=== PATIENT | female | born 1950 | race Caucasian/White ===

== ENCOUNTER 2021-12-07 21:46 | Emergency (ER) | payer MEDICARE, BC, SELFPAY ==
[2021-12-07 22:06] VITALS: BP 138/67; PULSE 66; RESP 18; TEMP 36.8; O2SAT 97; BMI 29.4
--- NOTE | 2021-12-07 22:54 | ED.GENADULT ---
HPI - General Adult General Time Seen by Provider: 22:48 Date Seen: 12/07/21 Chief complaint: Arrhythmia/Palpitations Stated complaint: Ablasion on Friday heart rate fast Time Seen by Provider: 12/07/21 22:30 Source: patient Mode of arrival: ambulatory Limitations: no limitations History of Present Illness HPI narrative: 71-year-old female who comes in today with palpitations. She has history of SVT and atrial fibrillation, had an ablation done 4 days ago. Today she has had some intermittent faster heart rates up to 103 accompanied by some lightheadedness, no chest pain or shortness of breath. She was on metoprolol and sotalol, the sotalol was stopped after for ablation. She denies any other new medications or concerns. She is anticoagulated. Related Data Allergies Allergy/AdvReac Type Severity Reaction Status Date / Time Penicillins Allergy Verified 12/07/21 22:05 amlodipine Allergy Uncoded 12/07/21 22:06 Review of Systems Status of ROS: Reports: 10 or more systems reviewed and unremarkable except as noted in History and below PFSH PFSH Social History Smoking Status: Never smoker Do you use any of these nicotine containing products: None Second hand tobacco smoke exposure: No How often do you have a drink containing alcohol: monthly or less How many standard drinks containing alcohol do you have on a typical day: 1 or 2 How often do you have six or more drinks on one occasion: Never AUDIT-C Alcohol total score: 1 Non-prescribed substance use: denies use service: No Exam Const: Vital Signs, click to edit/add: Vital Signs - 24 hr 12/07/21 22:06 Temperature 98.2 F Pulse Rate [Apical ] 66 Respiratory Rate 18 Blood Pressure [Le ft Upper Arm] 138/67 Pulse Oximetry 97 Oxygen Delivery Me thod Room Air Documenting provider has reviewed patient's vital signs: yes Common normals: no apparent distress, oriented x3, alert and well nourished HENMT: Common normals: normocephalic, head/scalp atraumatic, external ears normal and external nose normal Head and scalp: normocephalic and atraumatic Nose: external nose normal External ear: external ears normal Eye: Common normals: PERRL and conjunctivae normal Conjunctiva: conjunctiva(e) normal Pupil: PERRL Neck & C-Spine: Common normals: full ROM, no lymphadenopathy and supple Chest: Common normals: palpation of chest normal Resp: Common normals: normal respiratory effort and clear to auscultation bilaterally Auscultation: clear to auscultation bilaterally Cardio: Common normals: regular rate, regular rhythm and no murmurs Rate: regular rate Rhythm: regular rhythm GI: Common normals: Normal to inspection, nondistended, normoactive bowel sounds present, soft to palpation and non-tender Palpation: soft : Common normals: no CVA tenderness Bladder/kidney exam: no CVA tenderness Back & Pelvis: Common normals: no CVA tenderness and thoracic and lumbar spine normal to inspection Extremity: Common normals: normal to inspection, full ROM and no pedal edema Neuro: Common normals: oriented x3, CN's II-XII intact bilaterally and no focal motor deficits Sensorium/orientation: alert Psych: Common normals: mental status grossly normal Skin: Common normals: no rashes or lesions noted General skin exam: no rashes or lesions noted Course Course Hospital Course: Patient seen and examined, prior records are reviewed. Patient presents with palpitations today after having had an ablation a couple of days ago. Appears comfortable and in sinus rhythm here, EKG is reassuring. Labs ordered to evaluate for electrolyte NM to use that could be causing symptoms and if these are reassuring, will discuss with Cardiology. Reevaluation(s) Reevaluation #1: Basic panel is reassuring. Troponin is minimally elevated at 0.15 which is not unexpected with patient's recent ablation. Care was discussed with cardiology at [facility]. He agrees that the elevated troponin is related to recent ablation, especially in absence of chest pain or shortness of breath. Does not recommend any medication changes at this point and advises that palpitations may persist for up to 3-4 weeks. Time: 00:03 Vital Signs Vital signs: Initial Vital Signs Temperature 98.2 F 12/07/21 22:06 Temperature Source Temporal Artery Scan 12/07/21 22:06 Pulse Rate 66 12/07/21 22:06 Pulse Rhythm 12/07/21 22:06 Respiratory Rate 18 12/07/21 22:06 Blood Pressure 138/67 12/07/21 22:06 Blood Pressure Mean 90 12/07/21 22:06 Blood Pressure Position Supine 12/07/21 22:06 Pulse Oximetry 97 12/07/21 22:06 Oxygen Delivery Method 12/07/21 22:06 Vital Signs Temperature 98.2 F 12/07/21 22:06 Pulse Rate 66 12/07/21 22:06 Respiratory Rate 18 12/07/21 22:06 Blood Pressure 138/67 12/07/21 22:06 Pulse Oximetry 97 12/07/21 22:06 Oxygen Delivery Method 12/07/21 22:06 Temperature 98.2 F 12/07/21 22:06 Pulse Rate 66 12/07/21 22:06 Respiratory Rate 18 12/07/21 22:06 Blood Pressure 138/67 12/07/21 22:06 Pulse Oximetry 97 12/07/21 22:06 Oxygen Delivery Method 12/07/21 22:06 Medical Decision Making Medical Records Medical records reviewed: Yes I reviewed the patient's medical records Lab Data Lab results reviewed: Yes I reviewed the patient's lab results Labs: Lab Results 12/07/21 12/07/21 Range/Units 23:15 23:15 Sodium 136 (135-149) mmol/L Potassium 3.7 (3.6-5.1) mmol/L Chloride 103 (96-114) mmol/L Carbon Dioxide 26 (20-32) mmol/L BUN 23 (7-30) mg/dL Creatinine 1.2 (0.5-1.5) mg/dL Estimated Creat Clear 36.59 Estimated GFR 48 ml/min Glucose 114 (60-115) mg/dL Calcium 9.0 (8.4-10.6) mg/dL Magnesium 1.8 (1.5-2.6) mg/dL POC Troponin I 0.15 H (0.01-0.04) ng/ml ECG Data Attestation: I personally reviewed and interpreted this ECG as follows: Prior ECG tracings: available for review Interpretation: Performed at 10:19 p.m. demonstrates normal sinus rhythm rate 65, no acute ST elevations or depressions, normal intervals, normal axis, QTC 436, P are 152. Compared to prior done at [facility] on December 05, previously seen left axis deviation is absent today. Discharge Plan Discharge Clinical Impression: Palpitations, S/P ablation of atrial fibrillation Condition: Improved Instructions: Heart Palpitations (DC) Additional Instructions: If your symptoms last longer than 1 hour, take 1/2 tablet of metoprolol. If you have chest pain, return to the emergency department. Follow Up/Referrals: Erika Benito MD [Primary Care Provider] - Stand Alone Forms: Message[employer] Info Instructions
[2021-12-07 23:00] VITALS: BP 136/60; PULSE 69; RESP 16; O2SAT 97
[2021-12-07 23:31] LABS: Troponin, Point-of-Care* 0.15 ng/ml (0.01-0.04)
[2021-12-07 23:48] LABS: Chloride* 103 mmol/L (96-114); Potassium* 3.7 mmol/L (3.6-5.1); Sodium* 136 mmol/L (135-149)
[2021-12-07 23:50] VITALS: BP 137/65; PULSE 68; RESP 16; O2SAT 99
[2021-12-07 23:51] LABS: Blood Urea Nitrogen* 23 mg/dL (7-30); Carbon Dioxide* 26 mmol/L (20-32); Creatinine* 1.2 mg/dL (0.5-1.5); Est. Creatinine Clearance* 36.59; Estimated Glomerular Filt Rate 48 ml/min; Glucose* 114 mg/dL (60-115)
[2021-12-07 23:52] LABS: Magnesium* 1.8 mg/dL (1.5-2.6)
== END 2021-12-08 00:38 | disposition home or self-care (01) ==
PROVIDERS: Emergency Provider Family Medicine; PCP Family Medicine
DX: R00.2 Palpitations (principal)
CPT/HCPCS: 36415; 80048; 83735; 84484; 93005; 99284

== ENCOUNTER 2021-12-09 14:06 | Emergency (ER) | payer MEDICARE, BC, SELFPAY ==
[2021-12-09 14:13] VITALS: BP 172/82; PULSE 77; RESP 16; TEMP 36.8; O2SAT 98; BMI 29.7
--- NOTE | 2021-12-09 14:32 | ED.GENADULT ---
HPI - General Adult General Chief complaint: Allergic Reaction Stated complaint: Med Reaction, wants to switch to coumadin Time Seen by Provider: 12/09/21 14:10 History of Present Illness HPI narrative: Pt is a 71 year old with a history of Cardiomyopathy SP ablation of both Atrial Fibrillation and SVT 6 days ago at [facility] who presents after developing flushing and prickling sensation after both Eliquis and Pradaxa dosing. Pt last took Eliquis yesterday 1/2 dose. Pt not comfortable taking either medication any further. She feels fine with no palpitations or related symptoms. Cardiology asked that she be started on Lovenox plus Coumadin with outpt INR. No further workup recommended. Pt seen for tachycardia here in ED after ablation which improved with an extra dose of Metoprolol. Upset but otherwise feels fine. Related Data Home Medications Medication Instructions Recorded Confirmed alprazolam 0.5 mg tablet 0.25 mg PRN 12/09/21 hydrochlorothiazide 25 mg tablet 25 mg PO DAILY 12/09/21 12/09/21 levothyroxine 112 mcg tablet 112 mcg PO DAILY 12/09/21 12/09/21 losartan 100 mg tablet 100 mg PO DAILY 12/09/21 12/09/21 metoprolol tartrate 50 mg tablet 50 mg PO Q12H 12/09/21 12/09/21 pantoprazole 40 mg tablet,delayed 40 mg PO Q12H 12/09/21 12/09/21 release rosuvastatin 5 mg tablet mg DAILY 12/09/21 sucralfate 1 gram tablet 1 g PRN 12/09/21 Previous Rx's Medication Instructions Recorded enoxaparin 80 mg/0.8 mL 80 mg (0.8 mL) subcut Q12H 12/09/21 subcutaneous syringe (Lovenox) Ablation #8 mL warfarin 5 mg tablet 5 mg PO DAILY Ablation #14 tabs 12/09/21 Allergies Allergy/AdvReac Type Severity Reaction Status Date / Time dabigatran etexilate Allergy redness Verified 12/09/21 14:21 [From Pradaxa] and itching Penicillins Allergy Verified 12/07/21 22:05 rivaroxaban [From Xarelto] Allergy Verified 12/09/21 14:21 amlodipine Allergy Uncoded 12/07/21 22:06 Review of Systems Status of ROS: Reports: 10 or more systems reviewed and unremarkable except as noted in History and below [facility] Surgical History (Updated 12/09/21 @ 14:45 by Kareem Gonzalez MD) History of cardiac radiofrequency ablation Social History Smoking Status: Never smoker Do you use any of these nicotine containing products: None Second hand tobacco smoke exposure: No How often do you have a drink containing alcohol: monthly or less How many standard drinks containing alcohol do you have on a typical day: 1 or 2 How often do you have six or more drinks on one occasion: Never AUDIT-C Alcohol total score: 1 Non-prescribed substance use: denies use service: No Exam Narrative: Exam Narrative: EXAM GENERAL: Patient appears comfortable and well. EYES: No scleral icterus. THYROID: no thyroid nodules or thyromegaly. LYMPH: No supraclavicular or cervical lymphadenopathy. SKIN: Visible skin seen during exam normal or with benign process only. EXT: No dependent lower extremity pedal edema. HEART: Regular rate and rhythm with no murmurs, rubs, or gallops.Distant heart tones. LUNGS: Clear to auscultation bilaterally with no crackles or wheezes. ABD: Soft, non tender, non distended. PSYCH: Good eye contact, speech is not pressured. Const: Vital Signs, click to edit/add: Vital Signs - 24 hr 12/09/21 14:13 Temperature 98.2 F Pulse Rate [Right Pulse Oximeter] 77 Respiratory Rate 16 Blood Pressure [Le ft Upper Arm] 172/82 H Pulse Oximetry 98 Oxygen Delivery Me thod Room Air Course Course Hospital Course: Spoke with Triage nurse at [facility] who had been in touch with Dr. Gerald Perez who recomended no further workup as long as she is feeling well but bridge therapy with Lovenox onto Coumadin with outpt follow up. Vital Signs Vital signs: Initial Vital Signs Temperature 98.2 F 12/09/21 14:13 Temperature Source Temporal Artery Scan 12/09/21 14:13 Pulse Rate 77 12/09/21 14:13 Respiratory Rate 16 12/09/21 14:13 Blood Pressure 172/82 H 12/09/21 14:13 Blood Pressure Mean 112 12/09/21 14:13 Blood Pressure Position Sitting 12/09/21 14:13 Pulse Oximetry 98 12/09/21 14:13 Oxygen Delivery Method 12/09/21 14:13 Vital Signs Temperature 98.2 F 12/09/21 14:13 Pulse Rate 77 12/09/21 14:13 Respiratory Rate 16 12/09/21 14:13 Blood Pressure 172/82 H 12/09/21 14:13 Pulse Oximetry 98 12/09/21 14:13 Oxygen Delivery Method 12/09/21 14:13 Temperature 98.2 F 12/09/21 14:13 Pulse Rate 77 12/09/21 14:13 Respiratory Rate 16 12/09/21 14:13 Blood Pressure 172/82 H 12/09/21 14:13 Pulse Oximetry 98 12/09/21 14:13 Oxygen Delivery Method 12/09/21 14:13 Medical Decision Making MDM Narrative Medical decision making narrative: Reviewed the case with Cardiology and reviewed previous ED note. Pt has a Cardiomyopath SP recent ablation and requires anticoagulation. She has normal pulse now and shows no signs of CHF. Will set up Outpt bridge therapy Lovenox to Coumadin. No signs of any significant allergic reaction. Discharge Plan Discharge Clinical Impression: Cardiomyopathy Patient Disposition: Home, Self-Care Condition: Stable Instructions: Warfarin (By mouth), Enoxaparin (By injection) Additional Instructions: Lovenox and Coumadin as presribed Continue current medications Return alli if probles develop Call Primary Doctor tomorrow to set up outpt INR clinic Activity Level: Activity as Tolerated Discharge Diet: Regular Prescriptions: New warfarin 5 mg tablet 5 mg PO DAILY Qty: 14 0RF enoxaparin [Lovenox] 80 mg/0.8 mL syringe 80 mg subcut Q12H Qty: 8 0RF No Action alprazolam 0.5 mg tablet 0.25 mg PRN Label Comments: TAKE ONE TABLET BY MOUTH DAILY IF NEEDED FOR ANXIETY. RARE USE . hydrochlorothiazide 25 mg tablet 25 mg PO DAILY Label Comments: TAKE ONE TABLET BY MOUTH ONCE DAILY levothyroxine 112 mcg tablet 112 mcg PO DAILY Label Comments: TAKE 1 TABLET BY MOUTH BEFORE BREAKFAST. losartan 100 mg tablet 100 mg PO DAILY Label Comments: TAKE 1 TABLET BY MOUTH ONCE DAILY. metoprolol tartrate 50 mg tablet 50 mg PO Q12H Label Comments: TAKE 1 TABLET (50MG) BY MOUTH TWICE A DAY pantoprazole 40 mg tablet,delayed release (DR/EC) 40 mg PO Q12H Label Comments: TAKE 1 TABLET BY MOUTH IN THE MORNING AND 1 TABLET IN THE EVENING TAKE BEFORE MEALS (TAKE FOR 1 MONTH POST ABLATION THEN RESUME 1 TABLET DAILY) rosuvastatin 5 mg tablet DAILY Label Comments: TAKE ONE TABLET BY MOUTH AT BEDTIME sucralfate 1 gram tablet 1 g PRN Label Comments: TAKE ONE TABLET BY MOUTH TWICE DAILY NEEDED Follow Up/Referrals: Erika Benito MD [Primary Care Provider] - Stand Alone Forms: Zero9 Info Instructions
[2021-12-09] MEDS: WARFARIN 5 MG TABLET PO (15:23)
[2021-12-09] MEDS: ENOXAPARIN 80 MG/0.8 ML INJ SUBCUT (15:25)
--- NOTE | 2021-12-09 15:55 | ED.NURSE ---
Checked on pt. States that she is starting to feel flush in her face. Dr Gonzalez updated. Pt placed on cardiac nurse practitioner, continuous b/p and pulse oximetry. Per Dr Gonzalez, continue to monitor pt until 1620. No IV at this time per
[2021-12-09 16:10] VITALS: BP 134/73; PULSE 67; RESP 12; O2SAT 97
[2021-12-09 16:20] VITALS: BP 149/72; PULSE 70; RESP 15; O2SAT 98
--- NOTE | 2021-12-09 16:28 | ED.NURSE ---
reaction is not getting worse. ok to d/c per Dr Gonzalez. Pt d/c to home with daughter
== END 2021-12-09 16:25 | disposition home or self-care (01) ==
LOC: ED 14:59
PROVIDERS: Emergency Provider Internal Medicine; PCP Family Medicine
DX: Z98.890 Other specified postprocedural states (principal); T88.7XXA Unspecified adverse effect of drug or medicament, initial encounter; I42.9 Cardiomyopathy, unspecified
CPT/HCPCS: 96372; 99283; 99284; A9270; J1650

== ENCOUNTER 2022-02-15 15:41 | Emergency (ER) | payer MEDICARE, BC, SELFPAY ==
[2022-02-15 15:54] VITALS: BP 183/92; PULSE 77; RESP 18; TEMP 36.8; O2SAT 99
[2022-02-15 16:00] VITALS: BP 172/88; PULSE 75; RESP 16; O2SAT 98
--- NOTE | 2022-02-15 16:11 | CRLHL7_ITS ---
For Patients: As a result of the Century Cures Act, medical imaging exams and procedure reports are released immediately into your electronic medical record. You may view this report before your referring provider. If you have questions, please contact your health care provider. Indication: Headache Technique: Volumetric multidetector CT images of the head were obtained without the administration of low osmolar intravenous contrast. Comparison: CT head December 09, 2019 Findings: There is no intra-axial or extra-axial fluid collection. There is no mass effect or midline shift. There is age-related cortical atrophy with mild sulcal widening and ex vacuo dilatation of the lateral ventricles. There are chronic small vessel disease changes in the subcortical and periventricular white matter without lost cabral-white differentiation. The orbits and their contents are grossly within normal limits. The bony calvarium is grossly intact. The paranasal sinuses are clear. The mastoid air cells are well aerated. Impression: 1. Age-related changes of the brain without acute intracranial abnormality. Please note that all CT scans at this facility use dose modulation, iterative reconstruction, and/or weight-based dosing when appropriate to reduce radiation dose to as low as reasonably achievable. Dictated by Zuhair Martinez MD @ 02/15/2022 5:43:18 PM (Electronically Signed)
--- OUTSIDE RECORDS SUMMARY | 2022-02-15 16:21 | XMS_ITS | Encounter Summary ---
:1950 Author Organization [facility] Address [address] [place] [id number] Care Team Providers Name Role Phone Erika Benito Primary Care Provider Encounter Details Date Type Department Care Team Description 06/26/2020 [facility] [address] [place] [address] Social History Tobacco Use Types Packs/Day Years Used Date Smoking Tobacco: Never Alcohol Use Standard Drinks/Week Comments No 0 (1 standard drink = 0.6 oz pure alcoho l) Sex Assigned at Date Recorded Not on file documented as of this encounter Plan of Treatment Not on filedocumented as of this encounter Visit Diagnoses Not on filedocumented in this encounter Care Teams Squad Leader Relationship Specialty Start Date End Date Erika Benito PCP - General 08/12/11 documented as of this encounter
--- OUTSIDE RECORDS SUMMARY | 2022-02-15 16:21 | XMS_ITS | Encounter Summary ---
:1950 Author Organization [facility] Address [address] [place] [id number] Care Team Providers Name Role Phone Erika Benito Primary Care Provider Encounter Details Date Type Department Care Team Description 07/25/2020 Documentation Only INTERFACED REPORT Unknown, Provider Social History Tobacco Use Types Packs/Day Years Used Date Smoking Tobacco: Never Alcohol Use Standard Drinks/Week Comments No 0 (1 standard drink = 0.6 oz pure alcoho l) Sex Assigned at Date Recorded Not on file documented as of this encounter Plan of Treatment Not on filedocumented as of this encounter Visit Diagnoses Not on filedocumented in this encounter Care Teams Informal Waiter/Waitress Relationship Specialty Start Date End Date Erika Benito PCP - General 08/12/11 documented as of this encounter
--- OUTSIDE RECORDS SUMMARY | 2022-02-15 16:21 | XMS_ITS | Encounter Summary ---
:1950 Author Organization [facility] Address [address] [place] [address]. [place] [address] Care Team Providers Name Role Phone Erika Benito Primary Care Provider Reason for Referral Diagnostic Imaging Mammo (Routine) - Closed Specialty Diagnoses / Procedures Referred By Contact Refer red To Contact Radiology. Diagnoses Visit for screening mammogram Jayda Orlando MD [facility] Procedures [place] Screen Bilateral w/Hakan [address] [place] [address] [address] Phone: Fax: Referral ID Status Reason Start Date Expiration Date Visits Requ ested Visits Authorized [id number] Closed 10/26/2018 10/26/2019 1 1 Reason for Visit Diagnostic Imaging Mammo (Routine) - Closed Specialty Diagnoses / Procedures Referred By Contact Refer red To Contact Radiology. Diagnoses Visit for screening mammogram Jayda Orlando MD [facility] Procedures [place] Screen Bilateral w/Hakan [address] [place] [address] [place] [address] [place] [address] Phone: Fax: Referral ID Status Reason Start Date Expiration Date Visits Requ ested Visits Authorized [id number] Closed 10/26/2018 10/26/2019 1 1 Encounter Details Date Type Department Care Team Description 11/09/[facility] [place] MD mammogram [address] [place] [address] [place] [phone] Social History Tobacco Use Types Packs/Day Years Used Date Smoking Tobacco: Never Alcohol Use Standard Drinks/Week Comments No 0 (1 standard drink = 0.6 oz pure alcoho l) Sex Assigned at Date Recorded Not on file documented as of this encounter Medications at Time of Discharge Medication Sig Dispensed Refills Start Date End Date aspirin 81 MG tablet Take by mouth 0 daily. hydrochlorothiazide (MICROZIDE) Take 12.5 mg by 0 12.5 MG capsule mouth daily. losartan (COZAAR) 50 MG tablet Take 50 mg by 0 mouth daily. MECLIZINE HCL 25-50 mg as 0 needed. METOPROLOL SUCCINATE PO Take by mouth. 0 documented as of this encounter Plan of Treatment Not on filedocumented as of this encounter Procedures Procedure Name Priority Date/Time Associated Diagnosis Comme nts MA SCREENING Routine 11/09/2018 10:28 AM Visit for screening R esults for this BILATERAL W/ HAKAN CDT mammogram procedure are in the results section. documented in this encounter Results MA Screen Bilateral w/Hakan (11/09/2018 10:28 AM CDT) Anatomical Region Laterality Modality Breast Bilateral Mammography Specimen (Source) Anatomical Location Collection Method / Collectio n Time Received Time / Laterality Volume Impressions 11/09/2018 11:04 AM CDT IMPRESSION: BI-RADS CATEGORY: 1 - ??Negative. RECOMMENDED FOLLOW-UP: Annual Mammograph mouna ALVAREZ MD Narrative 11/09/2018 11:04 AM CDT SCREENING MAMMOGRAM, BILATERAL, DIGITAL w/CAD and TOMOSYNTHESIS, 11/09/2018 11:04 AM BREAST DENSITY: Scattered fibroglandular densities. CLINICAL INFORMATION: Breast screening. ??Visit for screening mammogram, 11/05/2017, 10/17/2014 FINDINGS: Negative. Stable exam. Screeni ng exam in one year recommended. Procedure Note Raheel Alvarez MD - 11/09/2018Formatt ing of this note might be different from the original. SCREENING MAMMOGRAM, BILATERAL, DIGITAL w/CAD and TOMOSYNTHESIS, 11/09/2018 11:04 AM BREAST DENSITY: Scattered fibroglandular densities. CLINICAL INFORMATION: Breast screening. Visit for screening mammogram, 11/05/2017, 10/17/2014 FINDINGS: Negative. Stable exam. Screeni ng exam in one year recommended. IMPRESSION: BI-RADS CATEGORY: 1 - Negati ve. RECOMMENDED FOLLOW-UP: Annual Mammograph y. RAHEEL ALVAREZ MD Jayda Orlando MD IMG MAMMOGRAPHY ORDERABLES documented in this encounter Visit Diagnoses Diagnosis Visit for screening mammogram Other screening mammogram documented in this encounter Care Teams Manager Shop Relationship Specialty Start Date End Date Erika Benito PCP - General 08/12/11 documented as of this encounter
--- OUTSIDE RECORDS SUMMARY | 2022-02-15 16:21 | XMS_ITS | Encounter Summary ---
:1950 Author Organization [facility] Address [address] [place] [address]. [place] [address] Care Team Providers Name Role Phone Erika Benito Primary Care Provider Reason for Referral Diagnostic Imaging Ultrasound (Routine) - Closed Specialty Diagnoses / Procedures Referred By Contact Refer red To Contact Radiology. Diagnoses Breast pain, left Jayda Orlando MD Rh Ultrasound Breast Procedures US Breast Left [address] [place] [address] [address] Referral ID Status Reason Start Date Expiration Date Visits Requ ested Visits Authorized [id number] Closed 08/30/2020 08/30/2021 1 1 Reason for Visit Diagnostic Imaging Ultrasound (Routine) - Closed Specialty Diagnoses / Procedures Referred By Contact Refer red To Contact Radiology. Diagnoses Breast pain, left Jayda Orlando MD Rh Ultrasound Breast Procedures US Breast Left [address] [place] [address] [place], [place] [id number] [place] [phone] Referral ID Status Reason Start Date Expiration Date Visits Requ ested Visits Authorized [id number] Closed 08/30/2020 08/30/2021 1 1 Encounter Details Date Type Department Care Team Description 08/31/2020 Hospital Encounter [facility] Jayda Orlando, Br east pain, left [facility] [address] [place], [address] [place] [address] [facility] [place] [phone] Social History Tobacco Use Types Packs/Day Years Used Date Smoking Tobacco: Never Alcohol Use Standard Drinks/Week Comments No 0 (1 standard drink = 0.6 oz pure alcoho l) Sex Assigned at Date Recorded Not on file COVID-19 Exposure Response Date Recorded In the last month, have you been in contact with No / Unsure 08/31/2020 1:50 PM CDT someone who was confirmed or suspected to have Coronavirus / COVID-19? documented as of this encounter Medications at [...] Name Priority Date/Time Associated Diagnosis Comme nts US BREAST LEFT Routine 08/31/2020 3:02 PM Breast pain, left Re sults for this LIMITED 1-3 CDT procedure are i n QUADRANTS the results section. documented in this encounter Results US Breast Left (08/31/2020 3:02 PM CDT) Anatomical Region Laterality Modality Breast Left Ultrasound Specimen (Source) Anatomical Location Collection Method / Collectio n Time Received Time / Laterality Volume Impressions 08/31/2020 3:38 PM CDT IMPRESSION: BI-RADS CATEGORY: 1 - ??Negative RECOMMENDED FOLLOW-UP: Annual Mammograph mouna YEE MD Narrative 08/31/2020 3:38 PM CDT MA DIAGNOSTIC BILATERAL W/ MELISSA, US BREAST LEFT LIMITED 1-3 QUADRANTS- 08/31/2020 2:43 PM ?? HISTORY: ??Intermittent pain in the left breast COMPARISON: ??11/15/2019, 11/09/2018, 11/05, 11/04/2016 BREAST DENSITY: Heterogeneously dense. FINDINGS: ??A bilateral mammogram with t omosynthesis was obtained. The pattern of heterogeneously dense fibrogl andular tissue is stable compared with prior mammograms. No suspi cious finding. Ultrasound was targeted to the area of p ain in the upper outer left breast. No sonographic abnormality is se en. Jayda Orlando MD IMG US ORDERABLES documented in this encounter Visit Diagnoses Diagnosis Breast pain, left Mastodynia documented in this encounter Care Teams Watch Repairer Relationship Specialty Start Date End Date Erika Benito PCP - General 08/12/11 documented as of this encounter
--- OUTSIDE RECORDS SUMMARY | 2022-02-15 16:21 | XMS_ITS | Encounter Summary ---
:1950 Author Organization [facility] Address [address] [place] [address]. [place] [address] Care Team Providers Name Role Phone ThongJose Luise Primary Care Provider Reason for Visit (Routine) - Closed Specialty Diagnoses / Procedures Referred By Contact Refer red To Contact Radiology / Radiology. Procedures Breast Center MA SCREENING BILATERAL [address], W/ HAKAN [address] [place] [address] Phone: Fax: Referral ID Status Reason Start Date Expiration Date Visits Requ ested Visits Authorized [id number] Closed 10/24/2016 10/24/2017 1 1 Encounter Details Date Type Department Care Team Description 11/04/2016 Hospital Encounter [facility] Jayda Orlando, En counter for [facility] Breast [place] screening mammogram [address] [facility], [address] for high-risk [address] [place] [phone] Social History Tobacco Use Types Packs/Day [...] Associated Diagnosis Comme nts MA SCREENING Routine 11/04/2016 9:26 AM Encounter for Results for this BILATERAL W/ HAKAN CDT screening mammogram pro cedure are in for high-risk the results patient section. documented in this encounter Results MA Screen Bilateral w/Hakan (11/04/2016 9:26 AM CDT) Anatomical Region Laterality Modality Breast Bilateral Mammography Specimen (Source) Anatomical Location Collection Method / Collectio n Time Received Time / Laterality Volume Impressions 11/04/2016 10:44 AM CDT IMPRESSION: BI-RADS CATEGORY: 1 - ??Negative. RECOMMENDED FOLLOW-UP: Annual Mammograph yHarrison ALVAREZ MD Narrative 11/04/2016 10:44 AM CDT SCREENING MAMMOGRAM, BILATERAL, DIGITAL w/CAD and TOMOSYNTHESIS, 11/04/2016 10:43 AM BREAST DENSITY: Scattered fibroglandular densities. CLINICAL INFORMATION: ??Encounter for sc reening mammogram for malignant neoplasm of breast, 10/31/2015, 08/10/2010 FINDINGS: Negative. Stable exam. Screeni ng exam in one year recommended. Procedure Note Kael Alvarez MD - 11/04/2016Formatt ing of this note might be different from the original. SCREENING MAMMOGRAM, BILATERAL, DIGITAL w/CAD and TOMOSYNTHESIS, 11/04/2016 10:43 AM BREAST DENSITY: Scattered fibroglandular densities. CLINICAL INFORMATION: Encounter for scre ening mammogram for malignant neoplasm of breast, 10/31/2015, 08/10/2010 FINDINGS: Negative. Stable exam. Screeni ng exam in one year recommended. IMPRESSION: BI-RADS CATEGORY: 1 - Negati ve. RECOMMENDED FOLLOW-UP: Annual Mammograph mouna ALVAREZ MD Jayda Orlando MD IMG MAMMOGRAPHY ORDERABLES documented in this encounter Visit Diagnoses Diagnosis Encounter for screening mammogram for hi gh-risk patient documented in this encounter Care Teams Diesel Engine Pipe Fitter Relationship Specialty Start Date End Date Erika Benito PCP - General 08/12/11 documented as of this encounter
--- OUTSIDE RECORDS SUMMARY | 2022-02-15 16:21 | XMS_ITS | Encounter Summary ---
:1950 Author Organization [facility] Address [address] [place] [address]. [place] [address] Care Team Providers Name Role Phone Erika Benito Primary Care Provider Reason for Visit (Routine) - Closed Specialty Diagnoses / Procedures Referred By Contact Refer red To Contact Radiology / Radiology. Diagnoses prev [facility] Breast Center Procedures MA SCREENING DIGITAL BILATERAL [address], [address] [place] [address] Phone: Fax: Referral ID Status Reason Start Date Expiration Date Visits Requ ested Visits Authorized [id number] Closed 10/31/2015 10/30/2016 1 1 Encounter Details Date Type Department Care Team Description 10/31/2015 Hospital Encounter [facility] Jayda Orlando, En counter for [facility] screening mammogram [address], [address] [facility] for breast cancer [address] [place] [phone] Social History Tobacco Use Types Packs/Day Years [...] Associated Diagnosis Comme nts MA SCREENING Routine 10/31/2015 1:57 PM Encounter for Results for this BILATERAL W/ HAKAN CDT screening mammogram pro cedure are in for breast cancer the result s section. documented in this encounter Results MA Screen Bilateral w/Hakan (10/31/2015 1:57 PM CDT) Anatomical Region Laterality Modality Breast Bilateral Mammography Specimen (Source) Anatomical Location Collection Method / Collectio n Time Received Time / Laterality Volume Impressions 10/31/2015 2:15 PM CDT IMPRESSION: BI-RADS CATEGORY: 2 - Benign. RECOMMENDED FOLLOW-UP: Annual Mammograph y. Recommend routine annual screening mammo graphy. Exam results letter mailed to patient. BRIAN SINGER MD Narrative 10/31/2015 2:15 PM CDT SCREENING MAMMOGRAM, BILATERAL, DIGITAL w/CAD AND TOMOSYNTHESIS - 10/31/2015 1:57 PM. BREAST SYMPTOMS: No current breast compl aints. COMPARISON: ??10/17/2014, 08/13/2011. BREAST DENSITY: Scattered fibroglandular densities. COMMENTS: No findings of suspicion for m alignancy. ?? The patient has had a prior left needle biopsy. Procedure Note Brian Singer MD - 10/31/2015 SCREENING MAMMOGRAM, BILATERAL, DIGITAL w/CAD AND TOMOSYNTHESIS - 10/31/2015 1:57 PM. BREAST SYMPTOMS: No current breast compl aints. COMPARISON: 10/17/2014, 08/13/2011. BREAST DENSITY: Scattered fibroglandular densities. COMMENTS: No findings of suspicion for m alignancy. The patient has had a prior left needle biopsy. IMPRESSION: BI-RADS CATEGORY: 2 - Benign . RECOMMENDED FOLLOW-UP: Annual Mammograph y. Recommend routine annual screening mammo graphy. Exam results letter mailed to patient. BRIAN SINGER MD Jayda Orlando MD IMG MAMMOGRAPHY ORDERABLES documented in this encounter Visit Diagnoses Diagnosis Encounter for screening mammogram for br east cancer documented in this encounter Care Teams Machine Tack Puller Relationship Specialty Start Date End Date Erika Benito PCP - General 08/12/11 documented as of this encounter
--- OUTSIDE RECORDS SUMMARY | 2022-02-15 16:21 | XMS_ITS | Encounter Summary ---
:1950 Author Organization [facility] Address [address] [place] [address]. [place] [address] Care Team Providers Name Role Phone Erika Benito Primary Care Provider Encounter Details Date Type Department Care Team Description 08/31/2020 Travel Social History Tobacco Use Types Packs/Day Years [...] / COVID-19? documented as of this encounter Plan of Treatment Not on filedocumented as of this encounter Visit Diagnoses Not on filedocumented in this encounter Care Teams Supervisor Functional Testing Relationship Specialty Start Date End Date Erika Benito PCP - General 08/12/11 documented as of this encounter
--- OUTSIDE RECORDS SUMMARY | 2022-02-15 16:21 | XMS_ITS | Encounter Summary ---
:1950 Author Organization [facility] Address [address] [place] [address]. [place] [address] Care Team Providers Name Role Phone Erika Benito Primary Care Provider Reason for Referral Diagnostic Imaging Mammo (Routine) - Closed Specialty Diagnoses / Procedures Referred By Contact Refer red To Contact Diagnoses Breast pain, left Jayda Orlando MD Procedures MA Diagnostic Bilateral w/Hakan [address] [place] [address] Referral ID Status Reason Start Date Expiration Date Visits Requ ested Visits Authorized [id number] Closed 08/30/2020 08/30/2021 1 1 Reason for Visit Diagnostic Imaging Mammo (Routine) - Closed Specialty Diagnoses / Procedures Referred By Contact Refer red To Contact Diagnoses Breast pain, left Jayda Orlando MD Procedures MA Diagnostic Bilateral w/Hakan [address] [place] [address] Referral ID Status Reason Start Date Expiration Date Visits Requ ested Visits Authorized [id number] Closed 08/30/2020 08/30/2021 1 1 Encounter Details Date Type Department Care Team Description 08/31/2020 Hospital Encounter [facility] Jayda Orlando, Br east pain, left [facility] MD [address] [facility], [address] [place], [place] [phone] Social History Tobacco Use Types Packs/Day Years [...] encounter Procedures Procedure Name Priority Date/Time Associated Comments Diagnosis MA DIAGNOSTIC Routine 08/31/2020 2:43 PM Breast pain, left Res ults for this BILATERAL W/ HAKAN CDT procedure are in the results section. documented in this encounter Results MA Diagnostic Bilateral w/Hakan (08/31/2020 2:43 PM CDT) Anatomical Region Laterality Modality Breast Bilateral Mammography Specimen (Source) Anatomical Location Collection Method / Collectio n Time Received Time / Laterality Volume Impressions 08/31/2020 3:38 PM CDT IMPRESSION: BI-RADS CATEGORY: 1 - ??Negative RECOMMENDED FOLLOW-UP: Annual Mammograph y. PENNY YEE MD Narrative 08/31/2020 3:38 PM CDT MA DIAGNOSTIC BILATERAL W/ HAKAN, US BREAST LEFT LIMITED 1-3 QUADRANTS- 08/31/2020 [...] is se en. Jayda Orlando MD IMG MAMMOGRAPHY ORDERABLES documented in this encounter Visit Diagnoses Diagnosis Breast pain, left Mastodynia documented in this encounter Care Teams Cattle Sprayer Relationship Specialty Start Date End Date Erika Benito PCP - General 08/12/11 documented as of this encounter
--- OUTSIDE RECORDS SUMMARY | 2022-02-15 16:21 | XMS_ITS | Encounter Summary ---
:1950 Author Organization [facility] Address [address] [place] [address]. [place] [address] Care Team Providers Name Role Phone Erika Benito Primary Care Provider Reason for Referral Diagnostic Imaging Mammo (Routine) - Pending Review Specialty Diagnoses / Procedures Referred By Contact Refer red To Contact Diagnoses Visit for screening mammogram Jayda Orlando MD Procedures MA Screen Bilateral w/Hakan [address] [place] [address] Referral ID Status Reason Start Date Expiration Date Visits V isits Requested Authorized [id number] Pending 08/23/2021 08/23/2022 1 1 Review Reason for Visit Diagnostic Imaging Mammo (Routine) - Pending Review Specialty Diagnoses / Procedures Referred By Contact Refer red To Contact Diagnoses Visit for screening mammogram Jayda Orlando MD Procedures MA Screen Bilateral w/Hakan [address] [place] [address] Referral ID Status Reason Start Date Expiration Date Visits V isits Requested Authorized [id number] Pending 08/23/2021 08/23/2022 1 1 Review Encounter Details Date Type Department Care Team Description 09/10/2021 Hospital Encounter [facility] Jayda Orlando Vi sit for screening [facility] MD mammogram [address] [facility], [address] [place] [phone] Social History Tobacco Use Types Packs/Day Years Used Date Smoking Tobacco: Never Alcohol Use Standard Drinks/Week Comments No 0 (1 standard drink = 0.6 oz pure alcoho l) Sex Assigned at Date Recorded Not on file COVID-19 Exposure Response Date Recorded In the last 10 days, have you been in contact with No / Unsu re 09/10/2021 9:01 AM CDT someone who was confirmed or suspected to have Coronavirus/COVID-19? documented as of this encounter Medications at [...] Associated Diagnosis Comme nts MA SCREENING Routine 09/10/2021 9:22 AM Visit for screening Re sults for this BILATERAL W/ HAKAN CDT mammogram procedure are in the results section. documented in this encounter Results MA Screen Bilateral w/Hakan (09/10/2021 9:22 AM CDT) Anatomical Region Laterality Modality Breast Bilateral Mammography Specimen (Source) Anatomical Location Collection Method / Collectio n Time Received Time / Laterality Volume Narrative 09/10/2021 12:41 PM CDT BILATERAL FULL FIELD DIGITAL SCREENING MAMMOGRAM WITH TOMOSYNTHESIS Performed on: 09/10/21 Compared to: 08/31/2020 and 10/31/2015 Technique: ??This study was evaluated wi th the assistance of Computer-Aided Detection. ??Breast Tomosynthesis was us ed in interpretation. Findings: The breasts are heterogeneousl y dense, which may obscure small masses. ??There is no radiographic evide nce of malignancy. IMPRESSION: ACR BI-RADS Category 1: Nega tive RECOMMENDED FOLLOW-UP: Annual routine sc reening mammogram The results and recommendations of this examination will be communicated to the patient. Jayda Orlando MD IMG MAMMOGRAPHY ORDERABLES documented in this encounter Visit Diagnoses Diagnosis Visit for screening mammogram Other screening mammogram documented in this encounter Care Teams Public Health Specialist Relationship Specialty Start Date End Date Erika Benito PCP - General 08/12/11 documented as of this encounter
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
--- OUTSIDE RECORDS SUMMARY | 2022-02-15 16:21 | XMS_ITS | Encounter Summary ---
:1950 Author Organization [place] Address [address] [place] [address] Care Team Providers Name Role Phone Erika Benito Primary Care Provider Encounter Details Date Type Department Care Team Description 09/10/2021 Travel Social History Tobacco Use Types Packs/Day [...] have Coronavirus/COVID-19? documented as of this encounter Plan of Treatment Not on filedocumented as of this encounter Visit Diagnoses Not on filedocumented in this encounter Care Teams Building Construction Contractor Relationship Specialty Start Date End Date Erika Benito PCP - General 08/12/11 documented as of this encounter
--- OUTSIDE RECORDS SUMMARY | 2022-02-15 16:21 | XMS_ITS | Encounter Summary ---
:1950 Author Organization [place] Address [address] [place] [address]. [place] [address] Care Team Providers Name Role Phone Erika Benito Primary Care Provider Reason for Referral Diagnostic Imaging Mammo (Routine) - Closed Specialty Diagnoses / Procedures Referred By Contact Refer red To Contact Diagnoses Other screening mammogram Jayda Orlando MD Procedures MA Screen Bilateral w/Hakan [address] [place] [address] Referral ID Status Reason Start Date Expiration Date Visits Requ ested Visits Authorized [id number] Closed 06/09/2019 06/08/2020 1 1 Reason for Visit Diagnostic Imaging Mammo (Routine) - Closed Specialty Diagnoses / Procedures Referred By Contact Refer red To Contact Diagnoses Other screening mammogram Jayda Orlando MD Procedures [place] Screen Bilateral w/Hakan [address] [address] [place] [address] Referral ID Status Reason Start Date Expiration Date Visits Requ ested Visits Authorized [id number] Closed 06/09/2019 06/08/2020 1 1 Encounter Details Date Type Department Care Team Description 11/15/2019 Hospital Encounter [facility] Jayda Orlando, Ot her [facility] Breast [place] mammogram [address], [address] [place] [address] [phone] Social History Tobacco Use Types Packs/Day Years Used Date Smoking Tobacco: Never Alcohol Use Standard Drinks/Week Comments No 0 (1 standard drink = 0.6 oz pure alcoho l) Sex Assigned at Date Recorded Not on file COVID-19 Exposure Response Date Recorded In the last month, have you been in contact with No / Unsure 11/15/2019 9:43 AM CDT someone who was confirmed or [...] Associated Diagnosis Comme nts MA SCREENING Routine 11/15/2019 10:00 AM Other screening Resul ts for this BILATERAL W/ HAKAN CDT mammogram procedure are in the results section. documented in this encounter Results MA Screen Bilateral w/Hakan (11/15/2019 10:00 AM CDT) Anatomical Region Laterality Modality Breast Bilateral Mammography Specimen (Source) Anatomical Location Collection Method / Collectio n Time Received Time / Laterality Volume Impressions 11/15/2019 10:51 AM CDT IMPRESSION: BI-RADS CATEGORY: 1 - ??NEGATIVE. RECOMMENDED FOLLOW-UP: Annual Mammograph y. The patient will be notified of the resu lts. BENNY RUSSELL MD Narrative 11/15/2019 10:51 AM CDT Examination: Bilateral digital screening mammography with computer aided detection including digital breast tomosynthesis, 11/15/2019 10:00 AM. Comparison: 11/09/2018, 10/04/2013 History: No current breast concerns. Pat ient reports prior benign needle biopsy. BREAST DENSITY: Heterogeneously dense. COMMENTS: ??No suspicious finding. ??Bio psy marker in the LEFT. Procedure Note Benny Russell MD - 11/15/2019 Examination: Bilateral digital screening mammography with computer aided detection including digital breast tomosynthesis, 11/15/2019 10:00 AM. Comparison: 11/09/2018, 10/04/2013 History: No current breast concerns. Pat ient reports prior benign needle biopsy. BREAST DENSITY: Heterogeneously dense. COMMENTS: No suspicious finding. Biopsy marker in the LEFT. IMPRESSION: BI-RADS CATEGORY: 1 - NEGATI VE. RECOMMENDED FOLLOW-UP: Annual Mammograph y. The patient will be notified of the resu lts. BENNY RUSSELL MD Jayda Orlando MD IMG MAMMOGRAPHY ORDERABLES documented in this encounter Visit Diagnoses Diagnosis Other screening mammogram documented in this encounter Care Teams Telephone Sex Worker Relationship Specialty Start Date End Date Erika Benito PCP - General 08/12/11 documented as of this encounter
--- OUTSIDE RECORDS SUMMARY | 2022-02-15 16:21 | XMS_ITS | Encounter Summary ---
:1950 Author Organization [facility] Address [address] [place] [address]. [place] [address] Care Team Providers Name Role Phone Erika Benito Primary Care Provider Encounter Details Date Type Department Care Team Description 10/08/[address] [facility] Krzysztof Ornelas MD [facility] E[facility] [place] [address] [facility] [address] [address] [place] [address] (Wo rk) Social History Tobacco Use Types Packs/Day Years Used Date Smoking Tobacco: Never Alcohol Use Standard Drinks/Week Comments No 0 (1 standard drink = 0.6 oz pure alcoho l) Sex Assigned at Date Recorded Not on file documented as of this encounter Plan of Treatment Not on filedocumented as of this encounter Procedures Procedure Name Priority Date/Time Associated Diagnosis Comme [facility] SURGICAL PATHOLOGY Routine 10/08/2016 11:20 AM Re sults for this EXAM CDT procedure are i n the results section. documented in this encounter Results Surgical pathology exam (10/08/2016 11:20 AM CDT) Component Value Ref Test Analysis Performed At [facility] Method Time Signature Copath Report Patient Name: BRENDEN MANNING MR#: [id number] Specimen #: [id number] Collected: 10/08/2016 Received: 10/08/2016 Reported: 10/10/2016 08:00 Ordering Phy(s): SUNIL ORNELAS For improved result formatting, select 'View Enhanced Report Format' under Linked Documents section. SPECIMEN(S): Tongue biopsy, left ventral FINAL DIAGNOSIS: Left ventral tongue lesion, biopsy. - Mild squamous atypia associated with mild chronic lichenoi d inflammation, favor mild keratinizing dysplasia. ??Negative for malignancy. ??See microscopic description. Electronically signed out by: Dane Torres M.D. CLINICAL HISTORY: Tongue lesion. GROSS: The specimen is received in formalin labeled with the patien t's name, identifying information and left ventral tongue. ??It cons ists of a 0.6 x 0.2 x 0.2 cm pink rubbery tissue fragment. ??The presumed margin is inked blue. ??Submitted entirely in one block. (Dictated by: Rolando Cherry 10/08/2016 12:56 PM) MICROSCOPIC: There is mild chronic inflammation in the subepithelial conn ective tissue composed predominantly of small lymphocytes with scat tered plasma cells. ??There is some exocytosis of the inflammatory cells into the overlying epithelium which shows mild atypia. ??GMS stain fo r fungus with appropriate controls is negative. ??The differential include s mild dysplasia with lichenoid inflammation, lichenoid medication reaction, and early lichen planus. ??Given the relatively mild degree of inflammation present with atypia, mild keratinizing dysplasi a is favored. ??If this is a small sample of a larger clinically suspicious lesion, consider additional sampling if indicated. Case internally consulted with an additional pathologist Dr. DAVALOS who concurs. CPT Codes: A: 22498-LH2, 04444-PTA TESTING LAB LOCATION: [facility] [employer] [address] ??[phone] COLLECTION SITE: Client: [place] [facility] Head/Neck Surg Location: R374 (F) Specimen Anatomical Collection Method Collection Time Receive d Time (Source) Location / / Volume Laterality 10/08/2016 11:20 10/08/2016 AM CDT 12:27 PM CDT Sunil CORTES - OLI GOLDSMITH Performing Organization Address City/State/ZIP Code Phon e Number COPATH documented in this encounter Visit Diagnoses Not on filedocumented in this encounter Care Teams Hammer Repairer Relationship Specialty Start Date End Date Erika Benito PCP - General 08/12/11 documented as of this encounter
--- OUTSIDE RECORDS SUMMARY | 2022-02-15 16:21 | XMS_ITS | Encounter Summary ---
:1950 Author Organization [facility] Address [address] [place] [address]. [place] [address] Care Team Providers Name Role Phone Erika Benito Primary Care Provider Encounter Details Date Type Department Care Team Description 07/02/2012 Orders Only Ear, Nose and Throat Rosibel Solorio (Primary Dx) Clinic MD [place] 8th Floor, Clinic 8A [address] [place] [address] [place] [address] [facility] [place] [address] Social History Tobacco Use Types Packs/Day Years Used Date Smoking Tobacco: Never Assessed Sex Assigned at Date Recorded Not on file documented as of this encounter Plan of Treatment Not on filedocumented as of this encounter Visit Diagnoses Diagnosis Vertigo - Primary Dizziness and giddiness documented in this encounter Care Teams Director Summer Sessions Relationship Specialty Start Date End Date Erika Benito PCP - General 08/12/11 documented as of this encounter
--- OUTSIDE RECORDS SUMMARY | 2022-02-15 16:21 | XMS_ITS | Encounter Summary ---
:1950 Author Organization [place] Address [address] [place] [address]. [place] [address] Care Team Providers Name Role Phone Erika Benito Primary Care Provider Reason for Referral Diagnostic Imaging Mammo - Closed Specialty Diagnoses / Procedures Referred By Contact Refer red To Contact Radiology. Diagnoses Visit for screening mammogram Jayda Orlando MD [facility] Procedures MA Screen Bilateral w/Hakan MA Screening Digital Bilateral [address] [place] [address] [place] [address] [place] [address] Phone: Fax: Referral ID Status Reason Start Date Expiration Date Visits Requ ested Visits Authorized [id number] Closed 10/23/2017 10/23/2018 1 1 Reason for Visit (Routine) - Closed Specialty Diagnoses / Procedures Referred By Contact Refer red To Contact Radiology / Radiology. Diagnoses sb pt, hakan informed [facility] Procedures MA SCREENING DIGITAL BILATERAL [address] [place] [address] Phone: Fax: Referral ID Status Reason Start Date Expiration Date Visits Requ ested Visits Authorized [id number] Closed 11/05/2017 11/05/2018 1 1 Encounter Details Date Type Department Care Team Description 11/05/2017 Hospital Encounter [facility] Jayda Orlando, Vi sit for screening [facility] Breast [place] MD mammogram [address] [facility], [address] [place], [place] [address] [phone] Social History Tobacco Use Types Packs/Day Years [...] Procedure Name Priority Date/Time Associated Diagnosis Comme [facility] MA SCREENING Routine 11/05/2017 9:25 AM Visit for screening Re sults for this BILATERAL W/ HAKAN CDT mammogram procedure are in the results section. documented in this encounter Results MA Screen Bilateral w/Hakan (11/05/2017 9:25 AM CDT) Anatomical Region Laterality Modality Breast Bilateral Mammography Specimen (Source) Anatomical Location Collection Method / Collectio n Time Received Time / Laterality Volume Impressions 11/05/2017 10:17 AM CDT IMPRESSION: BI-RADS CATEGORY: 1 - ??Negative. RECOMMENDED FOLLOW-UP: Annual Mammograph y. KAEL ALVAREZ MD Narrative 11/05/2017 10:17 AM CDT SCREENING MAMMOGRAM, BILATERAL, DIGITAL w/CAD and TOMOSYNTHESIS, 11/05/2017 10:17 AM BREAST DENSITY: Scattered fibroglandular densities. CLINICAL INFORMATION: Breast screening. ??; Visit for screening mammogram, 11/04/2016, 09/28/2012 FINDINGS: Negative. Stable exam. Screeni ng exam in one year recommended. Procedure Note Kael Alvarez MD - 11/05/2017Formatt ing of this note might be different from the original. SCREENING MAMMOGRAM, BILATERAL, DIGITAL w/CAD and TOMOSYNTHESIS, 11/05/2017 10:17 AM BREAST DENSITY: Scattered fibroglandular densities. CLINICAL INFORMATION: Breast screening. ; Visit for screening mammogram, 11/04/2016, 09/28/2012 FINDINGS: Negative. Stable exam. Screeni ng exam in one year recommended. IMPRESSION: BI-RADS CATEGORY: 1 - Negati ve. RECOMMENDED FOLLOW-UP: Annual Mammograph yHarrison ALVAREZ MD Jayda Orlando MD IMG MAMMOGRAPHY ORDERABLES documented in this encounter Visit Diagnoses Diagnosis Visit for screening mammogram Other screening mammogram documented in this encounter Care Teams Booking Prizer Relationship Specialty Start Date End Date Erika Benito PCP - General 08/12/11 documented as of this encounter
--- OUTSIDE RECORDS SUMMARY | 2022-02-15 16:21 | XMS_ITS | Encounter Summary ---
:1950 Author Organization [place] Address [address] [place] [address]. [place] [address] Care Team Providers Name Role Phone Erika Benito Primary Care Provider Encounter Details Date Type Department Care Team Description 11/15/2019 Travel Social History Tobacco Use Types Packs/Day [...] on filedocumented in this encounter Care Teams Needle Bar Molder Relationship Specialty Start Date End Date Erika Benito PCP - General 08/12/11 documented as of this encounter
--- OUTSIDE RECORDS SUMMARY | 2022-02-15 16:21 | XMS_ITS | Encounter Summary ---
:1950 Author Organization [facility] Address [address] [place] [address]. [place] [address] Care Team Providers Name Role Phone Erika Benito Primary Care Provider Encounter Details Date Type Department Care Team Description 07/03/2012 Office Visit [facility] Gissel Solorio MD [address] [facility] 396 [place], [place] [address] DIAGNOSIS NOT YET Clinic Audiology Kika Briceno AuD [address] [place] [id number] DEFINED (Primary Dx) [address] 283 8th Floor clinic [address] [place] [address] [place] [phone] Social History Tobacco Use Types Packs/Day Years Used Date Smoking Tobacco: Never Alcohol Use Standard Drinks/Week Comments No 0 (1 standard drink = 0.6 oz pure alcoho l) Sex Assigned at Date Recorded Not on file documented as of this encounter Progress Notes Kika Donohue AuD - 07/03/2012 11:23 AM CST AUDIOLOGY REPORT SUMMARY: Audiology visit completed. See audiogram for results. RECOMMENDATIONS: Follow-up with ENT. Holly [place] Shift Mgr [place] #[id number] AL HEALTH PROFESSIONAL documented in this encounter Miscellaneous Notes Addendum Note - Christen Blandon - 07/03/2012 6:48 PM MENTAL HEALTH PROFESSIONAL Addended by: CHRISTEN BLANDON on: 07/03/2012 06:48 PM Modules accepted: Orders, SmartSet AL HEALTH PROFESSIONAL documented in this encounter Plan of Treatment Not on filedocumented as of this encounter Procedures Procedure Name Priority Date/Time Associated Diagnosis Comme nts AUDIOGRAM, ABR, OAE, Routine 07/03/2012 10:30 AM DIAGNOSIS NOT YET OR TYMP - HIM SCAN MENTAL HEALTH PROFESSIONAL DEFINED documented in this encounter Results Audiogram, ABR, OAE, or Tymp - HIM Scan (07/03/2012 10:30 AM MENTAL HEALTH PROFESSIONAL) Narrative This result has an attachment that is no t available. Kika Cabrera PROCEDURES documented in this encounter Visit Diagnoses Diagnosis DIAGNOSIS NOT YET DEFINED - Primary documented in this encounter Care Teams Naval Gunfire Spotter Relationship Specialty Start Date End Date Erika Benito PCP - General 08/12/11 documented as of this encounter
--- OUTSIDE RECORDS SUMMARY | 2022-02-15 16:21 | XMS_ITS | Encounter Summary ---
:1950 Author Organization [facility] Address [address] [place] [address]. [place] [address] Care Team Providers Name Role Phone Erika Benito Primary Care Provider Reason for Referral Audiology - Closed Specialty Diagnoses / Procedures Referred By Contact Refer red To Contact Audiology Diagnoses Vertigo Rosibel Solorio [facility] [address] [place] [address] 420 [facility] 396 [facility] 283 8th Floor clinic 8B [place], [place] [address] [facility] [place] [place] [place] [address] Phone: Referral ID Status Reason Start Date Expiration Date Visits Requ ested Visits Authorized [id number] Closed 06/29/2012 04/27/2013 1 1 KET PULLER Encounter Details Date Type Department Care Team Description 06/26/2012 Orders Only Ear, Nose and Throat Rosibel Solorio igo (Primary Dx) Clinic MD [place] 8th Floor, Clinic 8A [address] [place] [address] [facility] [address] [place] [address] [facility] [place] [address] Social History Tobacco Use Types Packs/Day Years Used Date Smoking Tobacco: Never Assessed Sex Assigned at Date Recorded Not on file documented as of this encounter Plan of Treatment Scheduled Referrals Name Type Priority Associated Diagnoses Order S chedu AUDIOLOGY BALANCE REFERRAL Referral Routine Vertigo O rdered: 06/26/2012 documented as of this encounter Visit Diagnoses Diagnosis Vertigo - Primary Dizziness and giddiness documented in this encounter Care Teams Fuel Oil Clerk Relationship Specialty Start Date End Date Erika Benito PCP - General 08/12/11 documented as of this encounter
--- OUTSIDE RECORDS SUMMARY | 2022-02-15 16:21 | XMS_ITS | Encounter Summary ---
:1950 Author Organization [place] Address [address] [place] [address] Care Team Providers Name Role Phone Erika Benito Primary Care Provider Encounter Details Date Type Department Care Team Description 07/24/2020 Immunization [facility] Marty Champagne Vaccination [address] [address] [place] [address] [phone] Social History Tobacco Use Types Packs/Day Years Used Date Smoking Tobacco: Never Alcohol Use Standard Drinks/Week Comments No 0 (1 standard drink = 0.6 oz pure alcoho l) Sex Assigned at Date Recorded Not on file documented as of this encounter Plan of Treatment Not on filedocumented as of this encounter Visit Diagnoses Not on filedocumented in this encounter Care Teams Air Commodore Relationship Specialty Start Date End Date Erika Benito PCP - General 08/12/11 documented as of this encounter
--- OUTSIDE RECORDS SUMMARY | 2022-02-15 16:21 | XMS_ITS | Clinical Summary ---
:1950 Author Organization [place] [facility] Address [address] [place] [address]. [place] [address] Care Team Providers Name Role Phone Erika Benito Primary Care Provider Allergies Active Allergy Reactions Severity Noted Date Comments Penicillins 07/03/2012 Sulfa Drugs 07/03/2012 Azithromycin Dihydrate 07/03/2012 Medications Medication Sig Dispensed Refills Start Date End Date Status hydrochlorothiazide Take 12.5 mg 0 Active (MICROZIDE) 12.5 MG capsule by mouth daily. losartan (COZAAR) 50 MG Take 50 mg by 0 Active tablet mouth daily. aspirin 81 MG tablet Take by mouth 0 Active daily. MECLIZINE HCL 25-50 mg as 0 Acti ve needed. METOPROLOL SUCCINATE PO Take by 0 Active mouth. Immunizations Name Administration Dates Next Due COVID-19,PF,Moderna 07/24/2020, 06/26/2020 Social History Tobacco Use Types Packs/Day Years Used Date Smoking Tobacco: Never Alcohol Use Standard Drinks/Week Comments No 0 (1 standard drink = 0.6 oz pure alcoho l) Sex Assigned at Date Recorded Not on file Plan of Treatment Health Maintenance Due Date Last Done Comments ADVANCE CARE PLANNING 1950 ANNUAL REVIEW OF HM ORDERS 1950 CT COLONOGRAPHY 1950 DEXA 1950 FIT-DNA (Cologuard) 1950 FIT 1950 FLEX SIG 1950 HEPATITIS B IMMUNIZATION (1 1950 of 3 - 3-dose series) COLONOSCOPY 1959 COLORECTAL CANCER SCREENING 1959 HEPATITIS C SCREENING 1967 LIPID 1994 ZOSTER IMMUNIZATION (2 of 03/23/2012 01/27/2012, 10/14/2011 3) FALL RISK ASSESSMENT 2014 PHQ-2 (once per calendar 04/28/2021 year) COVID-19 Vaccine (4 - 05/02/2021 03/07/2021, 07/24/2020, Booster for Moderna series) 06/26/2020 MEDICARE ANNUAL WELLNESS 07/10/2021 07/10/2020 VISIT INFLUENZA VACCINE (#1) 2021 02/12/2021, 02/04/2020, 02/04/2019, Additional history exists MAMMO SCREENING 09/11/2023 09/10/2021, 08/31/2020, 11/15/2019, Additional history exists DTAP/TDAP/TD IMMUNIZATION 01/04/2025 01/04/2015, 10/03/2005 , (3 - Td or Tdap) 10/02/2005, Additional history exists Pneumococcal Vaccine: 65+ Completed 03/12/2017, 02/07/2017 , Years 01/24/2015 IPV IMMUNIZATION Aged Out No longer eligi ble based on patient 's age to complete this topic MENINGITIS IMMUNIZATION Aged Out No longe r eligible based on patient 's age to complete this topic Insurance Payer Benefit Plan / Subscriber ID Effective Phone Address T ype Group Dates BC[place] [id number] 2018-Prese [phone] [address] [address] [address] [place] [address] MEDICARE MEDICARE [id number] 2014-Prese [phone] ATTN CONSUELOI [place] Medicare nt [address] [place] [address] AngelamargaritaGingera Other Self 1950 [id number] (Home) [place] [address] Care Teams Gamma Operator Relationship Specialty Start Date End Date Erika Benito PCP - General 08/12/11
--- OUTSIDE RECORDS SUMMARY | 2022-02-15 16:21 | XMS_ITS | Encounter Summary ---
:1950 Author Organization [facility] Address [address] [place] [address]. [place] [address] Care Team Providers Name Role Phone Erika Benito Primary Care Provider Encounter Details Date Type Department Care Team Description 09/28/2012 Results [facility] Results [address] [place], [place] [address] (Wo rk) Social History Tobacco Use Types [...] Date/Time Associated Diagnosis Comme nts MA SCREENING 09/28/2012 10:41 AM Results for this DIGITAL BILATERAL CDT procedure are in the results section. documented in this encounter Results MA Screening Digital Bilateral (09/28/2012 10:41 AM CDT) Anatomical Region Laterality Modality Breast Bilateral Other Specimen (Source) Anatomical Collection Method Collection Time Re ceived Time Location / / Volume Laterality 09/28/2012 10:41 AM CDT Impressions 09/28/2012 11:02 AM CDT IMPRESSION: BI-RADS 1, NEGATIVE. KAEL ALVAREZ MD Narrative 09/28/2012 11:02 AM CDT SCREENING MAMMOGRAM, BILATERAL, DIGITAL w/CAD BREAST SYMPTOMS/COMPARISON: 08/13/2011, 08/04/2008 BREAST PARENCHYMAL PATTERN: Heterogeneou sly dense. which could obscure detection of small masses FINDINGS: Negative. Screening exam in on e year recommended. Procedure Note Kael Alvarez MD - 09/28/2012Formatt ing of this note might be different from the original. SCREENING MAMMOGRAM, BILATERAL, DIGITAL w/CAD BREAST SYMPTOMS/COMPARISON: 08/13/2011, 08/04/2008 BREAST PARENCHYMAL PATTERN: Heterogeneou sly dense. which could obscure detection of small masses FINDINGS: Negative. Screening exam in on e year recommended. IMPRESSION IMPRESSION: BI-RADS 1, NEGATIVE. KAEL ALVAREZ MD Erika Benito IM MAMMOGRAPHY ORDERABLES documented in this encounter Visit Diagnoses Not on filedocumented in this encounter Care Teams Abatement Worker Relationship Specialty Start Date End Date Erika Benito PCP - General 08/12/11 documented as of this encounter
--- OUTSIDE RECORDS SUMMARY | 2022-02-15 16:21 | XMS_ITS | Encounter Summary ---
:1950 Author Organization [facility] Address [address] [place] [address] Care Team Providers Name Role Phone Erika Benito Primary Care Provider Reason for Visit (Routine) - Closed Specialty Diagnoses / Procedures Referred By Contact Refer red To Contact Radiology Diagnoses SCREENING BILATERAL-DIGITAL Procedure Notes: Routine. Breast Center Procedures RADIOLOGY [address] [facility], [address] [place], [place] [address] Phone: Fax: Referral ID Status Reason Start Date Expiration Date Visits Requ ested Visits Authorized [id number] Closed 09/25/2012 09/18/2013 1 1 Encounter Details Date Type Department Care Team Description 09/28/2012 Hospital Encounter [facility] Erika Benito [facility] [address] [place] [address] [address] [place] [address] Social History Tobacco Use Types Packs/Day [...] on filedocumented in this encounter Care Teams Galley Hand Relationship Specialty Start Date End Date Erika Benito PCP - General 08/12/11 documented as of this encounter
--- OUTSIDE RECORDS SUMMARY | 2022-02-15 16:21 | XMS_ITS | Encounter Summary ---
:1950 Author Organization [facility] Address [address] [place] [address]. [place] [address] Care Team Providers Name Role Phone Erika Benito Primary Care Provider Encounter Details Date Type Department Care Team Description 09/18/2012 Orders Only [facility] Rosibel Solorio, 8th Floor, Clinic 8A MD dAán Guadalupe [address] [facility] [address] [facility] [place], [place] [phone] Social History Tobacco Use Types Packs/Day Years Used Date Smoking Tobacco: Never Alcohol Use Standard Drinks/Week Comments No 0 (1 standard drink = 0.6 oz pure alcoho l) Sex Assigned at Date Recorded Not on file documented as of this encounter Plan of Treatment Not on filedocumented as of this encounter Procedures Procedure Name Priority Date/Time Associated Diagnosis Comme nts AUDIOGRAM, ABR, OAE, OR TYMP - HIM Routine 06/18/2012 SCAN documented in this encounter Results Audiogram, ABR, OAE, or Tymp - HIM Scan (06/18/2012) Narrative This result has an attachment that is no t available. Rosibel Solorio MD PROCEDURES documented in this encounter Visit Diagnoses Not on filedocumented in this encounter Care Teams Technical Services Manager Relationship Specialty Start Date End Date Erika Benito PCP - General 08/12/11 documented as of this encounter
--- OUTSIDE RECORDS SUMMARY | 2022-02-15 16:21 | XMS_ITS | Encounter Summary ---
:1950 Author Organization [facility] Address [address] [place] [address]. [place] [address] Care Team Providers Name Role Phone Erika Benito Primary Care Provider Reason for Visit (Routine) - Closed Specialty Diagnoses / Procedures Referred By Contact Refer red To Contact Radiology / Radiology. Diagnoses [facility] Procedures MA SCREENING DIGITAL BILATERAL [address] [facility], [address] [place] [address] Phone: Fax: Referral ID Status Reason Start Date Expiration Date Visits Requ ested Visits Authorized [id number] Closed 10/12/2014 10/12/2015 1 1 Encounter Details Date Type Department Care Team Description 10/17/[address] [facility] Jayda Orlando, Ot her screening [facility] MD mamm[facility] [address] [facility] [address] [facility] [address] [place] [phone] Social History Tobacco Use Types Packs/Day [...] Associated Diagnosis Comme nts MA SCREENING Routine 10/17/2014 10:53 AM Other screening Resul ts for this DIGITAL BILATERAL CDT mammogram procedure are in the results section. documented in this encounter Results MA Screening Digital Bilateral (10/17/2014 10:53 AM CDT) Anatomical Region Laterality Modality Breast Bilateral Mammography Specimen (Source) Anatomical Location Collection Method / Collectio n Time Received Time / Laterality Volume Impressions 10/17/2014 3:23 PM CDT IMPRESSION: BI-RADS CATEGORY: 1 - ??NEGATIVE. RECOMMENDED FOLLOW-UP: Annual Mammograph y Exam results letter mailed to patient. NAYELI GREENBERG MD Narrative 10/17/2014 3:23 PM CDT SCREENING MAMMOGRAM, BILATERAL, DIGITAL w/CAD - 10/17/2014 10:53 AM. BREAST SYMPTOMS: No current breast compl aints. COMPARISON: ??10/04/2013, 08/10/2010. BREAST DENSITY: Heterogeneously dense. COMMENTS: No findings of suspicion for m alignancy. ?? There is a biopsy marker in the left breast. Procedure Note Nayeli Greenberg MD - 5 SCREENING MAMMOGRAM, BILATERAL, DIGITAL w/CAD - 10/17/2014 10:53 AM. BREAST SYMPTOMS: No current breast compl aints. COMPARISON: 10/04/2013, 08/10/2010. BREAST DENSITY: Heterogeneously dense. COMMENTS: No findings of suspicion for m alignancy. There is a biopsy marker in the left breast. IMPRESSION IMPRESSION: BI-RADS CATEGORY: 1 - NEGATI VE. RECOMMENDED FOLLOW-UP: Annual Mammograph y Exam results letter mailed to patient. NAYELI GREENBERG MD Jayda Orlando MD IMG MAMMOGRAPHY ORDERABLES documented in this encounter Visit Diagnoses Diagnosis Other screening mammogram documented in this encounter Care Teams Dry Kiln Operator Relationship Specialty Start Date End Date Erika Benito PCP - General 08/12/11 documented as of this encounter
--- OUTSIDE RECORDS SUMMARY | 2022-02-15 16:22 | XMS_ITS | Encounter Summary ---
:1950 Author Organization [facility] Address [address] [place] [address]. [place] [address] Care Team Providers Name Role Phone Unavailable Primary Care Provider Unavailable Encounter Details Date Type Department Care Team Description 08/07/[address] [facility] Karen Orlando MD [facility] Results [address] [facility] [address] [place], [place] [address] (Wo rk) Social History Tobacco Use Types Packs/Day Years Used Date Smoking Tobacco: Never Assessed Sex Assigned at Date Recorded Not on file documented as of this encounter Plan of Treatment Not on filedocumented as of this encounter Procedures Procedure Name Priority Date/Time Associated Diagnosis Comme nts MAMMO SCREEN Routine 08/07/2009 10:19 AM Resul ts for this BILATATERAL, INCL CDT procedure are in CAD WHEN PERF the results section. documented in this encounter Results SCREENING MAMMOGRAPHY DIGITAL (BILAT) (08/07/2009 10:19 AM CDT) Anatomical Region Laterality Modality Other Specimen (Source) Anatomical Collection Method Collection Time Re ceived Time Location / / Volume Laterality 08/07/2009 10:19 AM CDT Impressions 08/07/2009 10:36 AM CDT SCREENING MAMMOGRAPHY, BILATERAL, DIGITA L, w/CAD ??July ??2009. HISTORY/COMPARISON: 08/04/2008, 04/30/2004 BREAST PARENCHYMAL PATTERN: ??Heterogene ously dense. FINDINGS: ??The right mammogram is unrem arkable. There is biopsy clip in the upper-outer left breast. Otherwis e unremarkable. ?? IMPRESSION: ??BI-RADS 1, NEGATIVE. Jayda Orlando MD SPECIAL IMAGING STUDIES documented in this encounter Visit Diagnoses Not on filedocumented in this encounter
--- OUTSIDE RECORDS SUMMARY | 2022-02-15 16:22 | XMS_ITS | Encounter Summary ---
:1950 Author Organization [facility] Address [address] [place] [address]. [place] [address] Care Team Providers Name Role Phone Unavailable Primary Care Provider Unavailable Encounter Details Date Type Department Care Team Description 08/05/2007 Results Only [facility] Karen Orlando MD [facility] Results [address] [facility] [address] [place] [address] (Wo rk) Social History Tobacco Use Types Packs/Day Years Used Date Smoking Tobacco: Never Assessed Sex Assigned at Date Recorded Not on file documented as of this encounter Plan of Treatment Not on filedocumented as of this encounter Procedures Procedure Name Priority Date/Time Associated Comments Diagnosis C DIGITIZATION, Routine 08/05/2007 2:59 PM Result s for this MAMMOGRAPHIC BEREKET CDT procedure a re in the results section. documented in this encounter Results DIGITIZATION, MAMMOGRAPHIC BEREKET (08/05/2007 2:59 PM CDT) Anatomical Region Laterality Modality Other Specimen (Source) Anatomical Collection Method Collection Time Re ceived Time Location / / Volume Laterality 08/05/2007 2:59 PM CDT Impressions 08/06/2007 9:05 AM CDT EXAM: BILATERAL SCREENING DIGITAL MAMMOG [place] HISTORY/COMPARISON: ??Routine. 07-23-06, 04-30-04 Breast parenchyma: Heterogeneously dense . FINDINGS: Radiopaque clip in the upper-o uter left breast. Otherwise negative. ?? IMPRESSION: Category 1. Negative. Note: ??CAD (computer aided diagnosis) w as utilized in interpretation of this mammogram. aJyda Orlando MD GENERAL IMAGING documented in this encounter Visit Diagnoses Not on filedocumented in this encounter
--- OUTSIDE RECORDS SUMMARY | 2022-02-15 16:22 | XMS_ITS | Encounter Summary ---
:1950 Author Organization [facility] Address [address] [place] [address] Care Team Providers Name Role Phone Erika Benito Primary Care Provider Encounter Details Date Type Department Care Team Description 06/20/2012 Medical Correspondence [facility] Jinny Solorio [facility], Health Info [facility] MD Leonor IMAGING RESULTS, Srvcs [address] [facility] 06/20/2012 [address] [facility] [address] [place] [address] [phone] Social History Tobacco Use Types Packs/Day Years Used Date Smoking Tobacco: Never Assessed Sex Assigned at Date Recorded Not on file documented as of this encounter Plan of Treatment Not on filedocumented as of this encounter Visit Diagnoses Not on filedocumented in this encounter Care Teams Bakeshop Cleaner Relationship Specialty Start Date End Date Erika Benito PCP - General 08/12/11 documented as of this encounter
--- OUTSIDE RECORDS SUMMARY | 2022-02-15 16:22 | XMS_ITS | Encounter Summary ---
:1950 Author Organization [facility] Address [address] [place] [address]. [place] [address] Care Team Providers Name Role Phone Erika Benito Primary Care Provider Reason for Visit (Routine) - Closed Specialty Diagnoses / Procedures Referred By Contact Refer red To Contact Radiology Diagnoses SCREENING BILATERAL-DIGITAL Procedure Notes: Routine Breast Center Procedures RADIOLOGY [address], [address] [place], [place] [address] Phone: Fax: Referral ID Status Reason Start Date Expiration Date Visits Requ ested Visits Authorized [id number] Closed 08/09/2011 08/08/2012 1 1 Encounter Details Date Type Department Care Team Description 08/13/[address] [facility] Jayda Orlando MD Breast Center [address] [facility] [address], [facility] [address] [place] [address] [place], [place] [phone] (Wo rk) [address] [phone] Social History Tobacco Use Types Packs/Day Years Used Date Smoking Tobacco: Never Assessed Sex Assigned at Date Recorded Not on file documented as of this encounter Plan of Treatment Not on filedocumented as of this encounter Procedures Procedure Name Priority Date/Time Associated Diagnosis Comme nts MA SCREENING Routine 08/13/2011 1:24 PM Results f or this DIGITAL BILATERAL CDT procedure are in the results section. documented in this encounter Results Mammo Screening digital (bilat) (08/13/2011 1:24 PM CDT) Anatomical Region Laterality Modality Breast Bilateral Other Specimen (Source) Anatomical Collection Method Collection Time Re ceived Time Location / / Volume Laterality 08/13/2011 1:24 PM CDT Impressions 08/13/2011 2:49 PM CDT SCREENING MAMMOGRAPHY, BILATERAL, DIGITA L, w/CAD ??August 13, 2011. HISTORY/COMPARISON: 08/10/2010, 08/05/19 08 BREAST PARENCHYMAL PATTERN: ??Heterogene ously dense. FINDINGS: The right mammogram is unremar kable. There is biopsy clip in the left breast. No findings of suspicio n for malignancy. ? IMPRESSION: ??BI-RADS 1, NEGATIVE. RECOMMENDATION: ??Annual screening mammo graphy. Jayda Orlando MD IMG MAMMOGRAPHY ORDERABLES documented in this encounter Visit Diagnoses Not on filedocumented in this encounter Care Teams Sports Agent Relationship Specialty Start Date End Date Erika Benito PCP - General 08/12/11 documented as of this encounter
--- OUTSIDE RECORDS SUMMARY | 2022-02-15 16:22 | XMS_ITS | Encounter Summary ---
:1950 Author Organization [facility] Address [address] [place] [address]. [place] [address] Care Team Providers Name Role Phone Erika Benito Primary Care Provider Reason for Visit Reason Onset Date Comments Pre Visit Planning - Done 06/24/2012 Encounter Details Date Type Department Care Team Description 06/24/2012 PRE VISIT Ear, Nose and Throat Rosibel Solorio Pre Visit Planning - Clinic MD Leonor Done 8th Floor, Clinic 8A [address] [address] [place] [address] Social History Tobacco Use Types Packs/Day Years Used Date Smoking Tobacco: Never Assessed Sex Assigned at Date Recorded Not on file documented as of this encounter Miscellaneous Notes Telephone Encounter - Marielos Gamino Antonio - 06/24/2012 9:32 AM CST ENT PRE VISIT NOTE On the phone call: Date of Call: June 24, 2012 Date of appointment: July 03, 2012 Reason for Call (Should match scheduling appointment note): 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 (Name, address, phone number, location of clinic) Dr. Benito Where have you been seen for this condition? Just [facility] in [place] Where and what testing has been done including: MRI???s: done at [facility] ENT related surgeries in the past: No After the phone call: Request medical records: YES -- clinic will be faxing notes. Called and requested MRI to be FedEx'd to us From where: What date: Who did you speak to: Is the information already in the EMR? No 06/25/12: MRI received from [facility]. Sent to film file. JT REPAIRER documented in this encounter Plan of Treatment Not on filedocumented as of this encounter Visit Diagnoses Not on filedocumented in this encounter Care Teams Well Service Derrick Worker Relationship Specialty Start Date End Date Erika Benito PCP - General 08/12/11 documented as of this encounter
--- OUTSIDE RECORDS SUMMARY | 2022-02-15 16:22 | XMS_ITS | Encounter Summary ---
:1950 Author Organization [facility] Address [address] [place] [address]. [place] [address] Care Team Providers Name Role Phone Unavailable Primary Care Provider Unavailable Encounter Details Date Type Department Care Team Description 08/10/2010 Results Only [facility] Karen Orlando MD [facility] Results [address] [facility] [address] [place] [address] (Wo rk) Social History Tobacco Use Types Packs/Day Years Used Date Smoking Tobacco: Never Assessed Sex Assigned at Date Recorded Not on file documented as of this encounter Plan of Treatment Not on filedocumented as of this encounter Procedures Procedure Name Priority Date/Time Associated Diagnosis Comme nts [place] SCREENING Routine 08/10/2010 8:19 AM Results f or this DIGITAL BILATERAL CDT procedure are in the results section. documented in this encounter Results Mammo Screening digital (bilat) (08/10/2010 8:19 AM CDT) Anatomical Region Laterality Modality Breast Bilateral Other Specimen (Source) Anatomical Collection Method Collection Time Re ceived Time Location / / Volume Laterality 08/10/2010 8:19 AM CDT Impressions 08/10/2010 11:27 AM CDT SCREENING MAMMOGRAM, BILATERAL, DIGITAL w/CAD BREAST SYMPTOMS/COMPARISON: 08/07/2009, BREAST PARENCHYMAL PATTERN: Heterogeneou sly dense FINDINGS: Negative. IMPRESSION: BI-RADS 1, NEGATIVE. Jayda Orlando MD IMG MAMMOGRAPHY ORDERABLES documented in this encounter Visit Diagnoses Not on filedocumented in this encounter
--- OUTSIDE RECORDS SUMMARY | 2022-02-15 16:22 | XMS_ITS | Encounter Summary ---
:1950 Author Organization [facility] Address [address] [place] [address]. [place] [address] Care Team Providers Name Role Phone Unavailable Primary Care Provider Unavailable Encounter Details Date Type Department Care Team Description 07/23/2006 Results Only [facility] Karen Orlando MD [facility] Results [address] [facility] [address] [place] [address] (Wo rk) Social History Tobacco Use Types Packs/Day Years Used Date Smoking Tobacco: Never Assessed Sex Assigned at Date Recorded Not on file documented as of this encounter Plan of Treatment Not on filedocumented as of this encounter Procedures Procedure Name Priority Date/Time Associated Diagnosis Comme [facility] MAMMOGRAM, Routine 07/23/2006 12:45 PM Results for this SCREENING BILATERAL CDT procedur e are in the results section. documented in this encounter Results MAMMOGRAM, SCREENING (07/23/2006 12:45 PM CDT) Anatomical Region Laterality Modality Other Specimen (Source) Anatomical Collection Method Collection Time Re ceived Time Location / / Volume Laterality 07/23/2006 12:45 PM CDT Impressions 07/24/2006 2:51 PM CDT Exam: Bilateral screening mammography History/Comparison: ??Routine 07-01-2005, 04-26-2003 Breast parenchyma: heterogeneous density Findings: Negative. Impression: Category 1. Negative. The exam was evaluated with the assistan ce of Computer Aided Detection. Jayda Orlando MD SPECIAL IMAGING STUDIES documented in this encounter Visit Diagnoses Not on filedocumented in this encounter
--- OUTSIDE RECORDS SUMMARY | 2022-02-15 16:22 | XMS_ITS | Encounter Summary ---
:1950 Author Organization [facility] Address [address] [place] [address]. [place] [address] Care Team Providers Name Role Phone Unavailable Primary Care Provider Unavailable Encounter Details Date Type Department Care Team Description 07/01/2005 Results Only [facility] Karen Orlando MD [facility] Results [address] [facility] [address] [place] [address] (Wo rk) Social History Tobacco Use Types Packs/Day Years Used Date Smoking Tobacco: Never Assessed Sex Assigned at Date Recorded Not on file documented as of this encounter Plan of Treatment Not on filedocumented as of this encounter Procedures Procedure Name Priority Date/Time Associated Diagnosis Comme nts C MAMMOGRAM, Routine 07/01/2005 1:11 PM Results f or this SCREENING SR COMMUNITY MANAGER procedure are i n the results section. documented in this encounter Results MAMMOGRAM, SCREENING (07/01/2005 1:11 PM SR COMMUNITY MANAGER) Anatomical Region Laterality Modality Other Specimen (Source) Anatomical Collection Method Collection Time Re ceived Time Location / / Volume Laterality 07/01/2005 1:11 PM SR COMMUNITY MANAGER Impressions 07/08/2005 4:44 PM SR COMMUNITY MANAGER SCREENING MAMMOGRAM, BILATERAL - 006 BREAST SYMPTOMS: ??None PREVIOUS MAMMOGRAPHY: ??Comparison with [facility] dated 04/26/2002 and 04/30/2004. ??There is no significant change. BREAST PARENCHYMA: ??Heterogeneously de nse. IMPRESSION: CATEGORY 1 Negative TECHNOLOGIST INITIALS: LL Jayda Orlando MD SPECIAL IMAGING STUDIES documented in this encounter Visit Diagnoses Not on filedocumented in this encounter
--- OUTSIDE RECORDS SUMMARY | 2022-02-15 16:22 | XMS_ITS | Encounter Summary ---
:1950 Author Organization [facility] Address [address] [place] [id number] Care Team Providers Name Role Phone Unavailable Primary Care Provider Unavailable Encounter Details Date Type Department Care Team Description 04/30/2004 Results Only [facility] Results Remberto Orlando MD [address] [facility] [address] [place], [place] [id number] (Wo rk) Social History Tobacco Use Types Packs/Day Years Used Date Smoking Tobacco: Never Assessed Sex Assigned at Date Recorded Not on file documented as of this encounter Plan of Treatment Not on filedocumented as of this encounter Procedures Procedure Name Priority Date/Time Associated Diagnosis Comme nts C MAMMOGRAM, Routine 04/30/2004 3:44 PM Results f or this SCREENING G[facility] BEATER procedure are i n the results section. documented in this encounter Results MAMMOGRAM, SCREENING (04/30/2004 3:44 PM GOLD BEATER) Anatomical Region Laterality Modality Other Specimen (Source) Anatomical Collection Method Collection Time Re ceived Time Location / / Volume Laterality 04/30/2004 3:44 PM G[facility] Impressions 05/03/2004 8:50 AM GOLD BEATER SCREENING MAMMOGRAM, BILATERAL BREAST SYMPTOMS: None PREVIOUS MAMMOGRAPHY: Comparison with [facility] dated 04/26/03 and 04/23/01. ??There is no sig nificant change. BREAST PARENCHYMA: ??Heterogeneously de nse. IMPRESSION: CATEGORY 1 Negative TECHNOLOGIST INITIALS: SRK Jayda Orlando MD SPECIAL IMAGING STUDIES documented in this encounter Visit Diagnoses Not on filedocumented in this encounter
--- OUTSIDE RECORDS SUMMARY | 2022-02-15 16:23 | XMS_ITS | Clinical Summary ---
:1950 Author Organization [employer] [facility] [place] [address] Care Team Providers Name Role Phone Radha Trinidad MD Unavailable Erika Benito MD Primary Care Provider [phone] Gerald Perez MD Unavailable Allergies Active Allergy Reactions Severity Noted Date Comments Amlodipine Edema High 06/01/2014 Olmesartan Itching 05/31/2014 Feet swelling Ciprofloxacin Hives 02/02/2021 Dabigatran Etexilate Itching 12/09/2021 Doxycycline Itching Low 09/09/2016 Hydralazine Dizziness 07/10/2017 Chlorthalidone Stomach Upset High 06/01/2014 Losartan Other - Describe In High 06/01/2014 Extreme flatulence Comment Field Nifedipine Dizziness 06/24/2019 Penicillins Itching, Edema 10/23/2006 Prednisone Tachycardia 05/22/2021 SVT Rivaroxaban Angioedema High 12/09/2021 Sulfa (Sulfonamide Rash 08/26/2007 Antibiotics) Azithromycin Itching 04/11/2011 Medications Medication Sig Dispensed Refills Start End Status Date Date SUMAtriptan (IMITREX) TAKE ONE TABLET 9 tablet 1 10/29/19 Active 25 mg BY MOUTH FOR 1 20 tabletIndications: DOSE WITH Migraine without FLUIDS JUNO status migrainosus, ONSET OF not intractable, MIGRANE ATTACK unspecified migraine MAY REPEAT type AFTER 2HRS/MAX DOSE 200MG levothyroxine Take 1 Tablet 90 tablet. 3 05/31/19 A ctive (SYNTHROID) 112 mcg (112 mcg) by 22 tabletIndications: mouth before Hypothyroidism, breakfast. unspecified type mylan labs only rosuvastatin (CRESTOR) TAKE ONE TABLET 90 Tablet 3 07/06/19 Active 5 mg BY MOUTH AT 22 tabletIndications: BEDTIME Hyperlipidemia, unspecified hyperlipidemia type sucralfate (CARAFATE) TAKE ONE TABLET 60 Tablet 3 09/20/19 Active 1 gram BY MOUTH TWICE 22 tabletIndications: DAILY NEEDED Chronic GERD hydroCHLOROthiazide TAKE ONE TABLET 90 Tablet 3 10/05/19 Active (HCTZ) 25 mg BY MOUTH ONCE 22 tabletIndications: DAILY Essential hypertension losartan (COZAAR) 100 TAKE 1 TABLET 90 Tablet 3 10/05/19 Active mg tabletIndications: BY MOUTH ONCE 22 Essential hypertension DAILY. ondansetron (ZOFRAN Place 1 Tablet 30 Tablet 0 12/14/19 Active ODT) 8 mg (8 mg) on the 22 disintegrating tongue every 8 tabletIndications: hours if needed Nausea for Nausea/Vomiting . pantoprazole Take 1 Tablet 90 Tablet 3 12/14/19 Act lucretia (PROTONIX) 40 mg (40 mg) by 22 delayed-release mouth once tabletIndications: daily before a Gastroesophageal meal. reflux disease, unspecified whether esophagitis present ALPRAZolam (XANAX) 0.5 Take 0.5 30 Tablet 0 12/19/19 Active mg tabletIndications: Tablets (0.25 22 Insomnia, idiopathic mg) by mouth at bedtime if needed for Anxiety. warfarin (COUMADIN) 5 Take by mouth 0 01/17/20 Active mg tabletIndications: 7.5 mg (5 mg x 22 Paroxysmal atrial 1.5) every Wed; fibrillation (HC), 5 mg (5 mg x 1) Anticoagulation all other days monitoring, INR range in the evening 2-3, Paroxysmal OR as directed supraventricular tachycardia (HC) acetaminophen-codeine Take 1 Tablet 0 01/16/20 Active (TYLENOL #3) 300-30 mg by mouth every 22 per tablet 6 hours if needed. metoprolol succinate Take 1.5 135 Tablet 3 01/22/20 Active (Toprol XL) 50 mg Tablets (75 mg) 22 sustained-release by mouth once tabletIndications: daily. Paroxysmal SVT (supraventricular tachycardia) (HC), Atrial fibrillation, unspecified type (HC), Paroxysmal atrial fibrillation (HC) metoprolol tartrate Take 1 Tablet 210 Tablet 3 01/22/20 Active (LOPRESSOR) 25 mg (25 mg) by tabletIndications: mouth two times Paroxysmal SVT daily. You may (supraventricular take an tachycardia) (HC), additional 1 Atrial fibrillation, tablet (25 mg) unspecified type (HC), once a day as Paroxysmal atrial needed for fibrillation (HC) palpitations cephalexin (KEFLEX) Take 1 Capsule 14 Capsule 0 02/15/2001/27 Active 500 mg (500 mg) by capsuleIndications: mouth two times Complicated UTI daily for 7 (urinary tract days. infection) metoprolol tartrate Take 1 Tablet 180 Tablet 3 09/15/1901/21 Discontinued (LOPRESSOR) 50 mg (50 mg) by ( *Med tabletIndications: mouth 2 times complete/Regim Paroxysmal SVT daily. en (supraventricular co mplete/Level tachycardia) (HC), o f care Essential hypertension change) fluconazole (DIFLUCAN) Take 1 Tablet 1 Tablet 0 02/15/2017/06 150 mg (150 mg) by tabletIndications: mouth one time Yeast vaginitis for 1 dose. Hospital, Clinic, or Other Ordered Dose Route Frequency Start Date End Date Status Facility Administered Medication triamcinolone acetonide 40 mg IArtic ONE TIME 01/17/202201/17 Ended (KENALOG) injection 40 mgIndications: Bilateral primary osteoarthritis of knee triamcinolone acetonide 40 mg IArtic ONE TIME 01/17/202201/17 Ended (KENALOG) injection 40 mgIndications: Bilateral primary osteoarthritis of knee Active Problems Problem Noted Date Paroxysmal atrial fibrillation 12/13/2021 Paroxysmal supraventricular tachycardia 12/13/2021 Atrial fibrillation, unspecified type 12/10/2021 Anticoagulation monitoring, INR range 2-3 12/10/2021 Stage 3 chronic kidney disease 07/10/2020 Bilateral primary osteoarthritis of knee 03/28/2020 Overview: Started approximately 2016. March 2020: bilateral knee cortisone injections by Dr. Chang. Very good benefit. Jan 2021: repeat bilateral knee cortison e injections. Great benefit for both knees at 1 month and beyond. Dec 2021: repeat bilateral knee cortiso ne injections. Great benefit several weeks out. History of colon polyps 05/28/2019 Overview: Colonoscopy 04/2019 diverticulosis, repea t in 5 years with propofol for patient comfort Esophageal reflux 02/06/2010 Overview: EGD 03/2010 gastritis EGD 05/2012 normal Other and unspecified hyperlipidemia 08/15/2009 Palpitations 06/16/2009 SVT (supraventricular tachycardia) 06/16/2009 Anxiety state, unspecified 10/13/2007 Unspecified essential hypertension 10/23/2006 Overview: 09/2018 24 hour urine mets and cats are n ormal 09/2018 no sign of JESSICA on renal artery ul trasound Unspecified hypothyroidism 10/23/2006 Allergic rhinitis, cause unspecified 10/23/2006 Encounters Date Type Specialty Care Team Description 02/15/2022 Nurse Triage Erika Benito Numbness (L eft side of MD Shahrzad face) 02/15/2022 Telephone Erika Benito Anticoagula tion (BPA - MD Shahrzad CEPHALEXIN 500 MG CAPSULE) 02/14/2022 Office Visit Liane Clark Urinary Proble NOEMY [place] (Symptoms star lee Friday evening , last night was reall y bad. Doesn't burn bu t hurts when urination along with urgency./P atient denies back dennis n or fevers./Urine a little cloudy.) 02/14/2022 Ancillary Procedure Arrived 02/14/2022 Travel 02/13/2022 Antico[facility] 02/12/2022 Orders Only Lab[facility] 02/12/2022 Travel 02/07/2022 Nurse/Clinic Staff Only Erika Benito Immunization/Injection MD Shahrzad 01/29/2022 Orders Only Lab[facility] 01/29/2022 Anticoagulation 1[facility] 01/29/2022 Travel 01/22/2022 Orders Only Lab[facility] 01/22/2022 Anticoagulation 1[facility] 01/22/2022 Travel 01/18/2022 Telephone Charo Sanchez 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, 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 01/17/2022 Office Visit Ilan Chang Knee Pain/prob salty Rogers MD (follow up, dennis n level at 8-9 when sle ep and moving ) 01/17/2022 Travel 01/16/2022 Orders Only Lab[facility] 01/16/2022 Telephone Erika Benito Anticoagula tiever (PCP MD Shahrzad approve?) 01/16/2022 Telephone Erika Benito (Knee MD Shahrzad injection antic ipated) 01/16/2022 Anticoagulation 1[facility] 01/16/2022 Telephone Erika Benito MD (Question on la b) 01/15/2022 Office Visit Charo Sanchez 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, 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 01/15/2022 Nurse/Clinic Staff Only Card iovascular Diagnostic Test ing 01/15/2022 Travel 01/09/2022 Telephone Erika Benito MD (bruising after dental work) 01/08/2022 Telephone 1[facility] (Recheck/appt) 01/07/2022 Orders Only Lab[facility] 01/07/2022 Telephone Erika Benito MD (Bleeding/Dosin g approval) 01/07/2022 Anticoagulation 1[facility] 01/07/2022 Travel 01/04/2022 Refill Erika Benito Refill Requ est; MD Shahrzad Anticoagulation (Warfarin refil l) 01/04/2022 Anticoagulation 1[facility] 01/03/2022 Orders Only Lab[facility] 01/03/2022 Travel 12/28/2021 Orders Only Lab[facility] 12/28/2021 Anticoagulation 1[facility] (Lab (warfarin) Clinic only) 12/28/2021 Telephone Erika Benito MD 12/28/2021 Travel 12/26/2021 Anticoagulation 1[facility] 12/25/2021 Orders Only Lab[facility] 12/25/2021 Travel 12/21/2021 Anticoagulation 1[facility] 12/20/2021 Orders Only Lab[facility] 12/20/2021 Telephone Erika Benito MD (Platelets need ed?) 12/20/2021 Travel 12/19/2021 Anticoagulation 1[facility] 12/18/2021 Office Visit Erika Benito Follow Up; Atrial MD Shahrzad Fibrillation 12/18/2021 Travel 12/14/2021 Telephone Erika Benito (BPA: MD Shahrzad ??ENOXAPARIN) 12/14/2021 Telephone Erika Benito MD (Provider revie w/approve AC plan/LOVENOX RX) 12/14/2021 Anticoagulation 1[facility] (Venous) (warfarin) Clinic 12/13/2021 Office Visit Erika Benito Nausea (Sta rting in the MD Shahrzad evening and goi ng all night, no vomit ing. ) 12/13/2021 Travel 12/13/2021 Telephone Erika Benito MD (Concern- provi leonardo to follow up if noemy lewlisa should be seen) 12/12/2021 Anticoagulation 1[facility] 12/12/2021 Telephone Gerald Perez Follow Up MD Yasir 12/11/2021 Orders Only Lab[facility] 12/11/2021 Telephone Ilan Chang MD 12/11/2021 Travel 12/10/2021 Anticoagulation 1[facility] 12/10/2021 Telephone Erika Benito MD (Standing lab o rders) 12/10/2021 Telephone 1[facility] 12/09/2021 Telephone Gerald Perez Concerns (/) MD Yasir 12/07/2021 Telephone Sunil Lopez MD 12/07/2021 Telephone Gerald Perez Questions (30 min AF MD Yasir episodes) 12/05/2021 Nurse/Clinic Staff Only Card iovascular Diagnostic Test ing (EKG/); Post Pr ocedure (Ablation) 12/05/2021 Nurse/Clinic Staff Only Card iovascular Diagnostic Test ing (EKG ); Post Procedu re (Ablation) 12/05/2021 Telephone Gerald Perez Follow Up MD Yasir 12/05/2021 Travel 12/04/2021 Transcribe Orders Yosi Gonzalez MD 12/04/2021 Telephone Yosi Gonzalez MD 12/04/2021 Telephone Yosi Gonzalez MD 12/04/2021 Nurse Triage Erika Benito Post-op MD Shahrzad 12/04/2021 Telephone Gerald Perez Concerns (Ruth eks MD Yasir burning) 12/03/2021 Anesthesia Event HenryGerald lugo MD 12/03/2021 - Hospital Encounter Gerald Perez Paroxys mal atrial fibrillation (HC) (Primary Dx); 12/04/2021 MD Yasir Gastroesophagea l reflux disease, unspecified whether esophagitis present Discharge Summary - Charo Sanchez, NENO - 12/04/2021 8:08 AM CDT Images from the original not e were not included. [facility] HOSPITAL DISCHARGE SUMMARY Patient Name: Isela Bah all Date of : 1950 Age: 71 y.o. [id number] Primary Physician: Erika Benito MD Primary Lock Assembler: Dr. liberty johnson Admission Date: 12/03/2021 Discharge Date: 12/04/2021 She will be discharged from . Interventionalist: Dr. Matt Perez Surgical Procedure: S/p A-fi b ablation Problem List: Active Problems: * No active hospital proble ms. * Discharge Medications: Current Discharge Medication List STOP taking these medication s aspirin chewable 81 mg chew able tablet Comments: Reason for Stopping: sotaloL (BETAPACE) 80 mg ta blet Comments: Reason for Stopping: START taking these medicatio ns Details dabigatran (PRADAXA) 150 mg capsule Take 1 Capsule (150 mg) by mouth 2 times daily. Associated Diagnoses: Parox ysmal atrial fibrillation (HC) CONTINUE these medications w hich have CHANGED or been REFILLED Details pantoprazole (PROTONIX) 40 m g delayed-release tablet Take 1 Tablet (40 mg) by mouth in the morning and 1 Tablet (40 mg) in the evening. Take before meals. Comments: Take for one nicolette h post ablation, then resume 40 mg po once daily ac Associated Diagnoses: Gastro esophageal reflux disease, unspecified whether esophagitis present CONTINUE these medications w hich have NOT CHANGED Details ALPRAZolam (XANAX) 0.5 mg ta blet TAKE ONE TABLET BY MOUTH DAILY IF NEEDED FOR ANXIETY. RARE USE . Associated Diagnoses: Anxie ty state; Insomnia, idiopathic hydroCHLOROthiazide (HCTZ) 2 5 mg tablet TAKE ONE TABLET BY MOUTH ONCE DAILY Associated Diagnoses: Essen tial hypertension levothyroxine (SYNTHROID) 11 2 mcg tablet Take 1 Tablet (112 mcg) by mouth before breakfast. mylan labs only Comments: Do not fill until requested. Associated Diagnoses: Hypoth yroidism, unspecified type losartan (COZAAR) 100 mg tab let TAKE 1 TABLET BY MOUTH ONCE DAILY. Associated Diagnoses: Essen tial hypertension metoprolol tartrate (LOPRESS OR) 50 mg tablet Take 1 Tablet (50 mg) by mouth 2 times daily. Associated Diagnoses: Parox ysmal SVT (supraventricular tachycardia) (HC); Essential hypertension rosuvastatin (CRESTOR) 5 mg tablet TAKE ONE TABLET BY MOUTH AT BEDTIME Associated Diagnoses: Hyper lipidemia, unspecified hyperlipidemia type sucralfate (CARAFATE) 1 gram tablet TAKE ONE TABLET BY MOUTH TWICE DAILY NEEDED Associated Diagnoses: Chron ic GERD SUMAtriptan (IMITREX) 25 mg tablet TAKE ONE TABLET BY MOUTH FOR 1 DOSE WITH FLUIDS JUNO ONSET OF MIGRANE ATTACK MAY REPEAT AFTER 2HRS/MAX DOSE 200MG Associated Diagnoses: Migra ine without status migrainosus, not intractable, unspecified migraine type After Discharge Orders and I nstructions After Hospital Follow Up Ap pointment(s) When to follow up: 1 to 5 d ays Cardiac diet: - make food choices that ar e considered heart healthy - eat more fresh fruits and vegetables: - aim for two or more servi ngs of fruit each day - eat three or more serving s of vegetables each day - eat whole grains. - limit sodium (salt): - do not add extra salt at the table - omit or reduce salt in ba mickie and cooking - eat more foods you make at home - eat more chicken, fish, an d lean pork, eat less red meat - bake, grill, or broil meat s, limit fried foods - eat two to three servings of low-fat or fat-free dairy foods each day - use these sparingly: veget able oil and spray, tub or squeeze margarine, low or non-fat salad dressing sparingly - read labels to avoid trans -fats Caring for your wound or in cision: - keep wound site clean and dry for the first 24 hours - you may shower after 24 ho urs, use mild soap - do not soak in tub or swim until wound is completely healed - a bruise and or nickel-siz ed lump in your wound area is normal - bruising and discoloration are common and may increase in size - it may take 2-3 weeks for any bruising to disappear - apply pressure slightly ab ove wound site if you laugh, cough or sneeze for 24 hours after discharge - if you have any bleeding a t the wound site, call your health care provider, lie down flat, apply pressure slightly above wound site - if bleeding does not stop with continuous pressure, CALL 911 If your wound site starts b leeding: - lie down flat - apply pressure slightly ab ove wound site - if bleeding does not stop with pressure, CALL 911 Monitor your wound site david ly for: - increased pain or swellin g - signs of infection, includ ing: redness, increased warmth, tenderness, bleeding or oozing - fever greater than 101 deg brando Fahrenheit Other activities: - you may resume normal act ivity after 12 hours - no lifting more than 10 po unds for 7 days. When should you be concerne d? Your health care provider i s Erika Benito MD Please call your health care provider if: - you have symptoms similar to what you previously experienced with your heart rhythm disturbance - chest heaviness or pressur e - breathlessness or shortnes s of breath - if you are not sure about what you are feeling or have questions about how you are feeling, stop whatever you are doing and call your clinic, ask to talk to a health care provider Call 911 or go to an Emergen cy Department at a nearby hospital if you feel you are having a medical emergency [facility] You were in the hospital fo r a-fib ablation. Brief Hospital Course: This is a 71 y.o. female wit h a history of SVT, hypertension, hyperlipidemia, hypothyroidism, esophageal reflux, stage 3 chronic kidney disease, and anxiety who underwent a PVI ablation with Dr. Matt Pimentel son 12/03/21. She tolerated th e procedure well. Overnight, she had no issues with her groin, has voided without difficulty, and has had breakfast, no nausea. Complications during hospita lization: None. Physical Exam: Constitutional: Patient appe ars comfortable, in no acute distress HEENT: normocephalic, atraum atic, pupils equal and round, mucus membranes are dry Neck: supple, trachea midlin e, no JVD Cardiac: RRR, normal S1/S2, no murmur, rub or gallop appreciated Respiratory: No increased re spiratory effort, clear to ascultation bilaterally, no wheezes, rhonchi, crackles appreciated. Abdomen: Soft, non-tender, n on-distended Integumentary: warm, dry, in tact without ecchymosis. Vascular: radial and pedal p ulses 2+ and symmetric, no lower extremity edema bilaterally Neuro: A+O x3, no focal neur ological deficits Groin: right side, no HE, so ft Psych: normal affect, answer s questions appropriately BP 121/66 (Cuff Size: Adult Regular) Pulse 75 Temp 98.4 ??F (36.9 ??C) Resp 16 Ht 1.626 m (5' 4) Wt 78.9 kg (174 lb) SpO2 94% BMI 29.87 kg/m?? Temp (24hrs), Av ??F (36 .7 ??C), Min:97.4 ??F (36.3 ??C), Max:98.7 ??F (37.1 ??C) Patient Vitals for the past 72 hrs: Weight 12/03/21 1027 78.9 kg (174 l b) Intake/Output Summary (Last 24 hours) at 12/04/2021 0808 Last data filed at 12/04/2021 0427 Gross per 24 hour Intake 1850 ml Output 200 ml Net 1650 ml Diagnostics: EKG 12/04/2021: SR PAC, rate 6 8, ID 160, QRS 100, QT440, QTc 460 Telemetry: SR Stress test 5/9/22 FINAL CONCLUSIONS 1. Normal myocardial perfus ion imaging with no evidence of ischemia or infarction. 2. No electrocardiographic evidence of ischemia during Lexiscan infusion. 3. Small left ventricular c avity size. Normal left ventricular systolic function with estimated ejection fraction > 70%. ?? [place] 09/01/21 Final Impressions: 1. Normal LV size, normal w all thickness, normal global systolic function with an estimated EF of 60 - 65%. 2. Right ventricular cavity size is normal, global systolic RV function is normal. 3. The aortic valve is tril eaflet and sclerotic, no stenosis and mild regurgitation. 4. The mitral valve is norm al, mild mitral regurgitation. 5. Tricuspid regurgitation is trace regurgitation, the estimated right ventricular systolic pressure is 24 mmHg plus right atrial pressure. ?? Impression/Plan: 71-year-old female with hist ory of hypertension, CKD, and SVT s/p PVI ablation yesterday. 1. Atrial Fibrillation A. [id number] Score 3 (his torically not on anticoagulation)-->now to take Pradaxa 150 mg PO BID B. Hx of Flecainide & Sotalo l intolerance C. Currently taking Metoprol ol Tartrate 50 mg PO BID D. Cont PPI for one month Plan: Okay for discharge, follow u p in 6 weeks with EP BRADY (called into dc line). Pradaxa 150 mg PO BID until follow up. Will likely need to transition to Eliquis or Xarelto. Continue on Metoprolol Tartrate 5 0 mg PO BID. If she has recu rrent arrhythmia, amiodarone is recommended. All restrictions and discharge education done Future Appointments Schedule d: [facility]00 AM Dmitriy Connolly MD [facility] 12/18/2021 1:50 PM Geno Chang MD [facility] Total time spent for dischar ge on date of discharge: 30 minutes Charo Sanchez APRN, [employer] [facility] at Paging via [facility] Paging Link 12/03/2021 Travel 11/30/2021 Preop Visit Erika Benito Preoperativ e Exam (Manzanares MD 12/03/2021, Dr. Ana Knox, heart ablation) ; Medication List Update (Co mpleted with tessalon perles and odansetron) 11/30/2021 Travel 11/29/2021 Telephone Gerald Perez MD Pre Procedure (12/03/21 MDO EPS with poss SVT v s PVI ablation) 11/26/2021 Hospital Encounter Gerald Perez MD Paroxysmal SVT (supraventricul ar tachycardia) (H C) 11/26/2021 Travel from Last 3 Months Immunizations Name Administration Dates Next Due AMB Influenza, IIV3 (Age >=3 02/04/2012, 02/19/2011, 010, years)(Flu Clinic Only) 02/18/2008 AMB Influenza, IIV4 PF (=>6 mos 02/05/2014 Flulaval,Fluzone Fluarix)(Flu Clinic Only) Amb Influenza, Inact (High-dose) (Flu 02/10/2015 Clinic Only) COVID-19 vaccine (Moderna 07/24/2020, 06/26/2020 100mcg/0.5mL) PF, MDV COVID-19 vaccine (Egnyte 03/07/2021 30mcg/0.3mL) PF, MDV Influenza, High-dose Inactivated 03/12/2017, 02/07/2017, , 02/10/2015 Influenza, High-dose Quadrivalent 02/04/2020 Inactivated Influenza, IIV3 (Age 6-35 mos) 02/19/2011 Influenza, IIV3 (Age >=3 years) 03/03/2013, 02/04/2012, 05/2009, 01/26/2009, 02/18/2008, 03/16/2005, 03/29/2004, 02/22/2003 Influenza, IIV4 02/05/2014 Influenza, Inactivated AIIV4 (Age 65+ 02/07/2022, 02/12/2021 Years) Preserv Free Influenza, Inactivated IIV3 (Age 65+ 02/04/2019, 02/24/2018 Years) Preserv Free Pneumococcal Poly,23-Valent 03/12/2017, 02/07/2017 (Pneumovax) Pneumococcal conj 13-Valent (Prevnar 01/24/2015 13) Td (Age >=7 Years) 10/02/2005, 08/18/1996 Tdap 01/04/2015, 10/03/2005 Zoster (Zostavax-ZVL, live) 01/27/2012, 10/14/2011 Family History Medical History Relation Name Comments Lymphoma Father Diverticulitis Maternal Grandfather Cancer-breast Maternal Grandmother Atrial fibrillation Mother Celiac disease Mother Hypertension Mother Kidney failure Paternal Grandfather Anesthesia Problem No Family History Cancer-ovarian No Family History Deep vein thrombosis No Family History Relation Name Status Comments Father Maternal Grandfather Maternal Grandmother Mother Paternal Grandfather Social History Tobacco Use Types Packs/Day Years Used Date Never Smoker Smokeless Tobacco: Never Used Tobacco Cessation: Counseling Given: Yes Alcohol Use Standard Drinks/Week Comments Not Currently 0 (1 standard drink = 0.6 oz pure alcoho l) seldom Alcohol Habits Answer Date Recorded How often do you have a drink containing alcohol? 2-4 times a month 06/07/2019 How many drinks containing alcohol do you have on a 1 or 2 10/01/2018 typical day when you are drinking? How often do you have six or more drinks on one Never 10/01/2018 occasion? Comment: seldom 07/10/2020 Sex Assigned at Date Recorded Female 06/14/2020 2:36 PM CLINICAL PSYCHOLOGIST LICENSED COVID-19 Exposure Response Date Recorded In the last 10 days, have you been in contact with No / Unsu re 02/14/2022 5:04 AM CDT someone who was confirmed or suspected to have Coronavirus/COVID-19? Obstetrics History Last Filed Vital Signs Vital Sign Reading Time Taken Comments Blood Pressure 165/75 02/14/2022 1:28 PM CDT Pulse 74 02/14/2022 1:28 PM CDT Temperature 36.5 ??C (97.7 ??F) 02/14/2022 1:28 PM CDT Respiratory Rate 14 12/05/2021 10:38 AM CDT Oxygen Saturation 99% 02/14/2022 1:28 PM CDT Inhaled Oxygen Concentration - - Weight 77.4 kg (170 lb 9.6 oz) 02/14/2022 1:28 PM CDT Height 165.1 cm (5' 5) 01/17/2022 9:24 AM CDT Body Mass Index 28.39 01/17/2022 9:24 AM CDT Plan of Treatment Upcoming Encounters Date Type Specialty Care Team Description 02/18/2022 Orders Only Lab, [facility] Due Date Last Done Comments Zoster (shingles) series for age 1103/23/2012 01/27/2012, 50+ (2 of 3) Mammogram for age 45-75 12/10/2018 12/10/2017 (Completed ou [facility]), 09/28/2012 COVID-19 vaccine series (4 - 05/02/2021 03/07/2021, 021, Booster for Moderna series) 06/26/2020 Medicare Wellness for age 65+ 07/10/2021 07/10/2020 Depression screening for age 12+ 09/29/2021 09/29/2020, , 07/10/2020, Additional history exists BMI (ht and wt on same day) for 01/17/2023 01/17/2022, 11/26, age 18+ 12/05/2021, Additional history exists Colonoscopy through age 75 05/28/2024 05/28/2019, , 05/28/2019, Additional history exists Tetanus booster 01/04/2025 01/04/2015, 10/03/2005, 10/02/2005, Additional history exists Lipids for age 45-75 11/30/2026 11/30/2021, 08/21/2020, 06/06/2017, Additional history exists Tdap Completed 01/04/2015, 10/03/2005 DEXA/DXA scan for age 65+ Completed 01/24/2015 Pneumococcal series for age 65+ Completed 03/12/2017, 01/26, 01/24/2015 Hepatitis C screening for age Completed 08/21/2020 18-79 Influenza for age 65+ Completed 02/07/2022, 02/12/2021, 02/04/2020, Additional history exists Procedures Procedure Name Priority Date/Time Associated Diagnosis Comme nts URINALYSIS Routine 02/14/2022 1:24 Urgency of urination Resu lts for this MICROSCOPIC PM CDT procedure are i n the results section. UA W/ SEDIMENT EXAM Routine 02/14/2022 1:24 Urgency of urinati on Results for this REFLEXED PER PM CDT procedure are i n CRITERIA the results section. US ABDOMEN LIMITED Routine 02/14/2022 10:37 Gallbladder polyp Results for this GALLBLADDER AM CDT procedure are i n the results section. INR,POCT Routine 02/12/2022 9:57 Atrial fibrillation, Resu lts for this AM CDT unspecified type (HC) procedure are in Anticoagulation the results monitoring, INR range sectio n. 2-3 INR,POCT Routine 01/29/2022 4:09 Atrial fibrillation, Resu lts for this PM CDT unspecified type (HC) procedure are in Anticoagulation the results monitoring, INR range sectio n. 2-3 INR,POCT STAT 01/22/2022 12:29 Anticoagulation Results for this PM CDT monitoring, INR range proced ure are in 2-3 the results section. INR,POCT Routine 01/16/2022 10:01 Atrial fibrillation, Res ults for this AM CDT unspecified type (HC) procedure are in Anticoagulation the results monitoring, INR range sectio n. 2-3 EKG 12 LEAD Routine 01/15/2022 12:07 Routine general medical Results for this PM CDT examination at [facility] are in care facility the results section. INR,POCT Routine 01/07/2022 8:21 Atrial fibrillation, Resu lts for this AM CDT unspecified type (HC) procedure are in Anticoagulation the results monitoring, INR range sectio n. 2-3 PROTIME-INR STAT 01/03/2022 3:51 Atrial fibrillation, Resu lts for this PM CDT unspecified type (HC) procedure are in Anticoagulation the results monitoring, INR range sectio n. 2-3 PROTIME-INR STAT 12/28/2021 10:06 Atrial fibrillation, Res ults for this AM CDT unspecified type (HC) procedure are in Anticoagulation the results monitoring, INR range sectio n. 2-3 PROTIME-INR STAT 12/25/2021 12:47 Atrial fibrillation, Res ults for this PM CDT unspecified type (HC) procedure are in Anticoagulation the results monitoring, INR range sectio n. 2-3 PROTIME-INR STAT 12/20/2021 3:15 Atrial fibrillation, Resu lts for this PM CDT unspecified type (HC) procedure are in Anticoagulation the results monitoring, INR range sectio n. 2-3 PLATELET COUNT STAT 12/18/2021 12:21 Atrial fibrillation, R esults for this PM CDT unspecified type (HC) procedure are in Anticoagulation the results monitoring, INR range sectio n. 2-3 PROTIME-INR STAT 12/18/2021 12:21 Atrial fibrillation, Res ults for this PM CDT unspecified type (HC) procedure are in Anticoagulation the results monitoring, INR range sectio n. 2-3 CBC WITH AUTO STAT 12/13/2021 3:25 Nausea Results for this DIFFERENTIAL PM CDT procedure are i n the results section. COMP METABOLIC PANEL Routine 12/13/2021 3:25 Nausea Resu lts for this PM CDT procedure are i n the results section. CBC WITH AUTO STAT 12/13/2021 3:25 Nausea Results for this DIFFERENTIAL PM CDT procedure are i n the results section. PROTIME-INR STAT 12/13/2021 3:25 Atrial fibrillation, Resu lts for this PM CDT unspecified type (HC) procedure are in Anticoagulation the results monitoring, INR range sectio n. 2-3 PLATELET COUNT STAT 12/11/2021 12:45 Atrial fibrillation, R esults for this PM CDT unspecified type (HC) procedure are in Anticoagulation the results monitoring, INR range sectio n. 2-3 PROTIME-INR STAT 12/11/2021 12:45 Atrial fibrillation, Res ults for this PM CDT unspecified type (HC) procedure are in Anticoagulation the results monitoring, INR range sectio n. 2-3 EKG 12 LEAD Routine 12/05/2021 10:49 Paroxysmal SVT Results f or this AM CDT (supraventricular procedure are in tachycardia) (HC) the result s section. SCAN-CARDIAC STRIP 12/04/2021 8:42 AM CDT EKG 12 LEAD Early AM 12/04/2021 7:40 Results for this AM CDT procedure are i n the results section. SCAN-CARDIAC STRIP 12/03/2021 11:24 PM CDT SCAN-CARDIAC STRIP 12/03/2021 7:44 PM CDT SCAN-CARDIAC STRIP 12/03/2021 4:59 PM CDT HCHG ACTIVATED Timed 12/03/2021 2:50 Results fo r this CLOTTING TM CV PM CDT procedure are in the results section. HCHG ACTIVATED Timed 12/03/2021 2:33 Results fo r this CLOTTING TM CV PM CDT procedure are in the results section. HCHG ACTIVATED Timed 12/03/2021 2:14 Results fo r this CLOTTING TM CV PM CDT procedure are in the results section. ENDOTRACHEAL TUBE Routine 12/03/2021 2:04 Results for this PM CDT procedure are i n the results section. ENDOTRACHEAL TUBE Routine 12/03/2021 2:04 Results for this PM CDT procedure are i n the results section. ENDOTRACHEAL TUBE Routine 12/03/2021 2:04 Results for this PM CDT procedure are i n the results section. HCHG ACTIVATED Timed 12/03/2021 2:03 Results fo r this CLOTTING TM CV PM CDT procedure are in the results section. HCHG ACTIVATED Timed 12/03/2021 1:46 Results fo r this CLOTTING TM CV PM CDT procedure are in the results section. HCHG ACTIVATED Timed 12/03/2021 1:35 Results fo r this CLOTTING TM CV PM CDT procedure are in the results section. EP STUDY /ABLATION Routine 12/03/2021 12:54 Resul ts for this PM CDT procedure are i n the results section. EKG 12 LEAD Preop 12/03/2021 10:31 Results for this AM CDT procedure are i n the results section. PROTIME-INR Preop 12/03/2021 10:20 Results for this AM CDT procedure are i n the results section. CBC W PLT NO DIFF Preop 12/03/2021 10:20 Result s for this AM CDT procedure are i n the results section. BASIC METABOLIC Preop 12/03/2021 10:20 Results for this PANEL AM CDT procedure are i n the results section. SCAN-CARDIAC STRIP 12/03/2021 12:00 Resul ts for this AM CDT procedure are i n the results section. LIPID PANEL W REFLEX Routine 11/30/2021 10:55 Hyperlipidemia, Results for this MEASURED LDL AM CDT unspecified procedure are i n hyperlipidemia type the resu lts section. TSH WITH REFLEX Routine 11/30/2021 10:55 Hypothyroidism Result s for this AM CDT (acquired) procedure are i n the results section. CT CARDIAC Routine 11/26/2021 9:14 Paroxysmal SVT Results fo r this MORPHOLOGY W DUAL AM CDT (supraventricular proce dure are in READ tachycardia) (HC) the result s section. CREATININE,ISTAT Routine 11/26/2021 8:59 Results for this AM CDT procedure are i n the results section. from Last 3 Months Results (ABNORMAL) URINALYSIS MICROSCOPIC (02/14/2022 1:24 PM CDT) [facility] Method Time Signature RBC 3-5 (A) 0-2, None 02/14/2022 [facility] Seen /HPF 1:55 PM CDT [facility] WBC 11-25 (A) 0-2, 3-5, 02/14/2022 [facility] None Seen 1:55 PM CDT [facility] /[facility]PF CLINIC BACTERIA Few None 02/14/2022 [facility] Seen, 1:55 PM CDT [facility] Rare, Few CLINIC Bacteria/ HPF EPITHELIAL Few None 02/14/2022 [facility] CELLS Seen, Few 1:55 PM CDT [facility] Epi/HPF CLINIC YEAST Present (A) (none) 02/14/2022 [facility] 1:55 PM CDT [facility] WHITE CELL Present (A) (none) 02/14/2022 [facility] CLUMPS 1:55 PM CDT [facility] Specimen Anatomical Collection Method Collection Time Receive d Time (Source) Location / / Volume Laterality Urine URINE SPECIMEN / Non-Blood / 02/14/2022 1:24 PM 02/14 1:39 Unknown Unknown CDT PM CDT Liane YATES URINE Performing Organization Address City/State/ZIP Code Phon e Number [facility] [address] [place] [address] (ABNORMAL) UA W/ SEDIMENT EXAM REFLEXED PER CRITERIA (02/14/2022 1:24 PM CDT) [facility] Method Time Signature COLOR Yellow Yellow Color 02/14/2022 [facility] 1:55 PM CDT [facility] CLARITY Clear Clear 02/14/2022 [facility] Clarity 1:55 PM CDT [facility] SPECIFIC >=1.030 (A) 1.010, 02/14/2022 [facility] GRAVITY,URINE 1.015, 1:55 PM CDT [facility] 1.020, 1.025 CLINIC PH,URINE 5.5 6.0, 7.0, 02/14/2022 [facility] 8.0, 5.5, 1:55 PM CDT [facility] 6.5, 7.5, CLINIC 8.5 UROBILINOGEN, Normal Normal EU/dl 02/14/2022 [facility] 1:55 PM CDT [facility] PROTEIN, Negative Negative 02/14/2022 [facility] URINE mg/dL 1:55 PM CDT [facility] GLUCOSE, Negative Negative 02/14/2022 [facility] URINE mg/dL 1:55 PM CDT [facility] KETONES,URINE Negative Negative 02/14/2022 [facility] mg/dL 1:55 PM CDT [facility] BILIRUBIN,URI Negative Negative 02/14/2022 [facility] NE 1:55 PM CDT [facility] OCCULT Small (A) Negative 02/14/2022 [facility] BLOOD,URINE 1:55 PM CDT [facility] NITRITE Negative Negative 02/14/2022 [facility] 1:55 PM CDT [facility] LEUKOCYTE Small (A) Negative 02/14/2022 [facility] ESTERASE 1:55 PM CDT [facility] Specimen Anatomical Collection Method Collection Time Receive d Time (Source) Location / / Volume Laterality Urine URINE SPECIMEN / Non-Blood / 02/14/2022 1:24 PM 02/14 1:39 Unknown Unknown CDT PM CDT Liane YATES URINE Performing Organization Address City/State/ZIP Code Phon e Number [facility] [address] [place] [address] US ABDOMEN LIMITED GALLBLADDER (02/14/2022 10:37 AM CDT) Anatomical Region Laterality Modality Abdomen Ultrasound Specimen (Source) Anatomical Collection Method Collection Time Re ceived Time Location / / Volume Laterality 02/14/2022 2:17 PM CDT Impressions 02/14/2022 2:17 PM CDT Stable 4 millimeter gallbladder polyp. Dictated by Yasir Smith MD @ Feb 14 2 022 ??2:17PM (Electronically Signed) ?? Narrative 02/14/2022 2:17 PM CDT For Patients: ??As a result of the Cures Act, medical imaging exams and procedure report s are released immediately into [facility]. ??You may view this report before your referring provider. ??If you have questions, please contact your health care provider. INDICATION: Gallbladder polyp COMPARISON: 01/11/2021 TECHNIQUE: Real time cabral scale imaging and color D oppler analysis was performed of the gallbladder FINDINGS: Stable hyperechoic focus associated with the nondependent gallbladder wall measuring 4 millimeters. Gallbladder wall measures 2 millimeters. Common bile duct measures 3 millimeters. No gallstones. Procedure Note Yasir Smith MD - 02/14/2022For matting of this note might be different from the original. For Patients: As a result of the Cures Act, medical imaging exams and procedure reports are released immediately into your electronic medical record. You may view this report before your referring provider. If you have questions, please contact [facility] health care provider. INDICATION: Gallbladder polyp COMPARISON: 01/11/2021 TECHNIQUE: Real time cabral scale imaging and color D oppler analysis was performed of the gallbladder FINDINGS: Stable hyperechoic focus associated with the nondependent gallbladder wall measuring 4 millimeters. Gallbladder wall measures 2 millimeters. Common bile duct measures 3 millimeters. No gallstones. IMPRESSION: Stable 4 millimeter gallbladder polyp. Dictated by Yasir Smith MD @ Feb 14 2 022 2:17PM (Electronically Signed) Palomo Andino MD US (ABNORMAL) INR,POCT (02/12/2022 9:57 AM CDT)Only the most recent of5 results within the time period is included. P athologist Signature INR 3.3 (H) <1.3 02/12/2022 [facility] 10:02 AM CDT [facility] Specimen Anatomical Collection Method Collection Time Receive d Time (Source) Location / / Volume Laterality Blood BLOOD SPECIMEN / 02/12/2022 9:57 AM 02/12 Unknown CDT 10:02 AM CDT Narrative [facility] - 2021 10:02 AM CDT ?Therapeutic Range 2.0-3.0 for most anticoagulated patients 2.5-3.5 or 4.0 for high risk patients Erika Benito MD LABORATORY Performing Organization Address City/State/ZIP Code Phon e Number [facility] [address] [place] [address] EKG 12 LEAD (01/15/2022 12:07 PM CDT)Only the most recent of4 resultswithin the time period is included. [facility] gist Method Time Signature Interpretation Normal sinus rhythm Minimal voltage criteria for LVH, may be normal variant Borderline ECG Ventricular Rate 65 BPM Atrial Rate 65 BPM P-R Interval 154 ms QRS Duration 94 ms QT 406 ms QTc 422 ms P [place] 52 degrees R [place] -6 degrees T [place] 30 degrees Specimen Anatomical Collection Method Collection Time Receive d Time (Source) Location / / Volume Laterality 01/15/2022 12:07 01/16/2022 5:16 PM CDT PM CDT Charo Sanchez NP EKG ORD (ABNORMAL) PROTIME-INR (01/03/2022 3:51 PM CDT)Only the most recent of8 results within the time period is included. P athologist Signature INR 2.0 (H) <1.3 01/03/2022 [facility] 8:44 PM CDT LABORATORY-[facility] LABORATORY PROTIME 21.9 (H) 12.0 - 13.8 01/03/2022 [facility] sec 8:44 PM CDT LABORATORY-[facility] LABORATORY Specimen Anatomical Collection Method / Collection Time Recei delta Time (Source) Location / Volume Laterality Blood BLOOD SPECIMEN / Venipuncture / 01/03/2022 3:51 2021 3:51 Unknown Unknown PM CDT PM CDT Narrative [facility] LABORATORY-CEN[facility]AL LABORAT ORY - 01/03/2022 8:44 PM CDT ?Therapeutic Range 2.0-3.0 for most anticoagulated patients 2.5-3.5 or 4.0 for high risk patients The INR is only used for patients on sta ble oral anticoagulant therapy. It makes no significant contribution to the diagnosis or treatment of patients whose Protime is prolonged f or other reasons. INR results are increased when heparin l evels exceed 1.0 U/mL, which corresponds to an aPTT >125 seconds if the patient is on UFH. Erika Benito MD HEMATOLOGY Performing Organization Address City/State/ZIP Code Phon e Number [facility] [address] [place] [address] LABORATORY-CENTRAL 1999 LABORATORY PLATELET COUNT (12/18/2021 12:21 PM CDT)Only the most recent of2 resultswithin the time period is included. athologist Signature PLATELET COUNT 247 140 - 440 12/18/2021 [facility]/ mm 12:27 PM CDT [facility] MPV 9.1 6.5 - 11.0 12/18/2021 [facility] fL 12:27 PM CDT [facility] Specimen Anatomical Collection Method Collection Time Receive d Time (Source) Location / / Volume Laterality Blood BLOOD SPECIMEN / Butterfly / 12/18/2021 12:21 022 Unknown Unknown PM CDT 12:22 PM CDT Narrative [facility] - 2021 12:27 PM CDT to monitor if out of range, to monito r for Heparin-Induced Thrombocytopenia while on lovenox. Erika Benito MD HEMATOLOGY Performing Organization Address City/State/ZIP Code Phon e Number [facility] [address] [place] [address] (ABNORMAL) CBC WITH AUTO DIFFERENTIAL (12/13/2021 3:25 PM CDT) [facility] gist Method Time Signature WHITE BLOOD 6.2 4.5 - 12/13/2021 [facility] COUNT 11.0 3:30 PM CDT [facility] mm RED BLOOD COUNT 4.03 4.00 - 12/13/2021 [facility] 5.20 3:30 PM CDT [facility] CLINIC HEMOGLOBIN 11.4 (L) 12.0 - 12/13/2021 [facility] 16.0 g/dL 3:30 PM CDT [facility] HEMATOCRIT 34.6 33.0 - 12/13/2021 [facility] 51.0 % 3:30 PM CDT [facility] MCV 86 80 - 100 12/13/2021 [facility] fL 3:30 PM CDT [facility] MCH 28.3 26.0 - 12/13/2021 [facility] 34.0 pg 3:30 PM CDT [facility] MCHC 32.9 32.0 - 12/13/2021 [facility] 36.0 g/dL 3:30 PM CDT [facility] RDW 14.9 11.5 - 12/13/2021 [facility] 15.5 % 3:30 PM CDT [facility] PLATELET COUNT 269 140 - 440 12/13/2021 [employer] thou/cu 3:30 PM CDT [facility] MPV 9.2 6.5 - 12/13/2021 [employer] 11.0 fL 3:30 PM CDT [facility] % NEUT 59.1 % 12/13/2021 [facility] 3:30 PM CDT [facility] % LYMPH 27.1 % 12/13/2021 [facility] 3:30 PM CDT [facility] % MONO 12.2 % 12/13/2021 [employer] 3:30 PM CDT [facility] % EOS 1.1 % 12/13/2021 [facility] 3:30 PM CDT [facility] % BASO 0.5 % 12/13/2021 [facility] 3:30 PM CDT [facility] ABSOLUTE 3.7 1.7 - 7.0 12/13/2021 [employer] NEUTROPHILS thou/cu 3:30 PM CDT [facility] CLINIC ABSOLUTE 1.7 0.9 - 2.9 12/13/2021 [employer] LYMPHOCYTES thou/cu 3:30 PM CDT [facility] CLINIC ABSOLUTE 0.8 <0.9 12/13/2021 [employer] MONOCYTES thou/cu 3:30 PM CDT [facility] CLINIC ABSOLUTE 0.1 <0.5 12/13/2021 [employer] EOSINOPHILS thou/cu 3:30 PM CDT [facility] CLINIC ABSOLUTE 0.0 <0.3 12/13/2021 [employer] BASOPHILS thou/cu 3:30 PM CDT [facility] CLINIC Specimen Anatomical Collection Method Collection Time Receive d Time (Source) Location / / Volume Laterality Blood BLOOD SPECIMEN / Butterfly / 12/13/2021 3:25 PM 12/13 3:26 Unknown Unknown CDT PM CDT Erika Benito MD HEMATOLOGY Performing Organization Address City/State/ZIP Code Phon e Number [facility] [address] [place], [place] [id number] (ABNORMAL) COMP METABOLIC PANEL (12/13/2021 3:25 PM CDT) [facility] Method Time Signature SODIUM 137 135 - 145 12/14/2021 [facility] mmol/L 5:32 PM CDT [facility] POTASSIUM 3.9 3.5 - 5.0 12/14/2021 [facility] mmol/L 5:32 PM CDT [facility] CHLORIDE 106 98 - 110 12/14/2021 [facility] mmol/L 5:32 PM CDT [facility] CO2,TOTAL 22 21 - 31 12/14/2021 [facility] mmol/L 5:32 PM CDT [facility] ANION GAP 9 5 - 18 12/14/2021 [facility] 5:32 PM CDT [facility] GLUCOSE 113 (H) 65 - 100 12/14/2021 [facility] mg/dL 5:32 PM CDT [facility] CALCIUM 9.3 8.5 - 12/14/2021 [facility] [employer] 10.5 5:32 PM CDT [facility] mg/dL TRAL LABORATORY BUN 15 8 - 25 12/14/2021 [facility] [employer] mg/dL 5:32 PM CDT [facility] CREATININE 1.34 (H) 0.57 - 12/14/2021 [facility] [employer] 1.11 5:32 PM CDT [facility] mg/dL TRAL LABORATORY BUN/CREAT RATIO 11 10 - 20 12/14/2021 [facility] [employer] 5:32 PM CDT [facility] ALBUMIN 4.2 3.2 - 4.6 12/14/2021 [facility] [employer] g/dL 5:32 PM CDT [facility] PROTEIN,TOTAL 6.6 6.0 - 8.0 12/14/2021 [employer] g/dL 5:32 PM CDT [facility] GLOBULIN 2.4 2.0 - 3.7 12/14/2021 [employer] g/dL 5:32 PM CDT [facility] A/G RATIO 1.8 1.0 - 2.0 12/14/2021 [facility] 5:32 PM CDT [facility] BILIRUBIN,TOTAL 0.5 0.2 - 1.2 12/14/2021 [facility] [facility] mg/dL 5:32 PM CDT [facility] ALK PHOSPHATASE 46 (L) 50 - 136 12/14/2021 [employer] [facility] IU/L 5:32 PM CDT [facility] ALT (SGPT) 40 8 - 45 12/14/2021 [employer] IU/L 5:32 PM CDT [facility] AST (SGOT) 39 2 - 40 12/14/2021 [employer] IU/L 5:32 PM CDT [facility] eGFR 42 (L) >90 12/14/2021 [employer] mL/min/1. 5:32 PM CDT [facility]AT[facility] 73m2 TRAL LABORATORY Comment: As of 2021, eGFR is calcu lated by the CKD-EPI creatinine equation without race adjustment. eGFR can be inf luenced by muscle mass, exercise, and diet. The reported eGFR is an estimation only and is only applicable if the renal function is stable. Specimen Anatomical Collection Method Collection Time Receive d Time (Source) Location / / Volume Laterality Blood BLOOD SPECIMEN / Butterfly / 12/13/2021 3:25 PM 12/13 3:26 Unknown Unknown CDT PM CDT Erika Benito MD CHEMISTRY Performing Organization Address City/State/ZIP Code Phon e Number [facility] [address] [place] [address] LABORATORY-CENTRAL 2000 LABORATORY SCAN-CARDIAC STRIP (12/04/2021 8:42 AM CDT) Narrative This result has an attachment that is no t available. Scanner OTHER SCAN-CARDIAC STRIP (12/03/2021 11:24 PM CDT) Narrative This result has an attachment that is no t available. Scanner OTHER SCAN-CARDIAC STRIP (12/03/2021 7:44 PM CDT) Narrative This result has an attachment that is no t available. Scanner OTHER SCAN-CARDIAC STRIP (12/03/2021 4:59 PM CDT) Narrative This result has an attachment that is no t available. Scanner OTHER (ABNORMAL) ACTIVATED CLOTTING TIME [id number] ACT (12/03/2021 2:50 PM CDT)Only the most recent of6 resultswithin the time period is included. P athologist Signature ACTIVATED 403 (H) 74 - 125 12/05/2021 [facility] CLOTTING TIME, sec 10:00 AM CDT HOSPITAL POCT LABORATORY Specimen Anatomical Collection Method Collection Time Receive d Time (Source) Location / / Volume Laterality Blood BLOOD SPECIMEN / 12/03/2021 2:50 PM 12/05 Unknown CDT 10:00 AM CDT Gerald Perez MD HEMATOLOGY Performing Organization Address City/State/ZIP Code Phon e Number [facility] LABORATORY SENDOUT INTERNAL ZIP [place] [id number] [place] [address] HCHG TUBE PR1, HCHG STYLET PR1, HCHG MOUTHPIECE PR1 (12/03/2021 2:04 PM CDT) Narrative Willie Corcoran CRNA - 12/03/2021 2 :04 PM CDT Willie Corcoran CRNA ? 12/03/2021 ??2:04 PM Procedure: ETT Patient location during procedure: OR ETT Properties Mask Ventilation: easy Final Technique: direct laryngoscopy Type: straight Location: oral Cuffed: yes Tube Size: 7.0 mm Stylet: yes Laryngoscope Blade: Garland Blade Size: 2 Cormack-Lehane Grade View: 1 Insertion Attempts: 1 Placement Verification: auscultation, en d tidal CO2 and symmetrical chest wall movement Assessment: pharynx clear, atraumatic an d dentition unchanged Secured at: 22 Measured From: teeth Tooth guard used and removed: yes Difficulty: 0 (not difficult) Electronically signed by Willie Corcoran CRNA ? Gerald Dasilva MD ANESTHESIA PX NOTE ORDERABLE S EP STUDY /ABLATION (12/03/2021 12:54 PM CDT) Anatomical Region Laterality Modality X-Ray Angiography Specimen (Source) Anatomical Collection Method Collection Time Re ceived Time Location / / Volume Laterality 12/03/2021 12:54 PM CDT Narrative This result has an attachment that is no t available. Gerald Perez MD CV IMAGING CBC with Platelet no Diff (12/03/2021 10:20 AM CDT) P athologist Signature WHITE BLOOD 7.7 4.5 - 11.0 12/03/2021 [facility] [facility] COUNT thou/cu mm 11:10 AM CDT LABORATORY RED BLOOD COUNT 4.53 4.00 - 12/03/2021 [facility] 5.20 11:10 AM CDT LABORATORY mil/cu mm HEMOGLOBIN 12.3 12.0 - 12/03/2021 [facility] 16.0 g/dL 11:10 AM CDT LABORATORY HEMATOCRIT 37.7 33.0 - 12/03/2021 [facility] 51.0 % 11:10 AM CDT LABORATORY MCV 83 80 - 100 12/03/2021 [facility] fL 11:10 AM CDT LABORATORY MCH 27.2 26.0 - 12/03/2021 [facility] 34.0 pg 11:10 AM CDT LABORATORY MCHC 32.6 32.0 - 12/03/2021 [facility] 36.0 g/dL 11:10 AM CDT LABORATORY RDW 14.1 11.5 - 12/03/2021 [facility] 15.5 % 11:10 AM CDT LABORATORY PLATELET COUNT 275 140 - 440 12/03[facility] thou/cu mm 11:10 AM CDT LABORATORY MPV 9.5 6.5 - 11.0 12/03/2021 [facility] fL 11:10 AM CDT LABORATORY NRBC 0.0 % 12/03/2021 [facility] 11:10 AM CDT LABORATORY ABS NRBC 0.0 thou /cu 12/03/2021 [facility] mm 11:10 AM T LABORATORY Specimen Anatomical Collection Method / Collection Time Recei delta Time (Source) Location / Volume Laterality Blood BLOOD SPECIMEN / Venipuncture / 12/03/2021 10:20 12/03 Unknown Unknown AM CDT 11:05 AM CDT Gerald Perez MD HEMATOLOGY Performing Organization Address City/State/ZIP Code Phon e Number [facility] LABORATORY SENDOUT INTERNAL ZIP [place] [id number] [place] [address] (ABNORMAL) Basic Metabolic Panel (12/03/2021 10:20 AM CDT) [facility] gist Method Time Signature SODIUM 139 135 - 145 12/03/2021 [facility] mmol/L 11:25 AM [facility] LABORATORY POTASSIUM 3.6 3.5 - 5.0 12/03/2021 [facility] mmol/L 11:25 AM [facility] LABORATORY CHLORIDE 105 98 - 110 12/03/2021 [facility] mmol/L 11:25 AM [facility] LABORATORY CO2,TOTAL 23 21 - 31 12/03/2021 [facility] mmol/L 11:25 AM [facility] LABORATORY ANION GAP 11 5 - 18 12/03/2021 [facility] 11:25 AM [facility] LABORATORY GLUCOSE 98 65 - 100 12/03/2021 [facility] mg/dL 11:25 AM [facility] LABORATORY CALCIUM 9.7 8.5 - 10.5 12/03/2021 [facility] mg/dL 11:25 AM [facility] LABORATORY BUN 26 (H) 8 - 25 12/03/2021 [facility] mg/dL 11:25 AM [facility] LABORATORY CREATININE 1.40 (H) 0.57 - 12/03/2021 [facility] 1.11 mg/dL 11:25 AM [facility] LABORATORY BUN/CREAT RATIO 19 10 - 20 12/03/2021 [facility] 11:25 AM [facility] LABORATORY eGFR 40 (L) >90 12/03/2021 [facility] mL/min/1.7 11:25 AM [facility] 3m2 LABORATORY Comment: As of 2021, eGFR is calcu lated by the CKD-EPI creatinine equation without race adjustment. eGFR can be inf luenced by muscle mass, exercise, and diet. The reported eGFR is an estimation only and is only applicable if the renal function is stable. Specimen Anatomical Collection Method / Collection Time Recei delta Time (Source) Location / Volume Laterality Blood BLOOD SPECIMEN / Venipuncture / 12/03/2021 10:20 12/03 Unknown Unknown AM CDT 11:05 AM CDT Gerald Perez MD CHEMISTRY Performing Organization Address City/State/ZIP Code Phon e Number [facility] LABORATORY SENDOUT INTERNAL ZIP [place], [place] [phone] [facility] SCAN-CARDIAC STRIP (12/03/2021 12:00 AM CDT) Narrative 12/03/2021 12:00 AM CDT This result has an attachment that is no t available. Ordered by an unspecified provider. Other Clinical Staff OTHER TSH WITH REFLEX (11/30/2021 10:55 AM CDT) athologist Signature TSH 1.67 0.35 - 4.94 12/02/2021 [facility] uIU/mL 2:24 AM CDT LABORATORY-CENTR AL LABORATORY Specimen Anatomical Collection Method / Collection Time Recei delta Time (Source) Location / Volume Laterality Blood BLOOD SPECIMEN / Venipuncture / 11/30/2021 10:55 11/30 Unknown Unknown AM CDT 10:55 AM CDT Narrative [facility] LABORAT[facility]-CENTRAL LABORAT ORY - 12/02/2021 2:24 AM CDT In Adults, TSH values between 5.00 and 10.00 uIU/ml do not necessarily indicate the presence of Hyp othyroidism. Correlation with clinical findings such as presence of goiter and/or Thyroperoxidase (TPO) Antibody ma y be helpful. For more information please refer to IMMANUEL 20 04; 291: [phone]. Erika Benito MD CHEMISTRY Performing Organization Address City/State/ZIP Code Phon e Number [facility] [address] [place] [address] LABORATORY-CENTRAL 2000 LABORATORY (ABNORMAL) LIPID PANEL W REFLEX MEASURED LDL (11/30/2021 10:55 AM CDT) [facility] gist Method Time Signature CHOLESTEROL,TOTAL 188 100 - 199 12/02/2021 [facility] mg/dL 1:58 AM CDT LABORATORY-RICHELLE TRAL LABORATORY TRIGLYCERIDES 223 (H) <150 12/02/2021 [facility] mg/dL 1:58 AM CDT LABORATORY-RICHEL[facility] TRAL LABORATORY HDL CHOLESTEROL 35 (L) >40 mg/dL 12/02/2021 [facility] 1:58 AM CDT LABORATORY-RICHEL[facility] TRAL LABORATORY NON-HDL 153 (H) <145 12/02/2021 [facility] CHOLESTEROL mg/dl 1:58 AM CDT LABORATORY-RICHELLE TRAL LABORATORY CHOL/HDL RATIO 5.37 (H) <4.50 12/02/2021 [facility] 1:58 AM CDT LABORATORY-RICHELLE TRAL LABORATORY LDL CHOLESTEROL 108 <=130 12/02/2021 [facility] mg/dL 1:58 AM CDT LABORATORY-RICHELLE TRAL LABORATORY VLDL CHOLESTEROL 45 (H) <=30 12/02/2021 [facility] mg/dL 1:58 AM CDT LABORATORY-RICHEL[facility] TRAL LABORATORY PROVIDER ORDERED RANDOM 12/02/2021 [facility] STATUS 1:58 AM CDT LABORATORY-RICHELLE TRAL LABORATORY Specimen Anatomical Collection Method / Collection Time Recei delta Time (Source) Location / Volume Laterality Blood BLOOD SPECIMEN / Venipuncture / 11/30/2021 10:55 11/30 Unknown Unknown AM CDT 10:55 AM CDT Erika Benito MD CHEMISTRY Performing Organization Address City/State/ZIP Code Phon e Number [facility] [address] [place] [address] LABORATORY-CENTRAL [address] CARDIAC MORPHOLOGY W DUAL READ (11/26/2021 9:14 AM CDT) Anatomical Region Laterality Modality HEART Computed Tomography Specimen (Source) Anatomical Location Collection Method / Collectio n Time Received Time / Laterality Volume Impressions 11/26/2021 2:27 PM CDT ?? No significant incidental extracardiac f indings. Please refer to cafeteria clerk's dictation for the cardiac CT report. Narrative 11/26/2021 2:27 PM CDT Results are automatically released to your [employer] ([employer]) account once available, in compliance with arvind al regulations. ??This means that you may see your results before your pro vider has had a chance to review them. ??Please allow 2-3 business days f or your provider to comment on the results. CT CARDIAC MORPHOLOGY STUDY (PULMONARY V EIN PROTOCOL), 11/26/2021 INDICATION: SVT, pre-ablation. CONCLUSIONS: 1. ??This is a dual read study - please review [facility] over-read below for incidental non cardiac finding s. 2. ??Normally connected pulmonary veins without evidence of stenosis or obstruction. 3. ??No evidence of left atrial appendag e thrombus. 4. ??No obvious atrial septal defect. 5. ??No pericardial effusion. TECHNIQUE: ECG-gated CT angiogram of the heart with intravenous contrast Omnipaque 350, 75 mL, flow rate 5, was performed o n a Siemens SOMATOM Force CT scanner. The imaging protocol was indivi dualized to minimize radiation exposure. The following ECG-gated acquis ition protocol was used: Pulmonary vein/left atrial appendage protocol. Pul se range is FLASH. Delayed imaging was performed for assessment of the left atrial appendage. Tube potential: 80 kV. Tube current: 1812 mAs. Total DLP : 93 mGy*cm; CTDI: 4.95. Image post processing was performed on a [employer] Workstation. Images were reconstructed at a slice thickness of 1 mm with 1 mm overlap. The patient received the following medicatio ns: No medications. No arrhythmias. There were no immediate com plications. TECHNICAL QUALITY: Good. FINDINGS PULMONARY VEINS: Two right sided and 2 left sided pulmona ry veins enter the left atrium without evidence of stenosis or obstruct ion. ??There is no early branching or accessory veins. LEFT ATRIUM AND LEFT ATRIAL APPENDAGE FI NDINGS: 1. Left atrial appendage has a mild curv ilinear chicken wing morphology. 2. No evidence of left atrial appendage thrombus. 3. Grossly normal left atrial size. 4. Ostial dimension of left atrium is 24 x 16 mm with a usable length of 17 mm. 5. Grossly intact interatrial septum wit hout obvious atrial septal defect. CARDIAC: Grossly normal left ventricular chamber size. Grossly normal right ventricular chamber size. No intra-cardi ac mass or thrombus. Normal pericardial thickness. No pericardial ef fusion. ??There is a trileaflet aortic valve with mild thickening and mi nimal calcification. ??There is no abnormal thickening of the mitral valve. CORONARY ARTERIES: The study was not protocoled for evaluat ion of the coronary arteries. Left dominant coronary artery system. Coronar y artery calcifications are present. VESSELS: Normal caliber of the visualize d ascending and descending thoracic aorta. No evidence of aortic at herosclerosis. ??Normal pulmonary artery caliber. NON-CARDIAC: Please review radiology report below for incidental non-cardiovascular findings. Yosi Gonzalez MD [facility] MAYA/libby For Patients: As a result of the ntury Cures Act, medical imaging exams and procedure reports are released immediately into your electronic medical record. You may view this report before your referring provider. If you have questions, please contact [facility] provider. EXAM: OVERREAD: DETAILED MIDWEST RADIOLO GY EXTRACARDIAC OVERREAD OF CARDIAC CT LOCATION: [facility] IMAGING DATE/TIME: 11/26/2021 9:14 AM INDICATION: Cardiac - Other TECHNIQUE: Dose reduction techniques wer e used. COMPARISON: None. FINDINGS: ?? LIMITED CHEST: No significant findings. Some minimal pleural plaque over the right hemidiaphragm should be of no significance. LIMITED MEDIASTINUM: Negative. LIMITED UPPER ABDOMEN: Negative. Gerald Perez MD CT (ABNORMAL) CREATININE,ISTAT (11/26/2021 8:59 AM CDT) Analysis Performed At Patho logist Time Signature CREATININE, 1.50 (H) 0.57 - [facility]/dL 9:10 AM [facility] LABORATORY Comment: Caution: Patients taking Hydrox yurea have falsely increased iStat Creatinine results. Verify creatinine results order ing a Creatinine (63205.2) eGFR 37 (L) >90 mL/min/1.73m2 11/26/2021 9:10 AM CDT [facility] LABORATORY Comment: As of 2021, eGFR is calcu lated by the CKD-EPI creatinine equation without race adjustment. eGFR can be inf luenced by muscle mass, exercise, and diet. The reported eGFR is an estimation only and is only applicable if the renal function is stable. Specimen Anatomical Collection Method Collection Time Receive d Time (Source) Location / / Volume Laterality Blood BLOOD SPECIMEN / 11/26/2021 8:59 AM 11/26 9:10 Unknown CDT AM CDT Gerald Perez MD CHEMISTRY Performing Organization Address City/State/ZIP Code Phon e Number [facility] LABORATORY SENDOUT INTERNAL ZIP [place], [place] [phone] [facility] from Last 3 Months Insurance Payer Benefit Plan / Subscriber ID Effective Dates Phone Addre ss Type Group [employer] [id number]-Prese [id number] [place] [address] MEDICARE PART B MEDICARE PART B [id number] 2014-Presen ATTN: CLAIMS - HB USE ONLY HB ONLY t [address] [place] [address] MEDICARE - PB MEDICARE PB [id number] 2018-Presen ATTN : CLAIMS USE ONLY ONLY t [address] [place] [address] BLUE CROSS BLUE CROSS OF [id number] 2018-Presen [address] [place] juliet JOSE ALEJANDRO ALBERT [phone] Isela Drew Motor Vehicle Self 1950 [id number] (Home) [place] [address] Advance Directives Latest Code Status on File Code Status Date Activated Date Inactivated Comments Full Code 12/03/2021 3:15 PM 12/04/2021 1:02 PM Code Status Discussion: Reviewed Preferences Full Code 11/10/2013 6:11 AM 11/10/2013 4:20 PM Care Teams Content Writer Relationship Specialty Start Date End Date Erika Benito PCP - General Family Practice 05/15/21 MD Shahrzad [address] [place] [address] Radha Trinidad D[facility]at[facility] Dermatology 11/24/13 MD Karen Gerald Perez Consulting Physician Cardiology - 07/25/21 MD Yasir Electrophysiology [address] [place] [address]
[2022-02-15] MEDS: KETOROLAC 30 MG/ML inj IVP (16:48)
[2022-02-15] MEDS: METOCLOPRAMIDE HCL 10 MG in 0.9 % SODIUM CHLORIDE 100 ml 100 ML 306 MG IVPB (16:48)
[2022-02-15] MEDS: 0.9 % SODIUM CHLORIDE 1000 ml 1,000 ML IV (16:48)
[2022-02-15] MEDS: ONDANSETRON 2 MG/ML inj 4 MG IVP (16:48)
[2022-02-15] MEDS: diphenhydrAMINE 50 MG/ML inj 25 MG IVP (16:48)
--- NOTE | 2022-02-15 16:54 | ED.HA ---
HPI - Headache General Date Seen: 02/15/22 Chief Complaint: Headache/Migraine Stated Complaint: Migraine Time Seen by Provider: 02/15/22 15:57 Source: patient Mode of arrival: ambulatory Limitations: no limitations History of Present Illness HPI Narrative: Patient is a 71-year-old female with a history of migraine headaches presents here with her normal migraine symptoms with a headache on the left side of her head, she does have some altered sensation she describes also over her left facial region. No weakness associated with this, and this altered sensation is usually not typical of her migraines, she is nauseous, but has not vomited, the symptoms have gone on for a few days, she notes that her normal migraine medication did not really help this. Denies a history of falls or injury, she is on warfarin, secondary to atrial fibrillation. MD elicited complaint: headache Pertinent past history: coagulopathy Onset (ago): day(s) Onset description: gradually Location: left, frontal and retro-orbital Severity: moderate Quality & Timing: throbbing Exacerbating factors: movement of head/neck, light and noise Relieving factors: rest and dark room Context: occurred at rest Associated symptoms: nausea, photophobia and sensitivity to sound Treatments prior to arrival: prescription analgesic Related Data Home Medications Medication Instructions Recorded Confirmed alprazolam 0.5 mg tablet 0.25 mg PRN 12/09/21 hydrochlorothiazide 25 mg tablet 25 mg PO DAILY 12/09/21 12/09/21 levothyroxine 112 mcg tablet 112 mcg PO DAILY 12/09/21 12/09/21 losartan 100 mg tablet 100 mg PO DAILY 12/09/21 12/09/21 metoprolol tartrate 50 mg tablet 50 mg PO Q12H 12/09/21 12/09/21 pantoprazole 40 mg tablet,delayed 40 mg PO Q12H 12/09/21 12/09/21 release rosuvastatin 5 mg tablet mg DAILY 12/09/21 sucralfate 1 gram tablet 1 g PRN 12/09/21 Previous Rx's Medication Instructions Recorded enoxaparin 80 mg/0.8 mL 80 mg (0.8 mL) subcut Q12H 12/09/21 subcutaneous syringe (Lovenox) Ablation #8 mL warfarin 5 mg tablet 5 mg PO DAILY Ablation #14 tabs 12/09/21 Allergies Allergy/AdvReac Type Severity Reaction Status Date / Time dabigatran etexilate Allergy redness Verified 12/09/21 14:21 [From Pradaxa] and itching Penicillins Allergy Verified 12/07/21 22:05 rivaroxaban [From Xarelto] Allergy Verified 12/09/21 14:21 amlodipine Allergy Uncoded 12/07/21 22:06 Review of Systems Status of ROS: Reports: 10 or more systems reviewed and unremarkable except as noted in History and below PFSH PFS Surgical History History of cardiac radiofrequency ablation Social History Smoking Status: Never smoker Do you use any of these nicotine containing products: None Second hand tobacco smoke exposure: No How often do you have a drink containing alcohol: monthly or less How many standard drinks containing alcohol do you have on a typical day: 1 or 2 How often do you have six or more drinks on one occasion: Never AUDIT-C Alcohol total score: 1 Non-prescribed substance use: denies use service: No Exam Narrative: Exam Narrative: Patient is a very nice lady, seen in room 2, she is speaking to me normally, she is photophobic. Pupils are equal round reactive to light there is no nystagmus, fundi appear normal, and her TMs are normal, her cranial nerves 3-12 are entirely normal including sensation over the left side of her face. Carotid upstrokes are equal bilaterally, JVP is flat there is no meningismus, and neck is supple and absence of lymphadenopathy in her neck is noted. Her chest is clear bilaterally no with no wheezing crackles noted heart sounds no clicks murmurs or gallops her abdomen is soft Const: Vital Signs, click to edit/add: Vital Signs - 24 hr 02/15/22 15:54 02/15/22 16:00 02/15/22 17:30 Temperature 98.3 F Pulse Rate [Pulse Oximeter] 77 75 77 Respiratory Rate 18 16 16 Blood Pressure [Ri ght Upper Arm] 183/92 H 172/88 H 174/90 H Pulse Oximetry 99 98 98 Oxygen Delivery Me thod Room Air Room Air Room Air Documenting provider has reviewed patient's vital signs: yes Course Course Hospital Course: I discussed with the patient we will get a CT of her head, given her history of being on the Coumadin, and the slight atypical nature of her current headache. She has had a full workup in the past in 2018 with an MRA MRI of her head, which is reassuring. Life-threatening differential diagnosis include subarachnoid hemorrhage, meningitis, encephalitis, carbon monoxide poisoning, and intracerebral hemorrhage. Other differential diagnosis include but not limited to migraine, cluster headache, tension headache, MECHANICAL MAINTENANCE TECHNICIAN vasculitis, mass lesion, temporal arteritis, click acute closed angle glaucoma, septal and trigeminal neuralgia, sinusitis, closed head injury, and stroke Reevaluation(s) Reevaluation #1: Her headache is completely gone, she is requesting to go home which I do not think is unrealistic. Time: 18:18 Vital Signs Vital signs: Initial Vital Signs Temperature 98.3 F 02/15/22 15:54 Temperature Source Temporal Artery Scan 02/15/22 15:54 Pulse Rate 77 02/15/22 15:54 Respiratory Rate 18 02/15/22 15:54 Blood Pressure 183/92 H 02/15/22 15:54 Blood Pressure Mean 122 02/15/22 15:54 Blood Pressure Position Supine 02/15/22 15:54 Pulse Oximetry 99 02/15/22 15:54 Oxygen Delivery Method 02/15/22 15:54 Vital Signs Temperature 98.3 F 02/15/22 15:54 Pulse Rate 77 02/15/22 15:54 Respiratory Rate 18 02/15/22 15:54 Blood Pressure 183/92 H 02/15/22 15:54 Pulse Oximetry 99 02/15/22 15:54 Oxygen Delivery Method 02/15/22 15:54 Temperature 98.3 F 02/15/22 15:54 Pulse Rate 77 02/15/22 17:30 Respiratory Rate 16 02/15/22 17:30 Blood Pressure 174/90 H 02/15/22 17:30 Pulse Oximetry 98 02/15/22 17:30 Oxygen Delivery Method 02/15/22 17:30 MDM - Headache MDM Narrative Medical decision making narrative: Life-threatening differential diagnosis include subarachnoid hemorrhage, meningitis, encephalitis, carbon monoxide poisoning, and intracerebral hemorrhage. Other differential diagnosis include but not limited to migraine, cluster headache, tension headache, MECHANICAL MAINTENANCE TECHNICIAN vasculitis, mass lesion, temporal arteritis, click acute closed angle glaucoma, septal and trigeminal neuralgia, sinusitis, closed head injury, and stroke Medical Records Attestation: I reviewed the patient's medical records. Lab Data Attestation: I reviewed the patient's lab results. Labs: Lab Results 02/15/22 Range/Units 16:30 INR 1.49 H (0.91-1.10) Imaging Data CT scan - head: Attestation: I have reviewed the pertinent imaging results. My impression: Negative head CT Radiologist's impression: Patient: BRENDEN MANNING Facility: [facility] Site . Site : 1950 Study: CT Head W/O-02/15/2022 5:32:13 PM Ordering Physician: Frannie Corrigan Final Report: Indication: Headache Technique: Volumetric multidetector CT images of the head were obtained without the administration of low osmolar intravenous contrast. Comparison: CT head December 09, 2019 Findings: There is no intra-axial or extra-axial fluid collection. There is no mass effect or midline shift. There is age-related cortical atrophy with mild sulcal widening and ex vacuo dilatation of the lateral ventricles. There are chronic small vessel disease changes in the subcortical and periventricular white matter without lost cabral-white differentiation. The orbits and their contents are grossly within normal limits. The bony calvarium is grossly intact. The paranasal sinuses are clear. The mastoid air cells are well aerated. Impression: 1. Age-related changes of the brain without acute intracranial abnormality. Please note that all CT scans at this facility use dose modulation, iterative reconstruction, and/or weight-based dosing when appropriate to reduce radiation dose to as low as reasonably achievable. Dictated by Zuhair Martinez MD @ 02/15/2022 5:43:18 PM (Electronic Signature) Discharge Plan Discharge Clinical Impression: Migraine, Headache Patient Disposition: Home, Self-Care Condition: Improved Instructions: Migraine Headache (ED), Acute Headache (DC) Additional Instructions: Home rest and sleep, follow-up with primary care as needed, return as needed. Prescriptions: No Action alprazolam 0.5 mg tablet 0.25 mg PRN Label Comments: TAKE ONE TABLET BY MOUTH DAILY IF NEEDED FOR ANXIETY. RARE USE . hydrochlorothiazide 25 mg tablet 25 mg PO DAILY Label Comments: TAKE ONE TABLET BY MOUTH ONCE DAILY levothyroxine 112 mcg tablet 112 mcg PO DAILY Label Comments: TAKE 1 TABLET BY MOUTH BEFORE BREAKFAST. losartan 100 mg tablet 100 mg PO DAILY Label Comments: TAKE 1 TABLET BY MOUTH ONCE DAILY. metoprolol tartrate 50 mg tablet 50 mg PO Q12H Label Comments: TAKE 1 TABLET (50MG) BY MOUTH TWICE A DAY pantoprazole 40 mg tablet,delayed release (DR/EC) 40 mg PO Q12H Label Comments: TAKE 1 TABLET BY MOUTH IN THE MORNING AND 1 TABLET IN THE EVENING TAKE BEFORE MEALS (TAKE FOR 1 MONTH POST ABLATION THEN RESUME 1 TABLET DAILY) rosuvastatin 5 mg tablet DAILY Label Comments: TAKE ONE TABLET BY MOUTH AT BEDTIME sucralfate 1 gram tablet 1 g PRN Label Comments: TAKE ONE TABLET BY MOUTH TWICE DAILY NEEDED warfarin 5 mg tablet 5 mg PO DAILY Qty: 14 0RF enoxaparin [Lovenox] 80 mg/0.8 mL syringe 80 mg subcut Q12H Qty: 8 0RF Follow Up/Referrals: Erika Benito MD [Primary Care Provider] - Stand Alone Forms: [facility] Info Instructions
[2022-02-15 16:55] LABS: INR 1.49 (0.91-1.10); Prothrombin Time 18.4 Seconds
[2022-02-15 17:30] VITALS: BP 174/90; PULSE 77; RESP 16; O2SAT 98
[2022-02-15 17:40] VITALS: BP 174/90; PULSE 80; RESP 14; O2SAT 97
[2022-02-15 18:00] VITALS: BP 172/82; PULSE 79; RESP 14; O2SAT 98
[2022-02-15 18:14] VITALS: BP 174/90; PULSE 77; RESP 16; TEMP 36.8
== END 2022-02-15 18:15 | disposition home or self-care (01) ==
PROVIDERS: Emergency Provider Family Medicine; PCP Family Medicine
DX: G43.909 Migraine, unspecified, not intractable, without status migrainosus (principal)
CPT/HCPCS: 36415; 70450; 85610; 96365; 96375; 99284; J1200; J1885; J2405; J2765; J7030

== ENCOUNTER 2022-09-04 00:59 | Emergency (ER) | payer MEDICARE, BC, SELFPAY ==
[2022-09-04 01:12] VITALS: BP 197/98; PULSE 91; RESP 18; TEMP 36.7; O2SAT 98; BMI 26.6
--- NOTE | 2022-09-04 01:23 | ED.GENADULT ---
HPI - General Adult General Time Seen by Provider: : Date Seen: 09/04/22 Chief complaint: Headache/Migraine Stated complaint: blood pressure is at 200/100 Time Seen by Provider: 09/04/22 01:16 Source: patient, RN notes reviewed and old records reviewed Mode of arrival: ambulatory Limitations: no limitations History of Present Illness HPI narrative: 72-year-old female who presents today with headache and elevated blood pressure. She notes about 9 hours of headache starting at both sides of the jaw on wrapping around the front of the head. She has a history of migraines which she says feels similar to this but usually unilateral. She has taken Tylenol with no improvement. She has photophobia and some nausea but no vomiting. Denies head injury or fall. Also noted blood pressure was elevated this evening. She did have a steroid injection in her knee earlier today. She denies chest pain, shortness of breath, lower extremity swelling. Related Data Home Medications Medication Instructions Recorded Confirmed alprazolam 0.5 mg tablet 0.25 mg PRN 12/09/21 hydrochlorothiazide 25 mg tablet 25 mg PO DAILY 12/09/21 09/04/22 levothyroxine 112 mcg tablet 112 mcg PO DAILY 12/09/21 09/04/22 losartan 100 mg tablet 100 mg PO DAILY 12/09/21 09/04/22 metoprolol tartrate 50 mg tablet 50 mg PO Q12H 12/09/21 12/09/21 pantoprazole 40 mg tablet,delayed 40 mg PO Q12H 12/09/21 09/04/22 release rosuvastatin 5 mg tablet mg DAILY 12/09/21 sucralfate 1 gram tablet 1 g PRN 12/09/21 metoprolol succinate 50 mg mg PO 09/04/22 tablet,extended release 24 hr metoprolol tartrate 25 mg tablet mg PO 09/04/22 sumatriptan succinate 25 mg tablet 25 mg PO BID PRN migraine 09/04/22 09/04/22 Previous Rx's Medication Instructions Recorded enoxaparin 80 mg/0.8 mL 80 mg (0.8 mL) subcut Q12H 12/09/21 subcutaneous syringe (Lovenox) Ablation #8 mL warfarin 5 mg tablet 5 mg PO DAILY Ablation #14 tabs 12/09/21 Allergies Allergy/AdvReac Type Severity Reaction Status Date / Time apixaban [From Eliquis] Allergy Intermediate Verified 09/04/22 01:20 dabigatran etexilate Allergy redness Verified 12/09/21 14:21 [From Pradaxa] and itching Penicillins Allergy Verified 12/07/21 22:05 rivaroxaban [From Xarelto] Allergy Verified 12/09/21 14:21 amlodipine Allergy Uncoded 12/07/21 22:06 Review of Systems Status of ROS: Reports: 10 or more systems reviewed and unremarkable except as noted in History and below PFSH PFS Surgical History History of cardiac radiofrequency ablation Social History Smoking Status: Never smoker Do you use any of these nicotine containing products: None Second hand tobacco smoke exposure: No How often do you have a drink containing alcohol: monthly or less How many standard drinks containing alcohol do you have on a typical day: 1 or 2 How often do you have six or more drinks on one occasion: Never AUDIT-C Alcohol total score: 1 Non-prescribed substance use: denies use service: No Exam Narrative: Exam Narrative: General: Well-developed and well-nourished, no acute distress Head: Atraumatic and normocephalic Eyes: Pupils are equal reactive, extraocular motions intact, conjunctiva clear ENT: External nose and ears are normal, posterior pharynx without erythema or exudate Neck: No midline cervical tenderness, full spontaneous range of motion the neck, trachea midline, no adenopathy Heart: Regular rate and rhythm no murmurs or thrills Lungs: Clear to auscultation bilaterally without wheezes or crackles Abdomen: Soft, nontender, nondistended with active bowel sounds Musculoskeletal: No tenderness, deformity, or edema Neurologic: Awake, alert, and oriented x3, no gross focal neurologic deficits, cranial nerves intact as tested Psych: Mood and affect are appropriate Skin: No rashes Const: Vital Signs, click to edit/add: Vital Signs - 24 hr 09/04/22 01:12 09/04/22 02:04 09/04/22 02:27 Temperature 98.0 F Pulse Rate [Pulse Oximeter] 91 92 91 Respiratory Rate 18 18 18 Blood Pressure [Ri ght Upper Arm] 197/98 H 194/96 H 193/100 H Pulse Oximetry 98 97 98 Oxygen Delivery Me thod Room Air Room Air 09/04/22 03:00 Temperature Pulse Rate [Pulse Oximeter] 90 Respiratory Rate 18 Blood Pressure [Ri ght Upper Arm] 192/103 H Pulse Oximetry 96 Oxygen Delivery Me thod Room Air Course Course Hospital Course: Patient seen and examined, prior records reviewed. Patient presents today with frontal headache along with nausea. No head injury, history of similar headaches. No neck pain. Consider head CT but considering patient has had prior similar headaches, and no history of trauma, not indicated this time. Blood pressure is also elevated but with no symptoms related to this no further evaluation indicated at this time in suspect this will improve as headache is brought into control. No focal neurologic symptoms. Toradol and Zofran ordered along with gentle fluid bolus. Reevaluation(s) Reevaluation #1: Patient still complaining of headache although improved after Zofran and Toradol. Fentanyl is ordered and plan to discharge. Time: 02:34 Reevaluation #2: Headache is improved and patient is stable for discharge. Remains hypertensive and can follow up with primary care for this. Time: 03:02 Vital Signs Vital signs: Initial Vital Signs Temperature 98.0 F 09/04/22 01:12 Temperature Source Temporal Artery Scan 09/04/22 01:12 Pulse Rate 91 09/04/22 01:12 Respiratory Rate 18 09/04/22 01:12 Blood Pressure 197/98 H 09/04/22 01:12 Blood Pressure Mean 131 H 09/04/22 01:12 Pulse Oximetry 98 09/04/22 01:12 Oxygen Delivery Method Room Air 09/04/22 01:12 Vital Signs Temperature 98.0 F 09/04/22 01:12 Pulse Rate 91 09/04/22 01:12 Respiratory Rate 18 09/04/22 01:12 Blood Pressure 197/98 H 09/04/22 01:12 Pulse Oximetry 98 09/04/22 01:12 Oxygen Delivery Method Room Air 09/04/22 01:12 Temperature 98.0 F 09/04/22 01:12 Pulse Rate 90 09/04/22 03:00 Respiratory Rate 18 09/04/22 03:00 Blood Pressure 192/103 H 09/04/22 03:00 Pulse Oximetry 96 09/04/22 03:00 Oxygen Delivery Method Room Air 09/04/22 03:00 Medical Decision Making Medical Records Medical records reviewed: Yes I reviewed the patient's medical records Lab Data Lab results reviewed: Yes I reviewed the patient's lab results Discharge Plan Discharge Clinical Impression: Headache, Hypertension Patient Disposition: Home, Self-Care Condition: Improved Instructions: Acute Headache (DC) Additional Instructions: Check and record your blood pressure once a day 1st thing in the morning. Follow-up with your regular doctor next week to discuss further medications if needed, although it would be expected that your blood pressure would improve his your headache improves. Continue your usual medications. Activity Level: No Restrictions Discharge Diet: Heart Healthy (2 gm sodium, low fat) Prescriptions: No Action alprazolam 0.5 mg tablet 0.25 mg PRN Patient Comments: TAKE ONE TABLET BY MOUTH DAILY IF NEEDED FOR ANXIETY. RARE USE . hydrochlorothiazide 25 mg tablet 25 mg PO DAILY Hold Instructions: Doctor's Order Patient Comments: TAKE ONE TABLET BY MOUTH ONCE DAILY levothyroxine 112 mcg tablet 112 mcg PO DAILY Patient Comments: TAKE 1 TABLET BY MOUTH BEFORE BREAKFAST. losartan 100 mg tablet 100 mg PO DAILY Patient Comments: TAKE 1 TABLET BY MOUTH ONCE DAILY. metoprolol tartrate 50 mg tablet 50 mg PO Q12H Patient Comments: TAKE 1 TABLET (50MG) BY MOUTH TWICE A DAY pantoprazole 40 mg tablet,delayed release (DR/EC) 40 mg PO Q12H Patient Comments: TAKE 1 TABLET BY MOUTH IN THE MORNING AND 1 TABLET IN THE EVENING TAKE BEFORE MEALS (TAKE FOR 1 MONTH POST ABLATION THEN RESUME 1 TABLET DAILY) rosuvastatin 5 mg tablet DAILY Hold Instructions: Doctor's Order Patient Comments: TAKE ONE TABLET BY MOUTH AT BEDTIME sucralfate 1 gram tablet 1 g PRN Patient Comments: TAKE ONE TABLET BY MOUTH TWICE DAILY NEEDED warfarin 5 mg tablet 5 mg PO DAILY Qty: 14 0RF enoxaparin [Lovenox] 80 mg/0.8 mL syringe 80 mg subcut Q12H Qty: 8 0RF metoprolol succinate 50 mg tablet extended release 24 hr PO metoprolol tartrate 25 mg tablet PO sumatriptan succinate 25 mg tablet 25 mg PO BID PRN (Reason: migraine) Follow Up/Referrals: Erika Benito MD [Primary Care Provider] - Stand Alone Forms: [employer] Info Instructions
[2022-09-04] MEDS: KETOROLAC 15 MG/ML inj IVP (01:37)
[2022-09-04] MEDS: 0.9 % SODIUM CHLORIDE 500 ML 500 ML IV (01:38)
[2022-09-04] MEDS: ONDANSETRON 2 MG/ML inj 4 MG IVP (01:38)
[2022-09-04 02:04] VITALS: BP 194/96; PULSE 92; RESP 18; O2SAT 97
[2022-09-04 02:27] VITALS: BP 193/100; PULSE 91; RESP 18; O2SAT 98
--- NOTE | 2022-09-04 02:28 | ED.NURSE ---
Patient reports headache is now a 4-5/10 following medication administration. Additional warm blankets provided.
[2022-09-04] MEDS: fentaNYL 100 MCG/2 ML inj 50 MCG IVP (02:40)
[2022-09-04 03:00] VITALS: BP 192/103; PULSE 90; RESP 18; O2SAT 96
--- NOTE | 2022-09-04 03:03 | ED.NURSE ---
Patient reports headache has improved.
== END 2022-09-04 03:13 | disposition home or self-care (01) ==
LOC: ED 02:00
PROVIDERS: Emergency Provider Family Medicine; PCP Family Medicine
DX: R51.9 Headache, unspecified (principal); I10 Essential (primary) hypertension
CPT/HCPCS: 96361; 96374; 96375; 99284; J1885; J2405; J3010; J7120

== ENCOUNTER 2023-01-07 12:47 | Outpatient (CLI) | payer MEDICARE, BC, SELFPAY ==
--- OUTSIDE RECORDS SUMMARY | 2023-01-07 12:54 | XMS_ITS | Continuity of Care Document ---
Author Name Unknown Organization [facility] Address [address] [place] [address] Phone Care Team Providers Care Manager Communication Name Role Phone Loyda Staley Unavailable Unavailable Allergies, Adverse Reactions, Alerts Substance Reaction Status Criticality PENICILLIN SwelllingItchy sensation Active N o Information Medications Medication Instructions Dosage Effective Dates (start - stop) Status Comments Neurontin 300 mg capsule take 1 capsule at bedtime for 3 days, then take 1 tablet morning and night for 3 days, then continue taking 1 tablet 3 times daily - Active METOPROLOL TARTRATE (unknown strength) Not Available - Active HYDROCHLOROTHIAZIDE (unknown strength) take 1 tablet by oral route every day Not Available - Active ROSUVASTATIN CALCIUM (unknown strength) take 1 tablet by oral route every day Not Available - Active PANTOPRAZOLE SODIUM (unknown strength) Not Available - Active VERAPAMIL ER (unknown strength) take 1 tablet by oral route every day with food Not Available - Active LEVOTHYROXINE SODIUM (unknown strength) take 1 tablet by oral route every day Not Available - Active ALPRAZOLAM (unknown strength) Not Available - Active LOSARTAN POTASSIUM (unknown strength) Not Available - Active SUMATRIPTAN SUCCINATE (unknown strength) take 1 tablet by oral route after onset of migraine; may repeat after 2 hours if headache returns,not to exceed 200mg in 24hrs Not Available - Active RANITIDINE HCL (unknown strength) take 1 tablet by oral route 2 times every day Not Available - Active SUCRALFATE (unknown strength) take 1 tablet by oral route 4 times every day on an empty stomach 1 hour before meals and at bedtime Not Available - Active MECLIZINE HCL (unknown strength) take 1 tablet by oral route 3 times every day as needed Not Available - Active ASPIRIN (unknown strength) Not Available - Active IBUPROFEN (unknown strength) Not Available - Active Procedures Procedure Date Office/Outpatient Visit,Roberto Rangel 2018 Advance Directives Directive Yes / No Effective Date File Name No Information Encounters Encounter Description Practice Location Reason(s) For Visit Diagnoses Date Provider Providers Copied on Encounter [facility], [address], [place], [place], [id number] , [place] tel: [phone] [facility] No Information 0 Mccray Loyda. [facility], [address] [place] [address] [address], [facility] [place], [id number] , [place]. tel: [phone] Office/Outpa tient Visit,Roberto Rangel [facility], [address], [place], [place], [id number] , [place] tel: [phone] [facility] [place] CervicalgiaImping ement syndrome of left shoulderOther spondylosis, cervical regionNeuropathy 9 [facility]. [facility], [address] [place] [address] [address], [facility] [place], [id number] , [place]. tel: [phone] Referring Provider: Palomo Jones, [facility], [place], [address] . tel:[phone] Family History Family Member Type Diagnosis Age At Onset No Information Payers Payer name Insurance type Covered alliance party ID Authoriza tion(s) Medicare MB [id number] [facility] [id number] [facility] [id number] Social History Type Description Quantity Date Captured Comments Sex Female Smoking Status No Information Chief Complaint And Reason For Visit No Information Reason For Referral Reason For Referral No Information History Of Present Illness Encounter Date Complaint History Of Prese nt Illness No Information Functional Status Date Functional Assessmen t No Information Instructions Date Instruction Additional Infor mation No Information Assessments Type Assessment Date No Information Patient Care Teams Name Effective Dates (start - stop) Status Members No Information
== END 2023-01-07 12:48 | disposition home or self-care (01) ==
LOC: INJ CL 12:48
PROVIDERS: PCP Family Medicine; Visit Provider Family Medicine
DX: M17.12 Unilateral primary osteoarthritis, left knee (principal); M25.562 Pain in left knee
CPT/HCPCS: 64454

== ENCOUNTER 2023-02-11 12:01 | Outpatient (CLI) | payer MEDICARE, BC, SELFPAY | END 2023-02-11 12:02 | disposition home or self-care (01) | LOC: INJ CL 12:02 | PROVIDERS: PCP Family Medicine; Visit Provider Family Medicine | DX: M17.12 Unilateral primary osteoarthritis, left knee (principal); M25.562 Pain in left knee; G89.29 Other chronic pain | CPT/HCPCS: 64624; J2250; J2405; J3010 ==

== ENCOUNTER 2023-05-02 07:43 | Emergency (ER) | payer MEDICARE, BC, SELFPAY ==
[2023-05-02] VITALS (14 sets, daily range): BP systolic 161–207; BP diastolic 79–110; PULSE 67–73; RESP 16; TEMP 36.8; O2SAT 94–99; BMI 25.8
--- NOTE | 2023-05-02 07:45 | ED.NURSE ---
Dr. Mccormick notified of patient's presenting symptoms/complaints upon initiation of triage. She declines stat head CT at this time.
--- NOTE | 2023-05-02 08:10 | ED.GENADULT ---
HPI - General Adult General Chief complaint: Neuro Symptoms/Altered Deficit Stated complaint: L Side of face is numb Time Seen by Provider: 05/02/23 08:10 History of Present Illness HPI narrative: Patient experiencing left-sided facial numbness , left arm tingling. Onset 0500. Hx migraines, denies pain currently. No recent falls/ injury. CSS negative in triage. Patient A&Ox4. 72-year-old woman presenting to the emergency department with concern of numbness and tingling in the left face and left arm underside of the arm primarily extending to her hand. Dizziness as well associated with movement. These were both present on waking this morning at 5:00 a.m. approximately 3 hours prior to arrival in the emergency department. Symptoms persisted while she was watching TV this morning. She called in to triage line and was recommended to come to the emergency department. She did initially also have some headache of sorts around her left eye area took some Tylenol and that seems to resolved. She has not had any weakness. Underlying history of migraines. She has experienced some facial numbness in the past but the extension into the arm and the dizziness is new. Underlying history of atrial fibrillation chronically anticoagulated with Coumadin with an INR of 1.8 to a believe last week she says. Has continued current regimen in anticipation of treatment/intervention of bowel disease in a week. No cough or cold symptoms recently. No chest pain or shortness of breath. No fever. Related Data Home Medications Medication Instructions Recorded Confirmed alprazolam 0.5 mg tablet 0.25 mg PRN 12/09/21 hydrochlorothiazide 25 mg tablet 25 mg PO DAILY 12/09/21 09/04/22 levothyroxine 112 mcg tablet 112 mcg PO DAILY 12/09/21 05/02/23 losartan 100 mg tablet 100 mg PO DAILY 12/09/21 05/02/23 metoprolol tartrate 50 mg tablet 50 mg PO Q12H 12/09/21 12/09/21 pantoprazole 40 mg tablet,delayed 40 mg PO Q12H 12/09/21 05/02/23 release rosuvastatin 5 mg tablet mg DAILY 12/09/21 sucralfate 1 gram tablet 1 g PRN 12/09/21 metoprolol succinate 50 mg 50 mg PO Q12H 09/04/22 05/02/23 tablet,extended release 24 hr metoprolol tartrate 25 mg tablet 25 mg PO Q12H 09/04/22 05/02/23 sumatriptan succinate 25 mg tablet 25 mg PO BID PRN migraine 09/04/22 09/04/22 Previous Rx's Medication Instructions Recorded enoxaparin 80 mg/0.8 mL 80 mg (0.8 mL) subcut Q12H 12/09/21 subcutaneous syringe (Lovenox) Ablation #8 mL warfarin 5 mg tablet 5 mg PO DAILY Ablation #14 tabs 12/09/21 ondansetron 4 mg disintegrating 4 mg PO Q6H PRN nausea and 05/02/23 tablet vomiting #12 tabs Allergies Allergy/AdvReac Type Severity Reaction Status Date / Time apixaban [From Eliquis] Allergy Intermediate Verified 05/02/23 08:00 amlodipine Allergy Unknown Verified 05/02/23 08:00 dabigatran etexilate Allergy redness Verified 05/02/23 08:00 [From Pradaxa] and itching Penicillins Allergy Verified 05/02/23 08:00 rivaroxaban [From Xarelto] Allergy Verified 05/02/23 08:00 Review of Systems Status of ROS: Reports: 6 or more systems reviewed and unremarkable except as noted in History and below [facility] Surgical History History of cardiac radiofrequency ablation ?Z98.890 - Other specified postprocedural states (ICD-10) Social History Smoking Status: Never smoker Do you use any of these nicotine containing products: None Second hand tobacco smoke exposure: No How often do you have a drink containing alcohol: monthly or less How many standard drinks containing alcohol do you have on a typical day: 1 or 2 How often do you have six or more drinks on one occasion: Never AUDIT-C Alcohol total score: 1 Non-prescribed substance use: denies use service: No Exam Narrative: Exam Narrative: Pleasant. NAD. Seems a little tired. Moving all extremities without difficulty. She is well-perfused. There is no focal weakness. Cranial nerves 2-12 are intact. Pupils are 2-3 mm and equal and briskly reactive. Extraocular movements are full as well without nystagmus. TMs are clear. Rotational movement of her head reproduces subjective dizziness. Lifting her head up and down does not. Skin is warm and dry. Subjective sensation as above to touch over the entire left side of her face and over the majority of her left arm. Heart appears to be in a regular rate and rhythm did. Lungs are clear. Const: Vital Signs, click to edit/add: Vital Signs - 24 hr 05/02/23 07:45 05/02/23 10:12 05/02/23 10:13 Temperature 98.2 F Pulse Rate 72 72 Pulse Rate [Pulse Oximeter] 67 Respiratory Rate 16 Blood Pressure 192/103 H Blood Pressure [Ri ght Upper Arm] 207/102 H Pulse Oximetry 97 99 99 Oxygen Delivery Me thod Room Air 05/02/23 10:15 05/02/23 10:15 05/02/23 10:15 Temperature Pulse Rate 70 70 70 Pulse Rate [Pulse Oximeter] Respiratory Rate Blood Pressure 196/91 H 196/91 H 196/91 H Blood Pressure [Ri ght Upper Arm] Pulse Oximetry 99 99 [facility]23 10:16 05/02/23 10:22 05/02/23 10:30 Temperature Pulse Rate 69 69 70 Pulse Rate [Pulse Oximeter] Respiratory Rate Blood Pressure 182/86 H Blood Pressure [Ri ght Upper Arm] Pulse Oximetry 98 98 94 Oxygen Delivery Me thod 05/02/23 10:32 05/02/23 10:45 05/02/23 10:46 Temperature Pulse Rate 72 71 71 Pulse Rate [Pulse Oximeter] Respiratory Rate Blood Pressure 161/79 H 169/80 H Blood Pressure [Ri ght Upper Arm] Pulse Oximetry 94 94 95 Oxygen Delivery Me thod 05/02/23 11:00 05/02/23 11:02 05/02/23 11:15 Temperature Pulse Rate 72 70 72 Pulse Rate [Pulse Oximeter] Respiratory Rate Blood Pressure 161/97 H Blood Pressure [Ri ght Upper Arm] Pulse Oximetry 99 99 95 Oxygen Delivery Me od 05/02/23 11:16 Temperature Pulse Rate 73 Pulse Rate [Pulse Oximeter] Respiratory Rate Blood Pressure 165/110 H Blood Pressure [Ri ght Upper Arm] Pulse Oximetry 95 Oxygen Delivery Me thod Documenting provider has reviewed patient's vital signs: yes Course Vital Signs Vital signs: Initial Vital Signs Temperature 98.2 F 05/02/23 07:45 Temperature Source Temporal Artery Scan 05/02/23 07:45 Pulse Rate 67 05/02/23 07:45 Respiratory Rate 16 05/02/23 07:45 Blood Pressure 207/102 H 05/02/23 07:45 Blood Pressure Mean 137 H 05/02/23 07:45 Blood Pressure Position Sitting 05/02/23 07:45 Pulse Oximetry 97 05/02/23 07:45 Oxygen Delivery Method Room Air 05/02/23 07:45 Vital Signs Temperature 98.2 F 05/02/23 07:45 Pulse Rate 67 05/02/23 07:45 Respiratory Rate 16 05/02/23 07:45 Blood Pressure 207/102 H 05/02/23 07:45 Pulse Oximetry 97 05/02/23 07:45 Oxygen Delivery Method Room Air 05/02/23 07:45 Temperature 98.2 F 05/02/23 07:45 Pulse Rate 73 05/02/23 11:16 Respiratory Rate 16 05/02/23 07:45 Blood Pressure 165/110 H 05/02/23 11:16 Pulse Oximetry 95 05/02/23 11:16 Oxygen Delivery Method Room Air 05/02/23 07:45 Medications Administered Medications: Discontinued Medications Generic Name Dose Route Start Last Admin Trade Name Freq PRN Reason Stop Dose Admin Diazepam 5 mg 05/02/23 08:36 05/02/23 10:22 Diazepam 5 Mg/Ml Inj IV 05/02/23 08:37 5 mg ONCE ONE Administration Sodium Chloride 1,000 mls @ 1,000 mls/hr 05/02/23 08:26 05/02/23 10:45 0.9 % Sodium Chloride 1000 Ml IV 05/02/23 09:25 Infused .Q1H ONE Infusion Medical Decision Making MDM Narrative Medical decision making narrative: Little complicated here given history of migraines. Reassuring little bit is the prior presence of numbness over left face. Certainly could be extension of microvascular compromise experienced during migraines. Could be a larger cerebrovascular accident as well. Dizziness seems to be peripheral in description. Regardless present upon waking and anticoagulation status changes things a little bit. Furthermore without debilitating symptoms would not likely initiate thrombolytics. Dizziness though is more significant. Also unfortunately currently are without CT imaging capabilities in this emergency department. Will initiate IV hydration. Trial of Valium and discussed with neurology about optimal imaging. Would consider basic MRI brain at this point. Did discuss with Neurology on-call. Suspicion is for atypical migraine with aura and BPPV but with imaging available did recommend proceeding with MRI of brain and MRA of brain. Imaging without major ischemic event or vascular anomaly. Did show chronic microvascular changes. On reassessment Ms. Drew was improved particularly for with regard to dizziness. Numbness was lingering and thought related to aura. See patient discharge plan Lab Data Lab results reviewed: Yes I reviewed the patient's lab results Labs: Lab Results 05/02/23 Range/Units 08:45 WBC 8.28 (4.50-11.00) K/uL RBC 4.27 (4.00-5.20) m/uL Hgb 11.4 L (12.0-16.0) gm/dL Hct 36.2 (33.0-51.0) % MCV 85 (80-100) fL MCH 27 (26-34) pg MCHC 32 (32-36) gm/dL RDW Coeff of Solange 14.4 (11.5-15.5) % Plt Count 261 (140-440) K/uL Neut % (Auto) 74.2 H (42.0-72.0) % Lymph % (Auto) 19.0 L (20-44) % [place] % (Auto) 5.6 (0.0-11.0) % Eos % (Auto) 0.6 (0.0-7.0) % Baso % (Auto) 0.4 (0.0-3.0) % Neut # (Auto) 6.10 (1.7-7.0) K/uL Lymph # (Auto) 1.60 (0.90-2.90) K/uL [place] # (Auto) 0.50 (0.00-0.90) K/UL Eos # (Auto) 0.05 (0.00-0.50) K/uL Baso # (Auto) 0.03 (0.00-0.30) K/uL Abs Immat Gran (auto) 0.02 (0.00-0.30) K/uL Imm/Tot Granulo (auto) 0.2 % INR 1.76 H (0.91-1.10) Sodium 139 (135-149) mmol/L Potassium 4.0 (3.6-5.1) mmol/L Chloride 109 (96-114) mmol/L Carbon Dioxide 23 (20-32) mmol/L Anion Gap 7 (7-15) mEq/L BUN 20 (7-30) mg/dL Creatinine 1.1 (0.5-1.5) mg/dL Estimated Creat Clear 42.64 Estimated GFR 53 ml/min Glucose 92 (60-115) mg/dL Calcium 9.0 (8.4-10.6) mg/dL Magnesium 1.9 (1.5-2.6) mg/dL C-Reactive Protein < 0.5 L (0.5-1.0) mg/dL ECG Data Attestation: I personally reviewed and interpreted this ECG as follows: (Sinus rhythm with PAC rate of 64) Discharge Plan Discharge Clinical Impression: Migraine with aura, Atypical migraine, Benign paroxysmal positional vertigo Patient Disposition: Home w/ Parent or Adult Condition: Improved Additional Instructions: This aura may take a little more time to resolve. Remember to stay well-hydrated. Try did get a little exercise in daily. Follow up this next week as scheduled. Your INR today was 1.76. Return for new and focal weakness, intractable vomiting or headache. Prescriptions: New ondansetron 4 mg tablet,disintegrating 4 mg PO Q6H PRN (Reason: nausea and vomiting) Qty: 12 0RF No Action alprazolam 0.5 mg tablet 0.25 mg PRN Patient Comments: TAKE ONE TABLET BY MOUTH DAILY IF NEEDED FOR ANXIETY. RARE USE . hydrochlorothiazide 25 mg tablet 25 mg PO DAILY Hold Instructions: Doctor's Order Patient Comments: TAKE ONE TABLET BY MOUTH ONCE DAILY levothyroxine 112 mcg tablet 112 mcg PO DAILY Patient Comments: TAKE 1 TABLET BY MOUTH BEFORE BREAKFAST. losartan 100 mg tablet 100 mg PO DAILY Patient Comments: TAKE 1 TABLET BY MOUTH ONCE DAILY. metoprolol tartrate 50 mg tablet 50 mg PO Q12H Patient Comments: TAKE 1 TABLET (50MG) BY MOUTH TWICE A DAY pantoprazole 40 mg tablet,delayed release (DR/EC) 40 mg PO Q12H Patient Comments: TAKE 1 TABLET BY MOUTH IN THE MORNING AND 1 TABLET IN THE EVENING TAKE BEFORE MEALS (TAKE FOR 1 MONTH POST ABLATION THEN RESUME 1 TABLET DAILY) rosuvastatin 5 mg tablet DAILY Hold Instructions: Doctor's Order Patient Comments: TAKE ONE TABLET BY MOUTH AT BEDTIME sucralfate 1 gram tablet 1 g PRN Patient Comments: TAKE ONE TABLET BY MOUTH TWICE DAILY NEEDED warfarin 5 mg tablet 5 mg PO DAILY Qty: 14 0RF enoxaparin [Lovenox] 80 mg/0.8 mL syringe 80 mg subcut Q12H Qty: 8 0RF metoprolol succinate 50 mg tablet extended release 24 hr 50 mg PO Q12H metoprolol tartrate 25 mg tablet 25 mg PO Q12H sumatriptan succinate 25 mg tablet 25 mg PO BID PRN (Reason: migraine) Follow Up/Referrals: Erika Benito MD [Primary Care Provider] - [facility]one [facility]
--- OUTSIDE RECORDS SUMMARY | 2023-05-02 08:48 | XMS_ITS | Continuity of Care Document ---
Author Name Unknown Organization [facility] Address [address] [place] [address] Phone Care Team Providers Care Manager Meat Name Role Phone Loyda Staley Unavailable Unavailable [...] 1 tablet 3 times daily - Active IBUPROFEN (unknown strength) Not Available - Active ASPIRIN (unknown strength) Not Available - Active MECLIZINE HCL (unknown strength) take 1 tablet by oral route 3 times every day as needed Not Available - Active SUCRALFATE (unknown strength) take 1 tablet by oral route 4 times every day on an empty stomach 1 hour before meals and at bedtime Not Available - Active RANITIDINE HCL (unknown strength) take 1 tablet by oral route 2 times every day Not Available - Active SUMATRIPTAN SUCCINATE (unknown strength) take 1 tablet by oral route after onset of migraine; may repeat after 2 hours if headache returns,not to exceed 200mg in 24hrs Not Available - Active LOSARTAN POTASSIUM (unknown strength) Not Available - Active ALPRAZOLAM (unknown strength) Not Available - Active LEVOTHYROXINE SODIUM (unknown strength) take 1 tablet by oral route every day Not Available - Active VERAPAMIL ER (unknown strength) take 1 tablet by oral route every day with food Not Available - Active PANTOPRAZOLE SODIUM (unknown strength) Not Available - Active ROSUVASTATIN CALCIUM (unknown strength) take 1 tablet by oral route every day Not Available - Active HYDROCHLOROTHIAZIDE (unknown strength) take 1 tablet by oral route every day Not Available - Active METOPROLOL TARTRATE (unknown strength) Not Available - Active Procedures Procedure Date Office/Outpatient Visit,Roberto Rangel 2018 Advance Directives Directive Yes / No Effective Date File Name No Information Encounters Encounter Description Practice Location Reason(s) For Visit Diagnoses Date Provider Providers Copied on Encounter [facility], [address], [place], [place], [id number] , [place] tel: [phone] [facility] No Information 0 Mccray Loyda. [facility], [address] [place] [address] [address], [facility] [place], [place], [id number] , [place]. tel: [phone] Office/Outpa tient Visit,Roberto Rangel [facility], [address], [place], [place], [id number] , [place] tel: [phone] [facility] [place] CervicalgiaImping ement syndrome of left shoulderOther spondylosis, cervical regionNeuropathy 9 [facility]. [facility], [address] [place] [address] [address], [facility] [place], [place], [id number] , [place]. tel: [phone] Referring Provider: Palomo Jones, [facility], [place], [address] . tel:[phone] Family History Family Member Type Diagnosis Age At Onset No Information Payers Payer name Insurance type Covered green party ID Authoriza tion(s) Medicare MB [id number] [facility] [id number] [facility] [id number] Social History Type Description Quantity Date Captured [...]
[2023-05-02 08:50] LABS: Basophils Absolute Auto 0.03 K/uL (0.00-0.30); Basophils Percent Auto 0.4 % (0.0-3.0); Eosinophils Absolute Auto 0.05 K/uL (0.00-0.50); Eosinophils Percent Auto 0.6 % (0.0-7.0); Hematocrit 36.2 % (33.0-51.0); Hemoglobin* 11.4 gm/dL (12.0-16.0); Immature Granulocytes Abs Auto 0.02 K/uL (0.00-0.30); Immature Granulocytes Pct Auto 0.2 %; Mean Corpuscular HGB Conc 32 gm/dL (32-36); Mean Corpuscular Hemoglobin 27 pg (26-34); Mean Corpuscular Volume 85 fL (80-100); Monocytes Percent Auto 5.6 % (0.0-11.0); Neutrophils Percent Auto 74.2 % (42.0-72.0); Platelet Count* 261 K/uL (140-440); RDW Coefficient of Variation % 14.4 % (11.5-15.5); Red Blood Count 4.27 m/uL (4.00-5.20); White Blood Count* 8.28 K/uL (4.50-11.00)
[2023-05-02 08:54] LABS: Slide Review Reflex No
--- NOTE | 2023-05-02 08:59 | CRLHL7_ITS ---
For Patients: As a result of the Century Cures Act, medical imaging exams and procedure reports are released immediately into your electronic medical record. You may view this report before your referring provider. If you have questions, please contact your health care provider. Indication: Left-sided numbness Technique: 3D [id number] MR angiogram of the [id number] with 3-dimensional MIP projections were submitted. Axial diffusion and ADC sequences were also obtained. Comparison: MRA head 12/11/2017 Findings: The visualized first and second order intracranial vessels are unremarkable. No occlusion/filling defect or acquired arterial stenosis identified. No aneurysm or vascular malformation seen. No abnormal restricted diffusion. Impression: 1. Unremarkable MRA of the head as far as visualized. 2. No evidence of acute/subacute ischemia. Dictated by Jeannie Henderson MD @ 05/02/2023 10:06:01 AM (Electronically Signed)
--- NOTE | 2023-05-02 08:59 | CRLHL7_ITS ---
For Patients: As a result of the Cures Act, medical imaging exams and procedure reports are released immediately into your electronic medical record. You may view this report before your referring provider. If you have questions, please contact your health care provider. INDICATION: Paresthesias. TECHNIQUE : Multisequence multiplanar MRI of the head before and following administration of 15 mL of gadolinium-based intravenous contrast. COMPARISON: MR brain dated 12/11/2017. FINDINGS: Evidence of acute ischemia. Multiple scattered foci of periventricular and subcortical white matter hyperintensity, some of which are not seen prior exam dated 12/11/2017. No abnormal susceptibility artifact to indicate recent or prior intracranial hemorrhage. No focus of abnormal enhancement. The ventricles are unchanged in size. Flow is preserved within the larger intracranial arteries. Bone marrow signal intensity of the calvarium is within normal limits. Orbits are unremarkable in appearance. Paranasal sinuses and mastoid air cells are predominantly clear. IMPRESSION: 1. No acute intracranial abnormality. 2. Multiple scattered foci of supratentorial white matter hyperintensity, some of which are not seen on prior exam, are nonspecific but typical of mild chronic small vessel ischemic changes. 3. No focus of abnormal postcontrast enhancement. Dictated by Cotl Rosario MD @ 05/02/2023 10:41:27 AM (Electronically Signed)
[2023-05-02 09:09] LABS: Chloride* 109 mmol/L (96-114); Sodium* 139 mmol/L (135-149)
[2023-05-02 09:12] LABS: Anion Gap 7 mEq/L (7-15); Blood Urea Nitrogen* 20 mg/dL (7-30); Carbon Dioxide* 23 mmol/L (20-32); Creatinine* 1.1 mg/dL (0.5-1.5); Est. Creatinine Clearance* 42.64; Estimated Glomerular Filt Rate 53 ml/min; INR 1.76 (0.91-1.10); Prothrombin Time 21.8 Seconds
[2023-05-02 09:13] LABS: Glucose* 92 mg/dL (60-115); Magnesium* 1.9 mg/dL (1.5-2.6)
[2023-05-02 09:26] LABS: C Reactive Protein* < 0.5 mg/dL (0.5-1.0)
[2023-05-02] MEDS: 0.9 % SODIUM CHLORIDE 1000 ml 1,000 ML IV (10:00)
[2023-05-02] MEDS: diazePAM 5 MG/ML inj IV (10:22)
== END 2023-05-02 11:37 | disposition home or self-care (01) ==
PROVIDERS: Emergency Provider Family Medicine; PCP Family Medicine
DX: G43.119 Migraine with aura, intractable, without status migrainosus (principal); H81.10 Benign paroxysmal vertigo, unspecified ear
CPT/HCPCS: 36415; 70544; 70553; 80048; 83735; 85025; 85610; 86140; 93005; 99284; A9575; J3360; J7030

== ENCOUNTER 2023-05-19 12:07 | Outpatient (CLI) | payer MEDICARE, BC, SELFPAY ==
--- NOTE | 2023-05-19 13:13 | W.ANESCHARGE ---
Anesthesia Charges Start Date/Time Anesthesia Start Date: 05/19/23 Anesthesia Start Time: 13:01 Stop Date/Time Anesthesia Stop Date: 05/19/23 Anesthesia Stop Time: 13:34 Summary Extremes of Age - Over 70 or under 1: MDA
--- NOTE | 2023-05-19 13:39 | W.ANESCHARGE ---
Anesthesia Charges Start Date/Time Anesthesia Start Date: 05/19/23 Anesthesia Start Time: 13:01 Stop Date/Time Anesthesia Stop Date: 05/19/23 Anesthesia Stop Time: 13:34
== END 2023-05-19 12:08 | disposition home or self-care (01) ==
LOC: OP CLINIC 12:08
PROVIDERS: PCP Family Medicine; Visit Provider Internal Medicine Gastroenterology
DX: R19.7 Diarrhea, unspecified (principal); K63.5 Polyp of colon
CPT/HCPCS: 00811; 45380; 45385; 88305; 99100; J2405; J2704

== ENCOUNTER 2024-01-31 07:14 | Emergency (ER) | payer MEDICARE, BC, SELFPAY ==
[2024-01-31 07:22] VITALS: BP 162/74; PULSE 75; RESP 16; TEMP 36.3; O2SAT 98; BMI 28.0
--- NOTE | 2024-01-31 08:02 | ED_ITS ---
HPI - General Adult General Date Seen: 01/31/24 Chief complaint: Headache/Migraine Stated complaint: Migraine Time Seen by Provider: 01/31/24 08:02 History of Present Illness HPI narrative: 73 yo F with h.o a fib (ablation, on warfarin), migraine headaches, GERD, hypothyroidism. She presents to the ER this morning with headache associated with nausea and vomiting and visual aura. Was seen in the ER here in [place] 05/02/2023 for headache associated with num bness and tingling of the left face and left arm/hand. Had MRI/MRA while in the ER. Imaging was normal. Treated with fluids and Valium in the ER. Improved with meds. Discharged from the ER. She reports that she has a long history of migraine headaches. Over the recent months she has also developed some pain in her right jaw and has been on gabapentin for that. She previously been on a fairly low dose, 1 tablet twice a day. About a month ago she had a right knee replacement surgery. She suffered an injury to a nerve around her right knee so her doctors have increased her gabapentin. She has been up to 2 tablets twice a day. She notes that over the past couple of weeks she has had increased frequency of migraine headaches. Initially she did not recognize it, but now she is suspecting that her migraines are worsening because of the gabapentin. She took a higher dose of gabapentin on Friday and since then has been having a fairly bad headache. It has primarily been in the left retro-orbital area which is the typical spot for her headache. It has been coming and going but fairly it is persistent since then. Overnight her headache worsened and is now more generalized. It is associated with visual auras and a little bit of tingling in her left hand. Overall seems similar to previous migraines. No fever. No neck stiffness. No head injury. She has been nauseous but not vomiting. INR was checked on Friday and was therapeutic at 2.2. No other changes in her medications. She has been trying to use Tylenol or gabapentin for her headache, but they are unsuccessful. Related Data Home Medications ?Medication ?Instructions ?Recorded ?Confirmed alprazolam 0.5 mg tablet 0.25 mg PRN 12/09/21 09/21/23 levothyroxine 112 mcg tablet 112 mcg PO DAILY 12/09/21 09/21/23 losartan 100 mg tablet 100 mg PO DAILY 12/09/21 09/21/23 metoprolol tartrate 50 mg tablet 50 mg PO Q12H 12/09/21 09/21/23 pantoprazole 40 mg tablet,delayed 40 mg PO Q12H 12/09/21 09/21/23 release metoprolol succinate 50 mg 50 mg PO Q12H 09/04/22 09/21/23 tablet,extended release 24 hr metoprolol tartrate 25 mg tablet 25 mg PO Q12H 09/04/22 09/21/23 sumatriptan succinate 25 mg tablet 25 mg PO BID PRN migraine 09/04/22 09/21/23 acetaminophen 500 mg oral powder 500 mg PO Q6H PRN 09/21/23 09/21/23 packet (Tylenol Extra Strength) Previous Rx's ?Medication ?Instructions ?Recorded warfarin 5 mg tablet 5 mg PO DAILY Ablation #14 tabs 12/09/21 tramadol 50 mg tablet 50 mg PO Q8H PRN pain #14 tabs 09/21/23 Allergies Allergy/AdvReac Type Severity Reaction Status Date / Time apixaban [From Eliquis] Allergy Intermediate Verified 09/21/23 10:06 amlodipine Allergy Unknown Verified 09/21/23 10:06 dabigatran etexilate Allergy redness Verified 09/21/23 10:06 [From Pradaxa] and itching Penicillins Allergy Verified 09/21/23 10:06 rivaroxaban [From Xarelto] Allergy Verified 09/21/23 10:06 [facility] Surgical History History of cardiac radiofrequency ablation ?Z98.890 - Other specified postprocedural states (ICD-10) Social History Smoking Status: Never smoker Do you use any of these nicotine containing products: None Second hand tobacco smoke exposure: No How often do you have a drink containing alcohol: monthly or less How many standard drinks containing alcohol do you have on a typical day: 1 or 2 How often do you have six or more drinks on one occasion: Never AUDIT-C Alcohol total score: 1 Non-prescribed substance use: denies use service: No Exam Narrative: Exam Narrative: Constitutional: Appears well-developed and well-nourished. Alert. Conversant. Non toxic. HENT: Head: Atraumatic. No depressed skull fracture, Raccoon Eyes, Giles's sign, or hemotympanum. Face normal. Nose: Nose normal. Mouth/Throat: Oral mucosa is clear and moist. no trismus. Pharynx normal. Tonsils symmetric. No tonsillar enlargement, erythema, or exudate. Eyes: Photophobic so prefers her sunglasses. Conjunctivae normal. EOM normal. Pupils equal, round, and reactive. No scleral icterus. Neck: Normal range of motion. Neck supple. No tracheal deviation present. Cardiovascular: Normal rate, regular rhythm. No gallop. No friction rub. No murmur heard. Symmetric radial artery pulses Pulmonary/Chest: Effort normal. No stridor. No respiratory distress. No wheezes. No rales. No rhonchi . Musculoskeletal: RUE: Normal range of motion. No tenderness. No deformity LUE: Normal range of motion. No tenderness. No deformity RLE: Normal range of motion. No edema. No tenderness. No deformity LLE: Normal range of motion. No edema. No tenderness. No deformity Lymph: No cervical adenopathy. Neurological: Alert and oriented to person, place, and time. Normal strength. CN II-VII intact. No sensory deficit. GCS eye subscore is 4. GCS verbal subscore is 5. GCS motor subscore is 6. Normal coordination Skin: Skin is warm and dry. No rash noted. No pallor. Normal capillary refill. Psychiatric: Normal mood. Normal affect. Const: Vital Signs, click to edit/add: Vital Signs - 24 hr 01/31/24 07:22 01/31/24 09:50 Temperature 97.3 F L 98.3 F Pulse Rate [Pulse Oximeter] 75 71 Respiratory Rate 16 18 Blood Pressure [Ri ght Upper Arm] 162/74 H Pulse Oximetry 98 96 Oxygen Delivery Me thod Room Air Room Air Course Vital Signs Vital signs: Initial Vital Signs Temperature 97.3 F L 01/31/24 07:22 Temperature Source Temporal Artery Scan 01/31/24 07:22 Pulse Rate 75 01/31/24 07:22 Respiratory Rate 16 01/31/24 07:22 Blood Pressure 162/74 H 01/31/24 07:22 Blood Pressure Mean 103 01/31/24 07:22 Pulse Oximetry 98 01/31/24 07:22 Oxygen Delivery Method Room Air 01/31/24 07:22 Vital Signs Temperature 97.3 F L 01/31/24 07:22 Pulse Rate 75 01/31/24 07:22 Respiratory Rate 16 01/31/24 07:22 Blood Pressure 162/74 H 01/31/24 07:22 Pulse Oximetry 98 01/31/24 07:22 Oxygen Delivery Method Room Air 01/31/24 07:22 Temperature 98.3 F 01/31/24 09:50 Pulse Rate 71 01/31/24 09:50 Respiratory Rate 18 01/31/24 09:50 Blood Pressure 162/74 H 01/31/24 07:22 Pulse Oximetry 96 01/31/24 09:50 Oxygen Delivery Method Room Air 01/31/24 09:50 Medications Administered Medications: Discontinued Medications Generic Name Dose Route Start Last Admin Trade Name Freq PRN Reason Stop Dose Admin Diphenhydramine HCl 12.5 mg 01/31/24 08:20 01/31/24 08:47 Diphenhydramine 50 Mg/Ml Inj IVP 01/31/24 08:21 12.5 mg ONCE ONE Administration Ketorolac Tromethamine 15 mg 01/31/24 08:20 01/31/24 08:43 Ketorolac 15 Mg/Ml Inj IVP 01/31/24 08:21 15 mg ONCE ONE Administration Metoclopramide HCl 10 mg 01/31/24 08:20 01/31/24 08:49 Metoclopramide Hcl 5 Mg/Ml Inj IVP 01/31/24 08:21 10 mg ONCE ONE Administration Medical Decision Making [facility] Narrative Medical decision making narrative: Ths patient presents with a headache. A broad differential diagnosis was considered including tension, migraine, analgesic rebound, occipital neuralgia, etc. Other less common but serious causes considered included meningitis, encephalitis, subarachnoid bleed, stroke, tumor, etc. overall the location of the headache and it is associated migraine aura phenomena would highly suggest that this is a migraine. However since the patient is anticoagulated on warfarin, we did obtain head CT which is negative for acute intracranial hemorrhage. At this point I do not think lumbar puncture is indicated because have extremely low suspicion for ruptured sober accurate hemorrhage, or meningitis. The patient has no signs of serious headache etiologies at this point. Patient's questions were answered and they feel improved after above interventions in ED. Supportive outpatient management is therefore indicated. Headache precautions given for home. Imaging Data CT scan - head: Attestation: I have reviewed the pertinent imaging results. Radiologist's impression: IMPRESSION: No acute intracranial abnormality. Discharge Plan Discharge Clinical Impression: Headache Patient Disposition: Home, Self-Care Condition: Stable Instructions: Acute Headache (DC) Additional Instructions: As we discussed, please come back to the ER right away if you have any problems especially recurring headache, any numbness or tingling in your face or arms, fever, confusion, nausea or vomiting, or any other problems. Since we suspect that the gabapentin may be triggering your headache, Please hold off on taking gabapentin and and recheck with your doctor this week to re- evaluate treating your nerve pain. Prescriptions: No Action Tylenol Extra Strength 500 mg powder in packet 500 mg PO Q6H PRN tramadol 50 mg tablet 50 mg PO Q8H PRN (Reason: pain) Qty: 14 0RF alprazolam 0.5 mg tablet 0.25 mg PRN Patient Comments: TAKE ONE TABLET BY MOUTH DAILY IF NEEDED FOR ANXIETY. RARE USE . levothyroxine 112 mcg tablet 112 mcg PO DAILY Patient Comments: TAKE 1 TABLET BY MOUTH BEFORE BREAKFAST. losartan 100 mg tablet 100 mg PO DAILY Patient Comments: TAKE 1 TABLET BY MOUTH ONCE DAILY. metoprolol tartrate 50 mg tablet 50 mg PO Q12H Patient Comments: TAKE 1 TABLET (50MG) BY MOUTH TWICE A DAY pantoprazole 40 mg tablet,delayed release (DR/EC) 40 mg PO Q12H Patient Comments: TAKE 1 TABLET BY MOUTH IN THE MORNING AND 1 TABLET IN THE EVENING TAKE BEFORE MEALS (TAKE FOR 1 MONTH POST ABLATION THEN RESUME 1 TABLET DAILY) warfarin 5 mg tablet 5 mg PO DAILY Qty: 14 0RF metoprolol succinate 50 mg tablet extended release 24 hr 50 mg PO Q12H metoprolol tartrate 25 mg tablet 25 mg PO Q12H sumatriptan succinate 25 mg tablet 25 mg PO BID PRN (Reason: migraine) Follow Up/Referrals: Erika Benito MD [Primary Care Provider] - Stand Alone Forms: [employer] Info Instructions
--- NOTE | 2024-01-31 08:20 | CRLHL7_ITS ---
For Patients: As a result of the Century Cures Act, medical imaging exams and procedure reports are released immediately into your electronic medical record. You may view this report before your referring provider. If you have questions, please contact your health care provider. INDICATION: Headache, on warfarin. TECHNIQUE: Noncontrast CT of the head with multiplanar reconstruction utilizing bone and soft tissue algorithms. COMPARISON: CT head dated 02/15/2022. FINDINGS: No acute intracranial hemorrhage. The cabral-white matter interface is preserved. The ventricles are normal in size. No abnormal extra-axial fluid collection is identified. Normal calvarium and skull base. Unremarkable orbits. The paranasal sinuses and mastoid air cells are clear. IMPRESSION: No acute intracranial abnormality. Please note that all CT scans at this facility use dose modulation, iterative reconstruction, and/or weight-based dosing when appropriate to reduce radiation dose to as low as reasonably achievable. Dictated by Colt Rosario MD @ 01/31/2024 9:29:41 AM (Electronically Signed)
[2024-01-31] MEDS: KETOROLAC 15 MG/ML inj IVP (08:43)
[2024-01-31] MEDS: diphenhydrAMINE 50 MG/ML inj 12.5 MG IVP (08:47)
--- OUTSIDE RECORDS SUMMARY | 2024-01-31 08:47 | XMS_ITS | Continuity of Care Document ---
Author Organization [facility] Address [address] [place] [address] Phone Care Team Providers Care Managed Care Specialist Name Role Phone Loyda Staley Unavailable Unavailable Allergies, Adverse Reactions, Alerts Substance Reaction Status Criticality Penicillins Hives, Dermatitis, Swelling Active No Information PENICILLIN SwelllingItchy sensation Active N o Information Medications Medication Instructions Dosage Effective Dates (start - stop) Status Comments guaifenesin 200 mg tablet - Active CELECOXIB (unknown strength) Not Available - Active CICLOPIROX (unknown strength) Not Available - Active DICLOFENAC SODIUM (unknown strength) Not Available - Active METOPROLOL SUCCINATE (unknown strength) Not Available - Active POLYETHYLENE GLYCOL 3350 (unknown strength) Not Available - Active WARFARIN SODIUM (unknown strength) Not Available - Active ACETAMINOPHEN (unknown strength) Not Available - Active IBUPROFEN (unknown strength) Not Available - Active ASPIRIN (unknown strength) Not Available - Active SUCRALFATE (unknown strength) take 1 tablet by oral route 4 times every day on an empty stomach 1 hour before meals and at bedtime Not Available - Active SUMATRIPTAN SUCCINATE (unknown [...] SODIUM (unknown strength) Not Available - Active HYDROCHLOROTHIAZIDE (unknown strength) take 1 tablet by oral route every day Not Available - Active METOPROLOL TARTRATE (unknown strength) Not Available - Active MECLIZINE HCL (unknown strength) take 1 tablet by oral route 3 times every day as needed Not Available - No Longer Active RANITIDINE HCL (unknown strength) take 1 tablet by oral route 2 times every day Not Available - No Longer Active VERAPAMIL ER (unknown strength) take 1 tablet by oral route every day with food Not Available - No Longer Active ROSUVASTATIN CALCIUM (unknown strength) take 1 tablet by oral route every day Not Available - No Longer Active Procedures Procedure Date Office/Outpatient Visit,New, Mod 2023 Office/Outpatient Visit,Est, Mod 2023 Office/Outpatient Visit,[facility], Mod 2018 Advance Directives Directive Yes / No Effective Date File Name No Information Encounters Encounter Description Practice Location Reason(s) For Visit Diagnoses Date Provider Providers Copied on Encounter Office/Outpa tient Visit,[facility], [facility], [address], [place], [place], [id number] , [place] tel: [phone] [facility] Radiculopathy, lumbosacral regionOther spondylosis, lumbosacral regionSpondylolisthe sis, lumbar region 4 [facility]. [facility], [address] [place] [address], [place], [place], [id number] , [place]. tel: [phone] Referring Provider: [facility] [address], [place], [address] . tel:[phone] Office/Outpa tient Visit,[facility], [facility], [address], [place], [place], [id number] , [place] tel: [phone] [facility] CervicalgiaImpingeme nt syndrome of left shoulderOther spondylosis, cervical regionNeuropathy 9 Mahendra Scales. [facility], [address] [place] [address], [place], [place], [id number] , [place]. tel: [phone] Referring Provider: [facility] [address], [place], [address] . tel:[phone] Family History Family Member Type Diagnosis Age At Onset Mother Problem (finding) Stroke Father Problem (finding) Cancer, unknown type Mother Problem (finding) Hypertension Payers Payer name Insurance type Covered constitution party ID Authorsusan velazquez(s) Medicare [id number] [facility] [id number] [facility] [id number] Social History Type Description Quantity Date Captured Comments Alcohol Use Details No Caffeine Use Details Unknown Tobacco Use Status Current non-smoker Smoking Status Never smoker Non-Smoking Tobacco Use Details : No Details Available : No Details Available Sex Female Vital Signs Date / Time: Height Weight BMI Pulse Rate Blood Pressure Temperature Respiratory Rate Body Surface Area Head Circumference Head Circ. Percentile Wt./Pola. Percentile BMI percentile Pulse Ox Inhaled Ox 2:18 PM 65.00 in 72.575 kg (160.00 lbs) 26.6 2 kg/m eter (2) Chief Complaint And Reason For Visit No Information Reason For Referral Reason For Referral No Information Plan Of Treatment Date Type Action Status Future Order: Radiology Order MR I-Lumbar (MRILUMBAR), Ordered on: Ordered Future Order: Radiology Order Tr ocanteric Bursa - Right (TROCANTERICLUM), Ordered on: Ordered History Of Present Illness Encounter Date Complaint History Of Prese nt Illness No Information Functional Status Date Functional Assessmen t No Information Instructions Date Instruction Additional Infor mation No Information Assessments Type Assessment Date assessment Radiculopathy, lumbosacral regio n assessment Other spondylosis, lumbosacral r egion assessment Spondylolisthesis, lumbar region Patient Care Teams Name Effective Dates (start - stop) Status Members No Information
--- OUTSIDE RECORDS SUMMARY | 2024-01-31 08:48 | XMS_ITS | Encounter Summary ---
Author Organization [facility] Address [address] [address] Care Team Providers Care Bulk Folder Name Role Phone Erika Flores Primary Care Provider [phone] Reason for Visit * Auth/Cert (Routine) Specialty Diagnoses / Procedures Referred By Tono chung Referred To Contact Surgery Diagnoses Degenerative joint disease of right knee Degenerative joint disease of right knee [M17.11] Procedures VT TOTAL KNEE ARTHROPLASTY RIGHT TOTAL KNEE ARTHROPLASTY Periop Services [address] [place] [address] Referral ID Status Reason Start Date Expiration Date Visits Re quested Visits Authorized [id number] 1 1 Encounter Details Date Type Department Care Team (Late st Contact Info) Description 01/02/2024 7:30 AM CDT - 01/02/2024 10:40 AM CDT Surgery [facility] PeriOP Services [address] [place] [address] Lauren Escudero MD [facility] [address] [place], [place] [address] RIGHT TOTAL KNEE ARTHROPLASTY Surgery Details Date/Time Status Location OR Service Patient Class Case Class Case Type Trauma Case? 01/02/24 7:30 AM Posted OR OR [facility] Orthopedics Same Day Surgery Elective Panel 1 Procedure LRB Anes Op Region Wound Class Comments RIGHT TOTAL KNEE ARTHROPLASTY Right General Knee I-Clean Surgeon Surgeon Role Service Panel Lauren Escudero MD Primary Orthopedics 1 Milla Mcgregor PA-C Assisting 1 Special Needs *htn, cad, cardiomyopathy, afib, svtach, [id number]: last dose 12/27/23Pt verified laterality daughter Carly will be caregiverREQ 120 MIN documented in this encounter Social History Tobacco Use Types Packs/Day Years Used Date Smoking Tobacco: Never Smokeless Tobacco: Never Tobacco Cessation:Counseling Given: Not Answered Alcohol Use Standard Drinks/Week Comments Not Currently 0 (1 standard drink = 0.6 oz pur e alcohol) Adolescent Education Answer Date Record ed Getting School Help Needed Not on file 02/01 Food Insecurity Answer Date Recorded Within the past 12 months, d id you worry that your food would run out before you got money to buy more? No 01/02/2024 Within the past 12 months, d id the food you bought just not last and you didn? t have money to get more? No 01/02/2024 Housing Stability Answer Date Recorded Do you have housing? ([place]iff[place] g is defined as stable permanent housing and does not include staying ouside in a car, in a tent, in an abandoned building, in an overnight intermediate, or couch-surfing.) No 01/02/2024 Are you worried about losing your housing? No 01/02/2024 Financial Resource Strain Answer Date R ecorded Within the past 12 months, h ave you or your family members you live with been unable to get utilities (heat, electricity) when it was really needed? No 01/02/2024 Transportation Needs Answer Date Record ed Within the past 12 months, h as lack of transportation kept you from medical appointments, getting your medicines, non-medical meetings or appointments, work, or from getting things that you need? No 01/02/2024 Interpersonal Safety Answer Date Record ed Do you feel physically and e motionally safe where you currently live? Yes 01/02/2024 Within the past 12 months, h ave you been hit, slapped, kicked or otherwise physically hurt by someone? No 01/02/2024 Within the past 12 months, h ave you been humiliated or emotionally abused in other ways by your partner or ex-partner? No 01/02/2024 Sex and Gender Information Value Date Recorded Sex Assigned at Not on file Gender Identity Not on file Sexual Orientation Not on file documented as of this encounter Last Filed Vital Signs Vital Sign Reading Time Taken Comments Blood Pressure 129/70 01/02/2024 10:30 AM CDT Pulse 67 01/02/2024 10:39 AM CDT Temperature 36.1 ??C (97 ??F) 01/02/2024 10:09 AM CDT Respiratory Rate 18 01/02/2024 10:39 AM CDT Oxygen Saturation 100% 01/02/2024 10:39 AM CDT Inhaled Oxygen Concentration - - Weight 72.3 kg (159 lb 8 oz) 01/02/2024 6:35 AM CDT Height 162.6 cm (5' 4) 01/02/2024 6:35 AM CDT Body Mass Index 27.38 01/02/2024 6:35 AM CDT documented in this encounter Medications at Time of Discharge Medication Sig Dispensed Refills Start Date End Date acetaminophen (TYLENOL) 325 MG tabletIndications:Sta tus post total knee replacement, left Take 3 tablets (975 mg) by mouth every 6 hours as needed for mild pain. 100 tablet 01/02/2024 acetaminophen (TYLENOL) 325 MG tabletIndications:Sta tus post total knee replacement, left Take 3 tablets (975 mg) by mouth every 6 hours as needed for mild pain 100 tablet 08/21/2023 ALPRAZolam (XANAX XR) 0.5 MG 24 hr tablet Take 0.25 mg by mouth every evening as needed for anxiety. (0.5 x 0.5 mg = 0.25 mg) diclofenac (VOLTAREN) 1 % topical gel Apply topically 4 times daily gabapentin (NEURONTIN) 100 MG capsule Take 100 mg by mouth every evening. levothyroxine (SYNTHROID/LEVOTHROID ) 112 MCG tablet Take 112 mcg by mouth daily losartan (COZAAR) 100 MG tabletIndications:Sta tus post total knee replacement, left Take 1 tablet (100 mg) by mouth daily Hold for TOP < 110 08/23/2023 MECLIZINE HCL Take 25-50 mg by mouth as needed. metoprolol succinate ER (TOPROL XL) 50 MG 24 hr tablet Take 75 mg by mouth 2 times daily 1.5 X 50MG= 75MG BID metoprolol tartrate (LOPRESSOR) 25 MG tablet Take 25 mg by mouth 2 times daily oxyCODONE (ROXICODONE) 5 MG tabletIndications:Sta tus post total knee replacement, left Take 1 tablet (5 mg) by mouth every 6 hours as needed for pain. May take half to one tablet every 4 to 6 hours. Max 6 tabs in one day. 30 tablet 01/02/2024 pantoprazole (PROTONIX) 40 MG EC tablet Take 40 mg by mouth daily senna-docusate (SENOKOT-S/PERICOLACE ) 8.6-50 MG tabletIndications:Sta tus post total knee replacement, left Take 1-2 tablets by mouth 2 times daily. Take while on oral narcotics to prevent or treat constipation. 30 tablet 01/02/2024 spironolactone (ALDACTONE) 25 MG tablet Take 25 mg by mouth daily. sucralfate (CARAFATE) 1 GM tablet Take 1 g by mouth 2 times daily as needed. SUMAtriptan (IMITREX) 25 MG tablet Take 25 mg by mouth at onset of headache for migraine warfarin ANTICOAGULANT (COUMADIN) 5 MG tablet Take 1 tablet (5 mg) by mouth daily 08/22/2023 enoxaparin ANTICOAGULANT (LOVENOX) 40 MG/0.4ML syringeIndications:St atus post total knee replacement, left Inject 0.4 mLs (40 mg) subcutaneously every 24 hours for 2 doses. 0.8 mL 01/02/2024 01/04/2024 documented as of this encounter Progress Notes * Shey Piedra RN - 01/04/2024 3:00 PM CDT Patient A&OX4, VSS on RA. Dressing CDI. Pain Managed with Tylenol & oxycodone. IV Removed .Patient ready for discharge . Discharge instruction & med reviewed with Pt . All question answered. Belonging send with pt& daughter. * Maggie Bey OT - 01/04/2024 1:58 PM CDT Occupational Therapy Discharge Summary Reason for therapy discharge: Discharged to home. Progress towards therapy goal(s). See goals on Care Plan in [facility] electronic health record for goal details. Goals partially met. Barriers to achieving goals: discharge from facility. Therapy recommendation(s): No further therapy is recommended. * Trudi Luis PA-C - 01/04/2024 1:17 PM CDT Orthopedic Surgery 01/03/2024 S: Patient is resting comfortably in chair. Pain controlled at rest. Discharge was delayed yesterday due to mobilization and concerns for mobilizing. Worked again with physical therapy this morning and she successfully was able to climb the stairs. With this in mind recommendation was made to discharge home. O: Blood pressure (!) 155/80, pulse 79, temperature 98.2 ??F (36.8 ??C), temperature source Oral, resp. rate 16, height 1.626 m (5' 4), weight 72.3 kg (159 lb 8 oz), SpO2 91%. Lab Results Component Value Date HGB 9.8 01/03/2024 Neurovascularly intact. Calves are negative bilaterally, both soft and nontender. The dressing is C/D/I. A: Ms. Drew is doing well status post Procedure(s): RIGHT TOTAL KNEE ARTHROPLASTY. P: No dressing change, patient to remove outer dressing on POD3, leaving mesh adhesive in place. Continue physical therapy. Discharge to home today * Aries De La Torre MD - 01/04/2024 10:09 AM CDT [facility] Medicine Progress Note - Hospitalist Service Date of Admission: 01/02/2024 5:23 AM Assessment & Plan: Isela Drew is a 73 year old female with known history of paroxysmal atrial fibrillation, hypertension, diabetes mellitus type 2, SVT, CKD stage III, ischemic cardiomyopathy, migraine, hypothyroidism was admitted to [facility] after undergoing right TKA. Hospitalist service consulted for medical comanagement. S/p right TKA for right knee osteoarthritis -Underwent right TKA with Dr. Luke on 01/02/2024 -Defer routine postop care to orthopedic surgery including DVT prophylaxis, pain management and activity -Incentive spirometry Paroxysmal atrial fibrillation s/p ablation Hypertension Ischemic cardiomyopathy -Continue prior to admission metoprolol, losartan and Aldactone -Continue warfarin, pharmacy to dose, INR is 1.5 today CKD stage IIIa -Baseline creatinine is around 1.3, renal function at baseline -Creatinine stable at 1.14 Gastroesophageal reflux disease -Continue prior to admission Protonix and as needed Carafate Hypothyroidism -Continue prior to admission levothyroxine Migraine headaches -Imitrex as needed Diet: Advance Diet as Tolerated: Regular Diet Adult Discharge Instruction - Regular Diet Adult DVT Prophylaxis: Defer to primary service Walsh Catheter: Not present Code Status: Full Code Disposition Plan Expected Discharge Date: 01/05/2024 Destination: home with family Entered: Aries De La Torre MD 01/04/2024, 10:09 AM Medically Ready for Discharge: Per orthopedic surgery Clinically Significant Risk Factors Present on Admission # Drug Induced Coagulation Defect: home medication list includes an anticoagulant medication # Hypertension: Home medication list includes antihypertensive(s) # Anemia: based on hgb <11 # Overweight: Estimated body mass index is 27.38 kg/m?? as calculated from the following: Height as of this encounter: 1.626 m (5' 4). Weight as of this encounter: 72.3 kg (159 lb 8 oz). The patient's care was discussed with the Bedside Nurse, Patient, and Patient's Family. Medical Decision Making CLEAR ALL SELECTIONS Labs/Imaging Reviewed: See Information above and Data section below Time SPENT BY ME on the date of service doing chart review, history, exam, documentation & further activities per the note: 35 MINUTES Chart documentation was completed, in part, with [employer] voice-recognition software. Even though reviewed, some grammatical, spelling, and word errors may remain. Aries De La Torre MD Hospitalist Service [facility] Text Page 7AM-6PM Securely message with the Sc[employer] Console (learn more here) Text page via [employer] Paging/Directory Interval History Pain is slightly better today she overall feels improved compared to yesterday. Blood pressure is also better for the most part. Denies chest pain or dyspnea. Data reviewed today: I reviewed all medications, new labs and imaging results over the last 24 hours. I personally reviewed no images or EKG's today. Physical Exam Vital signs: Temp: 98.2 ??F (36.8 ??C) Temp src: Oral BP: (!) 155/80 Pulse: 79 Resp: 16 SpO2: 91 % O2 Device: None (Room air) Oxygen Delivery: 2 LPM Height: 162.6 cm (5' 4) Weight: 72.3 kg (159 lb 8 oz) Estimated body mass index is 27.38 kg/m?? as calculated from the following: Height as of this encounter: 1.626 m (5' 4). Weight as of this encounter: 72.3 kg (159 lb 8 oz). Wt Readings from Last 2 Encounters: 01/02/24 72.3 kg (159 lb 8 oz) 08/21/23 70.3 kg (154 lb 14.4 oz) Gen: AAOX3, NAD, comfortable Resp: CTA B/L, normal WOB CVS: RRR, no murmur Abd/GI: Soft, non-tender. BS- normoactive. Skin: Warm, dry no rashes MSK: Right knee is bandaged Neuro- CN- intact. No focal deficits. Data Recent Labs Lab 01/04/24 0727 01/03/24 0703 01/02/24 0629 HGB 9.2* 9.8* -- INR 1.50* 1.19* 1.10 NA -- 131* -- POTASSIUM -- 4.4 4.0 CHLORIDE -- 100 -- CO2 -- 20* -- BUN -- 15.9 -- CR -- 1.14* 1.34* ANIONGAP -- 11 -- JUDAH -- 9.3 -- GLC -- 134* 134* 97 No results found for this or any previous visit (from the past 24 hour(s)). Medications Current Facility-Administered Medications Medication Dose Route Frequency Provider Last Rate Last Admin lactated ringers infusion Intravenous Continuous Lauren Escudero MD 100 mL/hr at 01/03/24 0027 New Bag at 01/03/24 0027 Current Facility-Administered Medications Medication Dose Route Frequency Provider Last Rate Last Admin acetaminophen (TYLENOL) tablet 975 mg 975 mg Oral Q8H Lauren Escudero MD 975 mg at 01/04/24 0539 gabapentin (NEURONTIN) capsule 100 mg 100 mg Oral QPM Aries De La Torre MD 100 mg at 01/03/24 2115 levothyroxine (SYNTHROID/LEVOTHROID) tablet 112 mcg 112 mcg Oral Daily Aries De La Torre MD 112 mcg at 01/04/24 0835 losartan (COZAAR) tablet 100 mg 100 mg Oral Daily Aries De La Torre MD 100 mg at 01/04/24 0836 metoprolol succinate ER (TOPROL XL) 24 hr tablet 75 mg 75 mg Oral BID Aries De La Torre MD 75 mg at 01/04/24 0835 pantoprazole (PROTONIX) EC tablet 40 mg 40 mg Oral Daily Aries De La Torre MD 40 mg at 01/04/24 0835 polyethylene glycol (MIRALAX) Packet 17 g 17 g Oral Daily Lauren Escudero MD 17 g at 01/03/24 0853 senna-docusate (SENOKOT-S/PERICOLACE) 8.6-50 MG per tablet 1 tablet 1 tablet Oral BID Lauren Escudero MD 1 tablet at 01/04/24 0836 sodium chloride (PF) 0.9% PF flush 3 mL 3 mL Intracatheter Q8H Lauren Escudero MD 3 mL at 01/04/24 0541 spironolactone (ALDACTONE) tablet 25 mg 25 mg Oral Daily Aries De La Torre MD 25 mg at 01/04/24 0836 WARFARIN (COUMADIN) THERAPY REMINDER 1 each Oral See Admin Instructions Lauren Escudero MD * Linda Milligan OTR - 01/03/2024 3:41 PM CDT 01/03/24 1500 Appointment Info Signing Clinician's Name / Credentials (OT) TAVARES Wagner Living Environment People in Home child(zayra), adult (Daughter to stay with pt on discharge) Current Living Arrangements house Home Accessibility stairs within home Number of Stairs, Within Home, Primary six Stair Railings, Within Home, Primary railings safe and in good condition;railings on both sides of stairs Living Environment Comments Pt has level entry into home, 6 steps to main level, pt reports a walk in shower and raised toilets with countertop Self-Care Usual Activity Tolerance good Current Activity Tolerance fair Regular Exercise No Equipment Currently Used at Home walker, rolling;cane, quad;cane, straight;shower chair Fall history within last six months no Activity/Exercise/Self-Care Comment Pt reports previously Ind without an AD at baseline, reports having FWW, SPC from previous knee surgery at home. Pt reports she is typically IND with all ADLs Instrumental Activities of Daily Living (IADL) Previous Responsibilities housekeeping;meal prep;laundry;shopping;yardwork;medication management;finances;driving IADL Comments Pt daughter to assist with IADLs at discharge General Information Onset of Illness/Injury or Date of Surgery 01/02/24 Referring Physician Lauren Escudero MD Patient/Family Therapy Goal Statement (OT) Pt would like to decrease pain Additional Occupational Profile Info/Pertinent History of Current Problem 73 year old female with known history of paroxysmal atrial fibrillation, hypertension, diabetes mellitus type 2, SVT, CKD stage III, ischemic cardiomyopathy, migraine, hypothyroidism was admitted to [facility] after undergoing right TKA. Hospitalist service consulted for medical comanagement. S/p right TKA for right knee osteoarthritis -Underwent right TKA with Dr. Luke on 01/02/2024 -Defer routine postop care to orthopedic surgery including DVT prophylaxis, pain management and activity -Incentive spirometry Existing Precautions/Restrictions fall;weight bearing Right Lower Extremity (Weight-bearing Status) weight-bearing as tolerated (WBAT) Cognitive Status Examination Orientation Status orientation to person, place and time Affect/Mental Status (Cognitive) WFL Follows Commands WFL Cognitive Status Comments Pt appears at her cognitive baseline Sensory Sensory Comments Pt reports intact Pain Assessment Patient Currently in Pain Yes, see Vital Sign flowsheet Posture Posture not impaired Range of Motion Comprehensive Comment, General Range of Motion RLE significant knee flexion limitations due to pain, LLE and BUE WFL Strength Comprehensive (MMT) Comment, General Manual Muscle Testing (MMT) Assessment RLE limited due to pain, LLE and BUE WFL Coordination Coordination Comments LE limited Bed Mobility Comment (Bed Mobility) Min assist for RLE Transfers Transfer Comments CGA Balance Balance Comments Impaired requiring walker Activities of Daily Living BADL Assessment/Intervention bathing;lower body dressing;toileting Bathing Assessment/Intervention Comment, (Bathing) Min assist with transfer per clinical reasoning Lower Body Dressing Assessment/Training Comment, (Lower Body Dressing) Max assist Toileting Comment, (Toileting) Min assist Clinical Impression Criteria for Skilled Therapeutic Interventions Met (OT) Yes, treatment indicated OT Diagnosis Decline in ADL independence and safety Influenced by the following impairments RTKA OT Problem List-Impairments impacting ADL problems related to;activity tolerance impaired;coordination;mobility;range of motion (ROM);strength;pain;post- surgical precautions Assessment of Occupational Performance 3-5 Performance Deficits Identified Performance Deficits Impaired dressing bathing and toileting independence Planned Therapy Interventions (OT) ADL retraining Clinical Decision Making Complexity (OT) problem focused assessment/low complexity Risk & Benefits of therapy have been explained evaluation/treatment results reviewed;care plan/treatment goals reviewed;risks/benefits reviewed;current/potential barriers reviewed;participants voiced agreement with care plan;participants included;patient OT Total Evaluation Time OT Eval, Low Complexity Minutes (21183) 9 OT Goals Therapy Frequency (OT) Daily OT Predicted Duration/Target Date for Goal Attainment 01/05/24 OT Goals Lower Body Dressing;Lower Body Bathing;Toilet Transfer/Toileting OT: Lower Body Dressing Modified independent;using adaptive equipment;including set-up/clothing retrieval OT: Lower Body Bathing Modified independent;using adaptive equipment;with precautions OT: Toilet Transfer/Toileting Modified independent;toilet transfer;cleaning and garment management;using adaptive equipment;within precautions;Goal Met Self-Care/Home Management Self-Care/Home Mgmt/ADL, Compensatory, Meal Prep Minutes (83528) 16 Symptoms Noted During/After Treatment (Meal Preparation/Planning Training) fatigue;increased pain Treatment Detail/Skilled Intervention Pt significantly limited by pain this date, required increased encouragement to participate in therapy. Supine to sit with cues for technique and min assist for RLE. Pt cued EOB for LE dressing techniques, pt refused to don socks due to pain when leaning forward, max assist required. Pt completed sit to stand with cues for tehcnique, walker and CGA after cuing. Pt ambulated to bathroom with cues for walker positioning to offload RLE. Pt completed toilet transfer with cues for technique and LE positoning education, after education pt compelted with SBA. Ptcompleted g/h at sink with cues for walker placement for safety and todecrease fall risk. Pt returned to bed. Refused further therapy due to pain. Pt in bed with alarm on and ujdah light upon OT departure OT Discharge Planning OT Plan LE dressing with AE, walk in shower transfer OT Discharge Recommendation (DC Rec) (Defer to ortho MD) OT Rationale for DC Rec Anticipate with pain management in and inpatient therapy that pt will be albe to return home with intermittent assist from daughter for higher level IADLS. OT will follow OT Brief overview of current status CGA toilet transfer. Goals of therapy will be to address safe mobility and make recs for d/c to next level of care. Pt and RN will continue to follow all falls risk precautions as documented by community health nurse staff while hospitalized. * Lauren Escudero MD - 01/03/2024 11:57 AM CDT Orthopedic Surgery 01/03/2024 POD 1 S: Patient voices no complaints today. Mod pain. O: Blood pressure (!) 159/79, pulse 72, temperature 98.1 ??F (36.7 ??C), temperature source Oral, resp. rate 16, height 1.626 m (5' 4), weight 72.3 kg (159 lb 8 oz), SpO2 92%. Lab Results Component Value Date HGB 9.8 01/03/2024 Neurovascularly intact. Calves are negative bilaterally, both soft and nontender. The dressing is C/D/I. A: Ms. Drew is doing well status post Procedure(s): RIGHT TOTAL KNEE ARTHROPLASTY. P: No dressing change, patient to remove outer dressing on POD3, leaving mesh adhesive in place. Continue physical therapy. Hopfully stairs this afternoon. Discharge to home today if passes therapy. Lauren Luke [phone] * Aries De La Torre MD - 01/03/2024 10:15 AM CDT [facility] Medicine Progress Note - Hospitalist Service Date of Admission: 01/02/2024 5:23 AM Assessment & Plan: Isela Drew is a 73 year old female with known history of paroxysmal atrial fibrillation, hypertension, diabetes mellitus type 2, SVT, CKD stage III, ischemic cardiomyopathy, migraine, hypothyroidism was admitted to [facility] after undergoing right TKA. Hospitalist service consulted for medical comanagement. S/p right TKA for right knee osteoarthritis -Underwent right TKA with Dr. Luke on 01/02/2024 -Defer routine postop care to orthopedic surgery including DVT prophylaxis, pain management and activity -Incentive spirometry Paroxysmal atrial fibrillation s/p ablation Hypertension Ischemic cardiomyopathy -Continue prior to admission metoprolol with hold parameters -Resume prior to admission losartan and spironolactone -Continue warfarin, pharmacy to dose CKD stage IIIa -Baseline creatinine is around 1.3, renal function at baseline -Creatinine stable at 1.14 Gastroesophageal reflux disease -Continue prior to admission Protonix and as needed Carafate Hypothyroidism -Continue prior to admission levothyroxine Migraine headaches -Imitrex as needed Diet: Advance Diet as Tolerated: Regular Diet Adult Discharge Instruction - Regular Diet Adult DVT Prophylaxis: Defer to primary service Walsh Catheter: Not present Code Status: Full Code Disposition Plan Expected Discharge Date: 01/03/2024 Destination: home with family Entered: Aries De La Torre MD 01/03/2024, 10:15 AM Medically Ready for Discharge: Per orthopedic surgery Clinically Significant Risk Factors Present on Admission # Drug Induced Coagulation Defect: home medication list includes an anticoagulant medication # Hypertension: Home medication list includes antihypertensive(s) # Anemia: based on hgb <11 # Overweight: Estimated body mass index is 27.38 kg/m?? as calculated from the following: Height as of this encounter: 1.626 m (5' 4). Weight as of this encounter: 72.3 kg (159 lb 8 oz). The patient's care was discussed with the Bedside Nurse, Patient, and Patient's Family. Medical Decision Making CLEAR ALL SELECTIONS Labs/Imaging Reviewed: See Information above and Data section below Time SPENT BY ME on the date of service doing chart review, history, exam, documentation & further activities per the note: 35 MINUTES Chart documentation was completed, in part, with [employer] voice-recognition software. Even though reviewed, some grammatical, spelling, and word errors may remain. Aries De La Torre MD Hospitalist Service [facility] Text Page 7AM-6PM Securely message with the [employer] Console (learn more here) Text page via [employer] Paging/Directory Interval History Complains of pain at surgical site. Blood pressure slightly on the higher side. No chest pain or dyspnea. Data reviewed today: I reviewed all medications, new labs and imaging results over the last 24 hours. I personally reviewed no images or EKG's today. Physical Exam Vital signs: Temp: 98.1 ??F (36.7 ??C) Temp src: Oral BP: (!) 159/79 Pulse: 72 Resp: 16 SpO2: 92 % O2 Device: None (Room air) Oxygen Delivery: 2 LPM Height: 162.6 cm (5' 4) Weight: 72.3 kg (159 lb 8 oz) Estimated body mass index is 27.38 kg/m?? as calculated from the following: Height as of this encounter: 1.626 m (5' 4). Weight as of this encounter: 72.3 kg (159 lb 8 oz). Wt Readings from Last 2 Encounters: 01/02/24 72.3 kg (159 lb 8 oz) 08/21/23 70.3 kg (154 lb 14.4 oz) Gen: AAOX3, NAD, comfortable Resp: CTA B/L, normal WOB CVS: RRR, no murmur Abd/GI: Soft, non-tender. BS- normoactive. Skin: Warm, dry no rashes MSK: Right knee is bandaged Neuro- CN- intact. No focal deficits. Data Recent Labs Lab 01/03/24 0701/02/24 0629 HGB 9.8* -- INR 1.19* 1.10 NA 131* -- POTASSIUM 4.4 4.0 CHLORIDE 100 -- CO2 20* -- BUN 15.9 -- CR 1.14* 1.34* ANIONGAP 11 -- JUDAH 9.3 -- GLC 134* 97 Recent Results (from the past 24 hour(s)) XR Knee Port Right 1/2 Views Narrative XR KNEE PORT RIGHT 1/2 VIEWS 01/02/2024 10:41 AM HISTORY: Post-Op Total Knee COMPARISON: None. Impression IMPRESSION: Postoperative changes of a right total knee arthroplasty with patellar resurfacing. No fracture. JUSTINE BROWN MD SYSTEM ID: [id number] Medications Current Facility-Administered Medications Medication Dose Route Frequency Provider Last Rate Last Admin lactated ringers infusion Intravenous Continuous Escudero, Lauren Ocampo MD 100 mL/hr at 01/03/24 0027 New Bag at 01/03/24 0027 Current Facility-Administered Medications Medication Dose Route Frequency Provider Last Rate Last Admin acetaminophen (TYLENOL) tablet 975 mg 975 mg Oral Q8H EscuderoLauren MD 975 mg at 01/03/24 0630 levothyroxine (SYNTHROID/LEVOTHROID) tablet 112 mcg 112 mcg Oral Daily Aries De La Torre MD 112 mcg at 01/03/24 0853 metoprolol succinate ER (TOPROL XL) 24 hr tablet 75 mg 75 mg Oral BID Aries De La Torre MD 75 mg at 01/03/24 0852 polyethylene glycol (MIRALAX) Packet 17 g 17 g Oral Daily EscuderoLauren MD 17 g at 01/03/24 0853 senna-docusate (SENOKOT-S/PERICOLACE) 8.6-50 MG per tablet 1 tablet 1 tablet Oral BID Lauren Escudero MD 1 tablet at 01/03/24 0853 sodium chloride (PF) 0.9% PF flush 3 mL 3 mL Intracatheter Q8H Lauren Escudero MD 3 mL at 01/03/24 0631 WARFARIN (COUMADIN) THERAPY REMINDER 1 each Oral See Admin Instructions Lauren Escudero MD warfarin ANTICOAGULANT (COUMADIN) tablet 5 mg 5 mg Oral ONCE at 18:00 Lauren Escudero MD * Charito Ledezma RN - 01/03/2024 6:44 AM CDT Patient vital signs are at baseline: Yes Patient able to ambulate as they were prior to admission or with assist devices provided by therapies during their stay: Yes Patient MUST void prior to discharge: Yes Patient able to tolerate oral intake: Yes Pain has adequate pain control using Oral analgesics: Yes Does patient have an identified athletic coach: Yes Has goal D/C date and time been discussed with patient: Yes A&O x4 with some forgetfulness. Up with SBA and walker. Right knee dressing CDI with edema wearin place. Void adequatly in the bathroom x3 during the shift. PIV SL. Pt c/o pain, refused PRN Oxycodone, PRN Atarax, PRN Dilaudid and PRN Robaxin stated that these meds made her sick. After multipleencouragement patient accept to take Robaxin and Oxycodone after receiving PRN Compazine. * Jeff Goldstein RN - 01/02/2024 6:05 PM CDT Patient vital signs are at baseline: Yes Patient able to ambulate as they were prior to admission or with assist devices provided by therapies during their stay: Yes Patient MUST void prior to discharge: Yes Patient able to tolerate oral intake: Yes Pain has adequate pain control using Oral analgesics: Yes Does patient have an identified athletic coach: Yes Has goal D/C date and time been discussed with patient: Yes * Cecilia Daniels PT - 01/02/2024 4:31 PM CDT 01/02/24 1600 Appointment Info Signing Clinician's Name / Credentials (PT) Cecilia Daniels, PT, DPT Rehab Comments (PT) WBAT R LE Living Environment People in Home child(zayra), adult (Pt's daughter will be staying with her upon discharge) Current Living Arrangements house Home Accessibility stairs within home Number of Stairs, Within Home, Primary six (Pt reports 6 GERARD and) Stair Railings, Within Home, Primary railings safe and in good condition;railings on both sides of stairs Transportation Anticipated family or friend will provide Living Environment Comments Pt lives [place] house with a split level entry, reports 6 steps w/ B railings up to main leel where she will stay Self-Care Usual Activity Tolerance good Current Activity Tolerance fair Regular Exercise No Equipment Currently Used at Home walker, rolling;cane, quad;cane, straight;shower chair Fall history within last six months no Activity/Exercise/Self-Care Comment Pt reports previously Ind without an AD at baseline, reports having FWW, SPC from previous knee surgery at home. Pt reports she is typically IND with all ADL's General Information Onset of Illness/Injury or Date of Surgery 01/02/24 Referring Physician Lauren Escudero MD Patient/Family Therapy Goals Statement (PT) To go back home Pertinent History of Current Problem (include personal factors and/or comorbidities that impact thePOC) Pt is a 73 year old female with known history of paroxysmal atrial fibrillation, hypertension,diabetes mellitus type 2, SVT, CKD stage III, ischemic cardiomyopathy, migraine, hypothyroidism [facility] on 01/02/2024 Existing Precautions/Restrictions fall;weight bearing Weight-Bearing Status - LUE full weight-bearing Weight-Bearing Status - RUE full weight-bearing Weight-Bearing Status - LLE full weight-bearing Weight-Bearing Status - RLE weight-bearing as tolerated Cognition Affect/Mental Status (Cognition) WFL Orientation Status (Cognition) oriented x 4 Follows Commands (Cognition) WFL Pain Assessment Patient Currently in Pain Yes, see Vital Sign flowsheet (Pt reports pain in R knee) Integumentary/Edema Integumentary/Edema other (describe) Integumentary/Edema Comments Pt has SHARLENE wrap present on R LE Posture Posture Forward head position;Protracted shoulders Range of Motion (ROM) Range of Motion ROM deficits secondary to surgical procedure;ROM deficits secondary to pain;ROM deficits secondary to swelling;ROM deficits secondary to weakness Strength (Manual Muscle Testing) Strength (Manual Muscle Testing) Able to perform L SLR;Deficits observed during functional mobility Bed Mobility Comment, (Bed Mobility) Supine>sitting EOB completed w/ CGA per RN, unable to assess this session Transfers Comment, (Transfers) Sit>stand completed w/ CGA per RN, unable to assess this session Gait/Stairs (Locomotion) Comment, (Gait/Stairs) Pt ambulated w/ FWW and CGA per RN, unable to asssess this session Balance Balance other (describe) Balance Comments Pt required FWW for all fucntional mobility at this time Sensory Examination Sensory Perception patient reports no sensory changes Coordination Coordination no deficits were identified Muscle Tone Muscle Tone no deficits were identified Clinical Impression Criteria for Skilled Therapeutic Intervention Yes, treatment indicated PT Diagnosis (PT) Impaired functioanl mobility Influenced by the following impairments Post-surgical pain and precautions, weakness, impaired activity tolerance Functional limitations due to impairments Impaired gait and inability to complete ADL's Clinical Presentation (PT Evaluation Complexity) stable Clinical Presentation Rationale Clincial judgment Clinical Decision Making (Complexity) low complexity Planned Therapy Interventions (PT) balance training;bed mobility training;gait training;home exercise program;motor coordination training;neuromuscular re- education;patient/family education;postural re-education;ROM (range of motion);stair training;stretching;strengthening;transfer training;progressive activity/exercise;risk factor education;home program guidelines Risk & Benefits of therapy have been explained evaluation/treatment results reviewed;care plan/treatment goals reviewed;participants voiced agreement with care plan;risks/benefits reviewed;current/potential barriers reviewed;participants included;patient;daughter PT Total Evaluation Time PT Eval, Low Complexity Minutes (12754) 10 Physical Therapy Goals PT Frequency Daily PT Predicted Duration/Target Date for Goal Attainment 01/05/24 PT Goals Bed Mobility;Transfers;Gait;Stairs PT: Bed Mobility Independent;Supine to/from sit;Bridging;Rolling;Within precautions PT: Transfers Modified independent;Sit to/from stand;Bed to/from chair;Assistive device;Within precautions PT: Gait Modified independent;Rolling walker;Greater than 200 feet;Within precautions PT: Stairs Modified independent;6 stairs;Rail on both sides Interventions Interventions Quick Adds Therapeutic Procedure Therapeutic Procedure/Exercise Ther. Procedure: strength, endurance, ROM, flexibillity Minutes (43849) 10 Symptoms Noted During/After Treatment fatigue Treatment Detail/Skilled Intervention Eval completed and treatment indicated. Pt reported just getting back from bathroom and feeling groggy and dizzy from anesthesia and medications at this time, states she will fall if ambulating any further despite education on importance of OOB mobility. Ptable to complete supine LE exercises x 8 reps each, SLR, heel slides, ankle pumps, and quad sets. Pt given handout and educated on dosing and frequency. Pt educated on icing, positioning in bed, WBAT, and walking program. Pt left supine in bed with all needs in reach and bed alarm on, RN notified. PT Discharge Planning PT Plan Trial ambulation w/ FWW and trial stairs as able, progress LE exercises PT Discharge Recommendation (DC Rec) (Defer to Ortho) PT Rationale for DC Rec Pt is moving below baseline mobility, able to ambulate to bathroom w/ nursing and FWW, only agreeable to LE supine exercises at this time. Pending medical managment, ability to ambulate w/ FWW and complete stair training tomorrow, that pt will be safe to return home with asssit of daughter and usage of FWW. PT Brief overview of current status Ax1 w/ FWW; Goals of therapy will be to address safe mobility and make recs for d/c to next level of care. Pt and RN will continue to follow all falls risk precautions as documented by community health nurse staff while hospitalized. Total Session Time Timed Code Treatment Minutes 10 Total Session Time (sum of timed and untimed services) 20 [facility] OUTPATIENT PHYSICAL THERAPY EVALUATION PLAN OF TREATMENT FOR OUTPATIENT REHABILITATION (COMPLETE FOR INITIAL CLAIMS ONLY) Patient's Last Name, First Name, M.I. Date of : 1950 Isela Drew Provider's Name [facility] Onset Date: 01/02/24 Start of Care Date: Type: _X_PT ___OT ___SLP Medical Diagnosis: PT Diagnosis: Impaired functioanl mobility Visits from SOC: 1 See note for plan of treatment, functional goals and certification details I CERTIFY THE NEED FOR THESE SERVICES FURNISHED UNDER THIS PLAN OF TREATMENT AND WHILE UNDER MY CARE (Physician co-signature of this document indicates review and certification of the therapy plan). Associated attestation - Lauren Escudero MD - 01/03/2024 9:57 AM CDT Physician Attestation I agree with the information in this note. Lauren Escudero MD * Supa Stevenson - 12/31/2023 10:30 AM CDT ITEM PROCESSOR medications updated by Medication Scribe prior to surgery via phone call with patient (last doses completed by Nurse) Medication history sources: Patient, Surescripts, and H&P In the past week, patient estimated taking medication this percent of the time: Greater than 90% Significant changes made to the medication list: None Additional medication history information: None Medication reconciliation completed by provider prior to medication history? No Time spent in this activity: 30 minutes The information provided in this note is only as accurate as the sources available at the time of update(s) Prior to Admission medications Medication Sig Last Dose Taking? Auth Provider Skilled Nursing End Date acetaminophen (TYLENOL) 325 MG tablet Take 3 tablets (975 mg) by mouth every 6 hours as needed for mild pain Unknown at prn Yes Lauren Escudero MD ALPRAZolam (XANAX XR) 0.5 MG 24 hr tablet Take 0.25 mg by mouth every evening as needed for anxiety. (0.5 x 0.5 mg = 0.25 mg) Unknown at prn Yes Reported, Patient diclofenac (VOLTAREN) 1 % topical gel Apply topically 4 times daily Unknown at prn Yes Reported, Patient gabapentin (NEURONTIN) 100 MG capsule Take 100 mg by mouth every evening. at pm Yes Reported, Patient Yes levothyroxine (SYNTHROID/LEVOTHROID) 112 MCG tablet Take 112 mcg by mouth daily at am Yes Reported,Patient Yes losartan (COZAAR) 100 MG tablet Take 1 tablet (100 mg) by mouth daily Hold for TOP < 110 at am Yes Tracy Garcia MD Yes MECLIZINE HCL Take 25-50 mg by mouth as needed. Unknown at PRN Yes Reported, Patient metoprolol succinate ER (TOPROL XL) 50 MG 24 hr tablet Take 75 mg by mouth 2 times daily 1.5 X 50MG= 75MG BID at AM Yes Reported, Patient metoprolol tartrate (LOPRESSOR) 25 MG tablet Take 25 mg by mouth 2 times daily at AM Yes Reported, Patient Yes pantoprazole (PROTONIX) 40 MG EC tablet Take 40 mg by mouth daily at AM Yes Reported, Patient spironolactone (ALDACTONE) 25 MG tablet Take 25 mg by mouth daily. at am Yes Reported, Patient No sucralfate (CARAFATE) 1 GM tablet Take 1 g by mouth 2 times daily as needed. Unknown at prn Yes Reported, Patient SUMAtriptan (IMITREX) 25 MG tablet Take 25 mg by mouth at onset of headache for migraine Unknown atprn Yes Reported, Patient warfarin ANTICOAGULANT (COUMADIN) 5 MG tablet Take 1 tablet (5 mg) by mouth daily 12/26/2023 at pm Yes Estephania Benitez PA-C Medication history completed by: Supa Stevenson * Diamond Raza LPN - 12/26/2023 3:15 PM CDT ITEM PROCESSOR medications updated by Medication Scribe prior to surgery via phone call with patient (last doses completed by Nurse) Medication history sources: Patient, Surescripts, and H&P In the past week, patient estimated taking medication this percent of the time: Greater than 90% Significant changes made to the medication list: Patient reports no longer taking the following meds (med scribe removed from ITEM PROCESSOR med list): Elavil,oxycodone, Senokot-S Additional medication history information: None Medication reconciliation completed by provider prior to medication history? No Time spent in this activity: 50 minutes The information provided in this note is only as accurate as the sources available at the time of update(s) Prior to Admission medications Medication Sig Last Dose Taking? Auth Provider Manager Environmental End Date acetaminophen (TYLENOL) 325 MG tablet Take 3 tablets (975 mg) by mouth every 6 hours as needed for mild pain Unknown at prn Yes EscuderoLauren bennett MD ALPRAZolam (XANAX XR) 0.5 MG 24 hr tablet Take 0.25 mg by mouth every evening as needed for anxiety. (0.5 x 0.5 mg = 0.25 mg) Unknown at prn Yes Reported, Patient diclofenac (VOLTAREN) 1 % topical gel Apply topically 4 times daily Unknown at prn Yes Reported, Patient gabapentin (NEURONTIN) 100 MG capsule Take 100 mg by mouth every evening. at pm Yes Reported, Patient Yes levothyroxine (SYNTHROID/LEVOTHROID) 112 MCG tablet Take 112 mcg by mouth daily at am Yes Reported,Patient Yes losartan (COZAAR) 100 MG tablet Take 1 tablet (100 mg) by mouth daily Hold for TOP < 110 at am Yes Tracy Garcia MD Yes MECLIZINE HCL Take 25-50 mg by mouth as needed. Unknown at PRN Yes Reported, Patient metoprolol succinate ER (TOPROL XL) 50 MG 24 hr tablet Take 75 mg by mouth 2 times daily 1.5 X 50MG= 75MG BID at AM Yes Reported, Patient metoprolol tartrate (LOPRESSOR) 25 MG tablet Take 25 mg by mouth 2 times daily at AM Yes Reported, Patient Yes pantoprazole (PROTONIX) 40 MG EC tablet Take 40 mg by mouth daily at AM Yes Reported, Patient spironolactone (ALDACTONE) 25 MG tablet Take 25 mg by mouth daily. at am Yes Reported, Patient No sucralfate (CARAFATE) 1 GM tablet Take 1 g by mouth 2 times daily as needed. Unknown at prn Yes Reported, Patient SUMAtriptan (IMITREX) 25 MG tablet Take 25 mg by mouth at onset of headache for migraine Unknown atprn Yes Reported, Patient warfarin ANTICOAGULANT (COUMADIN) 5 MG tablet Take 1 tablet (5 mg) by mouth daily 12/26/2023 at pm Yes Estephania Benitez PA-C Medication history completed by: Diamond Raza LPN documented in this encounter Consult Notes * Aries De La Torre MD - 01/02/2024 1:57 PM CDTAssociated Order(s): HOSPITALIST IP CONSULT [facility] Hospitalist Consultation Date of Admission: 01/02/2024 Date of Consult (When I saw the patient): 01/02/24 Reason for consult: Post-op medical comanagement Primary Care Physician ERIKA FLORES Assessment & Plan Isela Drew is a 73 year old female with known history of paroxysmal atrial fibrillation, hypertension, diabetes mellitus type 2, SVT, CKD stage III, ischemic cardiomyopathy, migraine, hypothyroidism was admitted to [facility] after undergoing right TKA. Hospitalist service consulted for medical comanagement. S/p right TKA for right knee osteoarthritis -Underwent right TKA with Dr. Luke on 01/02/2024 -Defer routine postop care to orthopedic surgery including DVT prophylaxis, pain management and activity -Incentive spirometry Paroxysmal atrial fibrillation s/p ablation Hypertension Ischemic cardiomyopathy -Resume prior to admission metoprolol with hold parameters -Hold prior to admission losartan, resume as clinically indicated in the next day or 2 -Prior to admission spironolactone -Prior to admission [facility] Coumadin. CKD stage IIIa -Baseline creatinine is around 1.3, renal function at baseline -Will recheck BMP in the morning Gastroesophageal reflux disease -Continue prior to admission Protonix and Carafate Hypothyroidism -Resume prior to admission levothyroxine Migraine headaches -Imitrex as needed Clinically Significant Risk Factors Present on Admission # Drug Induced Coagulation Defect: home medication list includes an anticoagulant medication # Hypertension: Home medication list includes antihypertensive(s) # Overweight: Estimated body mass index is 27.38 kg/m?? as calculated from the following: Height as of this encounter: 1.626 m (5' 4). Weight as of this encounter: 72.3 kg (159 lb 8 oz). Medical Decision Making DVT Prophylaxis: Defer to primary service Code Status: Full Code Chart documentation was completed, in part, with [employer] voice-recognition software. Even though reviewed, some grammatical, spelling, and word errors may remain. Aries De La Torre MD, MD History is obtained from the patient History of Present Illness Isela Drew is a 73 year old female who was admitted after undergoing right TKA today with orthopedic surgery. Hospital service consulted for medical comanagement. Patient endorses pain at surgical site otherwise denies new complaint. She is still slightly groggyfrom anesthesia. Denies chest pain, shortness of breath or palpitations. No nausea or vomiting. Past Medical History I have reviewed this patient's medical history and updated it with pertinent information if needed. Past Medical History: Diagnosis Date Allergic rhinitis Anxiety Bilateral primary osteoarthritis of knee Cardiomyopathy (H) Chest pain Depression, recurrent (H24) Esophageal reflux Essential hypertension Hearing loss History of atrial fibrillation ablation 2021 History of colonic polyps Hoarseness Hyperlipidemia Hypertensive chronic kidney disease Hypothyroidism Irregular heart beat Ischemic cardiomyopathy Palpitations Paroxysmal atrial fibrillation (H) Pneumonia PONV (postoperative nausea and vomiting) Primary osteoarthritis of both knees Ringing in ears Stage 3 chronic kidney disease (H) Stomach pain SVT (supraventricular tachycardia) (H24) Trigeminal neuralgia Past Surgical History I have reviewed this patient's surgical history and updated it with pertinent information if needed. Past Surgical History: Procedure Laterality Date ARTHROPLASTY KNEE Left 08/21/2023 Procedure: LEFT TOTAL KNEE ARTHROPLASTY; Surgeon: Lauren Escudero MD; Location: [facility] OR COLONOSCOPY 04/2019 COLONOSCOPY 05/19/2023 COLONOSCOPY DILATION AND CURETTAGE EP STUDY /ABLATION 12/03/2021 ESOPHAGOGASTRODUODENOSCOPY 04/10/2010 ESOPHAGOGASTRODUODENOSCOPY 05/2012 ESOPHAGOGASTRODUODENOSCOPY 05/2020 Prior to Admission Medications Prior to Admission Medications Prescriptions Last Dose Informant Patient Reported? Taking? ALPRAZolam (XANAX XR) 0.5 MG 24 hr tablet 01/01/2024 at prn Self Yes Yes Sig: Take 0.25 mg by mouth every evening as needed for anxiety. (0.5 x 0.5 mg = 0.25 mg) MECLIZINE HCL Unknown at PRN Self Yes Yes Sig: Take 25-50 mg by mouth as needed. SUMAtriptan (IMITREX) 25 MG tablet Past Month at prn Self Yes Yes Sig: Take 25 mg by mouth at onset of headache for migraine acetaminophen (TYLENOL) 325 MG tablet 01/01/2024 at prn Self No Yes Sig: Take 3 tablets (975 mg) by mouth every 6 hours as needed for mild pain diclofenac (VOLTAREN) 1 % topical gel Unknown at prn Self Yes Yes Sig: Apply topically 4 times daily gabapentin (NEURONTIN) 100 MG capsule 12/31/2023 at pm Self Yes Yes Sig: Take 100 mg by mouth every evening. levothyroxine (SYNTHROID/LEVOTHROID) 112 MCG tablet 01/01/2024 at am Self Yes Yes Sig: Take 112 mcg by mouth daily losartan (COZAAR) 100 MG tablet 01/01/2024 at am Self No Yes Sig: Take 1 tablet (100 mg) by mouth daily Hold for TOP < 110 metoprolol succinate ER (TOPROL XL) 50 MG 24 hr tablet 01/02/2024 at AM Self Yes Yes Sig: Take 75 mg by mouth 2 times daily 1.5 X 50MG= 75MG BID metoprolol tartrate (LOPRESSOR) 25 MG tablet 01/02/2024 at AM Self Yes Yes Sig: Take 25 mg by mouth 2 times daily pantoprazole (PROTONIX) 40 MG EC tablet 01/02/2024 at AM Self Yes Yes Sig: Take 40 mg by mouth daily spironolactone (ALDACTONE) 25 MG tablet 01/01/2024 at am Self Yes Yes Sig: Take 25 mg by mouth daily. sucralfate (CARAFATE) 1 GM tablet Unknown at prn Self Yes Yes Sig: Take 1 g by mouth 2 times daily as needed. warfarin ANTICOAGULANT (COUMADIN) 5 MG tablet 12/26/2023 at pm Self Yes Yes Sig: Take 1 tablet (5 mg) by mouth daily Facility-Administered Medications: None Allergies Allergies Allergen Reactions Amlodipine Swelling Edema Apixaban Chlorthalidone Nausea and GI Disturbance Rivaroxaban Angioedema Carvedilol Itching Itching, thick tongue, sore joints after 2 doses relieved with benadryl. Azithromycin Dihydrate Itching Ciprofloxacin Hives Dabigatran Itching Redness Esomeprazole Itching Hydralazine Dizziness Nifedipine Dizziness Olmesartan Itching Feet swelling Penicillins Itching and Swelling Edema Prednisone SVT Doxycycline Itching Started after 3 doses, improved after discontinuing Sulfa Antibiotics Rash Social History I have reviewed this patient's social history and updated it with pertinent information if needed. Isela Drew reports that she has never smoked. She has never used smokeless tobacco. She reports that she does not currently use alcohol. She reports that she does not use drugs. Family History I have reviewed this patient's family history and updated it with pertinent information if needed. History reviewed. No pertinent family history. Review of Systems The 10 point Review of Systems is negative other than noted in the HPI or here. Physical Exam Temp: 98 ??F (36.7 ??C) Temp src: Oral BP: (!) 180/100 Pulse: 92 Resp: 14 SpO2: 97 % O2 Device: Nasal cannula Oxygen Delivery: 2 LPM Vital Signs with Ranges Temp: [96.8 ??F (36 ??C)-98.4 ??F (36.9 ??C)] 98 ??F (36.7 ??C) Pulse: [59-92] 92 Resp: [10-18] 14 BP: (119-180)/(70-100) 180/100 SpO2: [92 %-100 %] 97 % 159 lbs 8 oz Gen: AAOX3, NAD, comfortable HEENT: Moist oral mucosa, no pallor or icterus Resp: CTA B/L, normal WOB CVS- RRR, no murmur, no edema Abd/GI: Soft, non-tender. BS- normoactive Skin- Warm, dry, no rashes MSK: Right knee is bandaged, on immobilizer Neuro- CN- intact. No focal deficit Data Data reviewed today: I personally reviewed no images or EKG's today. Recent Labs Lab 01/02/24 0629 INR 1.10 POTASSIUM 4.0 CR 1.34* GLC 97 Recent Results (from the past 24 hour(s)) XR Knee Port Right 1/2 Views Narrative XR KNEE PORT RIGHT 1/2 VIEWS 01/02/2024 10:41 AM HISTORY: Post-Op Total Knee COMPARISON: None. Impression IMPRESSION: Postoperative changes of a right total knee arthroplasty with patellar resurfacing. No fracture. JUSTINE BROWN MD SYSTEM ID: [id number] documented in this encounter Miscellaneous Notes * Plan of Care - Maggie Easton PTA - 01/04/2024 3:13 PM CDT PT- Pt discharged home today with assist of daughter as needed and OP PT. PT goals not met. Associated attestation - Yoly Engel PT - 01/04/2024 4:02 PM CDT Physical Therapy Discharge Summary Reason for therapy discharge: Discharged to home with outpatient therapy. Progress towards therapy goal(s). See goals on Care Plan in [facility] electronic health record for goal details. Goals not met. Barriers to achieving goals: discharge from facility. Therapy recommendation(s): Continued therapy is recommended. Rationale/Recommendations: OP PT to address continued mobility deficits and functional knee ROM + strength. Pt not seen by this magnetic tape typewriter operator today, summary written according to documentation from prior treating ITEM PROCESSOR * Provider Notification - Shey Piedra, RN - 01/04/2024 2:48 PM CDT .MD Notification Notified Person: MD Notified Person Name: Kota Notification Date/Time:01/04/24 @0230pm Notification Interaction:Phone call Purpose of Notification: Need clarification With Discharge med , Lovenox & coumadin Orders Received: take Coumadin 7.5mg today 01/04/24 & tomorrow 01/05/24 then next day continue the regular dose. Start 1st does of Lovenox 01/05/24 & 2nd dose 01/06/24 Comments: * Plan of Care - Charito Ledezma, CHAPIS - 01/04/2024 7:42 AM CDT Goal Outcome Evaluation: Patient vital signs are at baseline: Yes Patient able to ambulate as they were prior to admission or with assist devices provided by therapies during their stay: Yes Patient MUST void prior to discharge: Yes Patient able to tolerate oral intake: Yes Pain has adequate pain control using Oral analgesics: Yes Does patient have an identified athletic coach: Yes Has goal D/C date and time been discussed with patient: Yes A&O x4. Up with SBA and walker. Right knee dressing CDI with edema wear in place. Voiding adequatly in the bathroom x2 during the shift. PIV SL. Pt c/o Headache Schedule Tylenol given. PRN Ataraxgiven for pain management. Zofran given for Nausea x 1. Pt denied pain at this time. * Plan of Care - Shey Piedra RN - 01/03/2024 4:49 PM CDT .Date/Time [id number] Diagnosis:Right Total Kne POD#:1 Mental Status:A&OX4 Activity/dangle: A1& walker Diet:Reg Pain:Tylenol, Oxy, atarax Walsh/Voiding:BR Tele/Restraints/Iso:NA 02/LDA:RA/ SL D/C Date:Possible tomorrow Other Info:VSS on RA. BP slightly elevated. D/t pain . Pt is staying overnight Need pain control & More PT. Dressing CDI, encourage IS. CMS intact.Continue plan of care. * Provider Notification - Shey Piedra RN - 01/03/2024 2:[address] Escudero per PT patient only walked on the room & unable to do stairs. Will see pt tomorrow for more therapy. * Plan of Care - Charito Ledezma RN - 01/02/2024 10:12 PM CDT * Plan of Care - Queen Gonsalez RN - 01/02/2024 3:37 PM CDT Patient vital signs are at baseline: No, Reason: Blood pressure slightly elevated Patient able to ambulate as they were prior to admission or with assist devices provided by therapies during their stay: No, Reason: Not oob yet Patient MUST void prior to discharge: No, Reason: Due to void Patient able to tolerate oral intake: Yes Pain has adequate pain control using Oral analgesics: Yes, schedule tylenol Does patient have an identified athletic coach: Yes Has goal D/C date and time been discussed with patient: Yes Dressing CDI. * Pharmacy-Anticoagulation Service - Kiley Sandhu [facility] - 01/02/2024 2:04 PM CDT Clinical Pharmacy - Warfarin Dosing Consult Pharmacy has been consulted to manage this patient???s warfarin therapy. Indication: Atrial Fibrillation Therapy Goal: INR 2-3 Warfarin Prior to Admission: Yes Warfarin ITEM PROCESSOR Regimen: 5 mg daily Significant drug interactions: topical diclofenac ITEM PROCESSOR, PRN acetaminophen, ancef postop X24h, levothyroxine, sucralfate Dose Comments: doses held since 12/25 INR Date Value Ref Range Status 01/02/2024 1.10 0.85 - 1.15 Final 08/23/2023 1.58 (H) 0.85 - 1.15 Final Warfarin 10 mg ordered today (per provider order, per consult). Pharmacy will monitor Isela Drew daily and order warfarin doses to achieve specified goal. Please contact pharmacy as soon as possible if the warfarin needs to be held for a procedure or if the warfarin goals change. Kiley Sandhu, [place] * Brief Op Note - Lauern Escudero MD - 01/02/2024 10:30 AM CDT [facility] Brief Operative Note Pre-operative diagnosis: Right knee OA Post-operative diagnosis same Procedure: RIGHT TOTAL KNEE ARTHROPLASTY Surgeon(s) and Role: * Lauren Escudero MD - Primary * Milla Mcgregor PA-C - Assisting Anesthesia: Spinal Estimated blood loss: 100 ml Drains: None Specimens: None Findings: Advanced OA Complications: None Plan: DC home POD1 w/family assist. DVT prophylaxis w/ lovenox for 2 days (starting on POD1 - 01/02) and resuming home warfarin night of surgery. * Op Note - Lauren Escudero MD - 01/02/2024 8:06 AM CDT Operative Note Isela Drew Date of : 1950 Age: [age] year old Date of Procedure: 01/02/2024 1st Livestock Haulier: Milla Mcgregor PA-C - Assisting PREOPERATIVE DIAGNOSIS: Right knee osteoarthritis, failure to respond to conservative management. POSTOPERATIVE DIAGNOSIS: Right knee osteoarthritis, failure to respond to conservative management. PROCEDURE: Right total knee arthroplasty, Depuy Attune components, cruciate retaining, medial stabilized. Tourniquet-less technique. DESCRIPTION OF PROCEDURE: Isela Drew was brought to the operating room. After satisfactory anesthesia, the right lower extremity was prepped and draped in the usual sterile fashion. The patient received 1 gram of Ancef and tranexamic acid preoperatively. Straight anterior incision was made. Dissection was carried down to the extensor mechanism. Medial arthrotomy was made, mid-vastus exposure developed. Advanced osteoarthritis was noted. Patella was exposed, measured and resected to accept a size 35mm, asymmetric patella. The knee was then flexed up. Intramedullary guide was placed at 5 degrees as per the preoperative plan. The distal femoral cut was made followed by anteroposterior cuts and chamfer cuts. Femur sized to be a size 6 Narrow. Attention was then directed to the tibia. Tibial cut was made perpendicular to the long axis of the tibiain both AP and lateral planes, 3 degree posterior slope. PCL was recessed. The tibia sized to be a size 4. Soft tissue balancing was performed. Trial reduction was performed and with a 6-mm MS insert, there was excellent soft tissue balancing, patellar tracking, alignment as well as motion. Trial components were removed. Tibial baseplate was prepared for size 4 baseplate. All 3 components were cemented in place without difficulty. Excess cement was removed. The wound was thoroughly irrigated and tissues were infiltrated with toradol/marcaine mixture. The real 6-mm MS insert was impacted in place. One gram of vancomycin powder was placed deep and superficial prior to closure. The extensor mechanism was closed in sequential layers including a running number 1 Stratafix, then augmented with interrupted 0 Vicryl and 0 ethibond suture. The skin was closed with interrupted 2-0 Vicryl subcutaneously, then a running 2-0 Stratafix, followed by a subcuticular 3-0 monocryl. A mesh dressing with skin glue was applied. A sterile dressing was applied. The patient left the operating room in satisfactory condition. A skilled first officer and flight instructor was necessary for this procedure for assistance with patient positioning,prepping, draping, surgical visualization, performance of the repair, wound closure, and application of the dressing. MD LAUREN Doll MD documented in this encounter Plan of Treatment Not on file documented as of this encounter Goals Goal Patient Goal Type Associated Problems Recent Progress Patient-Stated? Author Total Joint Replacement Hip Pathway Care Plan Total Joint Replacement Hip Pathway No AugusteJosie documented as of this encounter Procedures Procedure Name Priority Date/Time Associated Diagnosis Comments INR Routine 01/04/2024 7:27 AM CDT HEMOGLOBIN Routine 01/04/2024 7:27 AM CDT INR Routine 01/03/2024 7:03 AM CDT HEMOGLOBIN Routine 01/03/2024 7:03 AM CDT GLUCOSE Add-On 01/03/2024 7:03 AM CDT BASIC METABOLIC PANEL Routine 01/03/2024 7:03 AM CDT XR KNEE PORT RIGHT 1/2 VIEWS STAT 01/02/2024 10:41 AM CDT ARTHROPLASTY, KNEE, TOTAL 01/02/2024 7:28 AM CDT Degenerative joint disease of right knee Special Needs *htn, cad, cardiomyopathy, afib, svtach, [id number]: last dose 12/27/23Pt verified laterality daughter Carly will be caregiverREQ 120 MIN INR STAT 01/02/2024 6:29 AM CDT POTASSIUM STAT 01/02/2024 6:29 AM CDT CREATININE STAT 01/02/2024 6:29 AM CDT GLUCOSE STAT 01/02/2024 6:29 AM CDT documented in this encounter Results * (ABNORMAL) INR (01/04/2024 7:27 AM CDT) INR 1.50(H) 0.85 - 1.15 01/04/2024 8:40 AM CDT LABORATORY Blood STRUCTURE OF LEFT HAND / Unknown Venipuncture / Unknown 01/04/2024 7:27 AM CDT 01/04/2024 8:23 AM CDT Lauren Escudero MD LAB - BLOOD ORDERABL ES LABORATORY [facility] [address], [address] [address], [facility] [phone] * (ABNORMAL) Hemoglobin (01/04/2024 7:27 AM CDT) Hemoglobin 9.2(L) 11.7 - 15.7 g/dL 01/04/2024 8:29 AM CDT LABORATORY Blood STRUCTURE OF LEFT HAND / Unknown Venipuncture / Unknown 01/04/2024 7:27 AM CDT 01/04/2024 8:23 AM CDT Lauren Escudero MD LAB - BLOOD ORDERABL ES LABORATORY [facility] [address], [address] [place] [address], [facility] [phone] * (ABNORMAL) Glucose (01/03/2024 7:03 AM CDT) Glucose 134(H) 70 - 99 mg/dL 01/04/2024 7:56 AM CDT LABORATORY Blood STRUCTURE OF LEFT UPPER LIMB / Unknown Venipuncture / Unknown 01/03/2024 7:03 AM CDT 01/03/2024 7:36 AM CDT aLuren Escudero MD LAB - BLOOD ORDERABL ES LABORATORY [facility] [address], [address] [place] [address], [facility] [phone] * (ABNORMAL) INR (01/03/2024 7:03 AM CDT) INR 1.19(H) 0.85 - 1.15 01/03/2024 7:50 AM CDT LABORATORY Blood STRUCTURE OF LEFT UPPER LIMB / Unknown Venipuncture / Unknown 01/03/2024 7:03 AM CDT 01/03/2024 7:36 AM CDT Lauren Escudero MD LAB - BLOOD ORDERABL ES LABORATORY [facility] [address], [address] [address], [facility] [phone] * (ABNORMAL) Basic metabolic panel (01/03/2024 7:03 AM CDT) Sodium 131(L) 135 - 145 mmol/L 01/03/2024 8:06 AM CDT LABORATORY Potassium 4.4 3.4 - 5.3 mmol/L 01/03/2024 8:06 AM CDT LABORATORY Chloride 100 98 - 107 mmol/L 01/03/2024 8:06 AM CDT LABORATORY Carbon Dioxide (CO2) 20(L) 22 - 29 mmol/L 01/03/2024 8:06 AM CDT LABORATORY Anion Gap 11 7 - 15 mmol/L 01/03/2024 8:06 AM CDT LABORATORY Urea Nitrogen 15.9 8.0 - 23.0 mg/dL 01/03/2024 8:06 AM CDT LABORATORY Creatinine 1.14(H) 0.51 - 0.95 mg/dL 01/03/2024 8:06 AM CDT LABORATORY GFR Estimate 50(L) >60 mL/min/1.7 3m2 01/03/2024 8:06 AM CDT LABORATORY Comment:eGFR calculated usin 2020 CKD-EPI equation. Calcium 9.3 8.8 - 10.4 mg/dL 01/03/2024 8:06 AM CDT LABORATORY Comment:Reference intervals for this test were updated on 11/11/2023 to reflect our healthy population more accurately. There may be differences in the flagging of prior results with similar values performed with this method. Those prior results can be interpreted in the context of the updated reference intervals. Glucose 134(H) 70 - 99 mg/dL 01/03/2024 8:06 AM CDT LABORATORY Blood STRUCTURE OF LEFT UPPER LIMB / Unknown Venipuncture / Unknown 01/03/2024 7:03 AM CDT 01/03/2024 7:36 AM CDT Aries De La Torre MD LAB - BLOOD ORDERABL ES LABORATORY [facility] [address], [address] [place] [address], [facility] [phone] * (ABNORMAL) Hemoglobin (01/03/2024 7:03 AM CDT) Hemoglobin 9.8(L) 11.7 - 15.7 g/dL 01/03/2024 7:41 AM CDT LABORATORY Blood STRUCTURE OF LEFT UPPER LIMB / Unknown Venipuncture / Unknown 01/03/2024 7:03 AM CDT 01/03/2024 7:36 AM CDT Lauren Escudero MD LAB - BLOOD ORDERABL ES LABORATORY [facility] [address], [address] [place] [address], [facility] [phone] * XR Knee Port Right 1/2 Views (01/02/2024 10:41 AM CDT) Anatomical Region Laterality Modality Knee, Right Knee Right Digital Radiogr aphy Impressions 01/02/2024 11:51 AM CDT IMPRESSION: Postoperative changes of a right total knee arthroplasty with patellar resurfacing. No fracture. JUSTINE BROWN MD SYSTEM ID: [id number] Narrative 01/02/2024 11:51 AM CDT XR KNEE PORT RIGHT 1/2 VIEWS 01/02/2024 10:41 AM HISTORY: Post-Op Total Knee COMPARISON: None. Procedure Note Justine Brown MD - 01/02/2024 XR KNEE PORT RIGHT 1/2 VIEWS 01/02/2024 10:41 AM HISTORY: Post-Op Total Knee COMPARISON: None. IMPRESSION: Postoperative changes of a right total knee arthroplasty with patellar resurfacing. No fracture. JUSTINE BROWN MD SYSTEM ID: [id number] Lauren Escudero MD IMG DIAGNOSTIC IMAGI NG ORDERABLES * Glucose (01/02/2024 6:29 AM CDT) Glucose 97 70 - 99 mg/dL 01/02/2024 7:01 AM CDT LABORATORY Patient Fasting > 8hrs? Yes 01/02/2024 7:01 AM CDT LABORATORY Blood STRUCTURE OF LEFT HAND / Unknown Venipuncture / Unknown 01/02/2024 6:29 AM CDT 01/02/2024 6:34 AM CDT Marti Wagner MD LAB - BLOOD ORDERABL ES LABORATORY [facility] [address], [address] [place] [address], [facility] [phone] * INR (01/02/2024 6:29 AM CDT) INR 1.10 0.85 - 1.15 01/02/2024 6:48 AM CDT LABORATORY Blood STRUCTURE OF LEFT HAND / Unknown Venipuncture / Unknown 01/02/2024 6:29 AM CDT 01/02/2024 6:34 AM CDT Marti Wagner MD LAB - BLOOD ORDERABL ES Performing Organization Address [facility] de Phone Number LABORATORY [facility] [address], [address] [place] [address], [facility] [phone] * (ABNORMAL) Creatinine (01/02/2024 6:29 AM CDT) Creatinine 1.34(H) 0.51 - 0.95 mg/dL 01/02/2024 7:01 AM CDT LABORATORY GFR Estimate 41(L) >60 mL/min/1.7 3m2 01/02/2024 7:01 AM CDT LABORATORY Comment:eGFR calculated usin g 2020 CKD-EPI equation. Blood STRUCTURE OF LEFT HAND / Unknown Venipuncture / Unknown 01/02/2024 6:29 AM CDT 01/02/2024 6:34 AM CDT Marti Wagner MD LAB - BLOOD ORDERABL ES Performing Organization Address [facility] de Phone Number LABORATORY [facility] [address], [address] [place] [address], [facility] [phone] * Potassium (01/02/2024 6:29 AM CDT) Potassium 4.0 3.4 - 5.3 mmol/L 01/02/2024 7:01 AM CDT LABORATORY Blood STRUCTURE OF LEFT HAND / Unknown Venipuncture / Unknown 01/02/2024 6:29 AM CDT 01/02/2024 6:34 AM CDT Marti Wagner MD LAB - BLOOD ORDERABL ES Performing Organization Address City/[facility] Co de Phone Number [facility] [address] [place] [address], [address] [place] [address], [facility] [phone] documented in this encounter Visit Diagnoses Diagnosis Status post total knee replacement, left- Primary Degenerative joint disease of right knee Osteoarthrosis, unspecified whether generalized or localized, lower leg documented in this encounter Administered Medications Inactive Administered Medications - up to 3 most recent administrations Medication Order MAR Action Action Date Dose Rate Site acetaminophen (TYLENOL) tablet 975 mg 975 mg, Oral, EVERY 8 HOURS, First dose on Fri01/02/24 at 1400, For 3 days, Administer for multimodal surgical pain management. Maximum acetaminophen dose from all sources = 75 mg/kg/day not to exceed 4 grams/day. $Given 01/04/2024 2:14 PM CDT 975 mg $Given 01/04/2024 5:39 AM CDT 975 mg $Given 01/03/2024 9:15 PM CDT 975 mg gabapentin (NEURONTIN) capsule 100 mg 100 mg, Oral, EVERY EVENING, First dose on Fri01/03/24 at 2000 $Given 01/03/2024 9:15 PM CDT 100 mg HYDROmorphone (DILAUDID) injection 0.1 mg 0.1 mg, Intravenous, EVERY 2 HOURS PRN, moderate pain, Starting on Fri01/02/24 at 1340, IF patient unable to take oral pain medication or pain not controlled with oral analgesics. Hold IV PRN opioid dose for analgesic side effects. Notify provider to assess for uncontrolled pain or analgesic side effects. HYDROmorphone (DILAUDID) injection 0.2 mg 0.2 mg, Intravenous, EVERY 2 HOURS PRN, severe pain, Starting on Fri01/02/24 at 1340, IF patient unable to take oral pain medication or pain not controlled with oral analgesics. Hold IV PRN opioid dose for analgesic side effects. Notify provider to assess for uncontrolled pain or analgesic side effects. hydrOXYzine HCl (ATARAX) tablet 10 mg 10 mg, Oral, EVERY 6 HOURS PRN, other, adjuvant pain, Starting on Fri01/02/24 at 1340 $Given 01/04/2024 5:39 AM CDT 10 mg $Given 01/03/2024 9:14 PM CDT 10 mg $Given 01/03/2024 8:53 AM CDT 10 mg levothyroxine (SYNTHROID/LEVOTHROID) tablet 112 mcg 112 mcg, Oral, DAILY, First dose on Fri01/02/24 at 1530, Separate oral administration of iron- or calcium-containing products and levothyroxine by at least 4 hours. $Given 01/04/2024 8:35 AM CDT 112 mcg $Given 01/03/2024 8:53 AM CDT 112 mcg $Given 01/02/2024 3:30 PM CDT 112 mcg losartan (COZAAR) tablet 100 mg 100 mg, Oral, DAILY, First dose on Fri01/03/24 at 1030, Hold for SBP less than 110 $Given 01/04/2024 8:36 AM CD T 100 mg $Given 01/03/2024 11:44 AM CDT 100 mg methocarbamol (ROBAXIN) tablet 500 mg 500 mg, Oral, EVERY 6 HOURS PRN, muscle spasms, Starting on Fri01/02/24 at 1340, Hold for sedation. $Given 01/03/2024 6:38 AM CDT 500 mg $Given 01/02/2024 4:13 PM CDT 500 mg metoprolol succinate ER (TOPROL XL) 24 hr tablet 75 mg 75 mg, Oral, 2 TIMES DAILY, First dose on Fri01/02/24 at 2100, DO NOT CRUSH. Tablet may be split in half along score line. Hold for SBP less than 100 or HR < 60 $Given 01/04/2024 8:35 AM CDT 75 mg $Given 01/03/2024 9:15 PM CDT 75 mg $Given 01/03/2024 8:52 AM CDT 75 mg naloxone (NARCAN) injection 0.2 mg 0.2 mg, Intravenous, EVERY 2 MIN PRN, opioid reversal, Starting on Fri01/02/24 at 1357, Administer intravenous route when available and notify provider when administered. For unintended sedation or respiratory depression if all of the below criteria are met: ~ respiratory rate LESS than or EQUAL to 8. ~SaO2 less than 92% and or/end-tidal CO2 is greater than 50. ~ the patient is receiving an opioid, has unintended sedations assessed as RASS (-3), and is currently not on mechanical ventilation. RASS scale moderate (-3) is movement or eye opening to voice but no eye contact. Patient Monitoring Once the patient has demonstrated a response to the naloxone, continue to monitor respiratory rate, depth, oxygen saturation and end-tidal CO2 (if available) every 15 minutes x 2, then every 30 minutes x 2, then every 1 hour x 1 after each naloxone dose. Consider transfer to ICU if patient respiratory parameters have not improved after 4 naloxone doses. naloxone (NARCAN) injection 0.2 mg 0.2 mg, Intramuscular, EVERY 2 MIN PRN, opioid reversal, Starting on Fri01/02/24 at 1357, Administer intramuscular if an intravenous route is not available and notify provider when administered. For unintended sedation or respiratory depression if all of the below criteria are met: ~ respiratory rate LESS than or EQUAL to 8. ~SaO2 less than 92% and or/end-tidal CO2 is greater than 50. ~ the patient is receiving an opioid, has unintended sedations assessed as RASS (-3), and is currently not on mechanical ventilation. RASS scale moderate (-3) is movement or eye opening to voice but no eye contact. Patient Monitoring Once the patient has demonstrated a response to the naloxone, continue to monitor respiratory rate, depth, oxygen saturation and end-tidal CO2 (if available) every 15 minutes x 2, then every 30 minutes x 2, then every 1 hour x 1 after each naloxone dose. Consider transfer to ICU if patient respiratory parameters have not improved after 4 naloxone doses. naloxone (NARCAN) injection 0.4 mg 0.4 mg, Intravenous, EVERY 2 MIN PRN, opioid reversal, Starting on Fri01/02/24 at 1357, Administer intravenous route when available and notify provider when administered. For unintended sedation or respiratory depression if all of the below criteria are met: ~ respiratory rate LESS than or EQUAL to 8. ~ SaO2 less than 92% and or/end-tidal CO2 is greater than 50. ~ the patient is receiving an opioid, has unintended sedation assessed as RASS (-4) or (-5) and patient is currently not on mechanical ventilation. RASS scale (-4) is deep sedation with no response to voice but movement or eye opening to physical stimulation. RASS scale (-5) is unarousable. Patient Monitoring Once the patient has demonstrated a response to the naloxone, continue to monitor respiratory rate, depth, oxygen saturation and end-tidal CO2 (if available) every 15 minutes x 2, then every 30 minutes x 2, then every 1 hour x 1 after each naloxone dose. Consider transfer to ICU if patient respiratory parameters have not improved after 4 naloxone doses. naloxone (NARCAN) injection 0.4 mg 0.4 mg, Intramuscular, EVERY 2 MIN PRN, opioid reversal, Starting on Fri01/02/24 at 1357, Administer intramuscular if an intravenous route is not available and notify provider when administered. For unintended sedation or respiratory depression if all of the below criteria are met: ~ respiratory rate LESS than or EQUAL to 8. ~ SaO2 less than 92% and or/end-tidal CO2 is greater than 50. ~ the patient is receiving an opioid, has unintended sedation assessed as RASS (-4) or (-5) and patient is currently not on mechanical ventilation. RASS scale (-4) is deep sedation with no response to voice but movement or eye opening to physical stimulation. RASS scale (-5) is unarousable. Patient Monitoring Once the patient has demonstrated a response to the naloxone, continue to monitor respiratory rate, depth, oxygen saturation and end-tidal CO2 (if available) every 15 minutes x 2, then every 30 minutes x 2, then every 1 hour x 1 after each naloxone dose. Consider transfer to ICU if patient respiratory parameters have not improved after 4 naloxone doses. ondansetron (ZOFRAN ODT) ODT tab 4 mg 4 mg, Oral, EVERY 6 HOURS PRN, nausea, vomiting, Starting on Fri01/02/24 at 1340, This is Step 1 of nausea and vomiting management. If nausea not resolved in 15 minutes, go to Step 2 prochlorperazine (COMPAZINE). Do not push through foil backing. Peel back foil and gently remove. Place on tongue immediately. Administration with liquid unnecessary With dry hands, peel back foil backing and gently remove tablet. Do not push oral disintegrating tablet through foil backing. Administer immediately on tongue and oral disintegrating tablet dissolves in seconds, then swallow with saliva. Liquid not required. $Given 01/04/2024 4:44 AM CDT 4 mg $Given 01/03/2024 3:23 AM CDT 4 mg ondansetron (ZOFRAN) injection 4 mg 4 mg, Intravenous, EVERY 6 HOURS PRN, nausea, vomiting, Administer over 2-5 Minutes, Starting on Fri01/02/24 at 1340, This is Step 1 of nausea and vomiting management. If nausea not resolved in 15 minutes, go to Step 2 prochlorperazine (COMPAZINE). oxyCODONE (ROXICODONE) tablet 5 mg 5 mg, Oral, EVERY 4 HOURS PRN, severe pain, Starting on 01/02/24 at 1340, Hold oral PRN dose for analgesic side effects. Notify provider to assess for uncontrolled pain or analgesic side effects. Hold while on IV SALES PRODUCER or with regular IV opioid dosing. $Given 01/03/2024 11:44 AM CDT 5 mg $Given 01/03/2024 7:11 AM CDT 5 mg $Given 01/02/2024 4:13 PM CDT 5 mg oxyCODONE (ROXICODONE) tablet 5-10 mg 5-10 mg, Oral, EVERY 3 HOURS PRN, moderate pain, Starting on 01/03/24 at 1202 $Given 01/04/2024 8:35 AM CDT 5 mg $Given 01/03/2024 6:04 PM CDT 5 mg pantoprazole (PROTONIX) EC tablet 40 mg 40 mg, Oral, DAILY, First dose on 01/03/24 at 1030, DO NOT CRUSH. $Given 01/04/2024 8:35 AM CDT 40 mg $Given 01/03/2024 11:44 AM CDT 40 mg polyethylene glycol (MIRALAX) Packet 17 g 17 g, Oral, DAILY, First dose on 01/03/24 at 0900, To prevent constipation. Mixed prescribed dose in 8 ounces of water, juice or soda. Administer daily starting at 0900 on POD 1. Hold for loose stools. 1 Packet = 17 grams. Mix each gram with at least 1/2 ounce (15 mL) of water - 8 ounces for 17 g dose, 4 ounces for 8.5 g dose, 2 ounces for 4 g dose. Follow with the same volume of water. Hold for loose stools unless being administered as part of a bowel prep regimen or bowel clean out. $Given 01/03/2024 8:53 AM CDT 17 g prochlorperazine (COMPAZINE) injection 5 mg 5 mg, Intravenous, EVERY 6 HOURS PRN, nausea, vomiting, Administer over 1-2 Minutes, Starting on Fri01/02/24 at 1340, This is Step 2 of nausea and vomiting management. If nausea not resolved in 15-30 minutes, Notify provider. $Given 01/03/2024 7:01 AM CDT 5 mg prochlorperazine (COMPAZINE) tablet 5 mg 5 mg, Oral, EVERY 6 HOURS PRN, nausea, vomiting, Starting on Fri01/02/24 at 1340, This is Step 2 of nausea and vomiting management. If nausea not resolved in 15-30 minutes, Notify provider. ROPivacaine (NAROPIN) 5 MG/ML 300 mg, EPINEPHrine (ADRENALIN) 0.6 mg in sodium chloride 0.9 % 100 mL (ORTHO ZULEYKA CUSTOM DOSE) INTRA-ARTICULAR, TEACHER EARLY CHILDHOOD DEVELOPMENT TO O.R., Starting on Fri01/02/24 at 0727, For 1 dose, NOT FOR IV INJECTION. Used by provider at the end of surgery. Reason for custom entry: No toradol, Intra-procedure $Given 01/02/2024 9:08 AM CDT Operative Site/Surgi judah Site senna-docusate (SENOKOT-S/PERICOLACE) 8.6-50 MG per tablet 1 tablet 1 tablet, Oral, 2 TIMES DAILY, First dose on Fri01/02/24 at 2100, To prevent constipation. Hold for loose stools Hold for loose stools. $Given 01/04/2024 8:36 AM CDT 1 tablet $Given 01/03/2024 9:15 PM CDT 1 tablet $Given 01/03/2024 8:53 AM CDT 1 tablet sodium chloride (PF) 0.9% PF flush 3 mL 3 mL, Intracatheter, EVERY 8 HOURS, First dose on Fri01/02/24 at 1400, to lock peripheral IV dormant line $Given 01/04/2024 5:41 AM CDT 3 mLs $Given 01/03/2024 9:16 PM CDT 3 mLs $Given 01/03/2024 2:25 PM CDT 3 mLs sodium chloride (PF) 0.9% PF flush 3 mL 3 mL, Intracatheter, EVERY 1 MIN PRN, line flush, other, to ensure patency or to lock dormant line, Starting on Fri01/02/24 at 1340 $Given 01/03/2024 7:02 AM CDT 3 mLs sodium chloride 0.9% (bottle) irrigation PRN, Starting on Fri01/02/24 at 0805, Intra-procedure $Given 01/02/2024 8:05 AM CDT 1,000 mLs sodium chloride 0.9% irrigation (bag) PRN, Starting on Fri01/02/24 at 0805, Intra-procedure $Given 01/02/2024 8:06 AM CDT 3,000 mLs Operative Site/Surgi judah Site $Given 01/02/2024 8:05 AM CDT 250 mLs Op erative Site/Surgical Site spironolactone (ALDACTONE) tablet 25 mg 25 mg, Oral, DAILY, First dose on 01/03/24 at 1030 $Given 01/04/2024 8:36 AM CDT 25 mg $Given 01/03/2024 11:44 AM CDT 25 mg vancomycin (VANCOCIN) topical powder PRN, Starting on Fri01/02/24 at 0919, Intra-procedure $Given 01/02/2024 9:19 AM CDT 1 g Operative Site/Surgi judah Site warfarin ANTICOAGULANT (COUMADIN) tablet 5 mg 5 mg, Oral, ONCE AT 6PM, On Fri01/04/24 at 1800, For 1 dose documented in this encounter Active and Recently Administered Medications Times are shown in CDT. Scheduled Medication Order 01/02/2024 01/03/2024 01/04/2024 acetaminophen (TYLENOL) tablet 975 mg 975 mg, Oral, EVERY 8 HOURS, First dose on Fri01/02/24 at 1400, For 3 days, Administer for multimodal surgical pain management. Maximum acetaminophen dose from all sources = 75 mg/kg/day not to exceed 4 grams/day. 1440 ($Given - Provider: Queen Sunshine RN)2102 ($Given - Provider: Charito Ledezma RN) 0630 ($Given - Provider: Charito Ledezma RN)1424 ($Given - Provider: Shey Piedra RN)2115 ($Given - Provider: Charito Ledezma RN) 0539 ($Given - Provider: Charito Ledezma RN)1414 ($Given - Provider: Shey Piedra RN) ceFAZolin (ANCEF) 2 g in 100 mL D5W intermittent infusion (COMPLETED) Routine, 2 g, Intravenous, EVERY 8 HOURS, First dose on Fri01/02/24 at 1530, For 2 doses, First post-op dose due 8 hours after intra-op dose, see eMAR., Indications: Perioperative Pharmacoprophylaxis 1440 ($New Bag - Provider: Queen Sunshine RN) 0017 ($New Bag - Provider: Charito Ledezma RN) ceFAZolin Sodium (ANCEF) injection 2 g (COMPLETED) Routine, 2 g, Intravenous, PRE-OP/PRE-PROCEDURE, Starting on Fri01/02/24 at 0550, For 1 dose, Give first dose within 1 hour PRIOR to incision. If patient weight is greater than or equal to 120 kg increase dose to 3 g., Indications: Perioperative Pharmacoprophylaxis, Pre-procedure 0730 ($Given - Provider: Delmy Roblero APRN CRNA) gabapentin (NEURONTIN) capsule 100 mg 100 mg, Oral, EVERY EVENING, First dose on Fri01/03/24 at 2000 2115 ($Given - Provider: Charito Ledezma RN) levothyroxine (SYNTHROID/LEVOTHROID) tablet 112 mcg 112 mcg, Oral, DAILY, First dose on Fri01/02/24 at 1530, Separate oral administration of iron- or calcium-containing products and levothyroxine by at least 4 hours. 1530 ($Given - Provider: Queen Sunshine RN) 0853 ($Given - Provider: Shey Piedra RN) 0835 ($Given - Provider: Shey Piedra RN) losartan (COZAAR) tablet 100 mg 100 mg, Oral, DAILY, First dose on Fri01/03/24 at 1030, Hold for SBP less than 110 1144 ($Given - Provider: Shey Piedra RN - Comment: [id number]) 0836 ($Given - Provider: Shey Piedra RN) metoprolol succinate ER (TOPROL XL) 24 hr tablet 75 mg 75 mg, Oral, 2 TIMES DAILY, First dose on Fri01/02/24 at 2100, DO NOT CRUSH. Tablet may be split in half along score line. Hold for SBP less than 100 or HR < 60 2102 ($Given - Provider: Charito Ledezma RN) 0852 ($Given - Provider: Shey Piedra RN)2115 ($Given - Provider: Charito Ledezma RN) 0835 ($Given - Provider: Shey Piedra RN) midazolam (VERSED) injection 1 mg (COMPLETED) 1 mg, Intravenous, PRE-OP/PRE-PROCEDURE, Starting on Fri01/02/24 at 0550, For 1 dose, In Pre Op for anxiety/sedation. IF patient receives midazolam (VERSED) place patient on continuous pulse oximetry PRE OP. This drug may cause significant respiratory depression. Monitor respiratory status and vital signs carefully for 1 hour after each dose., Pre-procedure 0703 ($Given - Provider: Adama Madsen RN) pantoprazole (PROTONIX) EC tablet 40 mg 40 mg, Oral, DAILY, First dose on 01/03/24 at 1030, DO NOT CRUSH. 1144 ($Given - Provider: Shey Piedra RN) 0835 ($Given - Provider: Shey Piedra RN) polyethylene glycol (MIRALAX) Packet 17 g 17 g, Oral, DAILY, First dose on 01/03/24 at 0900, To prevent constipation. Mixed prescribed dose in 8 ounces of water, juice or soda. Administer daily starting at 0900 on POD 1. Hold for loose stools. 1 Packet = 17 grams. Mix each gram with at least 1/2 ounce (15 mL) of water - 8 ounces for 17 g dose, 4 ounces for 8.5 g dose, 2 ounces for 4 g dose. Follow with the same volume of water. Hold for loose stools unless being administered as part of a bowel prep regimen or bowel clean out. 0853 ($Given - Provider: Shey Piedra RN) 0836 (Not Given - Provider: Shey Piedra RN - Reason: Patient/family refused) pregabalin (LYRICA) capsule 150 mg (COMPLETED) 150 mg, Oral, ONCE, On Fri01/02/24 at 0600, For 1 dose, Given in preop, Pre-procedure 0628 ($Given - Provider: Adama Madsen RN) ROPivacaine (NAROPIN) 5 MG/ML 300 mg, EPINEPHrine (ADRENALIN) 0.6 mg in sodium chloride 0.9 % 100 mL (ORTHO ZULEYKA CUSTOM DOSE) (COMPLETED) INTRA-ARTICULAR, TEACHER EARLY CHILDHOOD DEVELOPMENT TO O.R., Starting on Fri01/02/24 at 0727, For 1 dose, NOT FOR IV INJECTION. Used by provider at the end of surgery. Reason for custom entry: No toradol, Intra-procedure 0908 ($Given - Provider: Lauren Escudero MD) senna-docusate (SENOKOT-S/PERICOLACE) 8.6-50 MG per tablet 1 tablet 1 tablet, Oral, 2 TIMES DAILY, First dose on Fri01/02/24 at 2100, To prevent constipation. Hold for loose stools Hold for loose stools. 2101 ($Given - Provider: Charito Ledezma RN) 0853 ($Given - Provider: Shey Piedra RN)2115 ($Given - Provider: Charito Ledezma RN) 0836 ($Given - Provider: Shey Piedra RN) sodium chloride (PF) 0.9% PF flush 3 mL 3 mL, Intracatheter, EVERY 8 HOURS, First dose on Fri01/02/24 at 1400, to lock peripheral IV dormant line 1446 (Not Given - Provider: Queen Sunshine RN - Reason: IV Infusing)2121 (Not Given - Provider: Charito Ledezma RN - Reason: IV Infusing) 0631 ($Given - Provider: Charito Ledezma RN)1425 ($Given - Provider: Shey Piedra RN)2116 ($Given - Provider: Charito Ledezma RN) 0541 ($Given - Provider: Charito Ledezma RN)1417 (Not Given - Provider: Shey Piedra RN - Reason: No IV Access) spironolactone (ALDACTONE) tablet 25 mg 25 mg, Oral, DAILY, First dose on Fri01/03/24 at 1030 1144 ($Given - Provider: Shey Piedra RN) 0836 ($Given - Provider: Shey Piedra RN) tranexamic acid (LYSTEDA) tablet 1,950 mg (COMPLETED) 1,950 mg, Oral, ONCE, On Fri01/02/24 at 0600, For 1 dose, Administer with a sip of water in PRE OP area 90 minutes PRIOR to leaving Pre-op area., Pre-procedure 0629 ($Given - Provider: Adama Madsen RN) WARFARIN (COUMADIN) THERAPY REMINDER SEE ADMIN INSTRUCTIONS, Starting on Fri01/02/24 at 1340, Until Fri01/04/24 at 1714, Reorder warfarin (COUMADIN) daily Patient is on Warfarin Therapy - check for daily order warfarin ANTICOAGULANT (COUMADIN) tablet 10 mg (COMPLETED) 10 mg, Oral, ONCE AT 6PM, On 01/02/24 at 1800, For 1 dose 1744 ($Given - Provider: Jeff Goldstein RN) warfarin ANTICOAGULANT (COUMADIN) tablet 5 mg (COMPLETED) 5 mg, Oral, ONCE AT 6PM, On 01/03/24 at 1800, For 1 dose 1804 ($Given - Provider: Shey Piedra RN) warfarin ANTICOAGULANT (COUMADIN) tablet 5 mg 5 mg, Oral, ONCE AT 6PM, On 01/04/24 at 1800, For 1 dose Continuous Medication Order 01/02/2024 01/03/2024 01/04/2024 lactated ringers infusion (CANCELED) at 100 mL/hr, Intravenous, CONTINUOUS, Pre-procedure, Starting on Fri01/02/24 at 0600, Until Fri01/02/24 at 1009 0643 ($New Bag - Provider: Adama Madsen RN) lactated ringers infusion (CANCELED) at 100 mL/hr, Intravenous, CONTINUOUS, Continue until IV catheter is weaned, PACU, Starting on Fri01/02/24 at 1030, Until Fri01/02/24 at 1327 1021 (Restarted - Provider: Scarlett Villanueva RN) lactated ringers infusion (CANCELED) at 100 mL/hr, Intravenous, CONTINUOUS, IF overnight stay, continue IV fluids until 0400 POD #1, then may saline lock if tolerating oral fluids. IF Day of Surgery Discharge, continue IV Fluids until one hour before discharge., Starting on Fri01/02/24 at 1400, Until Fri01/04/24 at 1010 1445 (Restarted - Provider: Queen Sunshine RN) 0027 ($New Bag - Provider: Charito Ledezma RN) PRN Medication Order 01/02/2024 01/03/2024 01/04/2024 acetaminophen (TYLENOL) tablet 650 mg 650 mg, Oral, EVERY 4 HOURS PRN, other, For optimal non-opioid multimodal pain management to improve pain control., Starting on Fri01/05/24 at 0000, May give first dose 4 hours after last scheduled dose of acetaminophen (TYLENOL). Maximum acetaminophen dose from all sources = 75 mg/kg/day not to exceed 4 grams/day. benzocaine-menthol (CHLORASEPTIC) 6-10 MG lozenge 1 lozenge 1 lozenge, Buccal, EVERY 1 HOUR PRN, sore throat, sore throat without fever, Starting on Fri01/02/24 at 1340 bisacodyl (DULCOLAX) suppository 10 mg 10 mg, Rectal, DAILY PRN, constipation, Use if Magnesium hydroxide (MILK of MAGNESIA) not effective after 24 hours. May discontinue if patient having bowel movement., Starting on Fri01/02/24 at 1340, Hold for loose stools. calcium carbonate (TUMS) chewable tablet 500 mg 500 mg, Oral, 4 TIMES DAILY PRN, heartburn, Starting on Fri01/02/24 at 1340 diphenhydrAMINE (BENADRYL) elixir 12.5 mg 12.5 mg, Oral, EVERY 6 HOURS PRN, itching, anxiety, Starting on Fri01/02/24 at 1340, Caution to be used when administering multiple Central Nervous System (TETRYL BLENDER OPERATOR) depressing meds within a short time frame. fentaNYL (PF) (SUBLIMAZE) injection 50 mcg (CANCELED) 50 mcg, Intravenous, EVERY 5 MIN PRN, severe pain, Give fentaNYL (SUBLIMAZE) first if HYDROmorphone (DILAUDID) also ordered., Starting on Fri01/02/24 at 1016, Administer fentaNYL (SUBLIMAZE) for acute pain control. Move to HYDROmorphone (DILAUDID): - IF patient has received up to 200 mcg of fentaNYL (SUBLIMAZE), OR - IF patient has received 2 doses of fentaNYL (SUBLIMAZE) AND continues to have severe pain (pain score greater than or equal to seven (7) or is unable to participate in post op recovery due to pain. Wait 5 minutes AFTER last fentaNYL (SUBLIMAZE) dose before administering HYDROmorphone (DILADUDID). Postop Anesthesia Phase I only. Notify Provider to assess for uncontrolled pain or analgesic side effects. DO NOT revert back to fentanyl (SUBLIMAZE) after administering HYDROmorphone (DILAUDID)., PACU 1018 ($Given - Provider: Scarlett Villauneva RN)1024 ($Given - Provider: Scarlett Villanueva RN) HYDROmorphone (DILAUDID) injection 0.1 mg(Linked Group 1) 0.1 mg, Intravenous, EVERY 2 HOURS PRN, moderate pain, Starting on Fri01/02/24 at 1340, IF patient unable to take oral pain medication or pain not controlled with oral analgesics. Hold IV PRN opioid dose for analgesic side effects. Notify provider to assess for uncontrolled pain or analgesic side effects. HYDROmorphone (DILAUDID) injection 0.2 mg (CANCELED) 0.2 mg, Intravenous, EVERY 5 MIN PRN, moderate pain, Starting on Fri01/02/24 at 1016, Use FentaNYL (SUBLIMAZE) first if ordered. Maximum total cumulative dose NOT to exceed 2 mg. DO NOT revert back to fentanyl (SUBLIMAZE) after administering HYDROmorphone (DILAUDID). Notify Provider to assess for uncontrolled pain or analgesic side effects., PACU 1109 ($Given - Provider: Milagros Cha RN)1300 ($Given - Provider: Scarlett Villanueva RN) HYDROmorphone (DILAUDID) injection 0.2 mg(Linked Group 1) 0.2 mg, Intravenous, EVERY 2 HOURS PRN, severe pain, Starting on Fri01/02/24 at 1340, IF patient unable to take oral pain medication or pain not controlled with oral analgesics. Hold IV PRN opioid dose for analgesic side effects. Notify provider to assess for uncontrolled pain or analgesic side effects. HYDROmorphone (DILAUDID) injection 0.4 mg (CANCELED) 0.4 mg, Intravenous, EVERY 5 MIN PRN, severe pain, Starting on Fri01/02/24 at 1016, Use FentaNYL (SUBLIMAZE) first if ordered. Maximum total cumulative dose NOT to exceed 2 mg. DO NOT revert back to fentanyl (SUBLIMAZE) after administering HYDROmorphone (DILAUDID). Notify Provider to assess for uncontrolled pain or analgesic side effects., PACU 1032 ($Given - Provider: Scarlett Villanueva RN)1039 ($Given - Provider: Scarlett Villanueva RN) hydrOXYzine HCl (ATARAX) tablet 10 mg 10 mg, Oral, EVERY 6 HOURS PRN, other, adjuvant pain, Starting on Fri01/02/24 at 1340 1613 ($Given - Provider: Jeff Goldstein RN) 0853 ($Given - Provider: Shey Piedra RN)2114 ($Given - Provider: Charito Ledezma, CHAPIS) 0539 ($Given - Provider: Charito Ledezma, CHAPIS) lidocaine (LMX4) cream Topical, EVERY 1 HOUR PRN, pain, with VAD insertion, Starting on Fri01/02/24 at 1340, Apply at least 30 minutes prior to VAD insertion in divided doses as needed for size of site for insertion. MAX Dose: 2.5 g (?? of 5 g tube) Do NOT give if patient has a history of allergy to any local anesthetic or any miguel product. Do NOT use both lidocaine intradermal/subcutaneous injection and the lidocaine cream on the same site. lidocaine 1 % 0.1-1 mL 0.1-1 mL, Other, EVERY 1 HOUR PRN, mild pain with VAD insertion, Starting on Fri01/02/24 at 1340, MAX dose 1 mL subcutaneous OR intradermal along the side of the vein in divided doses as needed for VAD insertion. Do NOT give if patient has a history of allergy to any local anesthetic or any miguel product. Do NOT use both lidocaine intradermal/subcutaneous injection and the lidocaine cream on the same site. magnesium hydroxide (MILK OF MAGNESIA) suspension 30 mL 30 mL, Oral, DAILY PRN, constipation, Use if preventive measures (senna-docusate, docusate, and polyethylene glycol) are not effective., Starting on Fri01/02/24 at 1340, Shake well. Hold for loose stools. methocarbamol (ROBAXIN) tablet 500 mg 500 mg, Oral, EVERY 6 HOURS PRN, muscle spasms, Starting on Fri01/02/24 at 1340, Hold for sedation. 1613 ($Given - Provider: Jeff Goldstein RN) 0638 ($Given - Provider: Charito Ledezma RN) naloxone (NARCAN) injection 0.2 mg(Linked Group 2) 0.2 mg, Intravenous, EVERY 2 MIN PRN, opioid reversal, Starting on Fri01/02/24 at 1357, Administer intravenous route when available and notify provider when administered. For unintended sedation or respiratory depression if all of the below criteria are met: ~ respiratory rate LESS than or EQUAL to 8. ~SaO2 less than 92% and or/end-tidal CO2 is greater than 50. ~ the patient is receiving an opioid, has unintended sedations assessed as RASS (-3), and is currently not on mechanical ventilation. RASS scale moderate (-3) is movement or eye opening to voice but no eye contact. Patient Monitoring Once the patient has demonstrated a response to the naloxone, continue to monitor respiratory rate, depth, oxygen saturation and end-tidal CO2 (if available) every 15 minutes x 2, then every 30 minutes x 2, then every 1 hour x 1 after each naloxone dose. Consider transfer to ICU if patient respiratory parameters have not improved after 4 naloxone doses. naloxone (NARCAN) injection 0.2 mg(Linked Group 2) 0.2 mg, Intramuscular, EVERY 2 MIN PRN, opioid reversal, Starting on Fri01/02/24 at 1357, Administer intramuscular if an intravenous route is not available and notify provider when administered. For unintended sedation or respiratory depression if all of the below criteria are met: ~ respiratory rate LESS than or EQUAL to 8. ~SaO2 less than 92% and or/end-tidal CO2 is greater than 50. ~ the patient is receiving an opioid, has unintended sedations assessed as RASS (-3), and is currently not on mechanical ventilation. RASS scale moderate (-3) is movement or eye opening to voice but no eye contact. Patient Monitoring Once the patient has demonstrated a response to the naloxone, continue to monitor respiratory rate, depth, oxygen saturation and end-tidal CO2 (if available) every 15 minutes x 2, then every 30 minutes x 2, then every 1 hour x 1 after each naloxone dose. Consider transfer to ICU if patient respiratory parameters have not improved after 4 naloxone doses. naloxone (NARCAN) injection 0.4 mg(Linked Group 2) 0.4 mg, Intravenous, EVERY 2 MIN PRN, opioid reversal, Starting on Fri01/02/24 at 1357, Administer intravenous route when available and notify provider when administered. For unintended sedation or respiratory depression if all of the below criteria are met: ~ respiratory rate LESS than or EQUAL to 8. ~ SaO2 less than 92% and or/end-tidal CO2 is greater than 50. ~ the patient is receiving an opioid, has unintended sedation assessed as RASS (-4) or (-5) and patient is currently not on mechanical ventilation. RASS scale (-4) is deep sedation with no response to voice but movement or eye opening to physical stimulation. RASS scale (-5) is unarousable. Patient Monitoring Once the patient has demonstrated a response to the naloxone, continue to monitor respiratory rate, depth, oxygen saturation and end-tidal CO2 (if available) every 15 minutes x 2, then every 30 minutes x 2, then every 1 hour x 1 after each naloxone dose. Consider transfer to ICU if patient respiratory parameters have not improved after 4 naloxone doses. naloxone (NARCAN) injection 0.4 mg(Linked Group 2) 0.4 mg, Intramuscular, EVERY 2 MIN PRN, opioid reversal, Starting on Fri01/02/24 at 1357, Administer intramuscular if an intravenous route is not available and notify provider when administered. For unintended sedation or respiratory depression if all of the below criteria are met: ~ respiratory rate LESS than or EQUAL to 8. ~ SaO2 less than 92% and or/end-tidal CO2 is greater than 50. ~ the patient is receiving an opioid, has unintended sedation assessed as RASS (-4) or (-5) and patient is currently not on mechanical ventilation. RASS scale (-4) is deep sedation with no response to voice but movement or eye opening to physical stimulation. RASS scale (-5) is unarousable. Patient Monitoring Once the patient has demonstrated a response to the naloxone, continue to monitor respiratory rate, depth, oxygen saturation and end-tidal CO2 (if available) every 15 minutes x 2, then every 30 minutes x 2, then every 1 hour x 1 after each naloxone dose. Consider transfer to ICU if patient respiratory parameters have not improved after 4 naloxone doses. ondansetron (ZOFRAN ODT) ODT tab 4 mg(Linked Group 3) 4 mg, Oral, EVERY 6 HOURS PRN, nausea, vomiting, Starting on Fri01/02/24 at 1340, This is Step 1 of nausea and vomiting management. If nausea not resolved in 15 minutes, go to Step 2 prochlorperazine (COMPAZINE). Do not push through foil backing. Peel back foil and gently remove. Place on tongue immediately. Administration with liquid unnecessary With dry hands, peel back foil backing and gently remove tablet. Do not push oral disintegrating tablet through foil backing. Administer immediately on tongue and oral disintegrating tablet dissolves in seconds, then swallow with saliva. Liquid not required. 0323 ($Given - Provider: Charito Ledezma RN) 0444 ($Given - Provider: Charito Ledezma RN) ondansetron (ZOFRAN) injection 4 mg(Linked Group 3) 4 mg, Intravenous, EVERY 6 HOURS PRN, nausea, vomiting, Administer over 2-5 Minutes, Starting on Fri01/02/24 at 1340, This is Step 1 of nausea and vomiting management. If nausea not resolved in 15 minutes, go to Step 2 prochlorperazine (COMPAZINE). 0323 (See Alternative - Provider: Charito Ledezma RN) 0444 (See Alternative - Provider: Charito Ledezma RN) oxyCODONE (ROXICODONE) tablet 5 mg(Linked Group 4) 5 mg, Oral, EVERY 4 HOURS PRN, severe pain, Starting on Fri01/02/24 at 1340, Hold oral PRN dose for analgesic side effects. Notify provider to assess for uncontrolled pain or analgesic side effects. Hold while on IV SALES PRODUCER or with regular IV opioid dosing. 1613 ($Given - Provider: Jeff Goldstein RN) 0711 ($Given - Provider: Charito Ledezma RN)1144 ($Given - Provider: Shey Piedra RN) oxyCODONE (ROXICODONE) tablet 5-10 mg 5-10 mg, Oral, EVERY 3 HOURS PRN, moderate pain, Starting on Fri01/03/24 at 1202 1804 ($Given - Provider: Shey Piedra RN - Comment: pt want to take 1 oxy only) 0835 ($Given - Provider: Shey Piedra RN - Comment: pt want to take 1tab oxy) prochlorperazine (COMPAZINE) injection 5 mg(Linked Group 5) 5 mg, Intravenous, EVERY 6 HOURS PRN, nausea, vomiting, Administer over 1-2 Minutes, Starting on Fri01/02/24 at 1340, This is Step 2 of nausea and vomiting management. If nausea not resolved in 15-30 minutes, Notify provider. 0701 ($Given - Provider: Charito Ledezma RN) prochlorperazine (COMPAZINE) tablet 5 mg(Linked Group 5) 5 mg, Oral, EVERY 6 HOURS PRN, nausea, vomiting, Starting on Fri01/02/24 at 1340, This is Step 2 of nausea and vomiting management. If nausea not resolved in 15-30 minutes, Notify provider. 0701 (See Alternative - Provider: Charito Ledezma RN) sodium chloride (PF) 0.9% PF flush 3 mL 3 mL, Intracatheter, EVERY 1 MIN PRN, line flush, other, to ensure patency or to lock dormant line, Starting on Fri01/02/24 at 1340 0702 ($Given - Provider: Charito Ledezma RN) sodium chloride 0.9% (bottle) irrigation (CANCELED) PRN, Starting on Fri01/02/24 at 0805, Intra-procedure 0805 ($Given - Provider: Lauren Escudero MD) sodium chloride 0.9% irrigation (bag) (CANCELED) PRN, Starting on Fri01/02/24 at 0805, Intra-procedure 0805 ($Given - Provider: Lauren Escudero MD)0806 ($Given - Provider: Lauren Escudero MD) vancomycin (VANCOCIN) topical powder (CANCELED) PRN, Starting on Fri01/02/24 at 0919, Intra-procedure 0919 ($Given - Provider: Lauren Escudero MD) Linked Groups Order Group 1: HYDROmorphone (DILAUDID) injection 0.1 mgJump to med 0.1 mg, Intravenous, EVERY 2 HOURS PRN, moderate pain, Starting on Fri01/02/24 at 1340, IF patient unable to take oral pain medication or pain not controlled with oral analgesics. Hold IV PRN opioid dose for analgesic side effects. Notify provider to assess for uncontrolled pain or analgesic side effects. Or HYDROmorphone (DILAUDID) injection 0.2 mgJump to med 0.2 mg, Intravenous, EVERY 2 HOURS PRN, severe pain, Starting on Fri01/02/24 at 1340, IF patient unable to take oral pain medication or pain not controlled with oral analgesics. Hold IV PRN opioid dose for analgesic side effects. Notify provider to assess for uncontrolled pain or analgesic side effects. Group 2: naloxone (NARCAN) injection 0.2 mgJump to med 0.2 mg, Intravenous, EVERY 2 MIN PRN, opioid reversal, Starting on Fri01/02/24 at 1357, Administer intravenous route when available and notify provider when administered. For unintended sedation or respiratory depression if all of the below criteria are met: ~ respiratory rate LESS than or EQUAL to 8. ~SaO2 less than 92% and or/end-tidal CO2 is greater than 50. ~ the patient is receiving an opioid, has unintended sedations assessed as RASS (-3), and is currently not on mechanical ventilation. RASS scale moderate (-3) is movement or eye opening to voice but no eye contact. Patient Monitoring Once the patient has demonstrated a response to the naloxone, continue to monitor respiratory rate, depth, oxygen saturation and end-tidal CO2 (if available) every 15 minutes x 2, then every 30 minutes x 2, then every 1 hour x 1 after each naloxone dose. Consider transfer to ICU if patient respiratory parameters have not improved after 4 naloxone doses. Or naloxone (NARCAN) injection 0.4 mgJump to med 0.4 mg, Intravenous, EVERY 2 MIN PRN, opioid reversal, Starting on Fri01/02/24 at 1357, Administer intravenous route when available and notify provider when administered. For unintended sedation or respiratory depression if all of the below criteria are met: ~ respiratory rate LESS than or EQUAL to 8. ~ SaO2 less than 92% and or/end-tidal CO2 is greater than 50. ~ the patient is receiving an opioid, has unintended sedation assessed as RASS (-4) or (-5) and patient is currently not on mechanical ventilation. RASS scale (-4) is deep sedation with no response to voice but movement or eye opening to physical stimulation. RASS scale (-5) is unarousable. Patient Monitoring Once the patient has demonstrated a response to the naloxone, continue to monitor respiratory rate, depth, oxygen saturation and end-tidal CO2 (if available) every 15 minutes x 2, then every 30 minutes x 2, then every 1 hour x 1 after each naloxone dose. Consider transfer to ICU if patient respiratory parameters have not improved after 4 naloxone doses. Or naloxone (NARCAN) injection 0.2 mgJump to med 0.2 mg, Intramuscular, EVERY 2 MIN PRN, opioid reversal, Starting on Fri01/02/24 at 1357, Administer intramuscular if an intravenous route is not available and notify provider when administered. For unintended sedation or respiratory depression if all of the below criteria are met: ~ respiratory rate LESS than or EQUAL to 8. ~SaO2 less than 92% and or/end-tidal CO2 is greater than 50. ~ the patient is receiving an opioid, has unintended sedations assessed as RASS (-3), and is currently not on mechanical ventilation. RASS scale moderate (-3) is movement or eye opening to voice but no eye contact. Patient Monitoring Once the patient has demonstrated a response to the naloxone, continue to monitor respiratory rate, depth, oxygen saturation and end-tidal CO2 (if available) every 15 minutes x 2, then every 30 minutes x 2, then every 1 hour x 1 after each naloxone dose. Consider transfer to ICU if patient respiratory parameters have not improved after 4 naloxone doses. Or naloxone (NARCAN) injection 0.4 mgJump to med 0.4 mg, Intramuscular, EVERY 2 MIN PRN, opioid reversal, Starting on Fri01/02/24 at 1357, Administer intramuscular if an intravenous route is not available and notify provider when administered. For unintended sedation or respiratory depression if all of the below criteria are met: ~ respiratory rate LESS than or EQUAL to 8. ~ SaO2 less than 92% and or/end-tidal CO2 is greater than 50. ~ the patient is receiving an opioid, has unintended sedation assessed as RASS (-4) or (-5) and patient is currently not on mechanical ventilation. RASS scale (-4) is deep sedation with no response to voice but movement or eye opening to physical stimulation. RASS scale (-5) is unarousable. Patient Monitoring Once the patient has demonstrated a response to the naloxone, continue to monitor respiratory rate, depth, oxygen saturation and end-tidal CO2 (if available) every 15 minutes x 2, then every 30 minutes x 2, then every 1 hour x 1 after each naloxone dose. Consider transfer to ICU if patient respiratory parameters have not improved after 4 naloxone doses. Group 3: ondansetron (ZOFRAN ODT) ODT tab 4 mgJump to med 4 mg, Oral, EVERY 6 HOURS PRN, nausea, vomiting, Starting on Fri01/02/24 at 1340, This is Step 1 of nausea and vomiting management. If nausea not resolved in 15 minutes, go to Step 2 prochlorperazine (COMPAZINE). Do not push through foil backing. Peel back foil and gently remove. Place on tongue immediately. Administration with liquid unnecessary With dry hands, peel back foil backing and gently remove tablet. Do not push oral disintegrating tablet through foil backing. Administer immediately on tongue and oral disintegrating tablet dissolves in seconds, then swallow with saliva. Liquid not required. Or ondansetron (ZOFRAN) injection 4 mgJump to med 4 mg, Intravenous, EVERY 6 HOURS PRN, nausea, vomiting, Administer over 2-5 Minutes, Starting on Fri01/02/24 at 1340, This is Step 1 of nausea and vomiting management. If nausea not resolved in 15 minutes, go to Step 2 prochlorperazine (COMPAZINE). Group 4: oxyCODONE IR (ROXICODONE) half-tab 2.5 mg (CANCELED) 2.5 mg, Oral, EVERY 4 HOURS PRN, moderate pain, Starting on Fri01/02/24 at 1340, Hold oral PRN dose for analgesic side effects. Notify provider to assess for uncontrolled pain or analgesic side effects. Hold while on IV [employer] or with regular IV opioid dosing. Or oxyCODONE (ROXICODONE) tablet 5 mgJump to med 5 mg, Oral, EVERY 4 HOURS PRN, severe pain, Starting on Fri01/02/24 at 1340, Hold oral PRN dose for analgesic side effects. Notify provider to assess for uncontrolled pain or analgesic side effects. Hold while on IV [employer] or with regular IV opioid dosing. Group 5: prochlorperazine (COMPAZINE) injection 5 mgJump to med 5 mg, Intravenous, EVERY 6 HOURS PRN, nausea, vomiting, Administer over 1-2 Minutes, Starting on Fri01/02/24 at 1340, This is Step 2 of nausea and vomiting management. If nausea not resolved in 15-30 minutes, Notify provider. Or prochlorperazine (COMPAZINE) tablet 5 mgJump to med 5 mg, Oral, EVERY 6 HOURS PRN, nausea, vomiting, Starting on 9/6/24 at 1340, This is Step 2 of nausea and vomiting management. If nausea not resolved in 15-30 minutes, Notify provider. 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
--- OUTSIDE RECORDS SUMMARY | 2024-01-31 08:48 | XMS_ITS | Encounter Summary ---
Author Organization [place] Address [address] [facility] [place] [address] Care Team Providers Care Wax Engraver Name Role Phone Erika Benito Primary Care Provider [phone] Reason for Visit * Auth/Cert (Routine) Specialty Diagnoses / Procedures Referred By Tono chung Referred To Contact Surgery Diagnoses Degenerative joint disease of right knee Degenerative joint disease of right knee [M17.11] Procedures [place] TOTAL KNEE ARTHROPLASTY RIGHT TOTAL KNEE ARTHROPLASTY Periop Services [address], [address] [place] [address] Referral ID Status Reason Start Date Expiration Date Visits Re quested Visits Authorized [id number] 1 1 Encounter Details Date Type Department Care Team (Late st Contact Info) Description 01/02/2024 7:28 AM CDT Anesthesia Event [facility] PeriOP Services [address], [address] [place] [phone] Marti Wagner MD [facility] [address] [place] [id number] Anesthesia Record Procedure Summary Procedure Name Responsible Anesthesiologist Anesthesia Start Time Anesthesia Stop Time RIGHT TOTAL KNEE ARTHROPLASTY (Right: Knee) Marti Wagner MD 01/02/24 0728 01/02/24 1011 Events Date Time Event Comment 01/02/2024 07 0728 An Start Anesthesia Star t is defined as when the anesthesia provider assumed care, began anesthesia prep, remained continuously present with the patient, and excludes all time for performing the pre-anesthesia evaluation. The Pre-Anesthesia Evaluation was completed before Anesthesia Start. 28 An Start Data 0730 AN REASSESS I attest that I have identified and re-evaluated the patient immediately before the induction of anesthesia and I am satisfied that the anesthetic plan is suitable for the patient's condition and procedure. The first vital signs recorded are pre- induction. Delmy Roblero APRN GUEST SPECIALIST [id number] MD Present 0800 Anesthesia Ready for Procedu re 0806 AN INCISION 1004 an stop data 1011 An Stop Electronically signed by Delmy Roblero APRN CRNA on January 02, 2024 10:11 AM Meds Name Total ceFAZolin Sodium (ANCEF) injection 2 g 2 g Ropivacaine 0.5% w/ 1:400K Epi (Injectio n) 15 mL lidocaine 2% 60 mg propofol drip mcg/kg/min 676.01 mg phenylephrine (GASEPR-SYNEPHRINE) injection 300 mcg ondansetron 2 mg/mL 4 mg diphenhydrAMINE 50 mg/mL 12.5 mg phenylephrine 0.2 mg/mL (mcg/kg/min) dri p 3.29 mg 0.75% Hyperbaric Bupivacaine (Intratheca l) 1.6 mL dexmedeTOMIDine (PRECEDEX) 4 mcg/mL in N aCl 25mL 20 mcg LR 500 mL * Agents Name O2 N2O Air Exp Sevoflurane Exp Isoflurane Exp Desflurane O2 Delivery Device Ins Sevoflurane Ins Isoflurane Ins Desflurane O2 Auxiliary * Blood No blood administrations on file. Lines, Drains, and Airways Type Details Placement Removal Incision/Surgical Site 08/21/23; 0818; Anterior, Left; Knee 08/21/23 0818 by Neel Renteria II, RN Incision/Surgical Site 01/02/24; 0815; Anterior, Right; Knee 01/02/24 0815 by Duong Olivas, CHAPIS Peripheral IV 20 G; BD; Left; Hand 01/02/24 0810 by 1500 by Shey Piedra RN Peripheral IV 01/02/24; 0640; 20 G ; B Frazier; Right, Dorsal; Hand; Chlorhexidine; None; 1; Tolerated well 01/02/24 0640 by Adama Madsen RN 01/04/24 1614 by Inpatient, Nurse documented in this encounter Social History Tobacco Use Types Packs/Day Years Used Date Smoking Tobacco: Never Smokeless Tobacco: Never Alcohol Use Standard Drinks/Week Comments Not Currently [...] Date Recorded Do you have housing? (Griffin clements is defined as stable permanent housing and does not include staying ouside in a car, in a tent, in an abandoned building, in an overnight prison, or couch-surfing.) No 01/02/2024 Are you worried [...] on file documented as of this encounter OR Notes * Anesthesia Postprocedure Evaluation - Marti Wagner MD - 01/02/2024 2:03 PM CDT Patient: Isela Drew Procedure: Procedure(s): RIGHT TOTAL KNEE ARTHROPLASTY Anesthesia Type: Spinal Note: Disposition: Admission Postop Pain Control: Uneventful Sign Out: Well controlled pain PONV: No Neuro/Psych: Uneventful Sign Out: Acceptable/Baseline neuro status Airway/Respiratory: Uneventful Sign Out: Acceptable/Baseline resp. status CV/Hemodynamics: Uneventful Sign Out: Acceptable CV status; No obvious hypovolemia; No obvious fluid overload Other NRE: NONE DID A NON-ROUTINE EVENT OCCUR? No Last vitals: Vitals Value Taken Time BP 142/75 01/02/24 1312 Temp 36 ??C (96.8 ??F) 01/02/24 1050 Pulse 80 01/02/24 1322 Resp 14 01/02/24 1322 SpO2 98 % 01/02/24 1322 Vitals shown include unfiled device data. Electronically Signed By: Marti Wagner MD January 02, 2024 2:03 PM * Anesthesia Procedure Notes - Marti Wagner MD - 01/02/2024 8:35 AM CDT Associated Order(s): Spinal Block Intrathecal injection Procedure Note Pre-Procedure Staff - Anesthesiologist: Marti Wagner MD Performed By: anesthesiologist Location: OR Pre-Anesthestic Checklist: patient identified, IV checked, risks and benefits discussed, informed consent, monitors and equipment checked, pre-op evaluation, at physician/surgeon's request and post-op pain management Timeout: Correct Patient: Yes Correct Procedure: Yes Correct Site: Yes Correct Position: Yes Procedure Documentation Procedure: intrathecal injection Patient Position: sitting Skin prep: Betadine Insertion Site: L3-4. (midline approach). Needle Gauge: 24. Needle Length (Inches): 3.5 Spinal Needle Type: Pencan Introducer used Introducer: 20 G # of attempts: 1 and # of redirects: 0 Assessment/Narrative CSF fluid: clear. Medication(s) Administered 0.75% Hyperbaric Bupivacaine (Intrathecal) - Intrathecal 1.6 mL - 01/02/2024 7:36:00 AM [facility] ONLY: Pain Team Contact information: please page the Pain Team Via [email or web address] Pain. During daytime hours, please page the attending first. At night please page the resident first. * Anesthesia Procedure Notes - Marti Wagner MD - 01/02/2024 7:12 AM CDT Associated Order(s): Peripheral/Paravertebral Block Adductor canal (targeting saphenous nerve) Procedure Note Pre-Procedure Staff - Anesthesiologist: Marti Wagner MD Performed By: anesthesiologist Location: pre-op Pre-Anesthestic Checklist: patient identified, IV checked, site marked, risks and benefits discussed, informed consent, monitors and equipment checked, pre-op evaluation, at physician/surgeon's request and post-op pain management Timeout: Correct Patient: Yes Correct Procedure: Yes Correct Site: Yes Correct Position: Yes Correct Laterality: Yes Site Marked: Yes Procedure Documentation Procedure: Adductor canal (targeting saphenous nerve) Laterality: right Patient Position: supine Skin prep: Chloraprep Local skin infiltrated with 1 mL of 1% lidocaine. Needle Type: insulated Needle Gauge: 21. Needle Length (millimeters): 100 Ultrasound guided 1. Ultrasound was used to identify targeted nerve, plexus, vascular marker, or fascial plane and place a needle adjacent to it in real-time. 2. Ultrasound was used to visualize the spread of anesthetic in close proximity to the above referenced structure. 3. A permanent image is entered into the patient's record. 4. The visualized anatomic structures appeared normal. 5. There were no apparent abnormal pathologic findings. Assessment/Narrative The placement was negative for: blood aspirated, painful injection and site bleeding Paresthesias: No. Bolus given via needle.. Secured via. Insertion/Infusion Method: Single Shot Complications: none Medication(s) Administered Ropivacaine 0.5% w/ 1:400K Epi (Injection) - Injection 15 mL - 01/02/2024 7:05:00 AM Comments: Bolus via needle, 15 mL of 0.5% ropivacaine with 1:400,000 epinephrine. Under ultrasound guidance, a 21 gauge needle was inserted and placed in close proximity to the saphenous nerve. Ultrasound was also used to visualize the spread of anesthetic in close proximity to the nerve being blocked. The nerve appeared anatomically normal, and there were no apparent abnormal pathological findings. Patient tolerated well, was mildly sedated but communicative throughout the procedure. A permanent ultrasound image was saved in the patient's record. The surgeon has given a verbal order transferring care of this patient to me for the performance ofregional analgesia block for post op pain control. It is requested of me because I am uniquely trained and qualified to perform this block and the surgeon is neither trained nor qualified to perform this procedure. [facility] ([facility] ONLY: Pain Team Contact information: please page the Pain Team Via [email or web address]Search Pain. During daytime hours, please page the attending first. At night please page the resident first. * Anesthesia Preprocedure Evaluation - Marti Wagner MD - 01/01/2024 4:51 PM CDT Anesthesia Pre-Procedure Evaluation Patient: Isela Drew : 1950 Procedure : Procedure(s): RIGHT TOTAL KNEE ARTHROPLASTY Past Medical History: Diagnosis Date Allergic rhinitis Anxiety Bilateral primary osteoarthritis of knee Cardiomyopathy (H) Chest pain Depression, recurrent (H24) Esophageal reflux Essential hypertension Hearing loss History of atrial fibrillation ablation 2021 History of colonic polyps Hoarseness Hyperlipidemia Hypertensive chronic kidney disease Hypothyroidism Irregular heart beat Ischemic cardiomyopathy Palpitations Paroxysmal atrial fibrillation (H) Pneumonia Primary osteoarthritis of both knees Ringing in ears Stage 3 chronic kidney disease (H) Stomach pain SVT (supraventricular tachycardia) (H24) Trigeminal neuralgia Past Surgical History: Procedure Laterality Date ARTHROPLASTY KNEE Left 08/21/2023 Procedure: LEFT TOTAL KNEE ARTHROPLASTY; Surgeon: Kirby Escudero MD; Location: [facility] COLONOSCOPY 04/2019 COLONOSCOPY 05/19/2023 COLONOSCOPY DILATION AND CURETTAGE EP STUDY /ABLATION 12/03/2021 ESOPHAGOGASTRODUODENOSCOPY 04/10/2010 ESOPHAGOGASTRODUODENOSCOPY 05/2012 ESOPHAGOGASTRODUODENOSCOPY 05/2020 Allergies Allergen Reactions Amlodipine Swelling Edema Apixaban [...] after discontinuing Sulfa Antibiotics Rash Social History Tobacco Use Smoking status: Never Smokeless tobacco: Never Substance Use Topics Alcohol use: Not Currently Wt Readings from Last 1 Encounters: 08/21/23 70.3 kg (154 lb 14.4 oz) Anesthesia Evaluation Pt has had prior anesthetic. Type: General and Regional. No history of anesthetic complications ROS/MED HX ENT/Pulmonary: (-) sleep apnea Neurologic: Comment: Trigeminal neuralgia (-) no CVA Cardiovascular: (+) hypertension- - - - - Taking blood thinners Pt has received instructions: dysrhythmias (S/P ablation), a-fib, (-) CAD METS/Exercise Tolerance: >4 METS Hematologic: Musculoskeletal: (+) arthritis, GI/Hepatic: (+) GERD, Renal/Genitourinary: (+) renal disease, type: CRI, Endo: (+) thyroid problem, hypothyroidism, (-) Type II DM Psychiatric/Substance Use: Infectious Disease: Malignancy: Other: Physical Exam Airway Mallampati: II TM distance: > 3 FB Neck ROM: full Mouth opening: > 3 cm Respiratory Devices and Support Dental (+) Minor Abnormalities - some fillings, tiny chips Cardiovascular cardiovascular exam normal Rhythm and rate: regular and normal Pulmonary pulmonary exam normal breath sounds clear to auscultation OUTSIDE LABS: CBC: Lab Results Component Value Date WBC 10.4 08/22/2023 HGB 10.1 (L) 08/23/2023 HGB 10.6 (L) 08/22/2023 HCT 33.1 (L) 08/22/2023 PLT 195 08/22/2023 BMP: Lab Results Component Value Date NA 134 (L) 08/23/2023 NA 133 (L) 08/23/2023 POTASSIUM 4.4 08/23/2023 POTASSIUM 4.3 08/23/2023 CHLORIDE 101 08/23/2023 CHLORIDE 101 08/23/2023 CO2 23 08/23/2023 CO2 19 (L) 08/23/2023 BUN 15.8 08/23/2023 BUN 15.6 08/23/2023 CR 1.14 (H) 08/23/2023 CR 1.09 (H) 08/23/2023 GLC 129 (H) 08/23/2023 GLC 136 (H) 08/23/2023 GLC 136 (H) 08/23/2023 COAGS: Lab Results Component Value Date INR 1.58 (H) 08/23/2023 POC: No results found for: BGM, HCG, HCGS HEPATIC: No results found for: ALBUMIN, PROTTOTAL, ALT, AST, GGT, ALKPHOS, BILITOTAL,BILIDIRECT, JODI OTHER: Lab Results Component Value Date GIANNI 9.1 08/23/2023 TSH 1.26 08/23/2023 Anesthesia Plan ASA Status: 2 NPO Status: NPO Appropriate Anesthesia Type: Spinal. Consents Postoperative Care Pain management: Multi-modal analgesia. PONV prophylaxis: Ondansetron (or other 5HT-3) Comments: Marti Wagner MD I have reviewed the pertinent notes and labs in the chart from the past 30 days and (re)examined the patient. Any updates or changes from those notes are reflected in this note. documented in this encounter Miscellaneous Notes * Anesthesia Care Transfer Note - Delmy Roblero APRN GUEST SPECIALIST - 01/02/2024 10:11 AM CDT Patient: Isela Drew Procedure: Procedure(s): RIGHT TOTAL KNEE ARTHROPLASTY Diagnosis: Degenerative joint disease of right knee [M17.11] Diagnosis Additional Information: No value filed. Anesthesia Type: Spinal Note: Oropharynx: oropharynx clear of all foreign objects and spontaneously breathing Level of Consciousness: awake Oxygen Supplementation: face mask Level of Supplemental Oxygen (L/min / FiO2): 6 Independent Airway: airway patency satisfactory and stable Dentition: dentition unchanged Vital Signs Stable: post-procedure vital signs reviewed and stable Report to RN Given: handoff report given Patient transferred to: PACU Handoff Report: Identifed the Patient, Identified the Reponsible Provider, Reviewed the pertinent medical history, Discussed the surgical course, Reviewed Intra-OP anesthesia mangement and issues during anesthesia, Set expectations for post-procedure period and Allowed opportunity for questions andacknowledgement of understanding Vitals: Vitals Value Taken Time BP 119/73 Temp Pulse 63 Resp 14 01/02/24 1010 SpO2 100 % 01/02/24 1010 Vitals shown include unfiled device data. Electronically Signed By: Delmy Roblero APRN CRNA January 02, 2024 10:11 AM documented in this encounter Plan of Treatment Not on file documented as of this encounter Goals Goal Patient Goal Type Associated Problems Recent Progress Patient-Stated? Author Total Joint Replacement Hip Pathway Care Plan Total Joint Replacement Hip Pathway No Josie Auguste documented as of this encounter Procedures Procedure Name Priority Date/Time Associated Diagnosis Comments ANE SPINAL BLOCK FORM Routine 01/02/2024 8:35 AM CDT ANE PERIPHERAL/PARAVETE BRAL BLOCK Routine 01/02/2024 7:12 AM CDT documented in this encounter Results * Spinal Block (01/02/2024 8:35 AM CDT) Narrative Marti Wagner MD - 01/02/2024 8:35 AM CDT Marti Wagner MD ? 01/02/2024 ??8:35 AM Intrathecal injection Procedure Note Pre-Procedure Staff - ? Anesthesiologist: ??Marti Wagner MD ? Performed By: anesthesiologist ? Location: OR ? Pre-Anesthestic Checklist: patient identified, IV checked, risks and benefits discussed, informed consent, monitors and equipment checked, pre-op evaluation, at physician/surgeon's request and post-op pain management Timeout: ? Correct Patient: Yes ? Correct Procedure: Yes ? Correct Site: Yes ? Correct Position: Yes Procedure Documentation Procedure: intrathecal injection ? Patient Position: sitting ? Skin prep: Betadine ? Insertion Site: L3-4. (midline approach). ? Needle Gauge: 24. ? Needle Length (Inches): 3.5 ? Spinal Needle Type: Pencan ? Introducer used ? Introducer: 20 G ? # of attempts: 1 and ??# of redirects: ??0 Assessment/Narrative ? CSF fluid: clear. Medication(s) Administered 0.75% Hyperbaric Bupivacaine (Intrathecal) - Intrathecal 1.6 mL - 01/02/2024 7:36:00 AM [facility] ([facility] ONLY: ?? Pain Team Contact information: please page the Pain Team Via [employer]. Search Pain. During daytime hours, please page the attending first. At night please page the resident first. Marti Wagner MD [place] ANESTHESIA * Peripheral/Paravertebral Block (01/02/2024 7:12 AM CDT) Narrative Marti Wagner MD - 01/02/2024 7:12 AM CDT Marti Wagner MD ? 01/02/2024 ??7:13 AM Adductor canal (targeting saphenous nerve) Procedure Note Pre-Procedure Staff - ? Anesthesiologist: ??Marti Wagner MD ? Performed By: anesthesiologist ? Location: pre-op ? Pre-Anesthestic Checklist: patient identified, IV checked, site marked, risks and benefits discussed, informed consent, monitors and equipment checked, pre-op evaluation, at physician/surgeon's request and post-op pain management Timeout: ? Correct Patient: Yes ? Correct Procedure: Yes ? Correct Site: Yes ? Correct Position: Yes ? Correct Laterality: Yes ? Site Marked: Yes Procedure Documentation Procedure: Adductor canal (targeting saphenous nerve) ? Laterality: right ? Patient Position: supine ? Skin prep: Chloraprep ? Local skin infiltrated with 1 mL of 1% lidocaine. ? Needle Type: insulated ? Needle Gauge: 21. ? Needle Length (millimeters): 100 ? Ultrasound guided ? 1. Ultrasound was used to identify targeted nerve, plexus, vascular marker, or fascial plane and place a needle adjacent to it in real-time. ? 2. Ultrasound was used to visualize the spread of anesthetic in close proximity to the above referenced structure. ? 3. A permanent image is entered into the patient's record. ? 4. The visualized anatomic structures appeared normal. ? 5. There were no apparent abnormal pathologic findings. Assessment/Narrative ? The placement was negative for: blood aspirated, painful injection and site bleeding ? Paresthesias: No. ? Bolus given via needle.. ? Secured via. ? Insertion/Infusion Method: Single Shot ? Complications: none Medication(s) Administered Ropivacaine 0.5% w/ 1:400K Epi (Injection) - Injection 15 mL - 01/02/2024 7:05:00 AM Comments: ??Bolus via needle, 15 mL of 0.5% ropivacaine with 1:400,000 epinephrine. Under ultrasound guidance, a 21 gauge needle was inserted and placed in close proximity to the saphenous nerve. Ultrasound was also used to visualize the spread of anesthetic in close proximity to the nerve being blocked. The nerve appeared anatomically normal, and there were no apparent abnormal pathological findings. Patient tolerated well, was mildly sedated but communicative throughout the procedure. A permanent ultrasound image was saved in the patient's record. The surgeon has given a verbal order transferring care of this patient to me for the performance of regional analgesia block for post op pain control. It is requested of me because I am uniquely trained and qualified to perform this block and the surgeon is neither trained nor qualified to perform this procedure. [facility] ([facility] ONLY: ?? Pain Team Contact information: please page the Pain Team Via [employer]. Search Pain. During daytime hours, please page the attending first. At night please page the resident first. Marti Wagner MD [place] ANESTHESIA documented in this encounter Visit Diagnoses Not on filedocumented in this encounter Administered Medications Inactive Administered Medications - up to 3 most recent administrations Medication Order MAR Action Action Date Dose Rate Site BUPivacaine 0.75% in dextrose 8.25% (intrathecal) (SENSORCAINE) 0.75-8.25 % injection Intrathecal, Starting on Fri01/02/24 at 0736, Anesthesia Intra-op $Given 01/02/2024 7:36 AM CDT 1.6 mLs ceFAZolin Sodium (ANCEF) injection 2 g Routine, 2 g, Intravenous, PRE-OP/PRE-PROCEDURE, Starting on Fri01/02/24 at 0550, For 1 dose, Give first dose within 1 hour PRIOR to incision. If patient weight is greater than or equal to 120 kg increase dose to 3 g., Indications: Perioperative Pharmacoprophylaxis, Pre-procedure $Given 01/02/2024 7:30 AM CDT 2 g dexmedeTOMIDine (PRECEDEX) 4 mcg/mL in sodium chloride 0.9 % 50 mL infusion Intravenous, PRN, Starting on Fri01/02/24 at 0941, Anesthesia Intra-op $Given 01/02/2024 9:52 AM CDT 12 mcg $Given 01/02/2024 9:41 AM CDT 8 mcg diphenhydrAMINE (BENADRYL) injection Intravenous, PRN, Starting on Fri01/02/24 at 0745, Anesthesia Intra-op $Given 01/02/2024 7:45 AM CDT 12.5 mg lactated ringers infusion Intravenous, CONTINUOUS PRN, Anesthesia Intra-op, Starting on Fri01/02/24 at 0728, Until Fri01/02/24 at 1011 $New Bag 01/02/2024 7:28 AM CDT lidocaine 2% injection (MDV) Intravenous, PRN, Starting on Fri01/02/24 at 0746, Anesthesia Intra-op $Given 01/02/2024 7:46 AM CDT 60 mg ondansetron (ZOFRAN) injection Intravenous, PRN, Administer over 2-5 Minutes, Starting on Fri01/02/24 at 0746, Anesthesia Intra-op $Given 01/02/2024 7:46 AM CDT 4 mg phenylephrine (GASPER-SYNEPHRINE) injection Intravenous, CONTINUOUS PRN, Starting on Fri01/02/24 at 0744, Anesthesia Intra-op $Bolus 01/02/2024 7:58 AM CDT 200 mcg $New Bag 01/02/2024 7:44 AM CDT 100 mcg phenylephrine 0.2 mg/mL (mcg/kg/min) drip Intravenous, CONTINUOUS PRN, Starting on Fri01/02/24 at 0758, Anesthesia Intra-op Rate/Dose Change 01/02/2024 9:26 AM CDT 0.3 mcg/kg/min 6.507 mL/hr $New Bag 01/02/2024 7:58 AM CDT 0.5 mcg/kg/min 10.845 mL /hr propofol (DIPRIVAN) infusion Intravenous, CONTINUOUS PRN, Starting on Fri01/02/24 at 0731, Anesthesia Intra-op Rate/Dose Change 01/02/2024 8:09 AM CDT 50 mcg/kg/min 21.69 mL/hr Rate/Dose Change 01/02/2024 7:47 AM CDT 75 mcg/kg/min 32.5 35 mL/hr $New Bag 01/02/2024 7:31 AM CDT 100 mcg/kg/min 43.38 mL/ hr ropivicaine 0.5% - EPINEPHrine 1:400,000 injection Injection, Starting on Fri01/02/24 at 0705, Anesthesia Intra-op $Given 01/02/2024 7:05 AM CDT 15 mLs documented in this encounter Additional Health Concerns Active Problems Noted Date Diagnosed Date Total Joint Replacement Hip Pathway 07/29/2023 documented as of this encounter Care Teams Wax Engraver Relationship Specialty Start Date End Date Erika Benito PCP - General 08/12/11 documented as of this encounter
--- OUTSIDE RECORDS SUMMARY | 2024-01-31 08:48 | XMS_ITS | Encounter Summary ---
Author Organization [facility] Address [address] [place] [address] Care Team Providers Care Pitting Machine Operator Name Role Phone Erika Flores Primary Care Provider [phone] Reason for Visit * Auth/Cert (Routine) Specialty Diagnoses / Procedures Referred By Tono chung Referred To Contact Surgery Diagnoses Degenerative joint disease of right knee Degenerative joint disease of right knee [M17.11] Procedures [place] TOTAL KNEE ARTHROPLASTY RIGHT TOTAL KNEE ARTHROPLASTY Periop Services [address] [place] [address] Referral ID Status Reason Start Date Expiration Date Visits Re quested Visits Authorized [id number] 1 1 Encounter Details Date Type Department Care Team (Latest Contact Info) Description 01/02/2024 5:23 AM CDT - 01/04/2024 3:13 PM CDT Hospital Encounter [facility] [address] [place] [address] Lauren Escudero MD [facility] [address] [place] [address] Status post total knee replacement, left (Primary Dx) Discharge Disposition: Home or Self Care Social History Tobacco Use Types Packs/Day Years [...] in an abandoned building, in an overnight chcf, or couch-surfing.) No 01/02/2024 Are you worried [...] Sign Reading Time Taken Comments Blood Pressure 155/80 01/04/2024 7:38 AM CDT Pulse 79 01/04/2024 7:38 AM CDT Temperature 36.8 ??C (98.2 ??F) 01/04/2024 7:38 AM CD T Respiratory Rate 16 01/04/2024 2:14 PM CDT Oxygen Saturation 91% 01/04/2024 7:38 AM CDT Inhaled Oxygen Concentration - - [...] goal(s). See goals on Care Plan in [facility] electronic health record for goal details. Goals [...] Torre MD - 01/04/2024 10:09 AM CDT [facility] Medicine Progress Note - Hospitalist Service Date of Admission: 01/02/2024 5:23 AM Assessment & Plan: Isela Drew is a 73 year old female with known history of paroxysmal atrial fibrillation, hypertension, diabetes mellitus type 2, SVT, CKD stage III, ischemic cardiomyopathy, migraine, hypothyroidism was admitted to [facility] after undergoing right TKA. Hospitalist service consulted [...] Chart documentation was completed, in part, with GreenButton voice-recognition software. Even though reviewed, some grammatical, spelling, and word errors may remain. Aries De La Torre MD Hospitalist Service [facility] Text Page 7AM-6PM Securely message with the [employer] Console (learn more here) Text page via t3n Magazin Paging/Directory Interval History Pain is slightly better [...] focal deficits. Data Recent Labs Lab 01/04/24 0701/03/24 0701/02/24 0629 HGB 9.2* 9.8* -- INR 1.50* [...] Last Admin lactated ringers infusion Intravenous Continuous EscuderoaLuren MD 100 mL/hr at 01/03/24 0027 New Bag at 01/03/24 0027 Current Facility-Administered Medications Medication Dose Route Frequency Provider Last Rate Last Admin acetaminophen (TYLENOL) tablet 975 mg 975 mg Oral Q8H EscuderoLauren bennett MD 975 mg at 01/04/24 0539 gabapentin (NEURONTIN) capsule 100 mg 100 mg Oral QPM Aries De La Torre MD 100 mg at 09/11/18 2114 levothyroxine (SYNTHROID/LEVOTHROID) tablet 112 mcg 112 mcg [...] ischemic cardiomyopathy, migraine, hypothyroidism was admitted to [facility] after undergoing right TKA. Hospitalist service consulted [...] Evaluation Time OT Eval, Low Complexity Minutes (25134) 9 OT Goals Therapy Frequency (OT) Daily OT Predicted Duration/Target Date for Goal Attainment 01/05/24 OT Goals Lower Body Dressing;Lower Body Bathing;Toilet Transfer/Toileting OT: Lower Body Dressing Modified independent;using adaptive equipment;including set-up/clothing retrieval OT: Lower Body Bathing Modified independent;using adaptive equipment;with precautions OT: Toilet Transfer/Toileting Modified independent;toilet transfer;cleaning and garment management;using adaptive equipment;within precautions;Goal Met Self-Care/Home Management Self-Care/Home Mgmt/ADL, Compensatory, Meal Prep Minutes (20274) 16 Symptoms Noted During/After Treatment (Meal Preparation/Planning [...] Pt in bed with alarm on and judah light upon OT departure OT Discharge Planning [...] all falls risk precautions as documented by staff analyst while hospitalized. * Lauren Escudero MD - [...] home today if passes therapy. Lauren Luke [phone] * Aries De La Torre MD - 01/03/2024 10:15 AM CDT [facility] Medicine Progress Note - Hospitalist Service Date of Admission: 01/02/2024 5:23 AM Assessment & Plan: Isela Drew is a 73 year old female with known history of paroxysmal atrial fibrillation, hypertension, diabetes mellitus type 2, SVT, CKD stage III, ischemic cardiomyopathy, migraine, hypothyroidism was admitted to [facility] after undergoing right TKA. Hospitalist service consulted [...] Chart documentation was completed, in part, with GreenButton voice-recognition software. Even though reviewed, some grammatical, spelling, and word errors may remain. Aries De La Torre MD Hospitalist Service [facility] Text Page 7AM-6PM Securely message with the [employer] Web Console (learn more here) Text page via t3n Magazin Paging/Directory Interval History Complains of pain at [...] focal deficits. Data Recent Labs Lab 01/03/24 0703 01/02/24 0629 HGB 9.8* -- INR 1.19* 1.10 [...] No fracture. JUSTINE BROWN MD SYSTEM ID: [id number] Medications Current Facility-Administered Medications Medication Dose Route Frequency Provider Last Rate Last Admin lactated ringers infusion Intravenous Continuous Lauren Escudero MD 100 mL/hr at 01/03/24 0027 New Bag at 01/03/24 0027 Current Facility-Administered Medications Medication Dose Route Frequency Provider Last Rate Last Admin acetaminophen (TYLENOL) tablet 975 mg 975 mg Oral Q8H Lauren Escudero MD 975 mg at 01/03/24 0630 levothyroxine [...] at 18:00 Lauren Escudero MD * Charito Ledezma, CHAPIS - 01/03/2024 6:44 AM CDT Patient vital signs are at baseline: Yes Patient able to ambulate as they were prior to admission or with assist devices provided by therapies during their stay: Yes Patient MUST void prior to discharge: Yes Patient able to tolerate oral intake: Yes Pain has adequate pain control using Oral analgesics: Yes Does patient have an identified head wrestling coach: Yes Has goal D/C date and [...] analgesics: Yes Does patient have an identified head wrestling coach: Yes Has goal D/C date and [...] 6 steps w/ B railings up to [facility] where she will stay Self-Care Usual Activity [...] III, ischemic cardiomyopathy, migraine, hypothyroidism wasadmitted to [facility] after undergoing right TKA on 01/02/2024 Existing [...] Evaluation Time PT Eval, Low Complexity Minutes (19047) 10 Physical Therapy Goals PT Frequency Daily [...] Ther. Procedure: strength, endurance, ROM, flexibillity Minutes (72821) 10 Symptoms Noted During/After Treatment fatigue Treatment [...] all falls risk precautions as documented by staff analyst while hospitalized. Total Session Time Timed Code Treatment Minutes 10 Total Session Time (sum of timed and untimed services) 20 [facility] OUTPATIENT PHYSICAL THERAPY EVALUATION PLAN OF TREATMENT FOR OUTPATIENT REHABILITATION (COMPLETE FOR INITIAL CLAIMS ONLY) Patient's Last Name, First Name, M.I. Date of : 1950 Isela Drew Provider's Name [facility] Onset Date: 01/02/24 Start of Care Date: [...] Supa Stevenson - 12/31/2023 10:30 AM CDT MOTORIZED SQUAD SERGEANT medications updated by Medication Scribe prior to [...] Medication Sig Last Dose Taking? Auth Provider Hydroelectric Mechanic End Date acetaminophen (TYLENOL) 325 MG tablet [...] Raza LPN - 12/26/2023 3:15 PM CDT MOTORIZED SQUAD SERGEANT medications updated by Medication Scribe prior to surgery via phone call with patient (last doses completed by Nurse) Medication history sources: Patient, Surescripts, and H&P In the past week, patient estimated taking medication this percent of the time: Greater than 90% Significant changes made to the medication list: Patient reports no longer taking the following meds (med scribe removed from MOTORIZED SQUAD SERGEANT med list): Elavil,oxycodone, Senokot-S Additional medication history information: None Medication reconciliation completed by provider prior to medication history? No Time spent in this activity: 50 minutes The information provided in this note is only as accurate as the sources available at the time of update(s) Prior to Admission medications Medication Sig Last Dose Taking? Auth Provider Residential End Date acetaminophen (TYLENOL) 325 MG tablet [...] 1:57 PM CDTAssociated Order(s): HOSPITALIST IP CONSULT [facility] Hospitalist Consultation Date of Admission: 01/02/2024 Date of Consult (When I saw the patient): 01/02/24 Reason for consult: Post-op medical comanagement Primary Care Physician ERIKA FLORES Assessment & Plan Isela Drew is a 73 year old female with known history of paroxysmal atrial fibrillation, hypertension, diabetes mellitus type 2, SVT, CKD stage III, ischemic cardiomyopathy, migraine, hypothyroidism was admitted to [facility] after undergoing right TKA. Hospitalist service consulted [...] [facility] to dose Coumadin. CKD stage [...] Chart documentation was completed, in part, with GreenButton voice-recognition software. Even though reviewed, some grammatical, [...] No fracture. JUSTINE BROWN MD SYSTEM ID: [id number] documented in this encounter Miscellaneous Notes * [...] goal(s). See goals on Care Plan in Epic electronic health record for goal details. Goals not met. Barriers to achieving goals: discharge from facility. Therapy recommendation(s): Continued therapy is recommended. Rationale/Recommendations: OP PT to address continued mobility deficits and functional knee ROM + strength. Pt not seen by this check writer salesperson today, summary written according to documentation from prior treating MOTORIZED SQUAD SERGEANT * Provider Notification - Shey Piedra RN - 01/04/2024 2:48 PM CDT .MD Notification Notified Person: MD Notified Person Name: Dr Escudero Notification Date/Time:01/04/24 @0230pm Notification Interaction:Phone call Purpose of Notification: Need clarification With Discharge med , Lovenox & coumadin Orders Received: take Coumadin 7.5mg today 01/04/24 & tomorrow 01/05/24 then next day continue the regular dose. Start 1st does of Lovenox 01/05/24 & 2nd dose 01/06/24 Comments: * Plan of Care - Charito Ledezma RN - 01/04/2024 7:42 AM CDT Goal Outcome [...] analgesics: Yes Does patient have an identified head wrestling coach: Yes Has goal D/C date and [...] RN - 01/03/2024 4:49 PM CDT .Date/Time 6692-7405 Diagnosis:Right Total Kne POD#:1 Mental Status:A&OX4 Activity/dangle: [...] schedule tylenol Does patient have an identified head wrestling coach: Yes Has goal D/C date and time been discussed with patient: Yes Dressing CDI. * Pharmacy-Anticoagulation Service - Kiley Sandhu [facility] - 01/02/2024 2:04 PM CDT Clinical Pharmacy - Warfarin Dosing Consult Pharmacy has been consulted to manage this patient???s warfarin therapy. Indication: Atrial Fibrillation Therapy Goal: INR 2-3 Warfarin Prior to Admission: Yes Warfarin MOTORIZED SQUAD SERGEANT Regimen: 5 mg daily Significant drug interactions: topical diclofenac MOTORIZED SQUAD SERGEANT, PRN acetaminophen, ancef postop X24h, levothyroxine, sucralfate [...] or if the warfarin goals change. Kiley Sandhu PharmD * Brief Op Note - Lauren Escudero MD - 01/02/2024 10:30 AM CDT [facility] Brief Operative Note Pre-operative diagnosis: Right knee [...] year old Date of Procedure: 01/02/2024 1st Small Wind Energy Installer: Milla Mcgregor PA-C - Assisting PREOPERATIVE DIAGNOSIS: [...] operating room in satisfactory condition. A skilled list of first job ideas was necessary for this procedure for assistance [...] Special Needs *htn, cad, cardiomyopathy, afib, svtach, [id number]: last dose 12/27/23Pt verified laterality daughter Carly [...] Escudero MD LAB - BLOOD ORDERABL ES Performing Organization Address City/[facility]/ZIP Co de Phone Number LABORATORY [facility] [address], [address] [place] [address], [facility] [phone] * (ABNORMAL) Hemoglobin (01/04/2024 7:27 AM CDT) Hemoglobin 9.2(L) 11.7 - 15.7 g/dL 01/04/2024 8:29 AM CDT LABORATORY Blood STRUCTURE OF LEFT HAND / Unknown Venipuncture / Unknown 01/04/2024 7:27 AM CDT 01/04/2024 8:23 AM CDT Lauren Escudero MD LAB - BLOOD ORDERABL ES Performing Organization Address [facility]/ZIP Co de Phone Number LABORATORY [facility] [address], [address] [address], [facility] [phone] * (ABNORMAL) Glucose (01/03/2024 7:03 AM CDT) Glucose 134(H) 70 - 99 mg/dL 01/04/2024 7:56 AM CDT LABORATORY Blood STRUCTURE OF LEFT UPPER LIMB / Unknown Venipuncture / Unknown 01/03/2024 7:03 AM CDT 01/03/2024 7:36 AM CDT Lauren Escudero MD LAB - BLOOD ORDERABL ES LABORATORY [facility] [address], [address] [place] [address], [facility] [phone] * (ABNORMAL) INR (01/03/2024 7:03 AM CDT) INR 1.19(H) 0.85 - 1.15 01/03/2024 7:50 AM CDT LABORATORY Blood STRUCTURE OF LEFT UPPER LIMB / Unknown Venipuncture / Unknown 01/03/2024 7:03 AM CDT 01/03/2024 7:36 AM CDT Lauren Escudero MD LAB - BLOOD ORDERABL ES LABORATORY [facility] [address], [address] [place] [address], [facility] [phone] * (ABNORMAL) Basic metabolic panel (01/03/2024 7:03 AM CDT) Sodium 131(L) 135 - 145 mmol/L 01/03/2024 8:06 AM [facility] Potassium 4.4 3.4 - 5.3 mmol/L 01/03/2024 8:06 AM [facility] Chloride 100 98 - 107 mmol/L 01/03/2024 8:06 AM [facility] Carbon Dioxide (CO2) 20(L) 22 - 29 mmol/L 01/03/2024 8:06 AM [facility] Anion Gap 11 7 - 15 mmol/L 01/03/2024 8:06 AM [facility] Urea Nitrogen 15.9 8.0 - 23.0 mg/dL 01/03/2024 8:06 AM T LABORATORY Creatinine 1.14(H) 0.51 - 0.95 mg/dL 01/03/2024 8:06 AM [facility] GFR Estimate 50(L) >60 mL/min/1.7 3m2 01/03/2024 8:06 AM [facility] Comment:eGFR calculated usin g 2020 CKD-EPI equation. Calcium 9.3 8.8 - 10.4 mg/dL 01/03/2024 8:06 AM [facility] Comment:Reference intervals for this test were [...] Torre MD LAB - BLOOD ORDERABL ES Performing Organization Address City/[facility]/ZIP Co de Phone Number LABORATORY [facility] [address], [address] [place] [address], [facility] [phone] * (ABNORMAL) Hemoglobin (01/03/2024 7:03 AM CDT) [facility] Hemoglobin 9.8(L) 11.7 - 15.7 g/dL 01/03/2024 7:41 AM CDT LABORATORY Blood STRUCTURE OF LEFT UPPER LIMB / Unknown Venipuncture / Unknown 01/03/2024 7:03 AM CDT 01/03/2024 7:36 AM CDT Lauren Escudero MD LAB - BLOOD ORDERABL ES Performing Organization Address City/[facility] Co de Phone Number LABORATORY [facility] [address], [address] [place] [address], [facility] [phone] * XR Knee Port Right 1/2 Views (01/02/2024 10:41 AM CDT) Anatomical Region Laterality Modality Knee, Right Knee Right Digital Radiogr aphy Impressions 01/02/2024 11:51 AM CDT IMPRESSION: Postoperative changes of a right total knee arthroplasty with patellar resurfacing. No fracture. JUSTINE BROWN MD SYSTEM ID: [id number] Narrative 01/02/2024 11:51 AM CDT XR KNEE PORT RIGHT 1/2 VIEWS 01/02/2024 10:41 AM HISTORY: Post-Op Total Knee COMPARISON: None. Procedure Note Justine Brown MD - 01/02/2024 XR KNEE PORT RIGHT 1/2 VIEWS 01/02/2024 10:41 AM HISTORY: Post-Op Total Knee COMPARISON: None. IMPRESSION: Postoperative changes of a right total knee arthroplasty with patellar resurfacing. No fracture. JUSTINE BROWN MD SYSTEM ID: [id number] Lauren Escudero MD IMG DIAGNOSTIC IMAGI NG ORDERABLES * Glucose (01/02/2024 6:29 AM CDT) Glucose 97 70 - 99 mg/dL 01/02/2024 7:01 AM CDT LABORATORY Patient Fasting > 8hrs? Yes 01/02/2024 7:01 AM CDT LABORATORY Blood STRUCTURE OF LEFT HAND / Unknown Venipuncture / Unknown 01/02/2024 6:29 AM CDT 01/02/2024 6:34 AM CDT Marti Wagner MD LAB - BLOOD ORDERABL ES LABORATORY [facility] [address], [address] [address], [facility] [phone] * INR (01/02/2024 6:29 AM CDT) INR 1.10 0.85 - 1.15 01/02/2024 6:48 AM CDT LABORATORY Blood STRUCTURE OF LEFT HAND / Unknown Venipuncture / Unknown 01/02/2024 6:29 AM CDT 01/02/2024 6:34 AM CDT Marti Wagner MD LAB - BLOOD ORDERABL ES LABORATORY [facility] [address], [address] [place] [address], [facility] [phone] * (ABNORMAL) Creatinine (01/02/2024 6:29 AM CDT) Creatinine 1.34(H) 0.51 - 0.95 mg/dL 01/02/2024 7:01 AM CDT LABORATORY GFR Estimate 41(L) >60 mL/min/1.7 3m2 01/02/2024 7:01 AM CDT LABORATORY Comment:eGFR calculated usin 2020 CKD-EPI equation. Blood STRUCTURE OF LEFT HAND / Unknown Venipuncture / Unknown 01/02/2024 6:29 AM CDT 01/02/2024 6:34 AM CDT Marti Wagner MD LAB - BLOOD ORDERABL ES LABORATORY [facility] [address], [address] [place] [address], [facility] [phone] * Potassium (01/02/2024 6:29 AM CDT) Potassium 4.0 3.4 - 5.3 mmol/L 01/02/2024 7:01 AM CDT LABORATORY Blood STRUCTURE OF LEFT HAND / Unknown Venipuncture / Unknown 01/02/2024 6:29 AM CDT 01/02/2024 6:34 AM CDT Marti Wagner MD LAB - BLOOD ORDERABL ES LABORATORY [facility] [address], [address] [place] [address], [facility] [phone] documented in this encounter Visit Diagnoses Diagnosis Status post total knee replacement, left- Primary Status post total knee replacement, left Status post total knee replacement, right documented in this encounter Administered Medications Inactive [...] $Given 01/03/2024 9:15 PM CDT 975 mg ceFAZolin (ANCEF) 2 g in 100 mL D5W intermittent infusion Routine, 2 g, Intravenous, EVERY 8 HOURS, First dose on Fri01/02/24 at 1530, For 2 doses, First post-op dose due 8 hours after intra-op dose, see eMAR., Indications: Perioperative Pharmacoprophylaxis $New Bag 01/03/2024 12:17 AM CDT 2 g 200 mL/hr $New Bag 01/02/2024 2:40 PM CDT 2 g 200 mL/hr fentaNYL (PF) (SUBLIMAZE) injection 50 mcg 50 mcg, Intravenous, EVERY 5 MIN PRN, [...] fentanyl (SUBLIMAZE) after administering HYDROmorphone (DILAUDID)., PACU $Given 01/02/2024 10:24 AM CDT 50 mcg $Given 01/02/2024 10:18 AM CDT 50 mcg gabapentin (NEURONTIN) capsule 100 mg 100 mg, [...] injection 0.2 mg 0.2 mg, Intravenous, EVERY 5 MIN PRN, moderate pain, Starting on Fri01/02/24 at 1016, Use FentaNYL (SUBLIMAZE) first if ordered. Maximum total cumulative dose NOT to exceed 2 mg. DO NOT revert back to fentanyl (SUBLIMAZE) after administering HYDROmorphone (DILAUDID). Notify Provider to assess for uncontrolled pain or analgesic side effects., PACU $Given 01/02/2024 1:00 PM CDT 0.2 mg $Given 01/02/2024 11:09 AM CDT 0.2 mg HYDROmorphone (DILAUDID) injection 0.2 mg 0.2 mg, Intravenous, EVERY 2 HOURS PRN, severe pain, Starting on Fri01/02/24 at 1340, IF patient unable to take oral pain medication or pain not controlled with oral analgesics. Hold IV PRN opioid dose for analgesic side effects. Notify provider to assess for uncontrolled pain or analgesic side effects. HYDROmorphone (DILAUDID) injection 0.4 mg 0.4 mg, Intravenous, EVERY 5 MIN PRN, severe pain, Starting on Fri01/02/24 at 1016, Use FentaNYL (SUBLIMAZE) first if ordered. Maximum total cumulative dose NOT to exceed 2 mg. DO NOT revert back to fentanyl (SUBLIMAZE) after administering HYDROmorphone (DILAUDID). Notify Provider to assess for uncontrolled pain or analgesic side effects., PACU $Given 01/02/2024 10:39 AM CDT 0.4 mg $Given 01/02/2024 10:32 AM CDT 0.4 mg hydrOXYzine HCl (ATARAX) tablet 10 mg 10 mg, Oral, EVERY 6 HOURS PRN, other, adjuvant pain, Starting on Fri01/02/24 at 1340 $Given 01/04/2024 5:3 9 AM CDT 10 mg $Given 01/03/2024 9:14 PM CDT 10 mg $Given 01/03/2024 8:53 AM CDT 10 mg lactated ringers infusion at 100 mL/hr, Intravenous, CONTINUOUS, Pre-procedure, Starting on Fri01/02/24 at 0600, Until Fri01/02/24 at 1009 $New Bag 01/02/2024 6:43 AM CDT 100 mL/hr lactated ringers infusion at 100 mL/hr, Intravenous, CONTINUOUS, Continue until IV catheter is weaned, PACU, Starting on Fri01/02/24 at 1030, Until Fri01/02/24 at 1327 Restarted 01/02/2024 10:21 AM CDT 100 mL/hr lactated ringers infusion at 100 mL/hr, Intravenous, CONTINUOUS, IF overnight stay, continue IV fluids until 0400 POD #1, then may saline lock if tolerating oral fluids. IF Day of Surgery Discharge, continue IV Fluids until one hour before discharge., Starting on Fri01/02/24 at 1400, Until Fri01/04/24 at 1010 $New Bag 01/03/2024 12:27 AM CDT 100 mL/hr Restarted 01/02/2024 2:45 PM CDT 100 mL/hr levothyroxine (SYNTHROID/LEVOTHROID) tablet 112 mcg 112 mcg, [...] $Given 01/03/2024 8:52 AM CDT 75 mg midazolam (VERSED) injection 1 mg 1 mg, Intravenous, PRE-OP/PRE-PROCEDURE, Starting on Fri01/02/24 at 0550, For 1 dose, In Pre Op for anxiety/sedation. IF patient receives midazolam (VERSED) place patient on continuous pulse oximetry PRE OP. This drug may cause significant respiratory depression. Monitor respiratory status and vital signs carefully for 1 hour after each dose., Pre-procedure $Given 01/02/2024 7:03 AM CDT 1 mg naloxone (NARCAN) injection 0.2 mg 0.2 [...] analgesic side effects. Hold while on IV ENGRAVING SUPERVISOR or with regular IV opioid dosing. $Given [...] $Given 01/03/2024 8:53 AM CDT 17 g pregabalin (LYRICA) capsule 150 mg 150 mg, Oral, ONCE, On Fri01/02/24 at 0600, For 1 dose, Given in preop, Pre-procedure $Given 01/02/2024 6:28 AM CDT 15 0 mg prochlorperazine (COMPAZINE) injection 5 mg 5 mg, [...] not resolved in 15-30 minutes, Notify provider. senna-docusate (SENOKOT-S/PERICOLACE) 8.6-50 MG per tablet 1 [...] $Given 01/03/2024 7:02 AM CDT 3 mLs spironolactone (ALDACTONE) tablet 25 mg 25 mg, Oral, DAILY, First dose on Fri01/03/24 at 1030 $Given 01/04/2024 8:36 AM CDT 25 mg $Given 01/03/2024 11:44 AM CDT 25 mg tranexamic acid (LYSTEDA) tablet 1,950 mg 1,950 mg, Oral, ONCE, On Fri01/02/24 at 0600, For 1 dose, Administer with a sip of water in PRE OP area 90 minutes PRIOR to leaving Pre-op area., Pre-procedure $Given 01/02/2024 6:29 AM CDT 1,950 mg warfarin ANTICOAGULANT (COUMADIN) tablet 10 mg 10 mg, Oral, ONCE AT 6PM, On Fri01/02/24 at 1800, For 1 dose $Given 01/02/2024 5:44 PM CDT 10 mg warfarin ANTICOAGULANT (COUMADIN) tablet 5 mg 5 mg, Oral, ONCE AT 6PM, On 01/03/24 at 1800, For 1 dose $Given 01/03/2024 6:04 PM CDT 5 mg warfarin ANTICOAGULANT (COUMADIN) tablet 5 mg 5 mg, Oral, ONCE AT 6PM, On 01/04/24 at 1800, For 1 dose documented in [...] 0730 ($Given - Provider: Delmy Roblero APRN OBSTETRIC ANAESTHETIST) gabapentin (NEURONTIN) capsule 100 mg 100 mg, [...] - Provider: Shey Piedra RN - Comment: RX=[id number]) 0836 ($Given - Provider: Shey Piedra RN) [...] 40 mg, Oral, DAILY, First dose on Fri01/03/24 at 1030, DO NOT CRUSH. 1144 ($Given - Provider: Shey Piedra RN) 0835 ($Given - Provider: Shey Piedra RN) polyethylene glycol (MIRALAX) Packet 17 g 17 g, Oral, DAILY, First dose on Fri01/03/24 at 0900, To prevent constipation. Mixed prescribed [...] mL (ORTHO ZULEYKA CUSTOM DOSE) (COMPLETED) INTRA-ARTICULAR, DOUBLE BASS PLAYER TO O.R., Starting on Fri01/02/24 at 0727, [...] for loose stools Hold for loose stools. 2100 ($Given - Provider: Charito Ledezma RN) 0853 ($Given - Provider: Shey Piedra RN)2114 ($Given - Provider: Charito Ledezma RN) 0836 [...] 10 mg, Oral, ONCE AT 6PM, On Fri01/02/24 at 1800, For 1 dose 1744 ($Given - Provider: Jeff Goldstein RN) warfarin ANTICOAGULANT (COUMADIN) tablet 5 mg (COMPLETED) 5 mg, Oral, ONCE AT 6PM, On Fri01/03/24 at 1800, For 1 dose 1804 ($Given [...] used when administering multiple Central Nervous System (EXERCISE RIDER) depressing meds within a short time frame. [...] (DILAUDID)., PACU 1018 ($Given - Provider: Scarlett Villanueva RN)1024 ($Given - Provider: Scarlett Villanueva RN) [...] at 1340 1613 ($Given - Provider: Jeff Goldstein, CHAPIS) 0853 ($Given - Provider: Shey Piedra RN)2114 ($Given - Provider: Charito Ledezma RN) 0539 ($Given - Provider: Charito Ledezma, CHAPIS) [...] analgesic side effects. Hold while on IV ENGRAVING SUPERVISOR or with regular IV opioid dosing. 1613 [...] analgesic side effects. Hold while on IV ENGRAVING SUPERVISOR or with regular IV opioid dosing. Or oxyCODONE (ROXICODONE) tablet 5 mgJump to med 5 mg, Oral, EVERY 4 HOURS PRN, severe pain, Starting on Fri01/02/24 at 1340, Hold oral PRN dose for analgesic side effects. Notify provider to assess for uncontrolled pain or analgesic side effects. Hold while on IV ENGRAVING SUPERVISOR or with regular IV opioid dosing. Group [...] documented as of this encounter Care Teams Pitting Machine Operator Relationship Specialty Start Date End Date Erika Flores PCP - General 08/12/11 documented as of this encounter
--- OUTSIDE RECORDS SUMMARY | 2024-01-31 08:48 | XMS_ITS | Encounter Summary ---
Author Organization [facility] Address [address] [facility] [address] Care Team Providers Care Component Inspector Name Role Phone Erika Benito Primary Care Provider [phone] Encounter Details Date Type Department Care Team (Latest Contact Info) Description 01/02/2024 Travel Social History Tobacco Use Types Packs/Day [...] Answer Date Recorded Do you have housing? (Housin g is defined as stable permanent housing and does not include staying ouside in a car, in a tent, in an abandoned building, in an overnight custodial, or couch-surfing.) No 01/02/2024 Are you worried [...] Josie Auguste documented as of this encounter Visit Diagnoses Not on filedocumented in this encounter Additional Health Concerns Active Problems Noted Date Diagnosed Date Total Joint Replacement Hip Pathway 07/29/2023 documented as of this encounter Care Teams Component Inspector Relationship Specialty Start Date End Date Erika Benito PCP - General 08/12/11 documented as of this encounter
--- OUTSIDE RECORDS SUMMARY | 2024-01-31 08:48 | XMS_ITS | Encounter Summary ---
Author Organization [facility] Address [address] [facility] [place] [address] Care Team Providers Care Nuclear Logging Engineer Name Role Phone Erika Benito Primary Care Provider [phone] Encounter Details Date Type Department Care Team (Late st Contact Info) Description 08/05/2023 MyC Medical Advice Initial Department Alexx Kathleen Social History Tobacco Use Types Packs/Day Years Used Date Smoking Tobacco: Never Alcohol Use Standard Drinks/Week Comments No 0 (1 standard drink = 0.6 oz pur e alcohol) Adolescent Education Answer Date Record ed Getting School Help Needed Not on file 02/01 Sex and Gender Information Value Date Recorded [...] documented as of this encounter Care Teams Nuclear Logging Engineer Relationship Specialty Start Date End Date Erika Benito PCP - General 08/12/11 documented as of this encounter
--- OUTSIDE RECORDS SUMMARY | 2024-01-31 08:48 | XMS_ITS | Encounter Summary ---
Author Organization [facility] Address [address] [place] [address]. [place] [address] Care Team Providers Care Resistor Tester Name Role Phone Erika Benito Primary Care Provider [phone] Encounter Details Date Type Department Care Team (Late st Contact Info) Description 07/25/2020 Documentation Only INTERFACED REPORT Unknown, Provider Social History Tobacco Use Types Packs/Day Years Used Date Smoking Tobacco: Never Alcohol Use Standard Drinks/Week Comments No 0 (1 standard drink = 0.6 oz pur e alcohol) Sex and Gender Information Value Date Recorded Sex Assigned at Not on file Gender Identity Not on file Sexual Orientation Not on file documented as of this encounter Plan of Treatment Not on file documented as of this encounter Visit Diagnoses Not on filedocumented in this encounter Care Teams Resistor Tester Relationship Specialty Start Date End Date Erika Benito PCP - General 08/12/11 documented as of this encounter
--- OUTSIDE RECORDS SUMMARY | 2024-01-31 08:48 | XMS_ITS | Clinical Summary ---
Author Organization [facility] Address [address] [facility] [place] [address] Care Team Providers Care Digital Media Buyer Name Role Phone Erika Benito Primary Care Provider [phone] Allergies Active Allergy Reactions Criticality Noted Date Comments Amlodipine Swelling High 06/01/2014 Edema Apixaban High 09/04/2022 Azithromycin Dihydrate Itching 04/11/2011 Carvedilol Itching Medium 10/15/2022 Itching, thick tongue, sore joints after 2 doses relieved with benadryl. Chlorthalidone Nausea,GI Disturbance High 06/01/2014 Ciprofloxacin Hives 02/02/2021 Dabigatran Itching 12/09/2021 Redness Doxycycline Itching Low 09/09/2016 Started after 3 doses, improved after discontinuing Esomeprazole Itching 01/13/2012 Hydralazine Dizziness 07/10/2017 Nifedipine Dizziness 08/19/2023 Olmesartan Itching 05/31/2014 Feet swelling Penicillins Itching,Swelling 07/03/2012 Edema Prednisone 05/22/2021 SVT Rivaroxaban Angioedema High 12/09/2021 Sulfa Antibiotics Rash Low 07/03/2012 Medications Medication Sig Dispensed Refills Start Date End Date Status MECLIZINE HCL Take 25-50 mg by mouth as needed. Active metoprolol succinate ER (TOPROL XL) 50 MG 24 hr tablet Take 75 mg by mouth 2 times daily 1.5 X 50MG= 75MG BID Active diclofenac (VOLTAREN) 1 % topical gel Apply topically 4 times daily Active levothyroxine (SYNTHROID/LEVOTH ROID) 112 MCG tablet Take 112 mcg by mouth daily Active pantoprazole (PROTONIX) 40 MG EC tablet Take 40 mg by mouth daily Active sucralfate (CARAFATE) 1 GM tablet Take 1 g by mouth 2 times daily as needed. Active SUMAtriptan (IMITREX) 25 MG tablet Take 25 mg by mouth at onset of headache for migraine Active metoprolol tartrate (LOPRESSOR) 25 MG tablet Take 25 mg by mouth 2 times daily Active acetaminophen (TYLENOL) 325 MG tabletIndications :Status post total knee replacement, left Take 3 tablets (975 mg) by mouth every 6 hours as needed for mild pain 100 tablet 4 Active warfarin ANTICOAGULANT (COUMADIN) 5 MG tablet Take 1 tablet (5 mg) by mouth daily 4 Active losartan (COZAAR) 100 MG tabletIndications :Status post total knee replacement, left Take 1 tablet (100 mg) by mouth daily Hold for TOP < 110 4 Active ALPRAZolam (XANAX XR) 0.5 MG 24 hr tablet Take 0.25 mg by mouth every evening as needed for anxiety. (0.5 x 0.5 mg = 0.25 mg) Active gabapentin (NEURONTIN) 100 MG capsule Take 100 mg by mouth every evening. Active spironolactone (ALDACTONE) 25 MG tablet Take 25 mg by mouth daily. Active senna-docusate (SENOKOT-S/OLAF LACE) 8.6-50 MG tabletIndications :Status post total knee replacement, left Take 1-2 tablets by mouth 2 times daily. Take while on oral narcotics to prevent or treat constipation. 30 tablet 4 Active acetaminophen (TYLENOL) 325 MG tabletIndications :Status post total knee replacement, left Take 3 tablets (975 mg) by mouth every 6 hours as needed for mild pain. 100 tablet 4 Active oxyCODONE (ROXICODONE) 5 MG tabletIndications :Status post total knee replacement, left Take 1 tablet (5 mg) by mouth every 6 hours as needed for pain. May take half to one tablet every 4 to 6 hours. Max 6 tabs in one day. 30 tablet 4 Active enoxaparin ANTICOAGULANT (LOVENOX) 40 MG/0.4ML syringeIndication s:Status post total knee replacement, left Inject 0.4 mLs (40 mg) subcutaneously every 24 hours for 2 doses. 0.8 mL 4 024 oxyCODONE (ROXICODONE) 5 MG tabletIndications :Status post total knee replacement, left Take 1 tablet (5 mg) by mouth every 6 hours as needed for pain. May take half to one tablet every 4 to 6 hours. Max 6 tabs in one day. 30 tablet 4 024 Discontinued Active Problems Problem Noted Date Diagnosed Date Status post total knee replacement, right 2023 Status post total knee replacement, left 024 Encounters Date Type Department Care Team Description 01/02/2024 7:30 AM CDT - 01/02/2024 10:40 AM CDT Surgery [facility] [address], [address] [place] [address] Kirby Escudero MD RIGHT TOTAL KNEE ARTHROPLASTY 01/02/2024 7:28 AM CDT Anesthesia Event [facility] [address], [address] [place] [address] Marti Wagner MD 01/02/2024 5:23 AM CDT - 01/04/2024 3:13 PM CDT Hospital Encounter [facility] [address] [place] [address] Kirby Escudero MD Status post total knee replacement, left (Primary Dx) Discharge Disposition: Home or Self Care 01/02/2024 Travel from Last 3 Months Immunizations Name Administration Dates Next Due COVID-19 Monovalent 18+ (Moderna) 07/24/2020,04/2020 Social History Tobacco Use Types Packs/Day Years [...] on file Sexual Orientation Not on file Last Filed Vital Signs Vital Sign Reading [...] Mass Index 27.38 01/02/2024 6:35 AM CDT Plan of Treatment Health Maintenance Due Date Last Done Comments ANNUAL REVIEW OF HM ORDERS 1949 CT COLONOGRAPHY 1950 DEXA 1949 FIT 1949 FLEX SIG 1949 sDNA (Cologuard) 1949 HEPATITIS C SCREENING 1967 LIPID 1989 RSV VACCINE (1 - Risk 60-74 years 1-dose series) 2009 ZOSTER IMMUNIZATION (2 of 3) 03/23/2012 01/27/2012, 10/14/2011 FALL RISK ASSESSMENT 2014 MEDICARE ANNUAL WELLNESS VISIT 07/10/2021 07/10/2020 PHQ-2 (once per calendar year) 2023 COVID-19 Vaccine ( season) 2023 05/12/2023, 03/14/2022, 03/07/2021, Additional history exists INFLUENZA VACCINE (#1) 2023 , 02/07/2022, 02/12/2021, Additional history exists TSH W/FREE T4 REFLEX 08/22/2024 08/23/2023 DTAP/TDAP/TD IMMUNIZATION (3 - Td or Tdap) 01/04/2025 01/04/2015, 10/03/2005, 10/02/2005, Additional history exists MAMMO SCREENING 09/29/2025 09/30/2023, 052 05/2022, 09/10/2021, Additional history exists GLUCOSE 01/02/2027 01/03/2024, 09/0 10/2023, 01/02/2024, Additional history exists ADVANCE CARE PLANNING 09/07/2028 09/08/2023 COLONOSCOPY 05/19/2033 05/19/2023 COLORECTAL CANCER SCREENING 05/19/2033 Pneumococcal Vaccine: 65+ Years Completed 03/12/2017, 02/07/2017, 01/24/2015 HPV IMMUNIZATION Aged Out No longer e ligible based on patient's age to complete this topic MENINGITIS IMMUNIZATION Aged Out No l onger eligible based on patient's age to complete this topic RSV MONOCLONAL ANTIBODY Aged Out No l onger eligible based on patient's age to complete this topic Goals Goal Patient Goal Type Associated Problems Recent Progress Patient-Stated? Author Total Joint Replacement Hip Pathway Care Plan Total Joint Replacement Hip Pathway No Josie Auguste [employer] Implanted Type Area Wood Filler Device Identifier Shelf Expiration Date Model / Serial / Lot Bone Cement Radiopaque Simplex Hv Full Dose 6194-1-001 - [id number] Implanted:Qty : 2 on 08/21/2023 by Kirby Escudero MD at [facility] Cement, Bone Left: Knee [employer] 07/26/2024 [id number]--[id number] / / [id number] Cement Bn Smplx Hv Full Dose - [id number] Implanted:Qty : 2 on 01/02/2024 by Kirby Escudero MD at [facility] Cement, Bone Right: Knee [employer] [id number] 07/26/2024 [id number] / / [id number] Imp Tib Base Jj Attune Fx Br Sys Janusz Sz3 1506-70-003 - [id number] Implanted:Qty : 1 on 08/21/2023 by Kirby Escudero MD at [facility] Total Joint Componen t/Insert Left: Knee [employer] [id number] 02/25/2033 [id number] / / [id number] Imp Patella Jj Attune Dome 35mm [id number] - [id number] Implanted:Qty : 1 on 08/21/2023 by Kirby Escudero MD at [facility] Total Joint Componen t/Insert Left: Knee [employer] [id number] 04/27/2028 [id number] / / [id number] Imp Comp Fem Jj Attune Cr Lt Nrw Janusz Sz5 [id number] - [id number] Implanted:Qty : 1 on 08/21/2023 by Kirby Escudero MD at [facility] Total Joint Componen t/Insert Left: Knee [employer] [id number] 02/25/2033 [id number] / / [id number] Insert Tib 5 6mm Kn Lt Crcte Rtn Stab Attune [id number] - [id number] Implanted:Qty : 1 on 08/21/2023 by Kirby Escudero MD at [facility] Total Joint Componen t/Insert Left: Knee [employer] [id number] 06/26/2031 [id number] / / [id number] Insert Tib 6 6mm Kn Rt Crcte Rtn Liban Stab Attune [id number] - [id number] Implanted:Qty : 1 on 01/02/2024 by Kirby Escudero MD at [facility] Total Joint Componen t/Insert Right: Knee [employer] [id number] 03/27/2031 [id number] / / [id number] Imp Patella Jj Attune Dome 35mm [id number] - [id number] Implanted:Qty : 1 on 01/02/2024 by Kirby Escudero MD at [facility] Total Joint Componen t/Insert Right: Knee [employer] [id number] 08/26/2031 [id number] / / [id number] Imp Tib Base Jj Attune Fx Br Sys Janusz Sz4 [id number] - [id number] Implanted:Qty : 1 on 01/02/2024 by Kirby Escudero MD at [facility] Total Joint Componen t/Insert Right: Knee [employer] [id number] 05/28/2033 [id number] / / [id number] Imp Comp Fem Jj Attune Cr Rt Nrw Janusz Sz6 [id number] - [id number] Implanted:Qty : 1 on 01/02/2024 by Kirby Escudero MD at [facility] Total Joint Componen t/Insert Right: Knee [employer] [id number] 06/25/2033 [id number] / / [id number] Procedures Procedure Name Priority Date/Time Associated Diagnosis Comments INR Routine 01/04/2024 7:27 AM CDT HEMOGLOBIN Routine 01/04/2024 7:27 AM CDT GLUCOSE Add-On 01/03/2024 7:03 AM CDT BASIC METABOLIC PANEL Routine 01/03/2024 7:03 AM CDT INR Routine 01/03/2024 7:03 AM CDT HEMOGLOBIN Routine 01/03/2024 7:03 AM CDT XR KNEE PORT RIGHT 1/2 VIEWS STAT 01/02/2024 10:41 AM CDT ANE SPINAL BLOCK FORM Routine 01/02/2024 8:35 AM CDT ARTHROPLASTY, KNEE, TOTAL 01/02/2024 7:28 AM CDT Degenerative joint disease of right knee Special Needs *htn, cad, cardiomyopathy, afib, svtach, [id number]: last dose 12/27/23Pt verified laterality daughter Carly will be caregiverREQ 120 MIN ANE PERIPHERAL/PARAVE TEBRAL BLOCK Routine 01/02/2024 7:12 AM CDT GLUCOSE STAT 01/02/2024 6:29 AM CDT INR STAT 01/02/2024 6:29 AM CDT CREATININE STAT 01/02/2024 6:29 AM CDT POTASSIUM STAT 01/02/2024 6:29 AM CDT MA SCREENING BILATERAL W/ HAKAN Routine 09/30/2023 10:12 AM CDT Visit for screening mammogram TSH Add-On 08/23/2023 8:08 AM CDT from Last 3 Months or Most Recently Relevant to Health Maintenance Results * (ABNORMAL) INR (01/04/2024 7:27 AM CDT) Only the most recent of3 resultswithin the time period is included. INR 1.50(H) 0.85 - 1.15 01/04/2024 8:40 AM CDT LABORATORY Blood STRUCTURE OF LEFT HAND / Unknown Venipuncture / Unknown 01/04/2024 7:27 AM CDT 01/04/2024 8:23 AM CDT Kirby Escudero MD LAB - BLOOD ORDERABL ES LABORATORY [facility] [address], [address] [place] [address], [facility] [phone] * (ABNORMAL) Hemoglobin (01/04/2024 7:27 AM CDT) Only the most recent of2 resultswithin the time period is included. Hemoglobin 9.2(L) 11.7 - 15.7 g/dL 01/04/2024 8:29 AM CDT LABORATORY Blood STRUCTURE OF LEFT HAND / Unknown Venipuncture / Unknown 01/04/2024 7:27 AM CDT 01/04/2024 8:23 AM CDT Kirby Escudero MD LAB - BLOOD ORDERABL ES [facility] [address], [address] [place] [address], [facility] [phone] * (ABNORMAL) Glucose (01/03/2024 7:03 AM CDT) Only the most recent of2 resultswithin the time period is included. Glucose 134(H) 70 - 99 mg/dL 01/04/2024 7:56 AM CDT LABORATORY Blood STRUCTURE OF LEFT UPPER LIMB / Unknown Venipuncture / Unknown 01/03/2024 7:03 AM CDT 01/03/2024 7:36 AM CDT Kirby Escudero MD LAB - BLOOD ORDERABL ES LABORATORY [facility] [address], [address] [place] [address], [facility] [phone] * (ABNORMAL) Basic metabolic panel (01/03/2024 7:03 AM CDT) Sodium 131(L) 135 - 145 mmol/L 01/03/2024 8:06 AM [facility] Potassium 4.4 3.4 - 5.3 mmol/L 01/03/2024 8:06 AM [facility] Chloride 100 98 - 107 mmol/L 01/03/2024 8:06 AM [facility] Carbon Dioxide (CO2) 20(L) 22 - 29 mmol/L 01/03/2024 8:06 AM [facility] Anion Gap 11 7 - 15 mmol/L 01/03/2024 8:06 AM T LABORATORY Urea Nitrogen 15.9 8.0 - 23.0 mg/dL 01/03/2024 8:06 AM T LABORATORY Creatinine 1.14(H) 0.51 - 0.95 mg/dL 01/03/2024 8:06 AM T LABORATORY GFR Estimate 50(L) >60 mL/min/1.7 3m2 01/03/2024 8:06 AM T LABORATORY Comment:eGFR calculated usin 2020 CKD-EPI equation. Calcium 9.3 8.8 - 10.4 mg/dL 01/03/2024 8:06 AM [facility] Comment:Reference intervals for this test were updated on 11/11/2023 to reflect our healthy population more accurately. There may be differences in the flagging of prior results with similar values performed with this method. Those prior results can be interpreted in the context of the updated reference intervals. Glucose 134(H) 70 - 99 mg/dL 01/03/2024 8:06 AM T LABORATORY Blood STRUCTURE OF LEFT UPPER LIMB / Unknown Venipuncture / Unknown 01/03/2024 7:03 AM CDT 01/03/2024 7:36 AM CDT Aries De La Torre MD LAB - BLOOD ORDERABL ES LABORATORY [facility] [address], [address] [place] [address], [facility] [phone] * XR Knee Port Right 1/2 Views (01/02/2024 10:41 AM CDT) Anatomical Region Laterality Modality Knee, Right Knee Right Digital Radiogr aphy Impressions 01/02/2024 11:51 AM CDT IMPRESSION: Postoperative changes of a right total knee arthroplasty with patellar resurfacing. No fracture. JUSTINE BROWN MD SYSTEM ID: ??[id number] Narrative 01/02/2024 11:51 AM CDT XR KNEE PORT RIGHT 1/2 VIEWS 01/02/2024 10:41 AM HISTORY: Post-Op Total Knee COMPARISON: None. Procedure Note Justine Brown MD - 01/02/2024 XR KNEE PORT RIGHT 1/2 VIEWS 01/02/2024 10:41 AM HISTORY: Post-Op Total Knee COMPARISON: None. IMPRESSION: Postoperative changes of a right total knee arthroplasty with patellar resurfacing. No fracture. JUSTINE BROWN MD SYSTEM ID: [id number] Kirby Escudero MD IMG DIAGNOSTIC IMAGI NG ORDERABLES * Spinal Block (01/02/2024 8:35 AM CDT) [...] 1.6 mL - 01/02/2024 7:36:00 AM FOR [facility] ([facility]) ONLY: ?? Pain Team Contact information: please page the Pain Team Via [employer]. Search Pain. During daytime hours, please page the attending first. At night please page the resident first. Marti Wagner MD [place] ANESTHESIA * Peripheral/Paravertebral Block (01/02/2024 7:12 AM [...] nor qualified to perform this procedure. FOR [facility] ([facility]) ONLY: ?? Pain Team Contact information: please page the Pain Team Via [email or web address]. Search Pain. During daytime hours, please page the attending first. At night please page the resident first. Marti Wagner MD [place] ANESTHESIA * Potassium (01/02/2024 6:29 AM CDT) Potassium 4.0 3.4 - 5.3 mmol/L 01/02/2024 7:01 AM CDT LABORATORY Blood STRUCTURE OF LEFT HAND / Unknown Venipuncture / Unknown 01/02/2024 6:29 AM CDT 01/02/2024 6:34 AM CDT Marti Wagner MD LAB - BLOOD ORDERABL ES LABORATORY [facility] [address], [address] [place] [address], [place] [phone] * (ABNORMAL) Creatinine (01/02/2024 6:29 AM CDT) Creatinine 1.34(H) 0.51 - 0.95 mg/dL 01/02/2024 7:01 AM CDT LABORATORY GFR Estimate 41(L) >60 mL/min/1.7 3m2 01/02/2024 7:01 AM CDT LABORATORY Comment:eGFR calculated usin 2020 CKD-EPI equation. Blood STRUCTURE OF LEFT HAND / Unknown Venipuncture / Unknown 01/02/2024 6:29 AM CDT 01/02/2024 6:34 AM CDT Marti Wagner MD LAB - BLOOD ORDERABL ES LABORATORY [facility] [address], [address] [place] [address], [place] [phone] * MA Screen Bilateral w/Hakan (09/30/2023 10:12 AM CDT) Anatomical Region Laterality Modality Breast Bilateral Mammography Impressions 09/30/2023 1:34 PM CDT IMPRESSION: ACR BI-RADS Category 1: Negative BREAST CANCER SCREENING RECOMMENDATION: Routine yearly mammography beginning at age 40 or as discussed with your provider. The results and recommendations of this examination will be communicated to the patient. Hermelindo Peacock MD Narrative 09/30/2023 1:34 PM CDT BILATERAL FULL FIELD DIGITAL SCREENING MAMMOGRAM WITH TOMOSYNTHESIS Performed on: 09/30/23 Compared to: 09/16/2022, 09/10/2021, and 08/31/2020 Technique: ??This study was evaluated with the assistance of Computer-Aided Detection. ??Breast Tomosynthesis was used in interpretation. Findings: The breasts are heterogeneously dense, which may obscure small masses. ??There is no radiographic evidence of malignancy. Theodore Murillo MD IMG MAMMOGRAPHY ORDERABLES * TSH (08/23/2023 8:08 AM CDT) TSH 1.26 0.30 - 4.20 uIU/mL 08/23/2023 1:33 PM CDT LABORATORY Blood STRUCTURE OF RIGHT UPPER LIMB / Unknown Venipuncture / Unknown 08/23/2023 8:08 AM CDT 08/23/2023 8:40 AM CDT Tracy Garcia MD LAB - BLOOD ORDERABL ES LABORATORY [facility] 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 Advance Directives and Living Will 09/08/2023 Health Care Directiv e 09/05/2022 * Full Code (Latest Code Status on File) Date Activated Date Inactivated Comments 01/02/2024 1:40 PM 01/04/2024 5:14 PM All basic and advanced life-sustaining interventions are performed as appropriate Question Answer Comments Code status determined by: Unable to det ermine; FULL CODE until documents or legal decision maker available * Full Code Date Activated Date Inactivated Comments 08/21/2023 11:43 AM 08/23/2023 7:39 PM All basic a nd advanced life-sustaining interventions are performed as appropriate Question Answer Comments Code status determined by: Unable to det ermine; FULL CODE until documents or legal decision maker available Healthcare Agents on File Name Relationship Healthcare Agent Relationshi p Communication Carly Muller Daughter Health Care Agent Kris Drew Son [facility] Ca re Agent Care Teams Digital Media Buyer Relationship Specialty Start Date End Date Erika Benito PCP - General 08/12/11
--- OUTSIDE RECORDS SUMMARY | 2024-01-31 08:48 | XMS_ITS | Referral Summary ---
Author Organization [facility] Address [address] [place] [address] Care Team Providers Care Photolithographer Name Role Phone Erika Benito Primary Care Provider [phone] Encounters Date Type Department Care Team Description 01/02/2024 5:23 AM CDT - 01/04/2024 3:13 PM CDT Hospital Encounter [facility] [address] [phone] Kirby Escudero MD Status post total knee replacement, left (Primary Dx) Discharge Disposition: Home or Self Care 01/02/2024 Travel 01/02/2024 7:30 AM CDT - 01/02/2024 10:40 AM CDT Surgery [facility] [address] [place] [phone] Kirby Escudero MD RIGHT TOTAL KNEE ARTHROPLASTY 01/02/2024 7:28 AM CDT Anesthesia Event [facility] [address] [place] [phone] Marti Wagner MD from Last 3 Months Allergies Active Allergy Reactions Criticality Noted Date [...] Status post total knee replacement, left 024 Immunizations Name Administration Dates Next Due COVID-19 [...] in an abandoned building, in an overnight half-way, or couch-surfing.) No 01/02/2024 Are you worried [...] 01/02/2024 6:35 AM CDT Plan of Treatment Not on file Goals Goal Patient Goal Type Associated Problems Recent Progress Patient-Stated? Author Total Joint Replacement Hip Pathway Care Plan Total Joint Replacement Hip Pathway No [employer] Implanted Type Area Engineering [employer] Programmer Device Identifier Shelf Expiration Date Model / Serial / Lot Bone Cement Radiopaque Simplex Hv Full Dose 6194-1-001 - [id number] Implanted:Qty : 2 on 08/21/2023 by Kirby Escudero MD at [facility] Cement, Bone Left: Knee [employer] 07/26/2024 6194-1-001 / / [id number] Cement Bn Smplx Hv Full Dose - [id number] Implanted:Qty : 2 on 01/02/2024 by Kirby Escudero MD at [facility] Cement, Bone Right: Knee [employer] [id number] 07/26/2024 6194-1-001 / / [id number] Imp Tib Base Jj Attune Fx Br Sys Janusz Sz3 1506-70-003 - [id number] Implanted:Qty : 1 on 08/21/2023 by Kirby Escudero MD at [facility] Total Joint Componen t/Insert Left: Knee [employer] [id number] 02/25/2033 [id number] / / [id number] Imp Patella Jj Attune Dome 35mm [id number] - [id number] Implanted:Qty : 1 on 08/21/2023 by Kirby Escudero MD at [facility] Total Joint Componen t/Insert Left: Knee [employer] [id number] 04/27/2028 [id number] / / [id number] Imp Comp Fem Jj Attune Cr Lt Nrw Janusz Sz5 [id number] - [id number] Implanted:Qty : 1 on 08/21/2023 by Kirby Escudero MD at [facility] Total Joint Componen t/Insert Left: Knee [employer] [id number] 02/25/2033 [id number] / / [id number] Insert Tib 5 6mm Kn Lt Crcte Rtn Md Stab Attune [id number] - [id number] Implanted:Qty : 1 on 08/21/2023 by Kirby Escudero MD at [facility] Total Joint Componen t/Insert Left: Knee [employer] [id number] 06/26/2031 [id number] / / [id number] Insert Tib 6 6mm Kn Rt Crcte Rtn Md Stab Attune [id number] - [id number] Implanted:Qty : 1 on 01/02/2024 by Kirby Escudero MD at [facility] Total Joint Componen t/Insert Right: Knee [employer] [id number] 03/27/2031 [id number] / / [id number] Imp Patella Jj Attune Dome 35mm [id number] - [id number] Implanted:Qty : 1 on 01/02/2024 by Kirby Escudero MD at [facility] Total Joint Componen t/Insert Right: Knee [employer] [id number] 08/26/2031 [id number] / / [id number] Imp Tib Base Jj Attune Fx Br Sys Janusz Sz4 [id number] - [id number] Implanted:Qty : 1 on 01/02/2024 by Kirby Escudero MD at [facility] Total Joint Componen t/Insert Right: Knee [employer] [id number] 05/28/2033 [id number] / / [id number] Imp Comp Fem Jj Attune Cr Rt Nrw Janusz Sz6 [id number] - [id number] Implanted:Qty : 1 on 01/02/2024 by Kirby Escudero MD at [facility] Total Joint Componen t/Insert Right: Knee [employer] [id number] 06/25/2033 [id number] / / [id number] Procedures Procedure Name Priority Date/Time Associated Diagnosis [...] Special Needs *htn, cad, cardiomyopathy, afib, svtach, w3ypo-qryuvwqq: last dose 12/27/23Pt verified laterality daughter Carly [...] - BLOOD ORDERABL ES Performing Organization Address City/[facility] Co de Phone Number LABORATORY [facility] [address], [address] [address], [facility] [phone] * (ABNORMAL) Hemoglobin (01/04/2024 7:27 AM CDT) Only the most recent of2 resultswithin the time period is included. Hemoglobin 9.2(L) 11.7 - 15.7 g/dL 01/04/2024 8:29 AM CDT LABORATORY Blood STRUCTURE OF LEFT HAND / Unknown Venipuncture / Unknown 01/04/2024 7:27 AM CDT 01/04/2024 8:23 AM CDT Kirby Escudero MD LAB - BLOOD ORDERABL ES Performing Organization Address City/[facility]/ZIP Co de Phone Number [facility] [address], [address] [place] [address], [facility] [phone] * (ABNORMAL) Glucose (01/03/2024 7:03 AM CDT) Only the most recent of2 resultswithin the time period is included. Glucose 134(H) 70 - 99 mg/dL 01/04/2024 7:56 AM CDT [facility] LABORATORY Blood STRUCTURE OF LEFT UPPER LIMB / Unknown Venipuncture / Unknown 01/03/2024 7:03 AM CDT 01/03/2024 7:36 AM CDT Kirby Escudero MD LAB - BLOOD ORDERABL ES LABORATORY [facility] [address], [address] [place] [address], [facility] [phone] * (ABNORMAL) Basic metabolic panel (01/03/2024 7:03 AM CDT) Sodium 131(L) 135 - 145 mmol/L 01/03/2024 8:06 AM [facility] Potassium 4.4 3.4 - 5.3 mmol/L 01/03/2024 8:06 AM [facility] Chloride 100 98 - 107 mmol/L 01/03/2024 8:06 AM [facility] Carbon Dioxide (CO2) 20(L) 22 - 29 mmol/L 01/03/2024 8:06 AM [facility] Anion Gap 11 7 - 15 mmol/L 01/03/2024 8:06 AM [facility] Urea Nitrogen 15.9 8.0 - 23.0 mg/dL 01/03/2024 8:06 AM [facility] Creatinine 1.14(H) 0.51 - 0.95 mg/dL 01/03/2024 8:06 AM [facility] GFR Estimate 50(L) >60 mL/min/1.7 3m2 01/03/2024 8:06 AM [facility] Comment:eGFR calculated us2020 CKD-EPI equation. Calcium 9.3 8.8 - 10.4 mg/dL 01/03/2024 8:06 AM [facility] Comment:Reference intervals for this test were [...] MD LAB - BLOOD ORDERABL ES LABORATORY [facility] [address], [address] [place] [address], [facility] [phone] * XR Knee Port Right 1/2 Views (01/02/2024 10:41 AM CDT) Anatomical Region Laterality Modality Knee, Right Knee Right Digital Radiogr aphy Impressions 01/02/2024 11:51 AM CDT IMPRESSION: Postoperative changes of a right total knee arthroplasty with patellar resurfacing. No fracture. JUSTINE BROWN MD SYSTEM ID: [id number] Narrative 01/02/2024 11:51 AM CDT XR KNEE PORT RIGHT 1/2 VIEWS 01/02/2024 10:41 AM HISTORY: Post-Op Total Knee COMPARISON: None. Procedure Note Justine Brown MD - 01/02/2024 XR KNEE PORT RIGHT 1/2 VIEWS 01/02/2024 10:41 AM HISTORY: Post-Op Total Knee COMPARISON: None. IMPRESSION: Postoperative changes of a right total knee arthroplasty with patellar resurfacing. No fracture. JUSTINE BROWN MD SYSTEM ID: [id number] Kirby Escudero MD IMG DIAGNOSTIC IMAGI NG [...] 1.6 mL - 01/02/2024 7:36:00 AM FOR [facility] ([facility]) ONLY: ?? Pain Team Contact information: please page the Pain Team Via [employer]. Search Pain. During daytime hours, please page the attending first. At night please page the resident first. Marti Wagner MD [place] ANESTHESIA * Peripheral/Paravertebral Block (01/02/2024 7:12 AM [...] nor qualified to perform this procedure. FOR [facility]) ONLY: ?? Pain Team Contact information: please page the Pain Team Via [employer]. Search Pain. During daytime hours, please page the attending first. At night please page the resident first. Marti Wagner MD AR ANESTHESIA * Potassium (01/02/2024 6:29 AM CDT) Potassium 4.0 3.4 - 5.3 mmol/L 01/02/2024 7:01 AM CDT LABORATORY Blood STRUCTURE OF LEFT HAND / Unknown Venipuncture / Unknown 01/02/2024 6:29 AM CDT 01/02/2024 6:34 AM CDT Marti Wagner MD LAB - BLOOD ORDERABL ES LABORATORY [facility] [address], [address] [place] [address], [facility] [phone] * (ABNORMAL) Creatinine (01/02/2024 6:29 AM CDT) Creatinine 1.34(H) 0.51 - 0.95 mg/dL 01/02/2024 7:01 AM CDT LABORATORY GFR Estimate 41(L) >60 mL/min/1.7 3m2 01/02/2024 7:01 AM CDT LABORATORY Comment:eGFR calculated usin 2020 CKD-EPI equation. Blood STRUCTURE OF LEFT HAND / Unknown Venipuncture / Unknown 01/02/2024 6:29 AM CDT 01/02/2024 6:34 AM CDT Marti Wagner MD LAB - BLOOD ORDERABL ES LABORATORY [facility] [address], [address] [place] [address], [place] [phone] * MA Screen Bilateral w/Hakan (09/30/2023 10:12 [...] MD LAB - BLOOD ORDERABL ES LABORATORY [facility] [address], [address] [place] [address], [facility] from Last 3 Months or Most Recently Relevant to Health Maintenance Additional Health Concerns Active Problems Noted Date Diagnosed Date Total Joint Replacement Hip Pathway 07/29/2023 Advance Directives For more information, please contact: [phone] Documents on File Type Date Recorded Patient Custom Miller Expl anation Advance Directives and Living Will [...] Health Care Agent Kris Drew Son [facility] [place] re Agent Care Teams Photolithographer Relationship Specialty Start Date End Date Erika Benito PCP - General 08/12/11
[2024-01-31] MEDS: METOCLOPRAMIDE HCL 5 MG/ML INJ 10 MG IVP (08:49)
--- OUTSIDE RECORDS SUMMARY | 2024-01-31 08:49 | XMS_ITS | Clinical Summary ---
Author Organization [facility] Address [place], [place] [address] Care Team Providers Care Relay Motorman Name Role Phone Radha Trinidad MD Unavailable [phone] Erika Benito MD Primary Care Provide r Gerald Perez MD Unavailable Allergies Active Allergy Reactions Criticality Noted Date Comments Amlodipine Edema High 06/01/2014 Apixaban Other - Describe In Comment Field High 09/04/2022 Olmesartan Itching 05/31/2014 Feet swelling Carvedilol Itching Medium 10/15/2022 Itching, thick tongue, sore joints after 2 doses relieved with benadryl. Ciprofloxacin Hives 02/02/2021 Dabigatran Etexilate Itching 12/09/2021 Dabigatran Etexilate Mesylate Itching 12/09/2021 Other Reaction(s): redness and itching Doxycycline Itching Low 09/09/2016 Esomeprazole Itching 01/13/2012 Hydralazine Dizziness 07/10/2017 Chlorthalidone Stomach Upset High 06/01/2014 Nifedipine Dizziness 06/24/2019 Penicillins Itching,Edema 10/23/2006 Prednisone Tachycardia 05/22/2021 SVT Rivaroxaban Angioedema High 12/09/2021 Sulfa (Sulfonamide Antibiotics) Rash Low 08/26/2007 Azithromycin Itching 04/11/2011 Medications Medication Sig Dispensed Refills Start Date End Date Status sucralfate (CARAFATE) 1 gram tabletIndications:Ch ronic GERD TAKE ONE TABLET BY MOUTH TWICE DAILY NEEDED 60 Tablet 3 2 Active acetaminophen (Tylenol Extra Strength) 500 mg tablet Take 1 Tablet (500 mg) by mouth every 6 hours if needed. Max acetaminophen dose: 4000mg in 24 hrs. 0 3 Active SUMAtriptan (IMITREX) 25 mg tabletIndications:Mi graine without status migrainosus, not intractable, unspecified migraine type Take 1 Tablet (25 mg) by mouth 2 times daily if needed for Migraine. Give at minimum 2hrs apart. Max Dose: 200mg per 24hrs. 9 Tablet 11 4 Active levothyroxine (SYNTHROID) 112 mcg tabletIndications:Hy pothyroidism, unspecified type Take 1 Tablet (112 mcg) by mouth before breakfast. 90 Tablet 3 4 Active pantoprazole (PROTONIX) 40 mg delayed-release tabletIndications:Ga stroesophageal reflux disease, unspecified whether esophagitis present TAKE 1 TABLET (40 MG) BY MOUTH ONCE DAILY BEFORE A MEAL. 90 Tablet 2 4 Active ALPRAZolam (XANAX) 0.5 mg tabletIndications:In somnia, idiopathic TAKE 1/2 TABLET (0.25 MG) BY MOUTH AT BEDTIME IF NEEDED FOR ANXIETY. 30 Tablet 2 4 Active losartan (COZAAR) 100 mg tabletIndications:Es sential hypertension TAKE 1 TABLET BY MOUTH ONCE DAILY. 90 Tablet 4 4 Active spironolactone (ALDACTONE) 25 mg tabletIndications:Es sential hypertension TAKE 1 TABLET (25 MG) BY MOUTH EVERY MORNING. 90 Tablet 1 4 Active metoprolol tartrate (LOPRESSOR) 25 mg tabletIndications:Hy pertension TAKE 1 TABLET (25 MG) BY MOUTH TWO TIMES DAILY. 180 Tablet 2 4 Active metoprolol succinate (Toprol XL) 50 mg sustained-release tabletIndications:Pa roxysmal atrial fibrillation (HC),Essential hypertension Take 75 mg in the morning and 75mg in the evening. 4 Active DULoxetine (CYMBALTA) 20 mg Delayed-release capsuleIndications:T rigeminal neuralgia Take 1 Capsule (20 mg) by mouth once daily. 30 Capsule 3 4 Active gabapentin (NEURONTIN) 100 mg capsuleIndications:T rigeminal neuralgia Take 2 Capsules (200 mg) by mouth at bedtime. 60 Capsule 3 4 Active warfarin (COUMADIN) 5 mg tabletIndications:Pa roxysmal atrial fibrillation (HC),Anticoagulation monitoring, INR range 2-3,Paroxysmal supraventricular tachycardia (HC) Take by mouth 5 mg (5 mg x 1) every day in the evening OR as directed Active metoprolol succinate (Toprol XL) 50 mg sustained-release tabletIndications:Pa roxysmal atrial fibrillation (HC),Paroxysmal SVT (supraventricular tachycardia) (HC),Essential hypertension Take 75 mg in the morning and 100 mg in the evening. 315 Tablet 2 4 Discontinue d(Reorder (E-cancel not sent)) warfarin (COUMADIN) 5 mg tabletIndications:Pa roxysmal atrial fibrillation (HC),Anticoagulation monitoring, INR range 2-3,Paroxysmal supraventricular tachycardia (HC) Take by mouth 12/26: Hold; 12/27: Hold; 12/28: Hold; 12/29: Hold; 12/30: Hold; Otherwise 7.5 mg every Fri, Fri; 5 mg all other days in the evening OR as directed 4 Discontinue d(Medicatio n therapy change per hospital protocol (E-cancel not sent)) benzonatate (Tessalon Perles) 100 mg capsuleIndications:C OVID-19 virus infection Take 1 Capsule (100 mg) by mouth 3 times daily if needed for Cough. 30 Capsule 4 024 Discontinue d(*Patient states no longer taking) gabapentin (NEURONTIN) 100 mg capsuleIndications:T rigeminal neuralgia Take 1 Capsule (100 mg) by mouth at bedtime. 4 Discontinue d(Reorder (E-cancel not sent)) Active Problems Problem Noted Date Diagnosed Date Hypertensive chronic kidney disease with stage 5 chronic kidney disease or end stage renal disease 06/20/2023 Depression, recurrent 06/20/2023 Cardiomyopathy, unspecified type 06/20/2023 Ischemic cardiomyopathy 04/25/2022 Paroxysmal atrial fibrillation 12/13/2021 Paroxysmal supraventricular tachycardia 12/14/19 22 Atrial fibrillation, unspecified type 12/10/2021 Anticoagulation monitoring, INR range 2-3 2021 Stage 3 chronic kidney disease 07/10/2020 Bilateral primary osteoarthritis of knee 020 Overview (02/14/2023): Started approximately 2016. March 2020: bilateral knee cortisone injections by Dr. Chang. Very good benefit. Jan 2021: repeat bilateral knee cortisone injections. Great benefit for both knees at 1 month and beyond. Dec 2021: repeat bilateral knee cortisone injections. Great benefit several weeks out. 6 + months of relief. August 2022: Repeat left knee cortisone injection. August 2022: repeat right knee cortisone injection. Jan 2023: Left knee Coolief Procedure by Dr. Obrien. History of colon polyps 05/28/2019 Overview (05/22/2023): Colonoscopy 04/2019 diverticulosis, repeat in 5 years with propofol for patient comfort Colonoscopy 04/2023 2-TA, repeat in 7 years, propofol Esophageal reflux 02/06/2010 Overview (06/11/2012): EGD 03/2010 gastritis EGD 05/2012 normal Other and unspecified hyperlipidemia 08/15/2009 Palpitations 06/16/2009 SVT (supraventricular tachycardia) 06/16/2009 Anxiety state, unspecified 10/13/2007 Unspecified essential hypertension 10/23/2006 Overview (10/18/2018): 09/2018 24 hour urine mets and cats are normal 09/2018 no sign of JESSICA on renal artery ultrasound Unspecified hypothyroidism 10/23/2006 Allergic rhinitis, cause unspecified 10/23/2006 Encounters Date Type Department Care Team Description 01/29/2024 Telephone [facility] [address] [place] [address] Erika Benito MD Anticoagulation (Chart Update lab orders/[facility] ) 01/28/2024 Anticoagulation (warfarin) [facility] [address] [place] [address] 1[facility]ticoagulation (Provider Visit) 01/27/2024 2:40 PM CDT Preop Visit [facility] [address] Erika Benito MD Post-op (right total knee, has had continued pain/Told to take her Oxycontin, makes her sick. Taking tylenol and ibuprphen, was told to get INR testing frequently. Was unable to get in for labs./Taking 1 tylenol and 1 tylenol-motrin combo. /Check INR) 01/27/2024 Travel 01/10/2024 Telephone [facility] [address] [facility] [address] Erika Benito MD Anticoagulation (Starting Motrin) 01/08/2024 Anticoagulation (warfarin) [facility] [address] [facility] [address] 1, [facility] Anticoagulation 01/07/2024 1:30 PM CDT Orders Only [facility] [address] [facility] [place] [address] Lab, [place] [facility] 01/07/2024 Travel 01/07/2024 Telephone [facility] [address] [facility] [place] [address] Erika Benito MD Lab (INR) 12/31/2023 Orders Only [facility] [address] [facility] [place] [address] Erika Benito MD 1 scan: (1-Ord) [facility]-EKG-12/25/23 12/25/2023 9:05 AM CDT Office Visit [facility] [address] [facility] [place] [address] Erika Benito MD Pre-Op Exam (RIGHT TOTAL KNEE ARTHROPLASTY 01/01/24 /Kirby Escudero MD [facility]) 12/25/2023 Anticoagulation (warfarin) [facility] [address] [facility] [place] [address] 1, [facility] Anticoagulation 12/25/2023 Travel 12/20/2023 Refill [facility] [address] [place] [address] Yuri Gifford MD Refill Request (Spironolactone) 12/20/2023 Refill [facility] [address] [place] [address] Trung Torres MD Refill Request (Losartan, Metoprolol Tartrate) 12/15/2023 Telephone [facility] [address] [place] [address] Erika Benito MD Covid-19 Positive Result (should she still go for Pre-Op) 12/12/2023 9:00 AM CDT Phone Office Visit [address] [address] Liane Clark PA URI (COVID-19 ) 12/12/[address] [address] Liane Clark PA 12/12/2023 Travel 12/11/2023 Nurse Triage [address] [address] Erika Benito MD Covid-19 Positive Result 12/11/[address] [address] Erika Benito MD Refill Request (Alprazolam) 11/20/2023 8:40 AM CDT Office Visit [address] [address] Erika Benito MD Medication Management (Medication follow up and MRI results ); Knee Pain/problem (Wanting to know if your ready for a knee replacement for right knee ) 11/20/2023 Anticoagulation (warfarin) [facility] [address] [place] [address] 1, [facility] Anticoagulation 11/20/2023 Travel 11/07/2023 3:15 PM CDT Orders Only [facility] [address] [place] [address] Lab, [facility] 11/07/2023 Anticoagulation (warfarin) [facility] [address] [place] [address] 1, [facility] Anticoagulation 11/07/2023 Travel 11/06/2023 Telephone [facility] [address] [facility] [address] Erika Benito MD FAX from Last 3 Months Immunizations Name Administration Dates Next Due AMB Influenza, IIV3 (Age >=3 years)(Flu Clinic Only) 02/04/2012,02/19/2011,02/27/2010,2007 AMB Influenza, IIV4 PF (=>6 mos Flulaval,Fluzone Fluarix)(Flu Clinic Only) 02/05/2014 Amb Influenza, Inact (High-d ose) (Flu Clinic Only) 02/10/2015 COVID-19 vaccine (Moderna 100mcg/0.5mL) PF, MDV 07/24/2020,06/26/2020 COVID-19 vaccine (Pfizer-Bio NTech 30mcg/0.3mL) 12YO+ BIVALENT PF, MDV 03/14/2022 COVID-19 vaccine (Pfizer-Bio NTech 30mcg/0.3mL) PF, MDV 03/07/2021 Influenza, High-dose Inactivated 017,02/07/2017,02/14/2016,2014 Influenza, High-dose Quadriv alent Inactivated 02/24/2023,02/04/2020 Influenza, IIV3 (Age 6-35 mos) 02/19/2011 Influenza, IIV3 (Age >=3 years) 03/03/20 13,02/04/2012,02/27/2010,2008,02/18/2008,03/16/2005,03/29/2004,1 Influenza, IIV4 02/05/2014 Influenza, Inactivated AIIV4 (Age 65+ Years) Preserv Free 02/07/2022,02/12/2021 Influenza, Inactivated IIV3 (Age 65+ Years) Preserv Free 02/04/2019,02/24/2018 Pneumococcal Poly,23-Valent (Pneumovax) 03/12/2017,02/07/2017 Pneumococcal conj 13-Valent (Prevnar 13) 01/24/2015 Td (Age >=7 Years) 10/02/2005,08/18/1996 Tdap 01/04/2015,10/03/2005 Zoster (Zostavax-ZVL, live) 01/27/2012, 2 Family History Medical History Relation Name Comments [...] Never Smokeless Tobacco: Never Tobacco Cessation:Counseling Given: No Alcohol Use Standard Drinks/Week Comments Not Currently 0 (1 standard drink = 0.6 oz pur e alcohol) seldom PHQ-2 Answer Date Recorded PHQ-2 TOTAL SCORE 2 05/06/2023 Social Connections Answer Date Recorded Frequency of Communication with Friends and Fami ly 0 01/31/2023 Financial Resource Strain Answer Date R ecorded Difficulty of Paying Living Expenses 3 01/31/2023 Difficulty of Paying Living Expenses Not on file 01/31/2023 Food Insecurity Answer Date Recorded Worried About Running Out of Food in the Last Ye ar 1 01/31/2023 Transportation Needs Answer Date Record ed Lack of Transportation (Medical) 1 01/31/2023 Housing Stability Answer Date Recorded Unable to Pay for Housing in the Last Year 1 01/31/2023 Sex and Gender Information Value Date Recorded Sex Assigned at Female 06/14/2020 2:36 PM SEED SERVICE ADVISOR Gender Identity Female 06/14/2020 2:36 PM SEED SERVICE ADVISOR Sexual Orientation Not on file Obstetrics History Last Filed Vital Signs Vital Sign Reading Time Taken Comments Blood Pressure 128/80 01/27/2024 2:50 PM CDT Pulse 70 01/27/2024 2:50 PM CDT Temperature 36.6 ??C (97.9 ??F) 08/05/2023 3:49 PM CD T Respiratory Rate 16 05/15/2022 1:11 PM SEED SERVICE ADVISOR Oxygen Saturation 99% 01/27/2024 2:50 PM CDT Inhaled Oxygen Concentration - - Weight 74 kg (163 lb 3.2 oz) 01/27/2024 2:50 PM CDT Height 167.6 cm (5' 6) 08/05/2023 3:49 PM CDT Body Mass Index 26.34 08/05/2023 3:49 PM CDT Plan of Treatment Upcoming Encounters Date Type Department Care Team (Late st Contact Info) Description 02/03/2024 2:45 PM CDT Orders Only [facility] [address] [place] [address] [place] 02/10/2024 1:00 PM CDT Orders Only [facility] [address] [place] [address] [place] 02/17/2024 10:55 AM CDT Office Visit [facility] [address] [facility] [address] Erika Benito MD [address] [place] [address] 02/24/2024 12:45 PM CDT Orders Only [facility] [address] [place] [address] [place] Health Maintenance Due Date Last Done Comments Zoster (shingles) series for age 50+ (2 of 3) 03/23/2012 01/27/2012, 10/14/2011 Medicare Wellness for age 65+ 07/11/2021 07/10/2020 Mammogram for age 45-75 09/17/2023 09/17/19 23 (Verified in Care Everywhere or Patient Record), 09/10/2021, 12/10/2017 (Completed outside of [facility]), Additional history exists COVID-19 vaccine series ( season) 2023 05/12/2023, 03/14/2022, 03/07/2021, Additional history exists Influenza for age 65+ 12/28/2023 02/24/2023 , 02/07/2022, 02/12/2021, Additional history exists Depression screening for age 12+ 05/06/2024 05/06/2023, 05/06/2023, 03/27/2022, Additional history exists BMI (ht and wt on same day) for age 18+ 08/04/2024 08/05/2023, 10/10/2022, 05/15/2022, Additional history exists Tetanus booster 01/04/2025 01/04/2015, 11/2005, 10/02/2005, Additional history exists Lipids for age 45-75 11/30/2026 11/30/2021, 08/21/2020, 06/06/2017, Additional history exists Colonoscopy through age 75 05/19/203005/19, 05/19/2023, 05/19/2023, Additional history exists Tdap Completed 01/04/2015, 10/03/2005 DEXA/DXA scan for age 65+ Completed 01/24/2015 Pneumococcal series for age 65+ Completed 03/12/2017, 02/07/2017, 01/24/2015 Hepatitis C screening for ag e 18-79 Completed 08/21/2020 Procedures Procedure Name Priority Date/Time Associated Diagnosis Comments PROTIME-INR Routine 01/27/2024 3:50 PM CDT Anticoagulation monitoring, INR range 2-3 PROTIME-INR STAT 01/07/2024 1:28 PM CDT Paroxysmal atrial fibrillation (HC) Anticoagulation monitoring, INR range 2-3 Paroxysmal supraventricular tachycardia (HC) EKG 12 LEAD Routine 12/31/2023 2:05 PM CDT Preoperative examination LA READING EKG - NO CHARGE, COMP ONLY Routine 12/31/2023 2:04 PM CDT Preoperative examination CBC WITH AUTO DIFFERENTIAL Routine 12/25/2023 10:28 AM CDT Paroxysmal atrial fibrillation (HC) BASIC METABOLIC PANEL Routine 12/25/2023 10:28 AM CDT Paroxysmal atrial fibrillation (HC) CBC WITH AUTO DIFFERENTIAL Routine 12/25/2023 10:28 AM CDT Paroxysmal atrial fibrillation (HC) PROTIME-INR STAT 12/25/2023 10:28 AM CDT Paroxysmal atrial fibrillation (HC) Anticoagulation monitoring, INR range 2-3 Paroxysmal supraventricular tachycardia (HC) INR,POCT Routine 11/20/2023 10:18 AM CDT Paroxysmal atrial fibrillation (HC) Anticoagulation monitoring, INR range 2-3 Paroxysmal supraventricular tachycardia (HC) INR,POCT Routine 11/07/2023 2:59 PM CDT Paroxysmal atrial fibrillation (HC) Anticoagulation monitoring, INR range 2-3 Paroxysmal supraventricular tachycardia (HC) COLONOSCOPY DIAGNOSTIC Routine 05/19/2023 8:19 AM SEED SERVICE ADVISOR Chronic diarrhea LIPID PANEL W REFLEX MEASURED LDL Routine 11/30/2021 10:55 AM CDT Hyperlipidemia, unspecified hyperlipidemia type SCAN-MAMMOGRAPHY REPORT 09/10/2021 12:00 AM CDT ANTI HCV Routine 08/21/2020 7:12 AM CDT Need for hepatitis C screening test XR DXA BONE DENSITY 2 SITES AXIAL Routine 01/24/2015 4:13 PM CDT Gastroesophageal reflux disease with esophagitis Post-menopausal from Last 3 Months or Most Recently Relevant to Health Maintenance Results * (ABNORMAL) PROTIME-INR (01/27/2024 3:50 PM CDT) Only the most recent of3 resultswithin the time period is included. INR 2.2(H) [facility] Comment: Reference Range ? 0.9-1.1 Moderate-intensity Warfarin Therapy 2.0-3.0 Higher-intensity Warfarin Therapy ?? 3.0-4.0 PT 22.6(H) 9.0 - 11.5 sec [facility] Comment: For additional information, please refer to http://education.[employer]/faq/GUD609 (This link is being provided for informational/ educational purposes only.) Blood BLOOD SPECIMEN / Unknown 01/27/2024 3:50 PM CDT 01/27/2024 3:50 PM CDT Erika Benito MD HEMATOLOGY [employer] [facility] [address] [place] [address], [facility] [address] [place] [address] * EKG 12 LEAD (12/31/2023 2:05 PM CDT) Erika Benito MD EKG ORD * LA READING EKG - NO CHARGE, COMP ONLY (12/31/2023 2:04 PM CDT) Erika Benito MD PB - PROVIDER READINGS * CBC WITH AUTO DIFFERENTIAL (12/25/2023 10:28 AM CDT) WHITE BLOOD COUNT 7.8 4.5 - 11.0 thou/cu mm 12/25/2023 10:39 AM CDT [facility] RED BLOOD COUNT 4.46 4.00 - 5.20 mil/cu mm 12/25/2023 10:39 AM CDT [facility] HEMOGLOBIN 12.0 12.0 - 16.0 g/dL 12/25/2023 10:39 AM CDT [facility] HEMATOCRIT 37.3 33.0 - 51.0 % 12/25/2023 10:39 AM CDT [facility] MCV 84 80 - 100 fL 12/25/2023 10:39 AM CDT [facility] MCH 26.9 26.0 - 34.0 pg 12/25/2023 10:39 AM CDT [facility] MCHC 32.2 32.0 - 36.0 g/dL 12/25/2023 10:39 AM CDT [facility] RDW 14.2 11.5 - 15.5 % 12/25/2023 10:39 AM CDT [facility] PLATELET COUNT 357 140 - 440 thou/cu mm 12/25/2023 10:39 AM CDT [facility] MPV 8.5 6.5 - 11.0 fL 12/25/2023 10:39 AM CDT [facility] % NEUT 67.0 % 12/25/2023 10:39 AM CDT [facility] % LYMPH 23.4 % 12/25/2023 10:39 AM CDT [facility] % MONO 8.3 % 12/25/2023 10:39 AM CDT [facility] % EOS 1.0 % 12/25/2023 10:39 AM CDT [facility] % BASO 0.3 % 12/25/2023 10:39 AM CDT [facility] ABSOLUTE NEUTROPHILS 5.2 1.7 - 7.0 thou/cu mm 12/25/2023 10:39 AM CDT [facility] ABSOLUTE LYMPHOCYTES 1.8 0.9 - 2.9 thou/cu mm 12/25/2023 10:39 AM CDT [facility] ABSOLUTE MONOCYTES 0.6 <0.9 thou/cu mm 12/25/2023 10:39 AM CDT [facility] ABSOLUTE EOSINOPHILS 0.1 <0.5 thou/cu mm 12/25/2023 10:39 AM CDT [facility] ABSOLUTE BASOPHILS 0.0 <0.3 thou/cu mm 12/25/2023 10:39 AM CDT [facility] Blood BLOOD SPECIMEN / Unknown Venipuncture / Unknown 12/25/2023 10:28 AM CDT 12/25/2023 10:28 AM CDT Erika Benito MD HEMATOLOGY [facility] [address] [place] [address], * (ABNORMAL) BASIC METABOLIC PANEL (12/25/2023 10:28 AM CDT) SODIUM 139 136 - 145 mmol/L 12/25/2023 5:00 PM [facility] POTASSIUM 4.9 3.5 - 5.1 mmol/L 12/25/2023 5:00 PM [facility] CHLORIDE 106 98 - 107 mmol/L 12/25/2023 5:00 PM [facility] CO2,TOTAL 22 22 - 29 mmol/L 12/25/2023 5:00 PM [facility] ANION GAP 11 5 - 18 12/25/2023 5:00 PM [facility] GLUCOSE 99 70 - 99 mg/dL 12/25/2023 5:00 PM [facility] CALCIUM 9.6 8.8 - 10.2 mg/dL 12/25/2023 5:00 PM [facility] BUN 20 8 - 23 mg/dL 12/25/2023 5:00 PM [facility] CREATININE 1.24(H) 0.50 - 0.90 mg/dL 12/25/2023 5:00 PM [facility] BUN/CREAT RATIO 16 10 - 20 5:00 PM [facility] eGFR 46(L) >90 mL/min/1.7 3m2 12/25/2023 5:00 PM [facility] Comment:As of 2021, eG FR is calculated by the CKD-EPI creatinine equation without race adjustment. ??eGFR can be influenced by muscle mass, exercise, and diet. ??The reported eGFR is an estimation only and is only applicable if the renal function is stable. Blood BLOOD SPECIMEN / Unknown Venipuncture / Unknown 12/25/2023 10:28 AM CDT 12/25/2023 10:28 AM T Erika Benito MD CHEMISTRY [facility] [address] [place] [address], [place] * (ABNORMAL) INR,POCT (11/20/2023 10:18 AM CDT) Only the most recent of2 resultswithin the time period is included. INR 2.2(H) <1.3 11/20/2023 10:19 AM CDT [facility] Blood BLOOD SPECIMEN / Unknown Capillary / Unknown 11/20/2023 10:18 AM CDT 11/20/2023 10:18 AM CDT Narrative [facility] - 11/20/2023 10:19 AM CDT ?Therapeutic Range 2.0-3.0 for most anticoagulated patients 2.5-3.5 or 4.0 for high risk patients Erika Benito MD LABORATORY [facility] [address] [place] [address], * SCAN-COLONOSCOPY (05/19/2023 12:00 AM SEED SERVICE ADVISOR) Scanner OTHER * (ABNORMAL) LIPID PANEL W REFLEX MEASURED LDL (11/30/2021 10:55 AM CDT) CHOLESTEROL,TOTAL 188 100 - 199 mg/dL 12/02/2021 1:58 AM CDT [facility] TRIGLYCERIDES 223(H) <150 mg/dL 12/02/2021 1:58 AM CDT [facility] HDL CHOLESTEROL 35(L) >40 mg/dL 1:58 AM CDT [facility] NON-HDL CHOLESTEROL 153(H) <145 mg/dl 12/02/2021 1:58 AM CDT [facility] CHOL/HDL RATIO 5.37(H) <4.50 12/02/2021 1:58 AM CDT [facility] LDL CHOLESTEROL 108 <=130 mg/dL 12/02/2021 1:58 AM CDT [facility] VLDL CHOLESTEROL 45(H) <=30 mg/dL 12/02/2021 1:58 AM CDT [facility] PROVIDER ORDERED STATUS RANDOM 12/02/2021 1:58 AM CDT [facility] Blood BLOOD SPECIMEN / Unknown Venipuncture / Unknown 11/30/2021 10:55 AM CDT 11/30/2021 10:55 AM CDT Erika Benito MD CHEMISTRY Performing Organization Address City/[facility]/ZIP Co de Phone Number [facility] [address] [place] [address], [place] * SCAN-MAMMOGRAPHY REPORT (09/10/2021 12:00 AM CDT) Anatomical Region Laterality Modality Other Scanner OTHER * ANTI HCV [[id number]] (08/21/2020 7:12 AM CDT) HEPATITIS C ANTIBODY Non-React lucretia Non-React lucretia 08/21/2020 3:26 PM CDT [facility] Comment:Antibodies to HCV no t detected; does not exclude the possibility of exposure to HCV. Blood BLOOD SPECIMEN / Unknown Butterfly / Unknown 08/21/2020 7:12 AM CDT 08/21/2020 7:15 AM CDT Palomo Andino MD [facility] [address] [place] [address], [place] * (ABNORMAL) XR DXA BONE DENSITY 2 SITES (01/24/2015 4:13 PM CDT) Anatomical Region Laterality Modality Spine, HIPS, HIPL, HIPR Other Narrative 01/27/2015 4:50 PM CDT Please see scanned document for results of this study. Erika Benito MD DEXA from Last 3 Months or Most Recently Relevant to Health Maintenance Advance Directives * Full Code (Latest Code Status on File) Date Activated Date Inactivated Comments 12/03/2021 3:15 PM 12/04/2021 1:02 PM Question Answer Comments Code Status Discussion: Reviewed Preferences * Full Code Date Activated Date Inactivated Comments 11/10/2013 6:11 AM 11/10/2013 4:20 PM Care Teams Relay Motorman Relationship Specialty Start Date End Date Erika Benito MD [address] [place] [address] PCP - General Family Practice 05/15/21 Radha Trinidad MD Dermatology Dermatology 11/24/13 Gerald Perez MD [address] [facility] [address] [place] [address] Consulting Physician Cardiology - Electrophysiology 07/25/21
[2024-01-31 09:50] VITALS: PULSE 71; RESP 18; TEMP 36.8; O2SAT 96
== END 2024-01-31 10:05 | disposition home or self-care (01) ==
PROVIDERS: Emergency Provider Emergency Medicine; PCP Family Medicine
DX: R51.9 Headache, unspecified (principal)
CPT/HCPCS: 70450; 96374; 96375; 99283; J1200; J1885; J2765

== ENCOUNTER 2024-06-15 08:44 | Emergency (ER) | payer MEDICARE, BC, SELFPAY ==
[2024-06-15 08:48] VITALS: BP 171/89; PULSE 72; RESP 18; TEMP 36.6; O2SAT 98
--- NOTE | 2024-06-15 09:09 | ED_ITS ---
HPI - General Adult General Date Seen: 06/15/24 Chief complaint: Hypertension Stated complaint: Dizzy, High blood pressure Time Seen by Provider: 06/15/24 08:45 History of Present Illness HPI narrative: Patient is a 74-year-old woman with a history of atrial fibrillation, maintained on Coumadin, trigeminal neuralgia, no history of stroke. She woke up this morning with a sensation of imbalance and nausea. She has more chronic problems with some intermittent numbness on the left side of her face and some pain in that area and that is stable but unchanged. She does not have any other new neurologic complaints. She notes that she is on carbamazepine for the trigeminal neuralgia and that has made her INR more difficult to control. It was checked a week ago was 1.2 at that time. She feels improved now although not entirely back to baseline. She was ambulatory without difficulty into the emergency department. She denies visual complaints, other focal weakness or numbness. She does not smoke or drink. She says she took her blood pressure this morning and it was ?suzette high, so she called the triage as line and was advised to come in. She did take her blood pressure medicine this morning after checking her blood pressure. Related Data Home Medications ?Medication ?Instructions ?Recorded ?Confirmed alprazolam 0.5 mg tablet 0.25 mg PRN 12/09/21 09/21/23 levothyroxine 112 mcg tablet 112 mcg PO DAILY 12/09/21 09/21/23 losartan 100 mg tablet 100 mg PO DAILY 12/09/21 09/21/23 metoprolol tartrate 50 mg tablet 50 mg PO Q12H 12/09/21 09/21/23 pantoprazole 40 mg tablet,delayed 40 mg PO Q12H 12/09/21 09/21/23 release metoprolol succinate 50 mg 50 mg PO Q12H 09/04/22 09/21/23 tablet,extended release 24 hr metoprolol tartrate 25 mg tablet 25 mg PO Q12H 09/04/22 09/21/23 sumatriptan succinate 25 mg tablet 25 mg PO BID PRN migraine 09/04/22 09/21/23 acetaminophen 500 mg oral powder 500 mg PO Q6H PRN 09/21/23 09/21/23 packet (Tylenol Extra Strength) Previous Rx's ?Medication ?Instructions ?Recorded warfarin 5 mg tablet 5 mg PO DAILY Ablation #14 tabs 12/09/21 tramadol 50 mg tablet 50 mg PO Q8H PRN pain #14 tabs 09/21/23 Allergies Allergy/AdvReac Type Severity Reaction Status Date / Time apixaban (From Eliquis) Allergy Intermediate Verified 09/21/23 10:06 amlodipine Allergy Unknown Verified 09/21/23 10:06 dabigatran etexilate (From Allergy redness Verified 09/21/23 10:06 Pradaxa) and itching Penicillins Allergy Verified 09/21/23 10:06 rivaroxaban (From Xarelto) Allergy Verified 09/21/23 10:06 Review of Systems Status of ROS: Reports: 10 or more systems reviewed and unremarkable except as noted in History and below PFSH PFS Surgical History History of cardiac radiofrequency ablation ?Z98.890 - Other specified postprocedural states (ICD-10) Social History Smoking Status: Never smoker Do you use any of these nicotine containing products: None Second hand tobacco smoke exposure: No How often do you have a drink containing alcohol: monthly or less How many standard drinks containing alcohol do you have on a typical day: 1 or 2 How often do you have six or more drinks on one occasion: Never AUDIT-C Alcohol total score: 1 Non-prescribed substance use: denies use service: No Exam Narrative: Exam Narrative: Vital signs reviewed In general, alert, nontoxic Head: Normocephalic, atraumatic. Eyes: Sclera clear. Pupils equal and reactive. Extraocular movements are full. No nystagmus. ENT: Mucous membranes moist. Neck: Supple without adenopathy. Heart: Regular rate and rhythm without murmur. Lungs: Clear. No increased work of breathing, crackles or wheezes. Abdomen: Soft, nontender to palpation. Extremities: Well perfused, pulses intact. No significant edema. Neurologic: Alert, conversant. Speech fluent, face symmetric. Strength is 5 of 5 in bilateral upper and lower extremities. Cerebellar function is intact by finger-nose and heel-kilpatrick testing. Skin: Warm, dry well perfused. Affect: Normal. Const: Vital Signs, click to edit/add: Vital Signs - 24 hr 06/15/24 08:48 Temperature 97.9 F Pulse Rate [Pulse Oximeter] 72 Respiratory Rate 18 Blood Pressure [Ri t Upper Arm] 171/89 H Pulse Oximetry 98 Oxygen Delivery Me thod Room Air Documenting provider has reviewed patient's vital signs: yes Course Course ED Course: EKG, labs ordered. Given subtherapeutic INR and history of atrial fibrillation I think she is high enough risk for stroke or TIA that an MRI would be reasonable. At this time, she is largely asymptomatic, exam is reassuring. The nausea is resolved. Labs were unremarkable, she is still subtherapeutic on her Coumadin with an INR of 1.37. Her urine shows 10-25 white cells and positive nitrates. She does not have any urinary symptoms aside from noting some odor to her urine. She denies any dysuria, frequency, urgency, fevers abdominal or flank pain. I discussed options with her of covering with an antibiotic versus waiting on the culture, she would prefer not to start antibiotics that she has a lot of medication sensitivities and would just like to wait on the culture. Discussed making sure she is getting plenty of fluids and that if she develops any of the above symptoms she should be seen again. With regard to her vertigo, an MRI did not show any evidence of stroke per radiology read. Symptoms are likely peripheral in origin. I have asked her to discuss her Coumadin with her primary doctor has this will need to continue to be worked on. Reviewed expected course for radha tigo, if symptoms are severe other symptoms develop, return to the ER. Otherwise, primary care follow-up as needed for persistent symptoms. She has Zofran she can use at home for nausea. Vital Signs Vital signs: Initial Vital Signs Temperature 97.9 F 06/15/24 08:48 Temperature Source Temporal Artery Scan 06/15/24 08:48 Pulse Rate 72 06/15/24 08:48 Respiratory Rate 18 06/15/24 08:48 Blood Pressure 171/89 H 06/15/24 08:48 Blood Pressure Mean 116 H 06/15/24 08:48 Pulse Oximetry 98 06/15/24 08:48 Oxygen Delivery Method Room Air 06/15/24 08:48 Vital Signs Temperature 97.9 F 06/15/24 08:48 Pulse Rate 72 06/15/24 08:48 Respiratory Rate 18 06/15/24 08:48 Blood Pressure 171/89 H 06/15/24 08:48 Pulse Oximetry 98 06/15/24 08:48 Oxygen Delivery Method Room Air 06/15/24 08:48 Temperature 97.9 F 06/15/24 08:48 Pulse Rate 72 06/15/24 08:48 Respiratory Rate 18 06/15/24 08:48 Blood Pressure 171/89 H 06/15/24 08:48 Pulse Oximetry 98 06/15/24 08:48 Oxygen Delivery Method Room Air 06/15/24 08:48 Medical Decision Making Lab Data Labs: Lab Results 06/15/24 06/15/24 06/15/24 Range/Units 09:08 09:30 09:39 WBC 9.22 (4.50-11.00) K/uL RBC 4.43 (4.00-5.20) m/uL Hgb 11.3 L (12.0-16.0) gm/dL Hct 36.1 (33.0-51.0) % MCV 82 (80-100) fL MCH 26 (26-34) pg MCHC 31 L (32-36) gm/dL RDW Coeff of [place]ange 15.4 (11.5-15.5) % Plt Count 267 (140-440) K/uL Neut % (Auto) 79.5 H (42.0-72.0) % Lymph % (Auto) 13.7 L (20-44) % [place] % (Auto) 5.1 (0.0-11.0) % Eos % (Auto) 1.1 (0.0-7.0) % Baso % (Auto) 0.4 (0.0-3.0) % Neut # (Auto) 7.30 H (1.7-7.0) K/uL Lymph # (Auto) 1.30 (0.90-2.90) K/uL [place] # (Auto) 0.50 (0.00-0.90) K/UL Eos # (Auto) 0.10 (0.00-0.50) K/uL Baso # (Auto) 0.04 (0.00-0.30) K/uL Abs Immat Gran (auto) 0.02 (0.00-0.30) K/uL Imm/Tot Granulo (auto) 0.2 % INR 1.37 H (0.91-1.10) Sodium 137 (135-149) mmol/L Potassium 4.4 (3.6-5.1) mmol/L Chloride 106 (96-114) mmol/L Carbon Dioxide 23 (20-32) mmol/L Anion Gap 8 (7-15) mEq/L BUN 22 (7-30) mg/dL Creatinine 1.3 (0.5-1.5) mg/dL Estimated GFR 43 ml/min Glucose 95 (60-115) mg/dL Calcium 9.5 (8.4-10.6) mg/dL TSH 2.780 (0.270-4.200) uIU/mL Urine Color Light yellow (Yellow) Urine Appearance Cloudy A (Clear) Urine pH 7.0 (5.0-8.5) Ur Specific [place] 1.015 (1.000-1.030) Urine Protein Negative (Negative) Urine Glucose (UA) Negative (Negative) Urine Ketones Negative (Negative) Urine Blood Trace-intact A (Negative) Urine Nitrite Positive A (Negative) Urine Bilirubin Negative (Negative) Urine Urobilinogen 0.2 (0.2-1.0) Ur Leukocyte Esterase 1+ A (Negative) Urine RBC 2-5 A (0-2) Urine WBC 10-25 A (0-5) Ur Squamous Epith Cells Few (None-Few) Urine Bacteria Many A (None) POC Troponin I 0.00 L (0.01-0.04) ng/ml Imaging Data MR Brain: Attestation: I have reviewed the pertinent imaging results. Radiologist's impression: Patient: Isela Drew MR#: [id number] : 1950 Acct:[id number] Loc: ED Service Date: 06/15/[address]: Ordering Physician: Maggie Nagel M.D. Date of Service: 06/15/24 Procedure(s): MR head/brain wo con Accession Number(s): [id number] cc: Maggie Nagel M.D.; Erika Benito M.D.~ For Patients: As a result of the Cures Act, medical imaging exams and procedure reports are released immediately into your electronic medical record. You may view this report before your referring provider. If you have questions, please contact your health care provider. Indication: Vertigo. Technique: Multiplanar, multisequence MRI of the brain was performed without intravenous contrast. Comparison: CTA head 01/31/2024. MR brain 05/02/2023. Findings: The corpus callosum, pituitary gland and clivus appear intact. Mild degenerative change visualized upper cervical spine. Slightly low-lying cerebellar tonsils. There is no restricted diffusion. No intracranial hemorrhage. The ventricles are proportionate to the cerebral sulci. The 4th ventricle appears midline. The basal cisterns appear patent. No abnormal extra-axial fluid collection identified. Mild parenchymal volume loss. Scattered T2 FLAIR hyperintense foci within the subcortical and periventricular white matter, favored to represent chronic ischemic microvascular disease. There is no intracranial mass, abnormal mass-effect or midline shift identified. Major intracranial vascular flow voids appear grossly intact. Both globes are preserved. Impression: 1. No acute/subacute infarct. 2. Stable mild chronic ischemic microvascular disease. Dictated by Brandt De Santiago MD @ 06/15/2024 11:55:03 AM Discharge Plan Discharge Clinical Impression: Peripheral vertigo Patient Disposition: Home, Self-Care Condition: Improved Instructions: Vertigo (DC) Additional Instructions: Your MRI today does not show evidence of stroke. Your INR continues to be subtherapeutic at 1.37. Please talk with your primary doctor to advise on dosage changes. You can try meclizine and or Zofran if needed if your symptoms worsen. If you notice other new or worsening neurologic changes, return to the ER at any time. Prescriptions: No Action Tylenol Extra Strength 500 mg powder in packet 500 mg PO Q6H PRN tramadol 50 mg tablet 50 mg PO Q8H PRN (Reason: pain) Qty: 14 0RF alprazolam 0.5 mg tablet 0.25 mg PRN Patient Comments: TAKE ONE TABLET BY MOUTH DAILY IF NEEDED FOR ANXIETY. RARE USE . levothyroxine 112 mcg tablet 112 mcg PO DAILY Patient Comments: TAKE 1 TABLET BY MOUTH BEFORE BREAKFAST. losartan 100 mg tablet 100 mg PO DAILY Patient Comments: TAKE 1 TABLET BY MOUTH ONCE DAILY. metoprolol tartrate 50 mg tablet 50 mg PO Q12H Patient Comments: TAKE 1 TABLET (50MG) BY MOUTH TWICE A DAY pantoprazole 40 mg tablet,delayed release (DR/EC) 40 mg PO Q12H Patient Comments: TAKE 1 TABLET BY MOUTH IN THE MORNING AND 1 TABLET IN THE EVENING TAKE BEFORE MEALS (TAKE FOR 1 MONTH POST ABLATION THEN RESUME 1 TABLET DAILY) warfarin 5 mg tablet 5 mg PO DAILY Qty: 14 0RF metoprolol succinate 50 mg tablet extended release 24 hr 50 mg PO Q12H metoprolol tartrate 25 mg tablet 25 mg PO Q12H sumatriptan succinate 25 mg tablet 25 mg PO BID PRN (Reason: migraine) Follow Up/Referrals: Erika Benito MD [Primary Care Provider] - Stand Alone Forms: [facility] Info Instructions
--- OUTSIDE RECORDS SUMMARY | 2024-06-15 09:17 | XMS_ITS | Clinical Summary ---
Author Organization [facility] Address [address] [place] [address] Care Team Providers Care Shaper Hand Name Role Phone Radha Trinidad MD Unavailable [phone] Erika Benito MD Primary Care Provide r Gerald Perez MD Unavailable [phone] Allergies Active Allergy Reactions Criticality Noted Date Comments Amlodipine Edema High 06/01/2014 Edema Apixaban Other - Describe In Comment Field High 09/04/2022 Olmesartan Itching 05/31/2014 Feet swelling Carvedilol Itching Medium 10/15/2022 Itching, thick tongue, sore joints after 2 doses relieved with benadryl. Ciprofloxacin Hives 02/02/2021 Dabigatran Etexilate Itching 12/09/2021 Dabigatran Etexilate Mesylate Itching 12/09/2021 Other Reaction(s): redness and itching Redness Doxycycline Itching Low 09/09/2016 Esomeprazole Itching 01/13/2012 Gabapentin Dizziness 02/03/2024 Hydralazine Dizziness 07/10/2017 Chlorthalidone Stomach Upset High 06/01/2014 Pregabalin Dizziness 03/18/2024 Nifedipine Dizziness 06/24/2019 Penicillins Edema,Itching 10/23/2006 Edema Prednisone Tachycardia 05/22/2021 SVT Rivaroxaban Angioedema High 12/09/2021 Sulfa (Sulfonamide Antibiotics) Rash Low 08/26/2007 Carbamazepine Dizziness 05/11/2024 Azithromycin Itching 04/11/2011 Medications acetaminophen (Tylenol Extra Strength) 500 mg tablet Take 1 Tablet (500 mg) by mouth every 6 hours if needed. Max acetaminophen dose: 4000mg in 24 hrs. 0 023 Active SUMAtriptan (IMITREX) 25 mg tabletIndications:Mi graine without status migrainosus, not intractable, unspecified migraine type Take 1 Tablet (25 mg) by mouth 2 times daily if needed for Migraine. Give at minimum 2hrs apart. Max Dose: 200mg per 24hrs. 9 Tablet 11 024 Active levothyroxine (SYNTHROID) 112 mcg tabletIndications:Hy pothyroidism, unspecified type Take 1 Tablet (112 mcg) by mouth before breakfast. 90 Tablet 3 024 Active ALPRAZolam (XANAX) 0.5 mg tabletIndications:In somnia, idiopathic TAKE 1/2 TABLET (0.25 MG) BY MOUTH AT BEDTIME IF NEEDED FOR ANXIETY. 30 Tablet 2 024 Active losartan (COZAAR) 100 mg tabletIndications:Es sential hypertension TAKE 1 TABLET BY MOUTH ONCE DAILY. 90 Tablet 4 024 Active spironolactone (ALDACTONE) 25 mg tabletIndications:Es sential hypertension TAKE 1 TABLET (25 MG) BY MOUTH EVERY MORNING. 90 Tablet 1 024 Active metoprolol tartrate (LOPRESSOR) 25 mg tabletIndications:Hy pertension TAKE 1 TABLET (25 MG) BY MOUTH TWO TIMES DAILY. 180 Tablet 2 024 Active metoprolol succinate (Toprol XL) 50 mg sustained-release tabletIndications:Pa roxysmal atrial fibrillation (HC),Essential hypertension Take 75 mg in the morning and 75mg in the evening. 024 Active warfarin (COUMADIN) 5 mg tabletIndications:Pa roxysmal atrial fibrillation (HC),Anticoagulation monitoring, INR range 2-3,Paroxysmal supraventricular tachycardia (HC) Take by mouth 2.5 mg (5 mg x 0.5) every Saima; 5 mg (5 mg x 1) all other days in the evening OR as directedTake by mouth 2.5 mg (5 mg x 0.5) every Saima; 5 mg (5 mg x 1) all other days in the evening OR as directed 100 Tablet 3 025 Active cyclobenzaprine (FLEXERIL) 5 mg tabletIndications:Ar thritis of temporomandibular joint, unspecified laterality,Right facial pain Take 1 Tablet (5 mg) by mouth at bedtime. 60 Tablet 3 025 Active OXcarbazepine (TrileptaL) 150 mg tabletIndications:Tr igeminal neuralgia Take 0.5 Tablets (75 mg) by mouth at bedtime. 025 Active rosuvastatin (CRESTOR) 5 mg tabletIndications:Hy perlipidemia, unspecified hyperlipidemia type Take 1 Tablet (5 mg) by mouth at bedtime. 90 Tablet 3 025 Active famotidine (PEPCID) 20 mg tabletIndications:Ch ronic GERD Take 1 Tablet (20 mg) by mouth two times daily. 180 Tablet 3 025 Active amitriptyline 10 mg tabletIndications:Mi graine without status migrainosus, not intractable, unspecified migraine type Take 3 Tablets (30 mg) by mouth at bedtime. 270 Tablet 3 025 Active pantoprazole (PROTONIX) 40 mg delayed-release tabletIndications:Ga stroesophageal reflux disease, unspecified whether esophagitis present TAKE 1 TABLET (40 MG) BY MOUTH ONCE DAILY BEFORE A MEAL. 90 Tablet 3 024 2024 Disconti nued(*Me d complete /Regimen complete /Level of care change) amitriptyline 10 mg tabletIndications:Mi graine without status migrainosus, not intractable, unspecified migraine type TAKE 3 TABLETS BY MOUTH AT BEDTIME. 270 Tablet 2 025 2024 Disconti nued(Reo rder (E-cance l not sent)) Active Problems Problem Noted Date Diagnosed Date Depression, recurrent 06/20/2023 Ischemic cardiomyopathy 04/25/2022 Paroxysmal atrial fibrillation [...] hypothyroidism 10/23/2006 Allergic rhinitis, cause unspecified 10/23/2006 Resolved Problems Problem Noted Date Diagnosed Date Resolved Date Hypertensive chronic kidney disease with stage 5 chronic kidney disease or end stage renal disease 06/20/2023 05/11/2024 Cardiomyopathy, unspecified type 06/20/2023 05/11/2024 Encounters Date Type Department Care Team Description 06/15/2024 Nurse Triage [facility] [address] [place] [address] Erika Benito MD Dizziness 06/10/2024 1:25 PM [employer] Office Visit [facility] [address] [place] [address] Erika Benito MD Medicare ANNUAL (subsequent) Visit (74 yr old ) 06/10/2024 Travel 06/07/2024 8:30 AM [employer] Orders Only [facility] [address] [place] [address] Lab, [facility] 06/07/2024 Anticoagulation (warfarin) [facility] [address] [place] [address] 1, [facility] 06/07/2024 Travel 05/11/2024 11:20 AM [employer] Office Visit [facility] [address] [place] [address] Erika Benito MD Follow Up (/Trigeminal neuralgia /Arthritis of right temporomandibular joint /2 weeks ago jaw was almost at the worst pain, just the middle of last week it was getting better, Friday she had no pain at all./) 05/11/2024 Travel 05/07/2024 10:00 AM [employer] Orders Only [facility] [address] [address] [place] [address] Lab, [facility] 05/07/2024 Orders Only [facility] Scanner 1 scan: (1-Ord) [facility], MULTIPLE LABS, 05/07/2024 05/07/2024 Anticoagulation (warfarin) [facility] [address] [facility] [place] [address] 1, [facility] Anticoagulation 05/07/2024 Travel 05/06/2024 Refill [facility] [address] [place] [address] Erika Benito MD Refill Request (Amitriptyline) 05/05/2024 Telephone [facility] [address] [place] [address] Erika Benito MD Anticoagulation (Annual re-enrollment /) 04/22/2024 11:45 AM [employer] Nurse/Clinic Staff Only [facility] [address] [place] [address] Immunization/Injection (COVID-19 vaccine) 04/22/2024 11:15 AM [employer] Orders Only [facility] [address] [place] [address] Lab, Farm Lab 04/22/2024 Anticoagulation (warfarin) [facility] [address] [place] [address] 1, [facility] Anticoagulation 04/22/2024 Travel 04/08/2024 10:45 AM [employer] Office Visit [facility] [address] [place] [address] Erika Benito MD Follow Up (Steroids helped. Oxcarbazepine makes her sleepy, taking a 1/2 tab, should she continue to increase?/[facility] would like a summary letter. They are requesting, info on : Area, side effects, symptoms, treatments and outcomes.) 04/08/2024 Anticoagulation (warfarin) [facility] [address] [place] [address] 1, [facility] In[facility] Anticoagulation 04/08/2024 Travel 03/26/2024 11:00 AM [employer] Orders Only [facility] [address] [place] [address] Lab, Farm Lab 03/26/2024 Anticoagulation (warfarin) [facility] [address] [place] [address] 1, [facility]ticoagulation (Lab) 03/26/2024 Travel 03/23/2024 Telephone [facility] [address] [place] [address] Erika Benito MD Follow Up 03/19/[address] [address] Erika Benito MD Refill Request (Pantoprazole) 03/18/2024 9:05 AM [employer] Office Visit [facility] [address] [place] [address] Erika Benito MD Follow Up (CT results /Jaw concerns, hurts to talk and eat/Lyrica, did not help and made her feel outside herself.) 03/18/2024 Travel 03/15/2024 Telephone [facility] [address] [place] [address] Erika Benito MD Results from Last 3 Months Immunizations Name Administration Dates Next Due AMB Influenza, IIV3 (Age >=3 years)(Flu Clinic Only) 02/04/2012,02/19/2011,02/27/2010,2007 AMB Influenza, IIV4 PF (=>6 mos Flulaval,Fluzone Fluarix)(Flu Clinic Only) 02/05/2014 Amb Influenza, Inact (High-d ose) (Flu Clinic Only) 02/10/2015 COVID-19 VACCINE SPIKEVAX (M ODERNA 50MCG/0.5ML) 12YO+ PFS 04/22/2024 COVID-19 vaccine (Moderna 100mcg/0.5mL) PF, MDV 07/24/2020,06/26/2020 COVID-19 vaccine ([employer]Bio NTech 30mcg/0.3mL) 12YO+ BIVALENT PF, MDV 03/14/2022 COVID-19 vaccine (Pfizer-Bio NTech 30mcg/0.3mL) PF, MDV 03/07/2021 Influenza Virus, Unspecified 02/07/2022, 02/12/2021,02/04/2019,2017,03/12/2017,02/07/2017,02/14/2016,1 ,03/03/2013,02/04/2012, 011,02/27/2010,01/26/2009,02/18/2008,,03/29/2004,02/22/2003 Influenza, High-dose Inactivated 017,02/07/2017,02/14/2016,2014 Influenza, High-dose Quadriv alent Inactivated 02/24/2023,02/04/2020 Influenza, IIV3 (Age 6-35 mos) 02/19/2011 Influenza, IIV3 (Age >=3 years) 03/03/20 13,02/04/2012,02/27/2010,2008,02/18/2008,03/16/2005,03/29/2004,1 Influenza, IIV4 02/05/2014 Influenza, Inactivated AIIV4 (Age 65+ Years) Preserv Free 02/07/2022,02/12/2021 Influenza, Inactivated IIV3 (Age 65+ Years) Preserv Free 03/04/2024,02/04/2019,02/24/2018 Pneumococcal Poly,23-Valent (Pneumovax) 03/12/2017,02/07/2017 Pneumococcal conj 13-Valent [...] Never Smokeless Tobacco: Never Tobacco Cessation:Counseling Given: Yes Alcohol Use Standard Drinks/Week Comments Not Currently 0 (1 standard drink = 0.6 oz pur e alcohol) seldom PHQ-2 Answer Date Recorded PHQ-2 TOTAL SCORE 0 06/10/2024 Social Connections Answer Date Recorded Do you often feel lonely or isolated from those around you? 0 02/17/2024 Financial Resource Strain Answer Date R ecorded Difficulty of Paying Living Expenses 3 02/17/2024 Difficulty of Paying Living Expenses Not on file 02/17/2024 Food Insecurity Answer Date Recorded Do you worry your food will run out before you are able to buy more? 1 02/17/2024 Transportation Needs Answer Date Record ed Does lack of transportation keep you from medica l appointments? 1 02/17/2024 Does lack of transportation keep you from work, meetings or getting things that you need? 1 02/17/2024 Housing Stability Answer Date Recorded What is your housing situation today? 1 02/17/2024 Utilities Answer Date Recorded Do you have trouble paying f or utilities (for example, heat, electricity, water, phone)? 1 02/17/2024 Comments No Sex and Gender Information Value Date Recorded Sex Assigned at Female 06/14/2020 2:36 PM [employer] Legal Sex Female 5:20 AM [employer] Gender Identity Female 06/14/2020 2:36 PM [employer] Sexual Orientation Not on file Obstetrics History Last Filed Vital Signs Vital Sign Reading Time Taken Comments Blood Pressure 153/81 06/10/2024 1:35 PM [employer] Pulse 67 06/10/2024 1:35 PM [employer] Temperature 36.4 C (97.5 F) 06/10/2024 1:35 PM [employer] Respiratory Rate 16 05/15/2022 1:11 PM [employer] Oxygen Saturation 98% 06/10/2024 1:35 PM [employer] Inhaled Oxygen Concentration - - Weight 73.9 kg (163 lb) 06/10/2024 1:35 PM [employer] Height 164 cm (5' 4.57) 06/10/2024 1:35 PM [employer] Body Mass Index 27.49 06/10/2024 1:35 PM [employer] Plan of Treatment Upcoming Encounters Date Type Department Care Team (Late st Contact Info) Description 06/15/2024 11:30 AM [employer] Orders Only [facility] [address] [place] [address] [place] 07/06/2024 1:00 PM CDT Office Visit [facility] [address] [place] [address] Erika Benito MD [address] [place] [address] 08/17/2024 1:30 PM CDT Office Visit [facility] [address] [place] [phone] Yuri Castro MD [address] [facility] [address] 09/07/2024 9:00 AM CDT Orders Only [facility] [address] [place] [address] Lab, [place] Health Maintenance Due Date Last Done Comments Zoster (shingles) series for age 50+ (2 of 3) 03/23/2012 01/27/2012, 10/14/2011 RSV vaccine for adults or (1 - 1-dose 75+ series) 2024 Tetanus booster 01/04/2025 01/04/2015, 11/2005, 10/02/2005, Additional history exists BMI (ht and wt on same day) for age 18+ 06/10/2025 06/10/2024, 08/05/2023, 10/10/2022, Additional history exists Depression screening for age 12+ 06/10/2025 06/10/2024, 05/06/2023, 05/06/2023, Additional history exists Medicare Wellness for age 65+ 06/11/2025 06/10/2024, 07/10/2020 Lipids for age 45-75 06/07/2029 06/07/2024, 11/30/2021, 08/21/2020, Additional history exists Colonoscopy through age 75 05/19/203005/19, 05/19/2023, 05/19/2023, Additional history exists Tdap Completed 01/04/2015, 10/03/2005 DEXA/DXA scan for age 65+ Completed 01/24/2015 Pneumococcal series for age 50+ Completed 03/12/2017, 02/07/2017, 01/24/2015 Hepatitis C screening for ag e 18-79 Completed 08/21/2020 Influenza for age 65+ Completed 03/04/2024 , 02/24/2023, 02/07/2022, Additional history exists COVID-19 vaccine series Completed 04/22/20 24, 05/12/2023, 03/14/2022, Additional history exists Procedures Procedure Name Priority Date/Time Associated Diagnosis Comments TSH WITH REFLEX Routine 06/07/2024 8:36 AM [employer] Hypothyroidism (acquired) CBC WITH AUTO DIFFERENTIAL Routine 06/07/2024 8:36 AM [employer] Paroxysmal atrial fibrillation (HC) BASIC METABOLIC PANEL Routine 06/07/2024 8:36 AM [employer] Paroxysmal atrial fibrillation (HC) LIPID PANEL W REFLEX MEASURED LDL Routine 06/07/2024 8:36 AM [employer] Lipid screening PROTIME-INR Routine 06/07/2024 8:33 AM [employer] Paroxysmal atrial fibrillation (HC) Anticoagulation monitoring, INR range 2-3 Paroxysmal supraventricular tachycardia (HC) INR,POCT Routine 05/07/2024 9:57 AM [employer] Paroxysmal atrial fibrillation (HC) Anticoagulation monitoring, INR range 2-3 Paroxysmal supraventricular tachycardia (HC) SCAN-LABORATORY REPORT 05/07/2024 12:00 AM [employer]ISER [employer] INR,POCT Routine 04/22/2024 11:15 AM [employer] Paroxysmal atrial fibrillation (HC) Anticoagulation monitoring, INR range 2-3 Paroxysmal supraventricular tachycardia (HC) INR,POCT Routine 04/08/2024 11:56 AM [employer] Paroxysmal atrial fibrillation (HC) Anticoagulation monitoring, INR range 2-3 Paroxysmal supraventricular tachycardia (HC) INR,POCT Routine 03/26/2024 10:41 AM [employer] Paroxysmal atrial fibrillation (HC) Anticoagulation monitoring, INR range 2-3 Paroxysmal supraventricular tachycardia (HC) COLONOSCOPY DIAGNOSTIC Routine 05/19/2023 8:19 AM [employer] Chronic diarrhea ANTI HCV Routine 08/21/2020 7:12 AM CDT Need for hepatitis C screening test XR DXA BONE DENSITY 2 SITES AXIAL Routine 01/24/2015 4:13 PM CDT Gastroesophageal reflux disease with esophagitis Post-menopausal from Last 3 Months or Most Recently Relevant to Health Maintenance Results * TSH WITH REFLEX (06/07/2024 8:36 AM [employer]) TSH W/REFLEX TO FT4 2.45 0.40 - 4.50 mIU/L [facility] Blood BLOOD SPECIMEN / Unknown 06/07/2024 8:36 AM [employer] 06/07/2024 8:36 AM [employer] Narrative [facility] - 06/08/2024 5:01 AM [employer]ISER [employer] FASTING:NO FASTING: NO Erika Benito MD CHEMISTRY Final Result [facility] [address] [place] [address], [facility] [address] [place] [address] * (ABNORMAL) LIPID PANEL W REFLEX MEASURED LDL (06/07/2024 8:36 AM [employer]) Pathologist [facility] CHOLESTEROL, TOTAL 264(H) <200 mg/dL [facility] HDL CHOLESTEROL 35(L) > OR = 50 mg/dL [facility] TRIGLYCERIDES 256(H) <150 mg/dL [facility] Comment: If a non-fasting specimen was collected, consider repeat triglyceride testing on a fasting specimen if clinically indicated. Kumar et al. J. of Clin. Lipidol. 2015;9:129-169. LDL-CHOLESTEROL 183(H) mg/dL (calc) [facility] Comment: Reference range: <100 Desirable range <100 mg/dL for primary prevention; <70 mg/dL for patients with CHD or diabetic patients with > or = 2 CHD risk factors. LDL-C is now calculated using the Wil-Robson calculation, which is a validated novel method providing better accuracy than the Friedewald equation in the estimation of LDL-C. Wil SLADE et al. IMMANUEL. 2013;310(19): 8542-6332 (http://education.iMega.[employer]ZZ Networks/faq/AXA474) CHOL/HDLC RATIO 7.5(H) <5.0 (calc) [facility] NON HDL CHOLESTEROL 229(H) <130 mg/dL (calc) [facility] Comment: Non-HDL level > or = 220 is very high and may indicate genetic familial hypercholesterolemia (FH). Clinical assessment and measurement of blood lipid levels should be considered for all first-degree relatives of patients with an FH diagnosis. For patients with diabetes plus 1 major ASCVD risk factor, treating to a non-HDL-C goal of <100 mg/dL (LDL-C of <70 mg/dL) is considered a therapeutic option. Blood BLOOD SPECIMEN / Unknown 06/07/2024 8:36 AM [employer] 06/07/2024 8:36 AM [employer] Narrative [facility] - 06/08/2024 4:42 AM [employer] FASTING:NO FASTING: NO Erika Benito MD CHEMISTRY Final Result [facility] [address] [place] [address], [facility] [address] [place] [address] * (ABNORMAL) CBC AND DIFFERENTIAL (06/07/2024 8:36 AM [employer]ISER [employer]) [facility] WHITE BLOOD CELL COUNT 5.0 3.8 - 10.8 Thousand/u L [facility] RED BLOOD CELL COUNT 4.69 3.80 - 5.10 Million/uL [facility] HEMOGLOBIN 12.0 11.7 - 15.5 g/dL [facility] HEMATOCRIT 38.1 35.0 - 45.0 % [facility] MCV 81.2 80.0 - 100.0 fL [facility] MCH 25.6(L) 27.0 - 33.0 pg [facility] MCHC 31.5(L) 32.0 - 36.0 g/dL [facility] Comment: For adults, a slight decrease in the calculated MCHC value (in the range of 30 to 32 g/dL) is most likely not clinically significant; however, it should be interpreted with caution in correlation with other red cell parameters and the patient's clinical condition. RDW 15.4(H) 11.0 - 15.0 % [facility] PLATELET COUNT 349 140 - 400 Thousand/u L [facility] MPV 9.8 7.5 - 12.5 fL [facility] ABSOLUTE NEUTROPHILS 2,735 1,500 - 7,800 cells/uL [facility] ABSOLUTE LYMPHOCYTES 1,670 850 - 3,900 cells/uL [facility] ABSOLUTE MONOCYTES 455 200 - 950 cells/uL [facility] ABSOLUTE EOSINOPHILS 90 15 - 500 cells/uL [facility] ABSOLUTE BASOPHILS 50 0 - 200 cells/uL [facility] NEUTROPHILS 54.7 % [facility] LYMPHOCYTES 33.4 % [facility] MONOCYTES 9.1 % [facility] EOSINOPHILS 1.8 % [facility] BASOPHILS 1.0 % [facility] Blood BLOOD SPECIMEN / Unknown 06/07/2024 8:36 AM [employer] 06/07/2024 8:36 AM [employer] Narrative [facility] - 06/08/2024 2:20 AM APPRAISER REAL [employer] FASTING:NO FASTING: NO Erika Benito MD HEMATOLOGY Final Result [facility] [address] [place] [address], [facility] [address] * (ABNORMAL) BASIC METABOLIC PANEL (06/07/2024 8:36 AM [employer]ISER [employer]) [facility] GLUCOSE 102 65 - 139 mg/dL [facility] Comment: Non-fasting reference interval UREA NITROGEN (BUN) 21 7 - 25 mg/dL [facility] CREATININE 1.41(H) 0.60 - 1.00 mg/dL [facility] EGFR 39(L) > OR = 60 mL/min/1.7 3m2 [facility] BUN/CREATININE RATIO 15 6 - 22 (calc) [facility] SODIUM 137 135 - 146 mmol/L [facility] POTASSIUM 4.5 3.5 - 5.3 mmol/L [facility] CHLORIDE 104 98 - 110 mmol/L [facility] CARBON DIOXIDE 26 20 - 32 mmol/L [facility] ELECTROLYTE BALANCE 7 7 - 17 mmol/L (calc) [facility] CALCIUM 9.7 8.6 - 10.4 mg/dL [facility] Blood BLOOD SPECIMEN / Unknown 06/07/2024 8:36 AM [employer] 06/07/2024 8:36 AM [employer]ISER [employer] Narrative [facility] - 06/08/2024 4:42 AM [employer]ISER [employer] FASTING:NO FASTING: NO us Erika Benito MD CHEMISTRY Final Result [facility] [address] [place] [address], [facility] [address] * (ABNORMAL) PROTIME-INR [[id number]] - Standing Order (06/07/2024 8:33 AM [employer]ISER [employer]) INR 1.4(H) <1.3 06/07/2024 3:02 PM [employer]ISER REAL [employer]STATE [facility] PROTIME 15.6(H) 10.6 - 12.4 sec 06/07/2024 3:02 PM APPRAISER REAL ESTATE [facility] Blood BLOOD SPECIMEN / Unknown [facility] / Unknown 06/07/2024 8:33 AM [employer]ER [employer] 06/07/2024 8:33 AM [employer]ER REAL [employer] Narrative [facility] - 06/07/2024 3:02 PM [employer]ISER REAL [employer] Therapeutic Range 2.0-3.0 for most anticoagulated patients 2.5-3.5 or 4.0 for high risk patients The INR is only used for patients on stable oral anticoagulant therapy. It makes no significant contribution to the diagnosis or treatment of patients whose Protime is prolonged for other reasons. INR results are increased when heparin levels exceed 1.0 U/mL, which corresponds to an aPTT >125 seconds if the patient is on UFH. Erika Benito MD HEMATOLOGY Final Result Performing Organization Address City/[facility]/ZIP Co de Phone Number [facility] [address] [place] [address], [place] * (ABNORMAL) INR - POCT [[id number]] - Standing Order (05/07/2024 9:57 AM [employer]ER [employer]) Only the most recent of4 resultswithin the time period is included. INR 2.2(H) ratio Comment: INRs >2.9 may be falsely elevated in patients receiving either unfractionated Heparin or Low Molecular Weight Heparin. Follow up testing in a hospital laboratory may be helpful if clinically indicated. INR results of > or = 5.0 should be verified using the standard venipuncture procedure. Reference Range 0.9-1.1 Moderate-intensity Warfarin Therapy 2.0-3.0 Higher-intensity Warfarin Therapy 3.0-4.0 PROTHROMBIN TIMEP 26.3(H) 10.5 - 13.1 sec Comment: Point of care fingerstick Prothrombin Time/INR results may vary from venous Prothrombin Time/INR methodologies. Any results exhibiting inconsistency with the patient's clinical status should be repeated using a venous Prothrombin Time/INR method. Blood BLOOD SPECIMEN / Unknown 05/07/2024 9:57 AM [employer] 05/07/2024 9:57 AM [employer]ER [employer] Erika Benito MD LABORATORY Final Result Performing Organization Address [facility]/ZIP Co de Phone Number [facility] [address] [place] [address], [address] [place] [address] * SCAN-LABORATORY REPORT (05/07/2024 12:00 AM APPRAISER REAL ESTATE) us Scanner OTHER Final Result * SCAN-COLONOSCOPY (05/19/2023 12:00 AM APPRAISER REAL ESTATE) us Scanner OTHER Final Result * ANTI HCV [[id number]] (08/21/2020 7:12 AM CDT) HEPATITIS C ANTIBODY Non-React lucretia Non-React lucretia 08/21/2020 3:26 PM CDT [facility] Comment:Antibodies to HCV no t detected; does not exclude the possibility of exposure to HCV. Blood BLOOD SPECIMEN / Unknown Butterfly / Unknown 08/21/2020 7:12 AM CDT 08/21/2020 7:15 AM CDT us Palomo Andino MD SEND OUTS Final Resu lt [facility] [address] [place] [address], [place] * (ABNORMAL) XR DXA BONE DENSITY 2 SITES (01/24/2015 4:13 PM CDT) Anatomical Region Laterality Modality Spine, HIPS, HIPL, HIPR Other Narrative 01/27/2015 4:50 PM CDT Please see scanned document for results of this study. us Erika Benito MD DEXA Final Result from Last 3 Months or Most Recently Relevant to Health Maintenance Insurance MEDICARE PART B HB ONLY [facility] MEDICARE PB ONLY [facility] Advance Directives * Full Code (Latest Code Status on File) Date Activated Date Inactivated Comments 12/03/2021 3:15 PM 12/04/2021 1:02 PM Question Answer Comments Code Status Discussion: Reviewed Preferences * Full Code Date Activated Date Inactivated Comments 11/10/2013 6:11 AM 11/10/2013 4:20 PM Care Teams Shaper Hand Relationship Specialty Start Date End Date Erika Benito MD [address] [place] [address] PCP - General Family Practice 05/15/21 Radha Trinidad MD Dermatology Dermatology 11/24/13 Gerald Perez MD [address] [place] [address] Consulting Physician Cardiology - Electrophysiology 07/25/21
--- OUTSIDE RECORDS SUMMARY | 2024-06-15 09:17 | XMS_ITS | Encounter Summary ---
Author Organization [place] Address [address] [facility] [place] [address] Care Team Providers Care Pearl Cutter Name Role Phone Erika Benito Primary Care Provider [phone] Encounter Details Date Type Department Care Team (Late st Contact Info) Description 08/05/2023 MyC Medical Advice Initial Department Alexx Kathleen Social History Tobacco Use Types Packs/Day Years Used Date Smoking Tobacco: Never Alcohol Use Standard Drinks/Week Comments No 0 (1 standard drink = 0.6 oz pur e alcohol) Adolescent Education Answer Date Record ed Getting School Help Needed Not on file 02/01 Comments Unknown Sex and Gender Information Value Date Recorded Sex Assigned at Not on file Legal Sex Female 3:08 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
--- OUTSIDE RECORDS SUMMARY | 2024-06-15 09:17 | XMS_ITS | Clinical Summary ---
Author Organization [place] Address [address] [facility] [place] [address] Care Team Providers Care Supervisor Shipfitters Name Role Phone Erika Benito Primary Care Provider [phone] Allergies Active Allergy Reactions Criticality Noted Date [...] 12/09/2021 Sulfa Antibiotics Rash Low 07/03/2012 Medications MECLIZINE HCL Take 25-50 mg by mouth as needed. Active metoprolol succinate ER (TOPROL XL) 50 MG 24 hr tablet Take 75 mg by mouth 2 times daily 1.5 X 50MG= 75MG BID Active diclofenac (VOLTAREN) 1 % topical gel Apply topically 4 times daily Active levothyroxine (SYNTHROID/LEVOTHR OID) 112 MCG tablet Take 112 mcg by [...] times daily Active acetaminophen (TYLENOL) 325 MG tabletIndications: Status post total knee replacement, left Take 3 tablets (975 mg) by mouth every 6 hours as needed for mild pain 100 tablet 4 Active warfarin ANTICOAGULANT (COUMADIN) 5 MG tablet Take 1 tablet (5 mg) by mouth daily 4 Active losartan (COZAAR) 100 MG tabletIndications: Status post total knee replacement, left Take 1 [...] 25 mg by mouth daily. Active senna-docusate (SENOKOT-S/PERICOL SHARLENE) 8.6-50 MG tabletIndications: Status post total knee replacement, left Take 1-2 tablets by mouth 2 times daily. Take while on oral narcotics to prevent or treat constipation. 30 tablet 4 Active acetaminophen (TYLENOL) 325 MG tabletIndications: Status post total knee replacement, left Take 3 tablets (975 mg) by mouth every 6 hours as needed for mild pain. 100 tablet 4 Active oxyCODONE (ROXICODONE) 5 MG tabletIndications: Status post total knee replacement, left Take 1 tablet (5 mg) by mouth every 6 hours as needed for pain. May take half to one tablet every 4 to 6 hours. Max 6 tabs in one day. 30 tablet 4 Active Active Problems Problem Noted Date Diagnosed Date [...] you bought just not last and you didn t have money to get more? No 01/02/2024 Housing Stability Answer Date Recorded Do you have housing? (Griffin clements is defined as stable permanent housing and does not include staying ouside in a car, in a tent, in an abandoned building, in an overnight halfway, or couch-surfing.) No 01/02/2024 Are you worried [...] by your partner or ex-partner? 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 Gender Identity Not on file Sexual Orientation Not on file Last Filed Vital Signs Vital Sign Reading Time Taken Comments Blood Pressure 155/80 01/04/2024 7:38 AM CDT Pulse 79 01/04/2024 7:38 AM CDT Temperature 36.8 C (98.2 F) 01/04/2024 7:38 AM CDT Respiratory Rate 16 01/04/2024 2:14 PM CDT [...] OF HM ORDERS 1950 CT COLONOGRAPHY 1949 FIT 1949 FLEX SIG 1949 sDNA (Cologuard) 1949 LIPID 1989 ZOSTER IMMUNIZATION (2 of 3) 03/23/2012 01/27/2012, 10/14/2011 FALL RISK ASSESSMENT 2014 MEDICARE ANNUAL WELLNESS VISIT 07/10/2021 07/10/2020 COVID-19 Vaccine ( season) 2023 05/12/2023, 03/14/2022, 03/07/2021, Additional history exists INFLUENZA VACCINE (#1) 2023 , 02/07/2022, 02/12/2021, Additional history exists PHQ-2 (once per calendar year) 2024 RSV VACCINE (1 - 1-dose 75+ series) 2024 TSH W/FREE T4 REFLEX 08/22/2024 08/23/2023 DTAP/TDAP/TD IMMUNIZATION (3 - Td or Tdap) 01/04/2025 01/04/2015, 10/03/2005, 10/02/2005, Additional history exists GLUCOSE 01/02/2027 01/03/2024, 10/2023, 01/02/2024, Additional history exists ADVANCE CARE PLANNING 09/07/2028 09/08/2023 DEXA 01/24/2030 01/24/2015 COLONOSCOPY 05/19/2033 05/19/2023 COLORECTAL CANCER SCREENING 05/19/2033 Pneumococcal Vaccine: 50+ Years Completed 03/12/2017, 02/07/2017, 01/24/2015 HEPATITIS C SCREENING Completed 08/21/2020 MAMMO SCREENING Discontinued 09/30/2023, 08/27, 09/10/2021, Additional history exists HPV IMMUNIZATION Aged Out No longer e ligible based on patient's age to complete this topic MENINGITIS IMMUNIZATION Aged Out No l onger eligible based on patient's age to complete this topic Goals Goal Patient Goal Type Associated Problems Recent Progress Patient-Stated? Author Total Joint Replacement Hip Pathway Care Plan Total Joint Replacement Hip Pathway No [employer] Implanted Type Area Senior Medical Writer Device Identifier Shelf Expiration Date Model / Serial / Lot Bone Cement Radiopaque Simplex Hv Full Dose 6194-1-001 - [id number] Implanted:Qty : 2 on 08/21/2023 by Kirby Escudero MD at [facility] Cement, Bone Left: Knee [employer] 07/26/2024 6194-1-001 / / [id number] Cement Bn Smplx Hv Full Dose - [id number] Implanted:Qty : 2 on 01/02/2024 by Kirby Escudero MD at [facility] Cement, Bone Right: Knee [employer] [id number] 07/26/2024 6194-1-001 / / [id number] Imp Tib Base Jj Attune Fx Br Sys Janusz Sz3 1506-70-003 - [id number] Implanted:Qty : 1 on 08/21/2023 by Kirby Escudero MD at [facility] Total Joint Componen t/Insert Left: Knee [employer]- [id number] 02/25/2033 [id number] / / [id number] Imp Patella Jj Attune Dome 35mm [id number] - [id number] Implanted:Qty : 1 on 08/21/2023 by Kirby Escudero MD at [facility] Total Joint Componen t/Insert Left: Knee [employer] [id number] 04/27/2028 [id number] / / [id number] Imp Comp Fem Jj Attune Cr Lt Nrw Janusz Sz5 [id number] - [id number] Implanted:Qty : 1 on 08/21/2023 by Kirby Escudero MD at [facility] Total Joint Componen t/Insert Left: Knee [employer] [id number] 02/25/2033 [id number] / / [id number] Insert Tib 5 6mm Kn Lt Crcte Rtn Mdl Stab Attune [id number] - [id number] Implanted:Qty : 1 on 08/21/2023 by Kirby Escudero MD at [facility] Total Joint Componen t/Insert Left: Knee [employer] [id number] 06/26/2031 [id number] / / [id number] Insert Tib 6 6mm Kn Rt Crcte Rtn Mdl Stab Attune [id number] - [id number] Implanted:Qty : 1 on 01/02/2024 by Kirby Escudero MD at [facility] Total Joint Componen t/Insert Right: Knee [employer] [id number] 03/27/2031 [id number] / / [id number] Imp Patella Jj Attune Dome 35mm [id number] - [id number] Implanted:Qty : 1 on 01/02/2024 by Kirby Escudero MD at [facility] Total Joint Componen t/Insert Right: Knee [employer]- [id number] 08/26/2031 [id number] / / [id number] Imp Tib Base Jj Attune Fx Br Sys Janusz Sz4 [id number] - [id number] Implanted:Qty : 1 on 01/02/2024 by Kirby Escudero MD at [facility] Total Joint Componen t/Insert Right: Knee [employer]- [id number] 05/28/2033 [id number] / / [id number] Imp Comp Fem Jj Attune Cr Rt Nrw Janusz Sz6 [id number] - [id number] Implanted:Qty : 1 on 01/02/2024 by Kirby Escudero MD at [facility] Total Joint Componen t/Insert Right: Knee [facility]- [id number] 06/25/2033 [id number] / / [id number] Procedures Procedure Name Priority Date/Time Associated Diagnosis Comments BASIC METABOLIC PANEL Routine 01/03/2024 7:03 AM CDT MA SCREENING BILATERAL W/ HAKAN Routine 09/30/2023 10:12 AM CDT Visit for screening mammogram TSH Add-On 08/23/2023 8:08 AM CDT from Last 3 Months or Most Recently Relevant to Health Maintenance Results * (ABNORMAL) Basic metabolic panel (01/03/2024 7:03 [...] De La Torre MD LAB - BLOOD ORDERABLES Final Result LABORATORY [facility] [address] floor, [address] [place] [address], [facility] [phone] * MA Screen Bilateral w/Hakan (09/30/2023 10:12 [...] Compared to: 09/16/2022, 09/10/2021, and 08/31/2020 Technique: This study was evaluated with the assistance of Computer-Aided Detection. Breast Tomosynthesis was used in interpretation. Findings: The breasts are heterogeneously dense, which may obscure small masses. There is no radiographic evidence of malignancy. Theodore Murillo MD IMG MAMMOGRAPHY ORDERABL ES Final Result * TSH (08/23/2023 8:08 AM CDT) TSH 1.26 0.30 - 4.20 uIU/mL 08/23/2023 1:33 PM CDT LABORATORY Blood STRUCTURE OF RIGHT UPPER LIMB / Unknown Venipuncture / Unknown 08/23/2023 8:08 AM CDT 08/23/2023 8:40 AM CDT Tracy Garcia MD LAB - BLOOD ORDERABLES Final Result LABORATORY [facility] 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
--- OUTSIDE RECORDS SUMMARY | 2024-06-15 09:17 | XMS_ITS | Encounter Summary ---
Author Organization [place] Address [facility] [facility] 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
[2024-06-15 09:47] LABS: Basophils Absolute Auto 0.04 K/uL (0.00-0.30); Basophils Percent Auto 0.4 % (0.0-3.0); Eosinophils Percent Auto 1.1 % (0.0-7.0); Hematocrit 36.1 % (33.0-51.0); Hemoglobin* 11.3 gm/dL (12.0-16.0); Immature Granulocytes Abs Auto 0.02 K/uL (0.00-0.30); Immature Granulocytes Pct Auto 0.2 %; Lymphocytes Percent Auto 13.7 % (20-44); Mean Corpuscular HGB Conc 31 gm/dL (32-36); Mean Corpuscular Hemoglobin 26 pg (26-34); Mean Corpuscular Volume 82 fL (80-100); Monocytes Percent Auto 5.1 % (0.0-11.0); Neutrophils Percent Auto 79.5 % (42.0-72.0); Platelet Count* 267 K/uL (140-440); RDW Coefficient of Variation % 15.4 % (11.5-15.5); Red Blood Count 4.43 m/uL (4.00-5.20); White Blood Count* 9.22 K/uL (4.50-11.00)
[2024-06-15 09:54] LABS: Slide Review Reflex No
[2024-06-15 09:55] LABS: Appearance Urine Cloudy (Clear); Bilirubin Urine Negative (Negative); Blood Urine Trace-intact (Negative); Color Urine Light yellow (Yellow); Glucose Urine Negative (Negative); Ketones Urine Negative (Negative); Leukocyte Esterase Urine 1+ (Negative); Nitrite Urine Positive (Negative); Protein Urine Negative (Negative); Specific Gravity Urine 1.015 (1.000-1.030); Urobilinogen Urine 0.2 (0.2-1.0)
[2024-06-15 09:56] LABS: Chloride* 106 mmol/L (96-114); Potassium* 4.4 mmol/L (3.6-5.1); Sodium* 137 mmol/L (135-149)
[2024-06-15 09:59] LABS: Anion Gap 8 mEq/L (7-15); Carbon Dioxide* 23 mmol/L (20-32); Creatinine* 1.3 mg/dL (0.5-1.5); Estimated Glomerular Filt Rate 43 ml/min; INR 1.37 (0.91-1.10); Prothrombin Time 17.8 Seconds
[2024-06-15 10:00] LABS: Blood Urea Nitrogen* 22 mg/dL (7-30); Calcium* 9.5 mg/dL (8.4-10.6); Glucose* 95 mg/dL (60-115)
[2024-06-15 10:01] LABS: Bacteria Urine Many; Squamous Epithelial Cell Urine Few (None-Few)
== END 2024-06-15 12:35 | disposition home or self-care (01) ==
PROVIDERS: Emergency Provider Emergency Medicine; PCP Family Medicine
DX: H81.392 Other peripheral vertigo, left ear (principal); I48.91 Unspecified atrial fibrillation; R68.89 Other general symptoms and signs; Z79.01 Long term (current) use of anticoagulants
CPT/HCPCS: 36415; 70551; 80048; 81001; 84443; 84484; 85025; 85610; 87086; 93005; 99284; 99285